=== PATIENT | male | born 1950 | race Hispanic/Latino ===

== ENCOUNTER 2018-01-07 12:40 | Emergency (ER) | payer OTHER ==
--- OUTSIDE RECORDS SUMMARY | 2018-01-07 12:41 | XMS REPORT ---
:1950 [facility] Address [facility] [address] Ale[address]andro [address] [place] [id number] Care Team Providers Name Role Phone Unavailable Unavailable Unavailable Problems This patient has no known problems. Allergies, Adverse Reactions, Alerts This patient has no known allergies or adverse reactions. Medications This patient has no known medications.
--- NOTE | 2018-01-07 16:02 | ER ---
Nurse's Notes [facility] Name: Adelaida Ramirez Age: 67 yrs Sex: Male : 1950 Arrival Date: 01/07/2018 Time: 12:41 Bed 28 Private MD: Diagnosis: Zoster [herpes zoster] Presentation: 01/07 12:57 Presenting complaint: Patient states: Rash to buttocks for 4 days. Believed to be aj poison chang. Transition of care: patient was not received from another setting of care. Onset of symptoms was January 03, 2018. Risk Assessment: Do you want to hurt yourself or someone else? Patient reports no desire to harm self or others. Initial Sepsis Screen: Does the patient meet any 2 criteria? No. Patient's initial sepsis screen is negative. Does the patient have a suspected source of infection? No. Patient's initial sepsis screen is negative. Care prior to arrival: None. 12:57 Method Of Arrival: Ambulatory 12:57 Acuity: PATRICK 4 aj Triage Assessment: 13:01 General: Appears in no apparent distress. comfortable, Behavior is calm, cooperative, aj appropriate for age. Pain: Denies pain. Neuro: Level of Consciousness is awake, alert, obeys commands, Oriented to person, place, time, situation, Appropriate for age. Respiratory: Airway is patent Respiratory effort is even, unlabored, Respiratory pattern is regular, symmetrical. Derm: Reports itching, to buttocks. Historical: - Allergies: 13:01 No Known Allergies; aj - Home Meds: 13:01 amantadine HCl 100 mg Oral tab 1 tab 2 times per day [Active]; Butalbital Compound aj 50-325-40 mg Oral tab 1 tab every 4 hours [Active]; apixaban oral 2.5mg oral 2 times per day [Active]; atorvastatin 10 mg oral tab 1 tab once daily [Active]; donepezil 10 mg oral tab [Active]; escitalopram oxalate 10 mg oral tab [Active]; fenofibrate 150 mg oral cap 1 cap once daily [Active]; levetiracetam 500 mg oral tab 1 tab 2 times per day [Active]; lisinopril 10 mg Oral tab 1 tab once daily [Active]; melatonin 3 mg Oral tab [Active]; metformin 500 mg Oral tab 1 tab 2 times per day [Active]; mirtazapine 30 mg Oral tab 1 tab once daily [Active]; pantoprazole 40 mg oral TbEC 1 tab once daily [Active]; tamsulosin 0.4 mg oral cp24 1 cap once daily [Active]; - PMHx: 13:01 Diabetes - NIDDM; Hypertension; CVA; aj - PSHx: 13:01 None; aj - Immunization history:: Adult Immunizations up to date. - Social history:: Smoking status: Patient/guardian denies using tobacco. - Ebola Screening: : Patient negative for fever greater than or equal to 101.5 degrees Fahrenheit, and additional compatible Ebola Virus Disease symptoms Patient denies exposure to infectious person Patient denies travel to an Ebola-affected area in the 21 days before illness onset No symptoms or risks identified at this time. Screenin:43 Abuse screen: Denies threats or abuse. Denies injuries from another. Nutritional mg2 screening: No deficits noted. Tuberculosis screening: No symptoms or risk factors identified. Fall Risk None identified. Assessment: 15:43 General: Appears in no apparent distress. comfortable, Behavior is calm, cooperative. mg2 Pain: Complains of pain in left buttock and left thigh Pain does not radiate. Pain currently is 4 out of 10 on a pain scale. Quality of pain is described as aching, Pain began gradually, 2-3 days ago. Is intermittent. Neuro: Level of Consciousness is awake, alert, obeys commands, Oriented to person, place, time, situation. Cardiovascular: Capillary refill < 3 seconds Patient's skin is warm and dry. Respiratory: Airway is patent Respiratory effort is even, unlabored, Respiratory pattern is regular, symmetrical. GI: No signs and/or symptoms were reported involving the gastrointestinal system. : No signs and/or symptoms were reported regarding the genitourinary system. EENT: No signs and/or symptoms were reported regarding the EENT system. Derm: Skin is intact, Skin is pink, warm \T\ dry. normal, Rash noted that is red, raised, urticaria. Musculoskeletal: No signs and/or symptoms reported regarding the musculoskeletal system. 16:17 Reassessment: Patient appears in no apparent distress at this time. Patient and/or mg2 family updated on plan of care and expected duration. Pain level reassessed. Patient is alert, oriented x 3, equal unlabored respirations, skin warm/dry/pink. Vital Signs: 13:01 BP 140 / 66; Pulse 84; Resp 17; Temp 98.6; Pulse Ox 97% on R/A; Weight 81.65 kg; Height aj 5 ft. 8 in. (172.72 cm); 16:17 BP 118 / 63; Pulse 85; Resp 18; Pulse Ox 100% on R/A; Pain 4/10; mg2 13:01 Body Mass Index 27.37 (81.65 kg, 172.72 cm) ED Course: 12:41 Patient arrived in ED. rg4 12:57 Triage completed. aj 13:01 Arm band placed on right wrist. Patient placed in waiting room, Patient notified of wait time. 14:51 Eze Menjivar PA is PHCP. pedro 14:51 Jaziel Wharton MD is Attending Physician. [facility] 15:39 Joe Rudolph, RN is Primary Nurse. mg2 15:43 No provider procedures requiring assistance completed. mg2 15:45 Patient has correct armband on for positive identification. Bed in low position. Call mg2 light in reach. Pulse ox on. NIBP on. 16:18 Patient did not have IV access during this emergency room visit. mg2 Administered Medications: No medications were administered Outcome: 16:01 Discharge ordered by . [facility] 16:18 Discharged to home ambulatory. mg2 16:18 Condition: stable 16:18 Discharge instructions given to patient, Instructed on discharge instructions, follow up and referral plans. Demonstrated understanding of instructions, follow-up care, medications, Prescriptions given X 1. 16:19 Patient left the ED. mg2 Signatures: Roro Miguel, RN RN Eze Brito PA PA jmm Garcia, Rubi 4 Joe Rudolph, RN RN mg2
--- NOTE | 2018-01-07 16:02 | EDPHYS ---
Physician Documentation [facility] Name: Adelaida Ramirez Age: 67 yrs Sex: Male : 1950 Arrival Date: 01/07/2018 Time: 12:41 Bed 28 Private MD: ED Physician Jaziel Wharton HPI: 01/07 15:56 This 67 yrs old Male presents to ER via Ambulatory with complaints of POISON jmm LIT. 15:56 The patient's rash thought to be caused by an unknown cause. The rash is located on the jmm right leg. Onset: The symptoms/episode began/occurred gradually, 3 day(s) ago. Associated signs and symptoms: Pertinent positives: itching, Pain. This is a 67 year old male with history of DM that presents to the ED with 3 days of rash to the left buttock and lower leg. Patient states that 8 days prior he was mowing his lawn and believes he may have poison lit. Patient states the rash is painful and itches. Denies fever. . Historical: - Allergies: 13: No Known Allergies; aj - Home Meds: 13:01 amantadine HCl 100 mg Oral tab 1 tab 2 times per day [Active]; Butalbital Compound aj 50-325-40 mg Oral tab 1 tab every 4 hours [Active]; apixaban oral 2.5mg oral 2 times per day [Active]; atorvastatin 10 mg oral tab 1 tab once daily [Active]; donepezil 10 mg oral tab [Active]; escitalopram oxalate 10 mg oral tab [Active]; fenofibrate 150 mg oral cap 1 cap once daily [Active]; levetiracetam 500 mg oral tab 1 tab 2 times per day [Active]; lisinopril 10 mg Oral tab 1 tab once daily [Active]; melatonin 3 mg Oral tab [Active]; metformin 500 mg Oral tab 1 tab 2 times per day [Active]; mirtazapine 30 mg Oral tab 1 tab once daily [Active]; pantoprazole 40 mg oral TbEC 1 tab once daily [Active]; tamsulosin 0.4 mg oral cp24 1 cap once daily [Active]; - PMHx: 13:01 Diabetes - NIDDM; Hypertension; CVA; aj - PSHx: 13:01 None; aj - Immunization history:: Adult Immunizations up to date. - Social history:: Smoking status: Patient/guardian denies using tobacco. - Ebola Screening: : Patient negative for fever greater than or equal to 101.5 degrees Fahrenheit, and additional compatible Ebola Virus Disease symptoms Patient denies exposure to infectious person Patient denies travel to an Ebola-affected area in the 21 days before illness onset No symptoms or risks identified at this time. ROS: 15:56 Constitutional: Negative for fever, chills, and weight loss, Cardiovascular: Negative [facility] for chest pain, palpitations, and edema, Respiratory: Negative for shortness of breath, cough, wheezing, and pleuritic chest pain, Abdomen/GI: Negative for abdominal pain, nausea, vomiting, diarrhea, and constipation. 15:56 Skin: Positive for rash. 15:56 All other systems are negative. Exam: 15:56 Head/Face: atraumatic. Chest/axilla: Normal chest wall appearance and motion. [facility] Cardiovascular: Regular rate and rhythm. No edema appreciated Respiratory: Normal respirations, no respiratory distress appreciated Abdomen/GI: Non distended, soft 15:56 Constitutional: The patient appears in no acute distress, alert, awake. 15:56 Skin: vesicular lesions noted to the left leg down to the mid thigh. no surrounding erythema or induration appreciated. 15:56 Neuro: Orientation: is normal, Mentation: is normal, Memory: is normal. 15:56 Psych: Behavior/mood is pleasant, cooperative. Vital Signs: 13:01 BP 140 / 66; Pulse 84; Resp 17; Temp 98.6; Pulse Ox 97% on R/A; Weight 81.65 kg; Height aj 5 ft. 8 in. (172.72 cm); 16:17 BP 118 / 63; Pulse 85; Resp 18; Pulse Ox 100% on R/A; Pain 4/10; mg2 13:01 Body Mass Index 27.37 (81.65 kg, 172.72 cm) aj MDM: 15:56 Patient medically screened. [facility] 16:00 Data reviewed: vital signs, nurses notes. Counseling: I had a detailed discussion with aishwarya the patient and/or guardian regarding: the historical points, exam findings, and any diagnostic results supporting the discharge/admit diagnosis, the need for outpatient follow up, to return to the emergency department if symptoms worsen or persist or if there are any questions or concerns that arise at home. ED course: Symptoms are unilateral, rash appears most consistent with herpes zoster. Patient will be prescribed antivirals and is advised to follow up with PCP in 1 to 2 days for reevaluation. . Administered Medications: No medications were administered Disposition: 01/07/18 16:01 Discharged to Home. Impression: Zoster [herpes zoster]. - Condition is Stable. - Discharge Instructions: Shingles. - Prescriptions for Valtrex 1 g Oral Tablet - take 1 tablet by ORAL route every 8 hours for 7 days; 21 tablet. - Medication Reconciliation Form, Thank You Letter, Antibiotic Education, Prescription Opioid Use form. - Follow up: Private Physician; When: 2 - 3 days; Reason: Recheck today's complaints, Continuance of care, Re-evaluation by your physician. - Notes: Please return to the ED if you develop increased swelling, pain, fever, or any other concerning symptoms. Addendum: 01/09/2018 07:49 Co-signature as Attending Physician, Jaziel Wharton MD I agree with the assessment and w a plan of care. Signatures: Roro Miguel, RN RN Eze Brito PA PA jmm Appiah, William, MD MD wa Gardose, Michele, RN RN mg2 Corrections: (The following items were deleted from the chart) 01/07 16:18 16:01 01/07/2018 16:01 Discharged to Home. Impression: Zoster [herpes zoster]. mg2 Condition is Stable. Forms are Medication Reconciliation Form, Thank You Letter, Antibiotic Education, Prescription Opioid Use. Follow up: Private Physician; When: 2 - 3 days; Reason: Recheck today's complaints, Continuance of care, Re-evaluation by your physician. aishwarya
[2018-01-07 16:23] VITALS: TEMP 98.6
[2018-01-07 16:25] VITALS: BP 118/63; O2SAT 100
== END 2018-01-07 16:18 | disposition home or self-care (01) ==
LOC: ER 12:40
DX: B02.9 Zoster without complications (principal); E11.9 Type 2 diabetes mellitus without complications; I10 Essential (primary) hypertension
CPT/HCPCS: 99283

== ENCOUNTER 2021-06-13 19:02 | Inpatient (IN) | payer OTHER ==
--- OUTSIDE RECORDS SUMMARY | 2021-06-13 19:06 | XMS REPORT | Continuity of Care Document ---
:1950 Author Organization [facility] t Address [address] [place] [address] Care Team Providers Name Role Phone Gregory Stokes Primary Care Physician CHELO KATZ Attending Clinician Unavailable Nicolette Davis Attending Clinician Unavailable CASEY CHAPPELL Attending Clinician Unavailable Chantale HOLT Attending Clinician Unavailable Thierry YIN Attending Clinician Unavailable Only, Db Test Attending Clinician Unavailable Edgardo TAN Attending Clinician EDGARDO Attending Clinician Unavailable Doctor Unassigned, Name Attending Clinician Unavailable Casey Chappell MD Attending Clinician KERLINE KATZ Attending Clinician Unavailable Minda Boogie MD Attending Clinician Unavailable DELL Attending Clinician Unavailable ISAIAS Attending Clinician Unavailable ROSE Attending Clinician Unavailable Peterson Attending Clinician Unavailable MANFRED Attending Clinician Unavailable MART Attending Clinician Unavailable RADIOLOGY Attending Clinician Unavailable Payers Payer Name Policy Type Policy Number Effective Date Expiration Date S satnam [employer] Ind[employer]ity [id number] 2017 COMP 00:00:00 GENERIC INTERFACED [id number] 2017 2024 [facility] PLAN 00:00:00 00:00:00 Problems Condition Condition Condition Status Onset Resolution Last Treating Co mments Source Name Details Category Date Date Treatment Clinician Date No known No known Disease Unive rs active active ity of problems problems [facility] History of History of Problem Resolve Univers diabetes diabetes d ity of mellitus mellitus [place] Physici ans DVT (deep DVT (deep Problem Active Uni vers venous venous [place] Physici ans BPPV BPPV Problem Active Univers (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 ysici vertigo), vertigo), ans 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, loss, Physici bilateral bilateral ans Subdural Subdural Problem Active Unive rs hemorrhage hemorrhage it y of [place] Physici ans Dysfunctio Dysfunctio Problem Active U nivers n of left n of left ity of eustachian eustachian [place] tube tube Physici ans Allergies, Adverse Reactions, Alerts Allergy Allergy Status Severity Reaction(s) Onset Inactive Treating Comm ents Source Name Type Date Date Clinician NO KNOWN Drug Active Univers ALLERGIE Class ity of S [facility] Social History Social Habit Start Date Stop Date Quantity Comments Source Exposure to Yes [facility] SARS-CoV-2 (event) Medica l [place] Sex Assigned At [birth year] [facility] 00:00:00 00:00:00 [facility] Smoking Status Start Date Stop Date Source Unknown if ever smoked [facility] Never smoker [facility] Physicians Medications Ordered Filled Start Stop Current Ordering Indication Dosage Frequency Signature Comments Components Source Medication Medication Date Date Medication? Clinician (SIG) Name Name Elikatiis 2.5 Eliquis 2.5 2018- Yes H Peterson 1 QD TAKE ONE Univers MG Oral MG Oral 2-10 M.D. TABLET BY ity of Tablet Tablet 08:19: MOUTH [place] 32 DAILY Physici ans atorvastati 2016-04 Yes 10mg Take 10 mg Univers n 10 mg 0-07 by mouth ity of tablet 11:35: at [place] 46 bedtime. Medical Branch atorvasta 2016-04 Yes 10mg Take 10 mg Univers n 10 mg 0-07 by mouth ity of tablet 11:35: at [place] 46 bedtime. Medical Branch atorvastacarolyn 2016-04 Yes 10mg Take 10 mg Univers n 10 mg 0-07 by mouth ity of tablet 11:35: at [place] 46 bedtime. Medical Branch atorvastati 2016-04 Yes 10mg Take 10 mg Univers n 10 mg 0-07 by mouth ity of tablet 11:35: at [place] 46 bedtime. Medical Branch meclizine 2016-04 Yes 32mg Take 1 Univer s 25 mg 0-07 tablet by ity of tablet 00:00: mouth 3 [place] 00 (three) Medical times Branch daily as needed for Dizziness. ondansetron 2016-04 Yes 4mg Take 1 Univ ers 4 mg 0-07 tablet by ity of disintegrat 00:00: mouth [place] ing tablet 00 every 8 Medica l (eight) Branch hours as needed for Nausea and Vomiting (N/V). meclizine 2016-04 Yes 32mg Take 1 Univer s 25 mg 0-07 tablet by ity of tablet 00:00: mouth 3 [place] 00 (three) Medical times Branch daily as needed for Dizziness. ondansetron 2016-04 Yes 4mg Take 1 Univ ers 4 mg 0-07 tablet by ity of disintegrat 00:00: mouth [place] ing tablet 00 every 8 Medica l (eight) Branch hours as needed for Nausea and Vomiting (N/V). meclizine 2016-04 Yes 32mg Take 1 Univer s 25 mg 0-07 tablet by ity of tablet 00:00: mouth 3 [place] 00 (three) Medical times Branch daily as needed for Dizziness. ondansetron 2016-04 Yes 4mg Take 1 Univ ers 4 mg 0-07 tablet by ity of disintegrat 00:00: mouth [place] ing tablet 00 every 8 Medica l (eight) Branch hours as needed for Nausea and Vomiting (N/V). meclizine 2016-04 Yes 32mg Take 1 Univer s 25 mg 0-07 tablet by ity of tablet 00:00: mouth 3 [place] 00 (three) Medical times Branch daily as needed for Dizziness. ondansetron 2016-04 Yes 4mg Take 1 Univ ers 4 mg 0-07 tablet by ity of disintegrat 00:00: mouth [place] ing tablet 00 every 8 Medica l (eight) Branch hours as needed for Nausea and Vomiting (N/V). metFORMIN 2014-04 Yes 1000mg Take 1,000 Univers (GLUCOPHAGE 2-04 mg by ity of ) 1,000 mg 22:48: mouth 2 [place] tablet 37 (two) Medical times Branch daily with meals. escitalopra 2014-04 Yes 10mg Take 10 mg Univers m oxalate 2-04 by mouth ity of (LEXAPRO) 22:48: daily. [place] 10 mg 37 Medical tablet Branch metFORMIN 2014-04 Yes 1000mg Take 1,000 Univers (GLUCOPHAGE 2-04 mg by ity of ) 1,000 mg 22:48: mouth 2 [place] tablet 37 (two) Medical times Branch daily with meals. escitalopra 2014-04 Yes 10mg Take 10 mg Univers m oxalate 2-04 by mouth ity of (LEXAPRO) 22:48: daily. [place] 10 mg 37 Medical tablet Branch metFORMIN 2014-04 Yes 1000mg Take 1,000 Univers (GLUCOPHAGE 2-04 mg by ity of ) 1,000 mg 22:48: mouth 2 [place] tablet 37 (two) Medical times Branch daily with meals. escitalopra 2014-04 Yes 10mg Take 10 mg Univers m oxalate 2-04 by mouth ity of (LEXAPRO) 22:48: daily. [place] 10 mg 37 Medical tablet Branch metFORMIN 2014-04 Yes 1000mg Take 1,000 Univers (GLUCOPHAGE 2-04 mg by ity of ) 1,000 mg 22:48: mouth 2 [place] tablet 37 (two) Medical times Branch daily with meals. escitalopra 2014-04 Yes 10mg Take 10 mg Univers m oxalate 2-04 by mouth ity of (LEXAPRO) 22:48: daily. [place] 10 mg 37 Medical tablet Branch baclofen 2014-04 Yes 20mg Take 1 Tab Uni vers (LIORESAL) 2-04 by mouth 3 ity of 20 mg 00:00: (three) [place] tablet 00 times Medical daily. Branch traMADOL 2014-04 Yes 50mg Take 1 Tab Uni vers (ULTRAM) 50 2-04 by mouth ity of mg tablet 00:00: every 6 [place] 00 (six) Medical hours as Branch needed for Pain (scale 4-6). Roc Hatfield PA-C / Don Blunt MD SEAN# [id number] DPS# [id number] x Lic.# [id number] NPI# [id number] baclofen 2014-04 Yes 20mg Take 1 Tab Uni vers (LIORESAL) 2-04 by mouth 3 ity of 20 mg 00:00: (three) [place] tablet 00 times Medical daily. Branch traMADOL 2014-04 Yes 50mg Take 1 Tab Uni vers (ULTRAM) 50 2-04 by mouth ity of mg tablet 00:00: every 6 [place] 00 (six) Medical hours as Branch needed for Pain (scale 4-6). Roc Hatfield PA-C / Don Blunt MD SEAN# [id number] DPS# [id number] x Lic.# [id number] NPI# [id number] baclofen 2014-04 Yes 20mg Take 1 Tab Uni vers (LIORESAL) 2-04 by mouth 3 ity of 20 mg 00:00: (three) [place] tablet 00 times Medical daily. Branch traMADOL 2014-04 Yes 50mg Take 1 Tab Uni vers (ULTRAM) 50 2-04 by mouth ity of mg tablet 00:00: every 6 [place] 00 (six) Medical hours as Branch needed for Pain (scale 4-6). Roc Hatfield PA-C / Don Blunt MD SEAN# [id number] DPS# [id number] x Lic.# [id number] NPI# [id number] baclofen 2014-04 Yes 20mg Take 1 Tab Uni vers (LIORESAL) 2-04 by mouth 3 ity of 20 mg 00:00: (three) [place] tablet 00 times Medical daily. Branch traMADOL 2014-04 Yes 50mg Take 1 Tab Uni vers (ULTRAM) 50 2-04 by mouth ity of mg tablet 00:00: every 6 [place] 00 (six) Medical hours as Branch needed for Pain (scale 4-6). Roc Hatfield PA-C / Don Blunt MD SEAN# [id number] DPS# [id number] x Lic.# [id number] NPI# [id number] Pantoprazol Pantoprazol Yes R.N. U nivers e Sodium 40 e Sodium 40 i ty of MG Oral MG Oral [place] Tablet Tablet Physici Delayed Delayed ans Release Release metFORMIN metFORMIN Yes R.N. Unive rs HCl - 500 HCl - 500 ity o f MG Oral MG Oral [place] Tablet Tablet Physici ans Tamsulosin Tamsulosin Yes R.N. Uni vers HCl - 0.4 HCl - 0.4 ity o f MG Oral MG Oral [place] Capsule Capsule Physici ans Fenofibrate Fenofibrate Yes R.N. U nivers 145 MG Oral 145 MG Oral i ty of Tablet Tablet [place] Physici ans Remeron 15 Remeron 15 Yes R.N. Uni vers MG Oral MG Oral ity of Tablet Tablet [facility] ans Amantadine Amantadine Yes R.N. Uni vers HCl - 100 HCl - 100 ity o f MG Oral MG Oral [place] Capsule Capsule Physici ans Melatonin 3 Melatonin 3 Yes R.N. U nivers MG Oral MG Oral ity of Tablet Tablet [place] Physici ans Atorvastati Atorvastati Yes R.N. U nivers n Calcium n Calcium ity o f 10 MG Oral 10 MG Oral [place] as Tablet Tablet Physici ans Fioricet Fioricet Yes R.N. Univers TABS TABS ity of [facility] ans Escitalopra Escitalopra Yes R.N. U nivers m Oxalate m Oxalate ity o f 10 MG Oral 10 MG Oral [place] [facility] Table[facility] Aricept 5 Aricept 5 Yes R.N. Unive rs MG Oral MG Oral ity of Tablet Tablet [facility] Fenofibrate Fenofibrate Yes Na Davis [address] [facility] Fioricet Fioricet Yes Na Davis [address] [facility] [facility] as needed [facility] Amantadine Amantadine Yes Na Davis [address] [facility] [address] HCl HCl [facility] Tamsulosin Tamsulosin Yes Na Davis [address] [facility] HCl HCl [facility] Keppra Keppra Yes Na Davis [address] [facility] Fluvastatin Fluvastatin Yes Na Davis [address] Sodium Sodium [facility] Lisinopril Lisinopril Yes Na Davis [address] [facility] Prozac Prozac Yes Na Davis [address] [facility] Aricept Aricept Yes Na Davis [address] [facility] bedtime [facility] Lexapro Lexapro Yes Na Davis [address] [facility] Yes Na Davis [address] [facility] Protonix Protonix Yes Na Davis [address] [facility] Pravastatin Pravastatin Yes Na Davis TAKE ONE [facility] Sodium Sodium TABLET BY [facility] - MOUTH ONCE [facility] DAILY [facility] Eliquis 2.5 Eliquis 2.5 Yes Na Davis one [facility] mg mg [facility] Aspirin Aspirin Yes Na Davis [address] [facility] Metformin Metformin Yes Na Davis [address] HCl HCl with meals [facility] Mirtazapine Mirtazapine Yes Na Davis [address] [facility] Melatonin Melatonin Yes Na Davis [address] [facility] [facility] at bedtime [facility] - as needed [facility]oria with food [facility] Donepezil Donepezil Yes Na Davis [address] HCl HCl at bedtime [facility] Immunizations Ordered Filled Immunization Date Status Comments [facility] Immunization Name Name SARS-COV-2 COVID-19 2020-07-12 Completed Unive rsity of PFIZER VACCINE 00:00:00 [place] [facility] SARS-COV-2 COVID-19 2020-07-12 Completed Unive rsity of PFIZER VACCINE 00:00:00 [facility] SARS-COV-2 COVID-19 2020-07-12 Completed Unive rsity of PFIZER VACCINE 00:00:00 [facility] SARS-COV-2 COVID-19 2020-07-12 Completed Unive rsity of PFIZER VACCINE 00:00:00 [facility] SARS-COV-2 COVID-19 2020-06-21 Completed Unive rsity of PFIZER VACCINE 00:00:00 [facility] SARS-COV-2 COVID-19 2020-06-21 Completed Unive rsity of PFIZER VACCINE 00:00:00 [facility] SARS-COV-2 COVID-19 2020-06-21 Completed Unive rsity of PFIZER VACCINE 00:00:00 [facility] SARS-COV-2 COVID-19 2020-06-21 Completed Unive rsity of PFIZER VACCINE 00:00:00 [facility] Vital Signs Vital Name Observation Time Observation Value Comments Source Body height 2020-10-29 175.3 cm [facility] 12:58:40 Body weight 2020-10-29 85.909 kg [facility] 12:58:40 BMI 2020-10-29 27.97 kg/m2 [facility] 12:58:40 BP Systolic 2018-05-12 153 mm[Hg] Location: DAY[place]; [facility] 13:35:00 Position: [place] Physician s Sitting BP Diastolic 2018-05-12 85 mm[Hg] Location: [place]; [facility] 13:35:00 Position: [place] Physician s Sitting Height 2018-05-12 69 [in_us] [facility] 13:35:00 [place] Physician s Temperature 2018-05-12 98.3 [degF] Method: Oral [facility] 13:35:00 [place] Physician s Heart Rate 2018-05-12 71 /min [facility] 13:35:00 [place] Physician s BP Systolic 2018-05-01 119 mm[Hg] Location: [place]; [facility] 16:48:00 Position: [place] Physician s Sitting BP Diastolic 2018-05-01 66 mm[Hg] Location: [place]; [facility] 16:48:00 Position: [place] Physician s Sitting Height 2018-05-01 69 [in_us] [facility] 16:48:00 [place] Physician s Weight 2018-05-01 205.25 [lb_av] University 16:48:00 [place] Physician s Body Mass Index 2018-05-01 30.31 kg/m2 University o f Calculated 16:48:00 [place] Physician s Heart Rate 2018-05-01 78 /min Location: [facility] 16:48:00 Radial; [place] Physician s BP Systolic 2018-01-09 121 mm[Hg] Location: [place]; [facility] 16:11:00 Position: [place] Physician s Sitting BP Diastolic 2018-01-09 75 mm[Hg] Location: [place]; [facility] 16:11:00 Position: [place] Physician s Sitting Height 2018-01-09 69 [in_us] [facility] 16:11:00 [place] Physician s Body Mass Index 2018-01-09 28.35 kg/m2 University o f Calculated 16:11:00 [place] Physician s Weight 2018-01-09 192 [lb_av] [facility] 16:11:00 [place] Physician s Heart Rate 2018-01-09 79 /min Location: L [facility] 16:11:00 Radial; [place] Physician s Quality: Normal Respiration Rate 2018-01-09 16 /min Quality: Normal Universi [facility] 16:11:00 [place] Physician s Height 2018-01-09 69 [in_us] [facility] 15:46:00 [place] Physician s Body Mass Index 2018-01-09 28.35 kg/m2 University o Calculated 15:46:00 [place] Physician s Weight 2018-01-09 192 [lb_av] [facility] 15:46:00 [place] Physician s Procedures Procedure Date / Time Performed Performing Clinician Sourc e [place] DI[facility]NOSTIC LUMBAR 2020-10-29 15:17:00 Chelo Katz [facility] SPINAL PUNCTURE W/FLUOR OR CT [N] Venous Duplex 2018-01-09 00:00:00 [facility] Lower Bilateral Physicians VR 2017-11-15 00:00:00 [facility] Vascular/Interventiona Physician s l Radiology Consult History of Ankle [facility] Surgery Physicians Plan of Care Planned Activity Planned Date Details Comments Source Diagnostic Test 2018-04-06 [N] Venous Duplex [facility] Pending 00:00:00 Lower Bilateral Physicians [code = [N] Venous Duplex Lower Bilateral] Encounters Start End Encounter Admission Attending Care Care Encounter Source Date/Time Date/Time Type Type Clinicians Facility Department ID 2021-06-09 Outpatient [facility] [id number] [place] 01:04:34 [facility] 2021-05-20 Outpatient Davis, Na STLMLC STLMLC [id number] [facility] 12:31:17 [id number] [facility] 2021-05-20 Outpatient Davis, Na STLMLC STLMLC [id number] [facility] [address] 12:24:36 [id number] [facility] 2021-05-20 Outpatient Davis, Na STLMLC STLMLC [id number] [facility] [address] 12:22:46 [id number] [facility] 2021-05-20 Outpatient Davis, Na STLMLC STLMLC [id number] [facility] [address] 12:22:08 [id number] [facility] 2021-05-20 Outpatient Davis, Na STLMLC STLMLC [id number] [facility] 12:20:37 [id number] [facility] 2021-05-20 Outpatient Davis, Na STLMLC STLMLC [id number] [facility] [address] 12:20:01 [id number] [facility] 2021-05-20 Outpatient Davis, Na STLMLC STLMLC [id number] [facility] 12:12:09 [id number] [facility] 2021-05-20 Outpatient Davis, Na STLMLC STLMLC [id number] [facility] 11:44:44 [id number] [facility] 2021-05-20 Outpatient Davis, Na STLMLC STLMLC [id number] [facility] 11:21:02 [id number] [facility] 2021-05-20 Outpatient Davis, Na STLMLC STLMLC [id number] [facility] [address] 11:20:21 [id number] [facility] 2021-05-20 Outpatient Davis, Na STLMLC STLMLC [id number] [facility] [address] 11:16:41 [id number] [facility] 2021-05-20 Outpatient Advis, Na STLMLC STLMLC [id number] [facility] 11:16:28 [id number] [facility] 2021-03-17 Inpatient [facility]I [facility] [id number] [facility] 13:22:18 JOSE ANTONIO CHAPPELL 2020-12-21 Outpatient [facility] [id number] [place] 01:06:57 [facility] 2020-10-11 Outpatient [facility] [id number] [place] 01:06:38 [facility] 2021-04-25 2021-04-25 Telephone GODFREY [place] [id number] Univers 00:00:00 00:00:00 Michelle ALAN [id number] [facility] [id number] Gideon as [id number] [place] [id number] Branch 2021-04-23 2021-04-23 Laboratory Only, Ang Db Test [facility] 1.2.8 [id number] [id number] Univers 12:45:00 13:00:00 Only Yelitza Reynoso [facility] [id number] ity of [place] [id number] Gideon as ELO?BLEA [id number] Wy goldymarisol SOLITAR[facility] Branch MEDICAL OFFICE BUILDING 2021-04-23 2021-04-23 Outpatient Becka REYNOSO [facility] [id number] [facility] 12:45:00 12:45:00 YELITZA ity of [facility] 2021-04-23 2021-04-23 Letter Doctor GODFREY [id number] Univers 00:00:00 00:00:00 (Out) Unassigned, DAYANNA [id number] ity of [place] [facility] [id number] Gideon as [id number] [address] 2021-04-23 2021-04-23 Letter Doctor GODFREY [id number] Univers 00:00:00 00:00:00 (Out) Unassigned, DAYANNA [id number] ity of [place] [facility] [id number] Gideon as [phone] [address] 2020-12-01 2020-12-01 EXT [facility] OP Esquenazi EXT MSRDP [id number] [place] 00:00:00 00:00:00 Chappell, [id number] [facility] [id number] 2020-10-29 2020-10-29 Outpatient [facility] [id number] [facility] 07:49:00 11:10:00 CHELO 2020-10-21 2020-10-21 EXT [facility] OP Minda EXT MSRDP [id number] [place] 00:00:00 00:00:00 Keagan, LOCATION [id number] [facility] [id number] 2020-10-16 2020-10-16 EXT [facility] OP Sterling, EXT MSRDP [id number] [place] 00:00:00 00:00:00 Chelo LOCATION [id number] H ealth [id number] 2020-10-08 2020-10-08 Outpatient [facility] [id number] [facility] 2020-10-06 2020-10-06 EXT [facility] OP [place], EXT MSRDP [id number] [place] 00:00:00 00:00:00 Chelo LOCATION [id number] H ealth [id number] 2020-10-02 2020-10-02 EXT [facility] OP [place], EXT MSRDP [id number] [place] 00:00:00 00:00:00 Chelo LOCATION [id number] H ealth [id number] 2020-09-09 2020-09-09 EXT [facility] OP Minda EXT MSRDP [id number] [place] 00:00:00 00:00:00 Boogie, LOCATION [id number] Health Magy [id number] 2020-07-25 2020-07-25 Outpatient [facility] [id number] [facility] 00:[facility]00 [facility] 2020-06-13 2020-06-13 Outpatient [facility] [id number] [facility] 00:[facility]00 [facility] 2020-05-23 2020-05-23 Outpatient [facility] [id number] [facility]00 [facility] 2020-05-21 2020-05-21 Outpatient [facility] [id number] [facility] 00[facility]00 [facility] 2020-05-09 2020-05-09 Outpatient [facility] [id number] [facility] 00:[facility]00 [facility] 2020-05-08 2020-05-08 Outpatient [facility] [id number] [facility] 00:[facility]00 [facility] 2020-04-21 2020-04-21 Outpatient [facility] [id number] [facility] 00:[facility]00 [facility] 2020-04-07 2020-04-07 Outpatient [facility] [id number] [facility] 00[facility]00 [facility] 2020-04-03 2020-04-03 Outpatient [facility] [id number] [facility] 00:[facility]00 [facility] 2020-03-27 2020-03-27 Outpatient [facility] [id number] [facility] 00:[facility] 00[facility]00 [facility] 2020-01-07 2020-01-07 [facility] [id number] 11:40:00 11:40:00 t [facility] Outpati ent Clinics 2019-10-04 2019-10-04 [facility] [id number] 09:21:00 09:21:00 t [facility] Outpati ent Clinics 2019-10-01 2019-10-01 [facility] [id number] 15:00:00 15:00:00 t Specialty/U Charley kes - Specialty rology Memori a /Urology Clinic l Clinic Outpati ent Clinics 2019-08-30 2019-08-30 [facility] [id number] 14:45:00 14:45:00 t Specialty/U Charley kes - Specialty rology Memori a /Urology Clinic l Clinic Outpati ent Clinics 2019-08-27 2019-08-27 [facility] [id number] 08:55:00 08:55:00 t Specialty/U Charley kes - Specialty rology [facility] a /Urology Clinic l Clinic Outpati ent Clinics 2019-07-30 2019-07-30 [facility] [id number] 15:40:00 15:40:00 [place] [facility] [employer] Luke s - Drive [facility] Medicine Outpati ent Clinics 2019-07-27 2019-07-27 [facility] [id number] 15:19:00 15:19:00 t [place] [employer] s - Drive [facility] Medicine Outpati ent Clinics 2019-05-24 2019-05-24 [facility] [id number] 10:22:00 10:22:00 t [place] [employer] s - Drive [facility] Medicine Outpati ent Clinics 2019-03-26 2019-03-26 [facility] [id number] 15:40:00 15:40:00 t [place] [employer] s - Drive [facility] Medicine Outpati ent Clinics 2018-11-02 2018-11-02 [facility] [id number] 15:40:00 15:40:00 t [facility] [place] s - Drive [facility] Medicine Outpati ent Clinics 2018-10-24 2018-10-24 [facility] [id number] 13:54:00 13:54:00 t [place] [employer] s - Drive [facility] Medicine Outpati ent Clinics 2018-10-20 2018-10-20 [facility] [id number] 13:32:00 13:32:00 t [place] [employer] s - Drive [facility] Medicine Outpati ent Clinics 2018-10-11 2018-10-11 [facility] [id number] 15:03:00 15:03:00 t [place] [facility] [employer] s - Drive [facility] 2018-07-21 2018-07-21 [facility] [id number] [address] 14:10:00 14:10:00 [facility] [place] [facility] [facility] [place] s - Drive [facility] Out[facility] Clin[facility] 2018-07-21 2018-07-21 [facility] [id number] 13:51:00 13:51:00 t [facility] Outpati ent [facility] 2018-06-29 2018-06-29 VIELKA Bright [id number] Univers 14:30:00 14:30:00 t; MILAGRO SHARPE ittarun of [facility] ans 2018-06-06 2018-06-06 [facility] [id number] 15:15:00 15:15:00 t [facility] Outpati ent [facility] 2018-05-12 2018-05-12 VIELKA Bright [facility] [id number] Univers 15:30:00 15:30:00 t; MILAGRO SHARPE yngology - i ty [facility] ans 2018-05-12 2018-05-12 VIELKA Fisher [facility] [id number] Univers 13:30:00 13:30:00 t; Serene DONAHUE yngology - ittarun [facility] Se[facility] DONAHUE [facility] ans 2018-05-11 2018-05-11 VIELKA May Otorhinolar [id number] Univers 15:00:00 15:00:00 t; CALIN yngology - ity [facility] ans 2018-05-09 2018-05-09 [facility] [id number] 14:48:00 14:48:00 t [facility] Outpati ent Clinics 2018-05-01 2018-05-01 VIELKA Mcconnell Cardiology [id number] Univers 16:45:00 16:45:00 t; Serene Mccanny of Jennifer Winkler M.D. Physici ans 2018-04-10 2018-04-10 VIELKA Mcconnell General [id number] Univers 16:00:00 16:00:00 t; Serene Mccann Medicine Jennifer Lambert M.D. Physici ans 2018-04-06 2018-04-06 VIELKA Triplett [id number] Univers 14:00:00 14:00:00 t; HODA SHEARER ity [facility] Physici ans 2018-03-31 2018-03-31 Appointkorin ESPARZA, [facility] [id number] Univers 14:30:00 14:30:00 t; Serene DONAHUE of [place], [place] Serene DONAHUE Physi ci ans 2018-03-29 2018-03-29 Appointkorin MART, [facility] [id number] Univers 15:00:00 15:00:00 t; MARIELENA ity [facility] Physici ans 2018-03-20 2018-03-20 [facility] [id number] 14:15:00 14:15:00 t [facility] 2018-01-09 2018-01-09 Appointkorin Winkler [facility] Cardiology [id number] Univers 16:00:00 16:00:00 t; Serene Mccann of [facility] Jennifer Mccann M.D. Physici ans 2018-01-09 2018-01-09 [facility] [id number] 09:15:00 09:15:00 t [facility] 2017-10-24 2017-10-24 AppointVIELKA Mc [facility] [id number] Univers 09:30:00 09:30:00 t; MLIAGRO SHARPE [facility] Physici ans 2017-10-24 2017-10-24 Appointkorin ESPARZA, [facility] [id number] Univers 09:15:00 09:15:00 t; Serene DONAHUE of [place], [place] Serene DONAHUE Physi ci ans 2017-10-18 2017-10-18 [facility] JOSEFINA, [facility] [id number] Univers 10:00:00 10:00:00 t; PROVIDER it y of RADIOLOGY, [place] Physici PROVIDER ans Results This patient has no known results.
[2021-06-13 20:03] LABS: Urine Blood Negative (Negative); Urine Glucose Negative (Negative); Urine Protein 1+ (Negative); Urine Specific Gravity >=1.030 (1.005-1.030)
[2021-06-13 20:15] LABS: Protime INR 1.21
[2021-06-13 20:17] LABS: Absolute Lymphocytes (CBC) 2.1 K/uL (0.7-4.9); Hematocrit 40.4 % (39.6-49.0); Lymphocytes % 22.2 % (15.3-44.8); MPV 8.2 fL (7.6-11.3); RBC Red Blood Cell Count 4.93 M/uL (4.33-5.43)
--- NOTE | 2021-06-13 20:30 | RAD REPORT ---
EXAM DESCRIPTION: CT - Head Brain Wo Cont - 06/13/2021 8:11 pm CLINICAL HISTORY: Fever;Dizziness COMPARISON: No comparisonsHead C Spine Mpr Wo Con dated 07/13/2017 TECHNIQUE: Axial 5 mm thick images of the head were obtained without IV contrast. All CT scans are performed using dose optimization technique as appropriate and may include automated exposure control or mA/KV adjustment according to patient size. FINDINGS: No acute intracranial hemorrhage is present. No mass effect, edema or shift of midline str uctures. Asymmetry is created by head tilt. Right temporal region encephalomalacia is present. There are postsurgical changes to the cranial vault in this region. Right frontal parietal craniotomy defec ts present. There is craniectomy defect in the lateral right temporal bone. No acute cortical based i nfarction. No cortical edema or sulcal effacement. Atrophy changes are present and have progressed si nce 2018. Ventricles are in proportion to the amount of volume loss. Right lateral ventricle is asymm etrically enlarged due to the right-sided encephalomalacia. There is chronic ischemic change in the c erebral white matter also progressive from 2018. No residual or recurrent right-sided subdural hemato ma. No abnormal extra-axial fluid collections. Mastoid air cells and visualized portions of the paranasal sinuses are clear. No globe or orbital con tent abnormality seen. No acute bony findings. IMPRESSION: No hemorrhage, mass or acute intracranial finding identifiable. Atrophy and chronic ischemic changes have progressed since 2018 comparison and there is right tempora l encephalomalacia or resected brain parenchyma now present. Right temporal craniectomy and right frontal parietal craniotomy surgical changes are noted related t o treatment of the subdural hematoma seen in 2018.
--- NOTE | 2021-06-13 20:46 | RAD REPORT ---
EXAM DESCRIPTION: RAD - Chest Single View - 06/13/2021 8:29 pm CLINICAL HISTORY: COUGH COMPARISON: Portable 07/13/2017, portable 06/20/2014 TECHNIQUE: AP portable chest image was obtained 06/13/2021 8:29 pm . FINDINGS: Lungs are clear. Interstitial pattern is not significantly different from comparison. Righ t hemidiaphragm elevation was seen previously. Heart and vasculature are normal. No measurable pleura l effusion and no pneumothorax. No acute bony abnormality seen. No acute aortic findings suspected. IMPRESSION: No acute cardiopulmonary process.
[2021-06-13] MEDS ORDERED: D5 0.45 NS 0 ML IV ONE (21:08)
[2021-06-13] MEDS ORDERED: CEFTRIAXONE 1000 MG/VIAL ONE (21:08)
[2021-06-13] MEDS ORDERED: NA CHLORIDE 0.9% 500 ML ONE (21:08)
[2021-06-13] MEDS ORDERED: NACHLORIDE 0.45% 1,000 ML IV ONE (21:13)
[2021-06-13 21:21] LABS: ALT/SGPT 23 U/L (12-78); Albumin 3.5 g/dL (3.4-5.0); Alkaline Phosphatase 45 U/L (45-117); BUN Blood Urea Nitrogen 15 mg/dL (7-18); Bicarbonate 27 mmol/L (21-32); Bilirubin Direct < 0.1 mg/dL (0-0.2); Bilirubin Total 0.2 mg/dL (0.2-1.0); Glucose Level 86 mg/dL (74-106); NT PRO-BNP 60 pg/mL (<125); Sodium Level 142 mmol/L (136-145)
[2021-06-13 21:22] LABS: AST/SGOT 24 U/L (15-37); Potassium 3.9 mmol/L (3.5-5.1)
[2021-06-13 22:03] LABS: SARS-COV-2 RT PCR NEGATIVE (NEGATIVE)
[2021-06-13] MEDS ORDERED: NA CHLORIDE 0.9% 1,000 ML ONE (22:42)
--- NOTE | 2021-06-13 22:59 | EDPHYS ---
Physician Documentation [facility] Name: Adelaida Ramirez Age: 71 yrs Sex: Male : 1950 Arrival Date: 06/13/2021 Time: 19:14 Bed 14 Private MD: ED Physician Donnell Winkler HPI: 06/13 22:48 This 71 yrs old Male presents to ER via EMS with complaints of Altered Mental alicja Status. 22:48 The patient presents with agitation, confusion, trouble concentrating. Onset: The alicja symptoms/episode began/occurred 3 day(s) ago. Possible causes: CVA or TIA, head injury, sepsis. Associated signs and symptoms: Pertinent positives: ataxia, combativeness, confusion, gait abnormality. Current symptoms: In the emergency department the patient's symptoms have improved, moderately, is more alert. Patient's baseline: Neuro: alert and fully oriented. The patient has experienced similar episodes in the past, a few times. Historical: - Allergies: 19:23 NKDA; sv1 - Immunization history:: Adult Immunizations up to date, Client reports receiving the 2nd dose of the Covid vaccine, Last tetanus immunization: up to date < 5 years ago. - Social history:: Smoking status: Patient denies any tobacco usage or history of. - Family history:: not pertinent. ROS: 22:51 Constitutional: Negative for fever, chills, and weight loss, Eyes: Negative for injury, alicja pain, redness, and discharge, ENT: Negative for injury, pain, and discharge, Neck: Negative for injury, pain, and swelling, Cardiovascular: Negative for chest pain, palpitations, and edema, Respiratory: Negative for shortness of breath, cough, wheezing, and pleuritic chest pain, Abdomen/GI: Negative for abdominal pain, nausea, vomiting, diarrhea, and constipation, Back: Negative for injury and pain, : Negative for injury, bleeding, discharge, and swelling, MS/Extremity: Negative for injury and deformity, Skin: Negative for injury, rash, and discoloration, Psych: Negative for depression, anxiety, suicide ideation, homicidal ideation, and hallucinations, Allergy/Immunology: Negative for hives, rash, and allergies, Endocrine: Negative for neck swelling, polydipsia, polyuria, polyphagia, and marked weight changes, Hematologic/Lymphatic: Negative for swollen nodes, abnormal bleeding, and unusual bruising. 22:51 Neuro: Positive for altered mental status, weakness. Exam: 22:51 Constitutional: This is a well developed, well nourished patient who is awake, alert, alicja and in no acute distress. Head/Face: Normocephalic, atraumatic. Eyes: Pupils equal round and reactive to light, extra-ocular motions intact. Lids and lashes normal. Conjunctiva and sclera are non-icteric and not injected. Cornea within normal limits. Periorbital areas with no swelling, redness, or edema. ENT: Nares patent. No nasal discharge, no septal abnormalities noted. Tympanic membranes are normal and external auditory canals are clear. Oropharynx with no redness, swelling, or masses, exudates, or evidence of obstruction, uvula midline. Mucous membranes moist. Neck: Trachea midline, no thyromegaly or masses palpated, and no cervical lymphadenopathy. Supple, full range of motion without nuchal rigidity, or vertebral point tenderness. No Meningismus. Chest/axilla: Normal chest wall appearance and motion. Nontender with no deformity. No lesions are appreciated. Cardiovascular: Regular rate and rhythm with a normal S1 and S2. No gallops, murmurs, or rubs. Normal PMI, no JVD. No pulse deficits. Respiratory: Lungs have equal breath sounds bilaterally, clear to auscultation and percussion. No rales, rhonchi or wheezes noted. No increased work of breathing, no retractions or nasal flaring. Abdomen/GI: Soft, non-tender, with normal bowel sounds. No distension or tympany. No guarding or rebound. No evidence of tenderness throughout. Back: No spinal tenderness. No costovertebral tenderness. Full range of motion. Male : Normal genitalia with no discharge or lesions. Skin: Warm, dry with normal turgor. Normal color with no rashes, no lesions, and no evidence of cellulitis. MS/ Extremity: Pulses equal, no cyanosis. Neurovascular intact. Full, normal range of motion. Psych: Awake, alert, with orientation to person, place and time. Behavior, mood, and affect are within normal limits. 22:51 ECG was reviewed by the Attending Physician. 22:51 Neuro: Orientation: to person, Not oriented to place, time, situation, Mentation: Cranial nerves: grossly normal, is grossly normal based on the patient's age, no acute changes, Cerebellar function: is grossly normal, Motor: moves all fours, Sensation: unable to test, Gait: not tested. seizure activity, is not displayed by the patient. Vital Signs: 19:15 BP 134 / 70 LA Supine (auto/reg); Pulse 79 MON; Resp 18 S; Temp 99.4; Pulse Ox 95% on sv1 R/A; Weight 69.4 kg; Height 5 ft. 6 in. (167.64 cm); Pain 0/10; 19:45 BP 117 / 66 LA Supine (auto/reg); Pulse 86 MON; Resp 20 S; Pulse Ox 97% on R/A; Pain sv1 0/10; 21:00 BP 120 / 70 LA Supine (auto/reg); Pulse 74 MON; Resp 20 S; Pulse Ox 94% on R/A; Pain sv1 0/10; 22:28 BP 130 / 71 LA Supine (auto/reg); Pulse 71; Resp 24 S; Pulse Ox 96% on R/A; Pain 0/10; sv1 19:15 Body Mass Index 24.69 (69.40 kg, 167.64 cm) sv1 MDM: 19:28 Patient medically screened. alicja 23:13 Differential Diagnosis altered mental status, sepsis. Differential Diagnosis: CVA, alicja electrolyte abnormality, intracranial bleed, pneumonia, seizure, sepsis, TIA, UTI, volume depletion. Data reviewed: vital signs, nurses notes, lab test result(s), EKG, radiologic studies, CT scan, plain films. Data interpreted: resident services coordinator: rate is 71 beats/min, rhythm is regular, Pulse oximetry: on room air is 96 %. Test interpretation: by ED physician or midlevel provider: ECG, plain radiologic studies. Counseling: I had a detailed discussion with the patient and/or guardian regarding: the historical points, exam findings, and any diagnostic results supporting the discharge/admit diagnosis, lab results, radiology results, the need for further work-up and treatment in the hospital. 06/13 19:40 Order name: Glucose, Ancillary Testing; Complete Time: 20:34 EDMS 06/13 19:42 Order name: Basic Metabolic Panel [facility] 06/13 19:42 Order name: CBC with Diff [facility] 06/13 19:42 Order name: LFT's [facility] 06/13 19:42 Order name: Magnesium [facility] 06/13 19:42 Order name: NT PRO-BNP; Complete Time: 21:34 [facility] 06/13 19:42 Order name: PT-INR; Complete Time: 20:34 [facility] 06/13 19:42 Order name: Troponin HS; Complete Time: 21:34 [facility] 06/13 19:42 Order name: Urine Culture [facility] 06/13 19:42 Order name: Procalcitonin; Complete Time: 21:55 [facility] 06/13 19:42 Order name: Lactate; Complete Time: 20:34 [facility] 06/13 19:43 Order name: Basic Metabolic Panel; Complete Time: 21:34 [facility] 06/13 19:43 Order name: CBC with Automated Diff; Complete Time: 20:34 [facility] 06/13 19:43 Order name: Liver (Hepatic) Function; Complete Time: 21:34 [facility] 06/13 19:42 Order name: XRAY Chest (1 view); Complete Time: 21:13 [facility] 06/13 19:42 Order name: CT Head Brain wo Cont; Complete Time: 20:34 [facility] 06/13 19:43 Order name: Magnesium; Complete Time: 21:34 [facility] 06/13 20:03 Order name: Urine Dipstick-Ancillary; Complete Time: 20:34 [facility] 06/13 20:33 Order name: COVID-19/FLU A+B (Document "Date of Onset" if Symptomatic); Complete Time: [facility] 22:06/13 22:36 Order name: AMMONIA; Complete Time: 00:33 [facility] 06/13 22:36 Order name: UDS [facility] 06/13 22:36 Order name: ETOH Level; Complete Time: 00:33 [facility] 06/13 22:40 Order name: Urine Microscopic Only; Complete Time: 00:33 [facility] 06/14 00:12 Order name: Lactate Sepsis 2 HR Follow-up; Complete Time: 00:33 [facility] 06/13 19:42 Order name: EKG; Complete Time: 19:44 [facility] 06/13 19:42 Order name: Cardiac monitoring; Complete Time: 20:06 [facility] 06/13 19:42 Order name: EKG - Nurse/Tech; Complete Time: 20:06 [facility] 06/13 19:42 Order name: IV Saline Lock; Complete Time: 20:06 [facility] 06/13 19:42 Order name: Labs collected and sent; Complete Time: 20:07 [facility] 06/13 19:42 Order name: O2 Per Protocol; Complete Time: 20: [facility] 06/13 19:42 Order name: O2 Sat Monitoring; Complete Time: 20: [facility] 06/13 19:42 Order name: Urine Dipstick-Ancillary (obtain specimen); Complete Time: 20:06 [facility] 06/13 23:31 Order name: CONS Physician Consult EDMS EC:51 Rate is 72 beats/min. Rhythm is regular. QRS [place] is Normal. [place] interval is normal. QRS alicja interval is normal. QT interval is normal. No Q waves. T waves are Normal. No ST changes noted. Clinical impression: Normal ECG and No evidence of ischemia. Interpreted by me. Reviewed by me. Administered Medications: 22:18 Discontinued: NS 0.45 % 1000 ml IV at 125 ml/hr continuous alicja 21:21 Drug: NS 0.45 % 1000 ml Route: IV; Rate: 125 ml/hr; Site: right antecubital; sv1 22:41 Follow up: IV Status: Completed infusion; Order to discontinue infusion sv1 21:22 Drug: NS 0.9% 500 ml Route: IV; Rate: bolus; Site: right antecubital; sv1 22:36 Follow up: IV Status: Completed infusion; IV Intake: 500ml sv1 22:42 Follow up: Response: No adverse reaction sv1 22:06 Drug: Rocephin (cefTRIAXone) 1 grams Route: IV; Rate: per protocol; Site: right sv1 antecubital; 22:40 Follow up: Response: No adverse reaction sv1 22:40 Drug: NS 0.9% 1000 ml Route: IV; Rate: 125 ml/hr; Site: right antecubital; sv1 06/14 00:07 Not Given (different dose): Geodon 10 mg PO once; give with food (meal/snack) sv1 Point of Care Testing: Blood Glucose: 06/13 19:29 Blood Glucose: 135 mg/dL; Test Strip: Lot #: [id number]; Expiration: 12/23/2022; sv1 Ranges: Critical Glucose Levels:Adult <50 mg/dl or >400 mg/dl <40 mg/dl or >180 mg/dl Disposition Summary: 06/13/21 22:58 Hospitalization Ordered Hospitalization Status: Observation [facility] Provider: Julien Munson cha Location: Telemetry/MedSurg (observation) alicja Condition: Stable alicja Problem: new alicja Symptoms: have improved alicja Bed/Room Type: Standard alicja Room Assignment: (06/13/21 23:45) cg Diagnosis - Altered mental status, unspecified alicja - Dementia in other diseases classified elsewhere without behavioral disturbance alicja - Insomnia alicja - Delirium due to known physiological condition alicja Forms: - Medication Reconciliation Form alicja - SBAR form alicja Signatures: Dispatcher [employer] EDDonnell Sparks MD MD cha Attema, Lee, DRAFTER GEOLOGICAL-C DRAFTER GEOLOGICAL-Cla1 Chelo Nguyen, RN RN Dakotah Harrison RN RN sv1 Corrections: (The following items were deleted from the chart) 19:24 19:23 PMHx: Diabetes - NIDDM; sv1 sv1 19:24 19:23 PMHx: Hypertension; sv1 sv1 19:24 19:23 PMHx: CVA; sv1 sv1 23:45 22:58 alicja cg
--- NOTE | 2021-06-13 22:59 | ER ---
Nurse's Notes [facility] Name: Adelaida Ramirez Age: 71 yrs Sex: Male : 1950 Arrival Date: 06/13/2021 Time: 19:14 Bed 14 Private MD: Diagnosis: Altered mental status, unspecified;Dementia in other diseases classified elsewhere without behavioral disturbance;Insomnia;Delirium due to known physiological condition Presentation: 06/13 19:15 Chief complaint: EMS states: Patient has had AMS x 1 day. He has become aggressive, sv1 obsessive compulsive behavior. He is a diabetic and suffers from depression . In 2018 he fell and suffered a closed head injury. He has hydrocephalus because of the injury. Coronavirus screen: Client denies travel out of the [place] in the last 14 days. At this time, the client does not indicate any symptoms associated with coronavirus-19. At this time, unable to obtain information related to previous covid testing. Ebola Screen: No symptoms or risks identified at this time. Initial Sepsis Screen: Does the patient meet any 2 criteria? Altered Mental Status. No. Patient's initial sepsis screen is negative. Risk Assessment: Do you want to hurt yourself or someone else? Patient reports desire/thoughts of hurting themselves or someone else. Provider notified. Onset of symptoms was June 12, 2021. 19:15 Method Of Arrival: EMS: [facility] sv1 19:15 Acuity: PATRICK 2 sv1 19:31 Initial Sepsis Screen: Does the patient have a suspected source of infection? No. sv1 Patient's initial sepsis screen is negative. Triage Assessment: 19:23 General: Appears in no apparent distress. comfortable, well groomed, well developed, sv1 well nourished, Behavior is calm, cooperative, appropriate for age. Pain: Denies pain. Neuro: Level of Consciousness is awake, alert, obeys commands, confused. Historical: - Allergies: 19:23 NKDA; sv1 - Immunization history:: Adult Immunizations up to date, Client reports receiving the 2nd dose of the Covid vaccine, Last tetanus immunization: up to date < 5 years ago. - Social history:: Smoking status: Patient denies any tobacco usage or history of. - Family history:: not pertinent. Screenin:30 Abuse screen: Denies threats or abuse. Nutritional screening: No deficits noted. sv1 Tuberculosis screening: No symptoms or risk factors identified. Fall Risk No fall in past 12 months (0 pts). No secondary diagnosis (0 pts). No IV (0 pts). Ambulatory Aid- None/Bed Rest/Nurse Assist (0 pts). Gait- Weak (10 pts.). Mental Status- Oriented to own ability (0 pts). Total Bailey Fall Scale indicates No Risk (0-24 pts). Assessment: 22:42 Reassessment: The patient is to be admitted for observation. The patient's is at sv1 the bedside speaking to the provider.. 06/14 00:30 Reassessment: The patient is to bed admitted to room 202. Report was called to Viridiana carpenter rn. . Vital Signs: 06/13 19:15 BP 134 / 70 LA Supine (auto/reg); Pulse 79 MON; Resp 18 S; Temp 99.4; Pulse Ox 95% on sv1 R/A; Weight 69.4 kg; Height 5 ft. 6 in. (167.64 cm); Pain 0/10; 19:45 BP 117 / 66 LA Supine (auto/reg); Pulse 86 MON; Resp 20 S; Pulse Ox 97% on R/A; Pain sv1 0/10; 21:00 BP 120 / 70 LA Supine (auto/reg); Pulse 74 MON; Resp 20 S; Pulse Ox 94% on R/A; Pain sv1 0/10; 22:28 BP 130 / 71 LA Supine (auto/reg); Pulse 71; Resp 24 S; Pulse Ox 96% on R/A; Pain 0/10; sv1 19:15 Body Mass Index 24.69 (69.40 kg, 167.64 cm) sv1 ED Course: 19:14 Patient arrived in ED. sv1 19:15 Dakotah Harrison, RN is Primary Nurse. sv1 19:23 Triage completed. sv1 19:23 Arm band placed on left wrist. sv1 19:28 Donnell Winkler MD is Attending Physician. [facility] 19:30 Patient has correct armband on for positive identification. Bed in low position. Call sv1 light in reach. Side rails up X2. Adult w/ patient. 20:05 Magnesium Sent. sv1 20:05 CBC with Automated Diff Sent. sv1 20:05 Liver (Hepatic) Function Sent. sv1 20:05 Basic Metabolic Panel Sent. sv1 20:05 Lactate Sent. sv1 20:05 Urine Culture Sent. sv1 20:06 Procalcitonin Sent. sv1 20:06 Basic Metabolic Panel Sent. sv1 20:06 CBC with Diff Sent. sv1 20:06 LFT's Sent. sv1 20:06 Magnesium Sent. sv1 20:07 NT PRO-BNP Sent. sv1 20:07 PT-INR Sent. sv1 20:07 Troponin HS Sent. sv1 20:11 CT Head Brain wo Cont In Process Unspecified. EDMS 20:28 XRAY Chest (1 view) In Process Unspecified. EDMS 22:57 Julien Munson MD is Hospitalizing Provider. alicja Administered Medications: 22:18 Discontinued: NS 0.45 % 1000 ml IV at 125 ml/hr continuous alicja 21:21 Drug: NS 0.45 % 1000 ml Route: IV; Rate: 125 ml/hr; Site: right antecubital; sv1 22:41 Follow up: IV Status: Completed infusion; Order to discontinue infusion sv1 21:22 Drug: NS 0.9% 500 ml Route: IV; Rate: bolus; Site: right antecubital; sv1 22:36 Follow up: IV Status: Completed infusion; IV Intake: 500ml sv1 22:42 Follow up: Response: No adverse reaction sv1 22:06 Drug: Rocephin (cefTRIAXone) 1 grams Route: IV; Rate: per protocol; Site: right sv1 antecubital; 22:40 Follow up: Response: No adverse reaction sv1 22:40 Drug: NS 0.9% 1000 ml Route: IV; Rate: 125 ml/hr; Site: right antecubital; sv1 06/14 00:07 Not Given (different dose): Geodon 10 mg PO once; give with food (meal/snack) sv1 Point of Care Testing: Blood Glucose: 06/13 19:29 Blood Glucose: 135 mg/dL; Test Strip: Lot #: [id number]; Expiration: 12/23/2022; sv1 Ranges: Intake: 22:36 IV: 500ml; Total: 500ml. sv1 Outcome: 22:58 Decision to Hospitalize by Provider. alicja 06/14 01:19 Patient left the ED. sv1 Signatures: Dispatcher [employer] Donnell Wiley MD MD cha Villicano, Steven, RN RN sv1 Corrections: (The following items were deleted from the chart) 06/13 19:23 PMHx: Diabetes - NIDDM; 19:23 PMHx: Hypertension; sv1 1 19: PMHx: CVA; sv1 sv1
[2021-06-13 23:26] LABS: Urine Bacteria >50 /HPF (NONE SEEN); Urine Mucus 2+ /HPF (NONE SEEN)
[2021-06-13] MEDS ORDERED: ZIPRASIDONE MESYLA 20 MG/VIAL IM ONE (23:36)
[2021-06-14] MEDS ORDERED: GLUCAGON 1 MG/VIAL IM PRN (01:35)
[2021-06-14] MEDS ORDERED: D50W 25 GM/50 ML SYRINGE IV PRN (01:35)
[2021-06-14] MEDS ORDERED: ONDANSETRON 4 MG/2 ML VIAL IV PRN (01:35)
[2021-06-14] MEDS ORDERED: ACETAMINOPHEN 325 MG TABLET PO PRN (01:35)
[2021-06-14] MEDS ORDERED: SODIUM CHLORIDE 0.9% 10ML INJ IV PRN (01:35)
[2021-06-14] MEDS: NA CHLORIDE 0.9% 1,000 ML IV SCH ×2 (01:50→09:21)
[2021-06-14 01:57] VITALS: BMI 24.7
[2021-06-14 06:33] LABS: Absolute Lymphocytes (CBC) 2.6 K/uL (0.7-4.9); Hematocrit 40.1 % (39.6-49.0); Lymphocytes % 33.8 % (15.3-44.8); MPV 7.9 fL (7.6-11.3); RBC Red Blood Cell Count 4.87 M/uL (4.33-5.43)
[2021-06-14 06:46] LABS: BUN Blood Urea Nitrogen 10 mg/dL (7-18); Bicarbonate 25 mmol/L (21-32); Glucose Level 108 mg/dL (74-106); Potassium 3.4 mmol/L (3.5-5.1); Sodium Level 142 mmol/L (136-145)
[2021-06-14] MEDS: INSULIN -REGULAR HUMAN 50 UNIT/0.5 ML ML SQ SCH ×4 (07:30→20:08)
[2021-06-14] MEDS ORDERED: AMLODIPINE 5 MG TAB PO SCH (09:00)
[2021-06-14] MEDS ORDERED: PANTOPRAZOLE 40 MG INJ IVP SCH (09:00)
[2021-06-14] MEDS: FLUOXETINE 20 MG CAP PO SCH (09:22)
[2021-06-14] MEDS: BENAZEPRIL 20 MG TAB PO SCH (09:25)
--- NOTE | 2021-06-14 11:49 | P.HP ---
Certification for Inpatient Patient admitted to: Observation With expected LOS: <2 Midnights Patient will require the following post-hospital care: None Practitioner: I am a practitioner with admitting privileges, knowledge of patient current condition, hospital course, and medical plan of care. Services: Services provided to patient in accordance with Admission requirements found in Title 42 Section 412.3 of the Code of Federal Regulations Patient History Date of Service: 06/14/21 Primary Care Provider: Jose Reason for admission: Delirum History of Present Illness: Patient is a pleasant gentleman, seen in the office by Mrs Garcia. He has a histroy of dementia, htn and dm2. He was at a birthday constitution party and became rohini tated. The patient wanted to go home and was difficult to control. Was brought to the the office. The patient was found to have a mild uti. Otherwise a normal work up. He is well this morning. Answers questions appropriate. Think he is in [place]. States his family is from [facility]. Has no fevers,cough, chest pain or headaches. Allergies No Known Drug Allergies Allergy (Verified 08/22/14 11:14) Unknown No Known Allergies Allergy (Uncoded 07/13/17 17:53) Unknown Home Medications: Metformin HCl [Metformin ER Osmotic] 1,000 mg PO DAILY 06/20/14 Pantoprazole [Protonix Tab*] 40 mg PO DAILY 06/20/14 Amlodipine Besylate/Benazepril [Lotrel 5-20 mg Capsule] 1 cap PO DAILY 06/14/21 Donepezil [Aricept] 5 mg PO BEDTIME 06/14/21 Fish Oil/Dha/Epa [Fish Oil 1,200 mg Fish Oil] 1 cap PO BID 06/14/21 Fluoxetine HCl 30 mg PO DAILY 06/14/21 Fluvastatin Sodium [Lescol] 40 mg PO BID 06/14/21 - Past Medical/Surgical History Diabetic: Yes -: bladder surgery -: depression -: NIDDM - Family History Mother -: Diabetes Father -: Lung disease - Social History Smoking Status: Unknown if ever smoked Alcohol use: No CD- Drugs: No Caffeine use: No Review of Systems 10-point ROS is otherwise unremarkable Physical Examination - Vital Signs Temperature: 97.1 F Blood Pressure: 145/70 Pulse: 74 Respirations: 18 Pulse Ox (%): 99 - Physical Exam General: Alert, In no apparent distress HEENT: Atraumatic, PERRLA, Mucous membr. moist/pink, EOMI, Sclerae nonicteric Neck: Supple, 2+ carotid pulse no bruit, No LAD, Without JVD or thyroid abnormality Respiratory: Clear to auscultation bilaterally, Normal air movement Cardiovascular: Regular rate/rhythm, Normal S1 S2 Gastrointestinal: Normal bowel sounds, No tenderness Musculoskeletal: No tenderness Integumentary: No rashes Neurological: Normal gait, Normal speech, Normal strength at 5/5 x4 extr, Normal tone, Normal affect Lymphatics: No axilla or inguinal lymphadenopathy - Studies Laboratory Data (last 24 hrs) 06/13/21 19:42: WBC 9.60, Hgb 13.3 L, Hct 40.4, Plt Count 205 06/13/21 16:00: PT 14.0 H, INR 1.21 06/13/21 16:00: Sodium 142, Potassium 3.9, BUN 15, Creatinine 1.14, Glucose 86, Magnesium 2.0, Total Bilirubin 0.2, AST 24, ALT 23, Alkaline Phosphatase 45 Assessment and Plan - Problems (Diagnosis) (1) Delirium Current Visit: Yes Status: Resolved Plan: Patient may have been agitated from the excitement or the mild UTI. Will start him on macrobid. (2) Dementia Current Visit: Yes Status: Acute Plan: restart aricept Qualifiers: Dementia type: Alzheimer's (3) HTN (hypertension) Current Visit: Yes Status: Acute Plan: restart benzapril Qualifiers: Hypertension type: primary hypertension Qualified Code(s): I10 - Essential (primary) hypertension (4) DM2 (diabetes mellitus, type 2) Current Visit: Yes Status: Acute Plan: restart metformin Qualifiers: Diabetes mellitus exterminator insulin use: without [facility] use Discharge Plan: Home Plan to discharge in: 24 Hours - Advance Directives Does patient have a Living Will: No Does patient have a Durable POA for Healthcare: No - Code Status/Comfort Care Code Status Assessed: No Physician Review: Patient Assessed, Agree with Above Assessment and Plan Critical Care: No Time Spent Managing Pts Care (In Minutes): 45
[2021-06-14] MEDS: NITROFURAN MACRO 50 MG CAP PO SCH (20:05)
[2021-06-14] MEDS: DONEPEZIL HCL 5 MG TAB PO SCH (20:06)
[2021-06-14] MEDS: ATORVASTATIN 10 MG TAB PO SCH (20:06)
[2021-06-15] MEDS: INSULIN -REGULAR HUMAN 50 UNIT/0.5 ML ML SQ SCH ×4 (07:30→21:00)
[2021-06-15] MEDS ORDERED: clonazePAM 0.5 MG TAB PO PRN (08:12)
--- NOTE | 2021-06-15 08:16 | P.PN ---
Subjective Date of Service: 06/15/21 Primary Care Provider: Jose Chief Complaint: Delirum Subjective: No new changes (agitated throughout the night. His states this is a regular occurance.) Review of Systems 10-point ROS is otherwise unremarkable Physical Examination - Vital Signs Temperature: 97.8 F Blood Pressure: 138/74 Pulse: 96 Respirations: 18 Pulse Ox (%): 96 - Physical Exam General: Alert, In no apparent distress HEENT: Atraumatic, PERRLA, EOMI Neck: Supple, JVD not distended Respiratory: Clear to auscultation bilaterally, Normal air movement Cardiovascular: Regular rate/rhythm, Normal S1 S2 Gastrointestinal: Normal bowel sounds, No tenderness Musculoskeletal: No tenderness Integumentary: No rashes Neurological: Normal speech, Normal tone, Normal affect Lymphatics: No axilla or inguinal lymphadenopathy Assessment And Plan - Current Problems (Diagnosis) (1) Delirium Current Visit: Yes Status: Resolved Plan: Patient may have been agitated from the excitement or the mild UTI. Will start him on macrobid. (2) Dementia Current Visit: Yes Status: Acute Plan: restart aricept Qualifiers: Dementia type: Alzheimer's (3) HTN (hypertension) Current Visit: Yes Status: Acute Plan: restart benzapril Qualifiers: Hypertension type: primary hypertension Qualified Code(s): I10 - Essential (primary) hypertension (4) DM2 (diabetes mellitus, type 2) Current Visit: Yes Status: Acute Plan: restart metformin Qualifiers: Diabetes mellitus assisted insulin use: without assisted use (5) Discharge planning issues Current Visit: Yes Status: Acute Plan: is exhausted she has been taking care of him for 4 years. Since his head injury. As he does not sleep at night, she does not sleep. May need respite for the family with a short stay in a longterm. May be a permanent need. Discharge Plan: Correction Plan to discharge in: 48 Hours - Code Status/Comfort Care Code Status Assessed: No Physician Review: Patient Assessed, Agree with Above Assessment and Plan Critical Care: No Time Spent Managing PTS Care (In Minutes): 25
[2021-06-15] MEDS ORDERED: METFORMIN HCL 1000 MG PO SCH (09:00)
[2021-06-15] MEDS: NITROFURAN MACRO 50 MG CAP PO SCH ×2 (09:00→20:59)
[2021-06-15] MEDS ORDERED: HOME MED 1 EA UNK (Fluoxetine Hcl [Fluoxetine Hcl] 20 MG Tablet) PO SCH (09:00)
[2021-06-15] MEDS: BENAZEPRIL 20 MG TAB PO SCH (09:57)
[2021-06-15] MEDS: FLUOXETINE 20 MG CAP PO SCH (09:57)
[2021-06-15] MEDS: PANTOPRAZOLE 40MG TABLET PO SCH (09:58)
[2021-06-15] MEDS: METFORMIN ER 500 MG TAB PO SCH (10:00)
[2021-06-15] MEDS ORDERED: D10W 125 ML IV PRN (15:05)
[2021-06-15] MEDS ORDERED: LORazepam 2 MG/ML VIAL IV ONE (19:52)
[2021-06-15] MEDS ORDERED: WATER FOR INJ,STERILE 10 ML IM PRN (20:29)
[2021-06-15] MEDS ORDERED: ZIPRASIDONE MESYLA 20 MG/VIAL IM PRN (20:29)
[2021-06-15] MEDS: DONEPEZIL HCL 5 MG TAB PO SCH (20:59)
[2021-06-15] MEDS: ATORVASTATIN 10 MG TAB PO SCH (20:59)
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
[2021-06-16] MEDS: INSULIN -REGULAR HUMAN 50 UNIT/0.5 ML ML SQ SCH ×4 (07:30→19:40)
[2021-06-16] MEDS ORDERED: POTASSIUM 25 MEQ EFFERV TAB PO ONE (07:46)
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
[2021-06-16] MEDS: BENAZEPRIL 20 MG TAB PO SCH (10:00)
[2021-06-16] MEDS: METFORMIN ER 500 MG TAB PO SCH (10:00)
[2021-06-16] MEDS: NITROFURAN MACRO 50 MG CAP PO SCH ×2 (10:00→19:40)
[2021-06-16] MEDS: PANTOPRAZOLE 40MG TABLET PO SCH (10:00)
[2021-06-16] MEDS: FLUOXETINE 20 MG CAP PO SCH (10:00)
[2021-06-16] MEDS: DONEPEZIL HCL 5 MG TAB PO SCH (19:40)
[2021-06-16] MEDS: ZIPRASIDONE 20 MG CAP PO SCH (19:40)
[2021-06-16] MEDS: ATORVASTATIN 10 MG TAB PO SCH (19:40)
[2021-06-16] MEDS ORDERED: LORAZEPAM 0.5 MG TABLET PO ONE (21:57)
[2021-06-17] MEDS: INSULIN -REGULAR HUMAN 50 UNIT/0.5 ML ML SQ SCH ×4 (07:30→20:16)
[2021-06-17] MEDS: PANTOPRAZOLE 40MG TABLET PO SCH (07:59)
[2021-06-17] MEDS: BENAZEPRIL 20 MG TAB PO SCH (07:59)
[2021-06-17] MEDS: NITROFURAN MACRO 50 MG CAP PO SCH ×2 (08:00→20:05)
[2021-06-17] MEDS: FLUOXETINE 20 MG CAP PO SCH (08:00)
[2021-06-17] MEDS: METFORMIN ER 500 MG TAB PO SCH (08:00)
--- NOTE | 2021-06-17 09:57 | P.PN ---
Subjective Date of Service: 06/17/21 Primary Care Provider: Jose Chief Complaint: Delirum Subjective: No new changes Review of Systems 10-point ROS is otherwise unremarkable Physical Examination - Vital Signs Temperature: 97.9 F Blood Pressure: 146/70 Pulse: 73 Respirations: 17 Pulse Ox (%): 98 - Physical Exam General: Alert, In no apparent distress HEENT: Atraumatic, PERRLA, EOMI Neck: Supple, JVD not distended Respiratory: Clear to auscultation bilaterally, Normal air movement Cardiovascular: Regular rate/rhythm, Normal S1 S2 Gastrointestinal: Normal bowel sounds, No tenderness Musculoskeletal: No tenderness Integumentary: No rashes Neurological: Normal speech, Normal tone, Normal affect Lymphatics: No axilla or inguinal lymphadenopathy - Studies Microbiology Data (last 24 hrs): 06/13/21 19:55 Clean Catch Urine [place] Count - Final No growth. 06/13/21 19:55 Clean Catch Urine - Final No growth. Assessment And Plan - Current Problems (Diagnosis) (1) Delirium Current Visit: Yes Status: Acute Plan: Patient may have been agitated from the excitement or the mild UTI. Will start him on macrobid. 06/17 Patient is stable in the morning. However has sundowning. Being evaluated for [facility] (2) Dementia Current Visit: Yes Status: Chronic Plan: restart aricept Qualifiers: Dementia type: unspecified type Dementia behavioral disturbance: with behavioral disturbance Qualified Code(s): F03.91 - Unspecified dementia with behavioral disturbance (3) HTN (hypertension) Current Visit: Yes Status: Acute Plan: restart benzapril Qualifiers: Hypertension type: primary hypertension Qualified Code(s): I10 - Essential (primary) hypertension (4) DM2 (diabetes mellitus, type 2) Current Visit: Yes Status: Acute Plan: restart metformin Qualifiers: Diabetes mellitus group home insulin use: without group home use (5) Discharge planning issues Current Visit: Yes Status: Acute Plan: is exhausted she has been taking care of him for 4 years. Since his head injury. As he does not sleep at night, she does not sleep. May need respite for the family with a short stay in a detention. May be a permanent need. Discharge Plan: Other Plan to discharge in: 24 Hours - Code Status/Comfort Care Code Status Assessed: No Physician Review: Patient Assessed, Agree with Above Assessment and Plan Critical Care: No Time Spent Managing PTS Care (In Minutes): 25
[2021-06-17] MEDS: ATORVASTATIN 10 MG TAB PO SCH (20:05)
[2021-06-17] MEDS: DONEPEZIL HCL 5 MG TAB PO SCH (20:07)
[2021-06-17] MEDS: ZIPRASIDONE 20 MG CAP PO SCH ×2 (20:09→20:13)
[2021-06-18] MEDS: INSULIN -REGULAR HUMAN 50 UNIT/0.5 ML ML SQ SCH ×3 (07:30→15:47)
[2021-06-18 08:38] VITALS: O2SAT 97
[2021-06-18] MEDS: METFORMIN ER 500 MG TAB PO SCH (09:09)
[2021-06-18] MEDS: NITROFURAN MACRO 50 MG CAP PO SCH (09:09)
[2021-06-18] MEDS: PANTOPRAZOLE 40MG TABLET PO SCH (09:09)
[2021-06-18] MEDS: FLUOXETINE 20 MG CAP PO SCH (09:09)
[2021-06-18] MEDS: BENAZEPRIL 20 MG TAB PO SCH (09:10)
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
[2021-06-18 16:19] VITALS: BP 130/93; TEMP 97.8
== END 2021-06-18 19:20 | DRG 690 ==
LOC: ER 19:02 → INTOOBSV 23:32 → OBSVTOIN 23:32 → ERHOLD 23:32 → 2ND 06-14 00:37 → OBSVTOIN 06-15 18:43
PROVIDERS: ADMIT Internal Medicine; ATTEND Internal Medicine
DX: N39.0 Urinary tract infection, site not specified (principal); F05 Delirium due to known physiological condition; F02.81 Dementia in other diseases classified elsewhere, unspecified severity, with behavioral disturbance; G30.9 Alzheimer's disease, unspecified; I10 Essential (primary) hypertension; E11.9 Type 2 diabetes mellitus without complications; G47.00 Insomnia, unspecified; Z79.84 Long term (current) use of oral hypoglycemic drugs; Z79.899 Other long term (current) drug therapy; Z20.822 Contact with and (suspected) exposure to COVID-19
CPT/HCPCS: 0240U; 36415; 70450; 71045; 80048; 80076; 80320; 81003; 81015; 82140; 82947; 83605; 83735; 83880; 84145; 84484; 85025; 85610; 87086; 87088; 93005; 96361; 96374; 97116; 97162; 99284; C9113; G0378; J3486; J7030; J7040; J7799

== ENCOUNTER 2021-08-06 19:25 | Emergency (ER) | payer OTHER ==
--- OUTSIDE RECORDS SUMMARY | 2021-08-06 19:28 | XMS REPORT | Continuity of Care Document ---
:1950 Author Organization [facility] t Address [address] [place] [address] Care Team Providers Name Role Phone RANJITH VELÁZQUEZ Primary Care Physician Unavailable CHELO KATZ Attending Clinician Unavailable Kelsie Davis L Attending Clinician Unavailable CASEY CHAPPELL Attending Clinician Unavailable Chantale HOLT Attending Clinician Unavailable Macey OWEN Attending Clinician Unavailable Thierry YIN Attending Clinician Unavailable EDGARDO Attending Clinician Unavailable Only, Db Test Attending Clinician Unavailable Edgardo HAND BINDER CUTTER Attending Clinician Doctor Unassigned, Name Attending Clinician Unavailable Casey Chappell MD Attending Clinician KERLINE KATZ Attending Clinician Unavailable Minda Boogie MD Attending Clinician Unavailable Giovani DÍAZ Attending Clinician Unavailable DELL Attending Clinician Unavailable ISAIAS Attending Clinician Unavailable ROSE Attending Clinician Unavailable Peterson Attending Clinician Unavailable MANFRED Attending Clinician Unavailable MART Attending Clinician Unavailable RADIOLOGY Attending Clinician Unavailable Macey OWEN Admitting Clinician Unavailable Payers Payer Name Policy Type Policy Number Effective Date Expiration Date Mi hay [employer]StickerKELSIE [place] [employer] [id number] 2020 2020 MEDICARE 00:00:00 00:00:00 GENERIC WORKERS' Indemnity [id number] 2017 COMP 00:00:00 GENERIC INTERFACED [id number] 2017 2024 [facility] PLAN 00:00:00 00:00:00 DANNY/FRANCES [id number] 2021 MEDICARE ADVANTAGE 00:00:00 Problems Condition Condition Condition Status Onset Resolution Last Treating Co mments Source Name Details Category Date Date Treatment Clinician Date No known No known Disease Unive rs active active ity of problems problems [facility] History of History of Problem Resolve Univers diabetes diabetes d ity of mellitus mellitus [place] [facility] DVT (deep DVT (deep Problem [...] Unive rs hemorrhage hemorrhage it y of [place] [facility] Dysfunctio Dysfunctio Problem Active U nivers n of left n of left ity of [place] tube tube Physici ans Allergies, Adverse Reactions, Alerts Allergy Allergy Status Severity Reaction(s) Onset Inactive Treating Comm ents Source Name Type Date Date Clinician NO KNOWN Drug Active Univers ALLERGIE Class ity of S [facility] Social History Social Habit Start Date Stop Date Quantity Comments Source Exposure to Unable to assess Univers ity of SARS-CoV-2 [place] [facility] (event) Williams Sex Assigned At [birth year] Universit y of 00:00:00 00:00:00 [facility] Smoking Status Start Date Stop Date Source Never smoker [facility] xa Physicians Unknown if ever smoked [facility] Medications Ordered Filled Start Stop Current Ordering Indication Dosage Frequency Signature Comments Components Source Medication Medication Date Date Medication? Clinician (SIG) Name Name lidocaine 2021- No 10mL 10 mL, Unive rs 1% 3-15 -15 Infiltrati ity of (XYLOCAINE) 03:45: 02:51 on, ONCE, [place] 10 mg/mL (1 00 :00 1 dose, On Me dical %) [facility] Branch injection 07/06/21 at 10 mL 2245, Routine Eliquis 2.5 Eliquis 2.5 2017- Yes Siobhan Winkler 1 QD TAKE ONE Univers MG Oral MG Oral 2-10 M.D. TABLET BY ity of Tablet Tablet 08:19: MOUTH [place] 32 DAILY Physici ans atorvastati 2016-04 Yes 10mg Take 10 mg Univers n 10 mg 0-07 by mouth ity of tablet 11:35: at [place] [address] bedtime. Medical Branch atorvastati 2016-04 Yes 10mg Take 10 mg Univers n 10 mg 0-07 by mouth ity of tablet 11:35: at [place] [address] bedtime. Medical Branch atorvastati 2016-04 Yes 10mg Take 10 mg Univers n 10 mg 0-07 by mouth ity of tablet 11:35: at [place] [address] bedtime. Medical Branch atorvastati 2016-04 Yes 10mg Take 10 mg Univers n 10 mg 0-07 by mouth ity of tablet 11:35: at [place] [address] bedtime. Medical Branch atorvastati 2016-04 Yes 10mg Take 10 mg Univers n 10 mg 0-07 by mouth ity of tablet 11:35: at [place] [address] bedtime. Medical Branch meclizine 2016-04 Yes 32mg [...] [place] 10 mg 37 Medical tablet Branch traMADOL 2014-04 Yes 50mg Take 1 Tab Uni vers (ULTRAM) 50 2-04 by mouth ity of mg tablet 00:00: every 6 [place] 00 (six) Medical hours as Branch needed for Pain (scale 4-6). Roc Hatfield PA-C / Don Blunt MD SEAN# [id number] DPS# [id number] x Lic.# [id number] NPI# [id number] baclofen 2014-04 Yes 20mg Take 1 Tab [...] Hatfield PA-C / Don Blunt MD SEAN# [id number] DPS# [id number] x Lic.# [id number] NPI# [id number] baclofen 2014-04 Yes 20mg Take 1 Tab [...] Hatfield PA-C / Don Blunt MD SEAN# [id number] DPS# [id number] x Lic.# [id number] NPI# [id number] baclofen 2014-04 Yes 20mg Take 1 Tab Uni vers (LIORESAL) 2-04 by mouth 3 ity of 20 mg 00:00: (three) [place] tablet 00 times Medical daily. Branch traMADOL 2014-04 Yes 50mg Take 1 Tab Uni vers (ULTRAM) 50 2-04 by mouth ity of mg tablet 00:00: every 6 [place] 00 (six) Medical hours as Branch needed for Pain (scale 4-6). Roc Htafield PA-C / Don Blunt MD SEAN# [id number] DPS# [id number] x Lic.# [id number] NPI# [id number] baclofen 2014-04 Yes 20mg Take 1 Tab [...] Hatfield PA-C / Don Blunt MD SEAN# [id number] DPS# [id number] x Lic.# [id number] NPI# [id number] baclofen 2014-04 Yes 20mg Take 1 Tab Uni vers (LIORESAL) 2-04 by mouth 3 ity of 20 mg 00:00: (three) [place] tablet 00 times Medical daily. Branch Pantoprazol Pantoprazol Yes R.N. U nivers e [...] MG Oral i ty of Tablet Tablet [place] [facility] Remeron 15 Remeron 15 Yes R.N. Uni vers MG Oral MG Oral ity of Tablet Tablet [facility] Amantadine Amantadine Yes R.N. Uni vers HCl - 100 HCl - 100 ity o f MG Oral MG Oral [place] [facility] Melatonin 3 Melatonin 3 Yes R.N. U nivers MG Oral MG Oral ity of Tablet Tablet [place] [facility] Atorvastati Atorvastati Yes R.N. U nivers n Calcium n Calcium ity o f 10 MG Oral 10 MG Oral Gideon as Tablet Tablet Physici ans Fioricet Fioricet Yes R.N. Univers TABS TABS ity of [place] Phys[facility] ans Escitalopra Escitalopra Yes R.N. U nivers m Oxalate m Oxalate ity o f 10 MG Oral 10 MG Oral [place] as Tablet Tablet Physici ans Aricept 5 Aricept 5 Yes R.N. Unive rs MG Oral MG Oral ity of Tablet Tablet [facility] Fenofibrate Fenofibrate Yes Na Davis 1 tablet [...] [facility] ZyrTEC ZyrTEC Yes Na Davis [address] [facility] Protonix Protonix Yes Na Davis [address] [facility] Pravastatin Pravastatin Yes Na Davis TAKE ONE [facility] Sodium Sodium TABLET BY [facility] - MOUTH ONCE Memoria DAILY l Outpati ent Clinics Eliquis 2.5 Eliquis 2.5 Yes Na Davis one [facility] mg mg [facility] Aspirin Aspirin Yes Na Davis [address] [facility] Metformin Metformin Yes Na Davis [address] HCl HCl with meals [facility] Mirtazapine Mirtazapine Yes Na Davis [address] [facility] at bedtime [facility] Melatonin Melatonin Yes Na Davis [address] [facility] [facility] at bedtime [facility] - as needed [facility]oria with food l [facility] Donepezil Donepezil Yes Na Davis [address] [facility] HCl HCl at bedtime [facility] Immunizations Ordered Filled Immunization Date Status Comments [facility] e Immunization Name Name SARS-COV-2 COVID-19 2020-07-12 Completed Unive rsity of PFIZER VACCINE 00:00:00 [facility] SARS-COV-2 COVID-19 2020-07-12 Completed Unive rsity of PFIZER VACCINE 00:00:00 [facility] SARS-COV-2 COVID-19 2020-07-12 Completed Unive rsity of PFIZER VACCINE 00:00:00 [facility] SARS-COV-2 COVID-19 2020-07-12 Completed Unive rsity of PFIZER VACCINE 00:00:00 [facility] SARS-COV-2 COVID-19 2020-07-12 Completed Unive rsity of PFIZER VACCINE 00:00:00 [facility] SARS-COV-2 COVID-19 2020-06-21 Completed Unive rsity of PFIZER VACCINE 00:00:00 [facility] SARS-COV-2 COVID-19 2020-06-21 Completed Unive rsity of PFIZER VACCINE 00:00:00 [facility] SARS-COV-2 COVID-19 2020-06-21 Completed Unive rsity of PFIZER VACCINE 00:00:00 [facility] SARS-COV-2 COVID-19 2020-06-21 Completed Unive rsity of PFIZER VACCINE 00:00:00 [facility] SARS-COV-2 COVID-19 2020-06-21 Completed Unive rsity of PFIZER VACCINE 00:00:00 [facility] Vital Signs Vital Name Observation Time Observation Value Comments Source Systolic blood 2021-07-07 126 mm[Hg] University of pressure 04:30:00 [facility] Diastolic blood 2021-07-07 58 mm[Hg] [place] o f pressure 04:30:00 [facility] Heart rate 2021-07-07 88 /min [facility] 04:30:00 [facility] Body temperature 2021-07-07 36.67 Kaia [facility] 04:30:00 [facility] Respiratory rate 2021-07-07 18 /min [facility] 04:30:00 [facility] Oxygen saturation 2021-07-07 98 /min [facility] Arterial blood 04:30:00 [facility] by Pulse oximetry [place] Body weight 2021-07-07 82.736 kg [facility] 00:57:00 [facility] BMI 2021-07-07 28.57 kg/m2 [facility] 00:57:00 [facility] Body height 2020-10-29 175.3 cm [facility] 12:58:40 Body weight 2020-10-29 85.909 kg [facility] 12:58:40 BMI 2020-10-29 27.97 kg/m2 [facility] 12:58:40 BP Systolic 2018-05-12 153 mm[Hg] Location: [facility] 13:35:00 Position: [place] [facility] Sitting BP Diastolic 2018-05-12 85 mm[Hg] Location: [facility] 13:35:00 Position: [place] [facility] Sitting Height 2018-05-12 69 [in_us] [facility] 13:35:00 [place] [facility] Temperature 2018-05-12 98.3 [degF] Method: Oral University 13:35:00 [place] [facility] Heart Rate 2018-05-12 71 /min [facility] 13:35:00 [place] [facility] BP Systolic 2018-05-01 119 mm[Hg] [facility]: [facility] 16:48:00 Position: [place] Physician s Sitting BP Diastolic 2018-05-01 66 mm[Hg] Location: [facility] 16:48:00 Position: [place] Physician s Sitting Height 2018-05-01 69 [in_us] [facility] 16:48:00 [place] [facility] Weight 2018-05-01 205.25 [lb_av] [facility] 16:48:00 [place] [facility] Body Mass Index 2018-05-01 30.31 kg/m2 University o f Calculated 16:48:00 [place] [facility] Heart Rate 2018-05-01 78 /min Location: R [facility] 16:48:00 Radial; [place] [facility]ician s BP Systolic 2018-01-09 121 mm[Hg] Location: [facility] 16:11:00 Position: [place] Physician s Sitting BP Diastolic 2018-01-09 75 mm[Hg] Location: [facility] 16:11:00 Position: [place] Physician s Sitting Height 2018-01-09 69 [in_us] [facility] 16:11:00 [place] [facility] Body Mass Index 2018-01-09 28.35 kg/m2 University o f Calculated 16:11:00 [place] [facility] Weight 2018-01-09 192 [lb_av] University of 16:11:00 [place] [facility] Heart Rate 2018-01-09 79 /min Location: L [facility] 16:11:00 Radial; [place] Physician s Quality: Normal Respiration Rate 2018-01-09 16 /min Quality: Normal Universi ty of 16:11:00 [place] Phys[facility] s Height 2018-01-09 69 [in_us] [facility] 15:46:00 [place] [facility] s Body Mass Index 2018-01-09 28.35 kg/m2 University o f Calculated 15:46:00 [place] [facility] s Weight 2018-01-09 192 [lb_av] University of 15:46:00 [place] [facility] Procedures Procedure Date / Time Performed Performing Clinician [facility] e ED LACERATION REPAIR 2021-07-07 03:09:57 [facility]quie [facility] 2021-07-07 01:15:00 Sage Owen [facility] ity [facility] CT TRAUMA CERVICAL 2021-07-07 01:15:00 [facility] SPINE WO [facility] [place] DIAGNOSTIC LUMBAR 2020-10-29 15:17:00 [facility] SPINAL PUNCTURE W/FLUOR OR CT [N] Venous Duplex 2018-01-09 00:00:00 [facility] Lower Bilateral Physicians VR 2017-11-15 00:00:00 [facility] Vascular/Interventiona Physician s kain Radiology Consult History of Ankle University [facility] exas Surgery Physicians Plan of Care Planned Activity Planned Date Details Comments Source Diagnostic Test 2018-04-06 [N] Venous Duplex Univers [facility] Pending 00:00:00 Lower Bilateral Physicians [code = [N] Venous Duplex Lower Bilateral] Encounters Start End Encounter Admission Attending Care Care Encounter Source Date/Time Date/Time Type Type Clinicians Facility Department ID 2021-07-31 Outpatient [facility] [id number] [place] 12:12:[id number] [place] [address] 2021-06-09 Outpatient YESSICA [facility] [id number] [place] 01:04:34 [facility] 2021-05-20 Outpatient Davis, Na STLMLC STLMLC [id number] [facility] [address] 12:31:17 [id number] [facility] 2021-05-20 Outpatient Davis, Na STLMLC STLMLC [id number] 12:24:36 [id number] [facility] 2021-05-20 Outpatient Davis, Na STLMLC STLMLC [id number] 12:22:46 [id number] [facility] 2021-05-20 Outpatient Davis, Na STLMLC STLMLC [id number] 12:22:08 [id number] [facility] 2021-05-20 Outpatient Davis, Na STLMLC STLMLC [id number] 12:20:37 [id number] [facility] 2021-05-20 Outpatient Davis, Na STLMLC STLMLC [id number] 12:20:01 [id number] [facility] 2021-05-20 Outpatient Davis, Na STLMLC STLMLC [id number] 12:12:09 [id number] [facility] 2021-05-20 Outpatient Davis, Na STLMLC STLMLC [id number] 11:44:44 [id number] [facility] 2021-05-20 Out[facility] Davis[facility] [id number] 11:21:02 [id number] [facility] 2021-05-20 Outpatient Davis, [facility] [id number] 11:20:21 [id number] [facility] 2021-05-20 Outpatient Davis, [facility] [id number] 11:16:41 [id number] [facility] 2021-05-20 [facility] [id number] 11:16:28 [id number] [facility] 2021-03-17 Inpatient [facility] [id number] [facility] 13:22:18 JOSE ANTONIO CHAPPELL 2020-12-21 Outpatient ADHIA, [facility] [id number] [place] 01:06:57 [facility] 2020-10-11 Outpatient ADHIA, [facility] [id number] [place] 01:06:38 [facility] 2021-07-06 2021-07-06 Emergency X BRAYDEN [facility] ERT [id number] Univers 19:48:00 23:30:00 SAGE mcdonald o f [facility] 2021-07-06 2021-07-06 [facility] [id number] Univers 19:48:00 23:30:00 [facility] [id number] ity of [place] [id number] [place] [id number] [facility] 014 Branch (CLC) 2021-04-25 2021-04-25 Telephone GODFREY Guadarrama [id number] Univers 00:00:00 00:00:00 Michelle DAYANNA [id number] it y of HOSPITAL [id number] Gideon as [phone] [facility] 019 Branch 2021-04-23 2021-04-23 Outpatient Becka REYNOSO [facility] [id number] Univers 12:45:00 13:03:26 YELITZA ity of [facility] 2021-04-23 2021-04-23 Laboratory Only, Ang Db Test [facility] 1.2.8 40.114 [id number] Univers 12:45:00 13:00:00 Only Green, Yelitza HEALTH [id number] ity of [place] [id number] Gideon as ELO?BLEA [id number] Al dical [address] MEDICAL OFFICE BUILDING 2021-04-23 2021-04-23 Letter Doctor GODFREY [id number] Univers 00:00:00 00:00:00 (Out) Unassigned, DAYANNA [id number] ity of [place] [facility] [id number] Gideon as [id number] [address] 2021-04-23 2021-04-23 Letter Doctor GODFREY [id number] Univers 00:00:00 00:00:00 (Out) Unassigned, DAYANNA [id number] ity of [place] [facility] 4.2.7.2.686 Gideon as [id number] [address] 2020-12-01 2020-12-01 EXT H OP Esquenazi EXT MSRDP [id number] [place] 00:00:00 00:00:00 Chappell, LOCATION [id number] H ealth Jose Antonio 9.2.7.2.686 [id number] 2020-10-29 2020-10-29 Outpatient [facility]ICA [facility] [id number] [facility] 07:49:00 11:10:00 CHELO 2020-10-21 2020-10-21 EXT MHH OP Minda EXT MSRDP [id number] [place] 00:00:00 00:00:00 Keagan, LOCATION [id number] Health Magy 9.2.7.2.686 [id number] 2020-10-16 2020-10-16 EXT H OP [place], EXT MSRDP [id number] [place] 00:00:00 00:00:00 Chelo LOCATION [id number] H ealth 9.2.7.2.686 [id number] 2020-10-08 2020-10-08 [facility] [id number] 2020-10-06 2020-10-06 EXT [facility] OP [place], EXT MSRDP [id number] [place] 00:00:00 00:00:00 Chelo LOCATION [id number] H ealth [id number] [id number] 2020-10-02 2020-10-02 EXT [facility] OP [place], EXT MSRDP [id number] [place] 00:00:00 00:00:00 Chelo LOCATION [id number] H ealth [id number] [id number] 2020-09-09 2020-09-09 EXT [facility] OP Minda EXT MSRDP [id number] [place] 00:00:00 00:00:00 Boogie, LOCATION [id number] Health Magy [id number] [id number] 2020-07-25 2020-07-25 [facility] [id number] [facility] 00:00[facility] 00[facility]00[facility]00 [facility] 2020-07-12 2020-07-12 Outpatient Becka DÍAZ, [facility] [id number] [facility] 11:35:00 11:35:00 JACQUELINE mcdonald of [facility] 2020-06-13 2020-06-13 [facility] [id number] [facility] 00:00[facility]00 00[facility]00[facility]00 [facility] 2020-05-23 2020-05-23 [facility] [id number] [facility] 00:[facility]00[facility]00 [facility] 2020-05-21 2020-05-21 Outpatient STLMLC [facility]LML[facility] [id number] [facility] 2020-05-09 2020-05-09 Outpatient STLMLC [facility]LMLC [id number] [facility] 2020-05-08 2020-05-08 Outpatient STLMLC STLMLC [id number] [facility] 2020-04-21 2020-04-21 Outpatient STLMLC STLMLC [id number] [facility] 2020-04-07 2020-04-07 Outpatient STLMLC STLMLC [id number] [facility] 2020-04-03 2020-04-03 Outpatient STLMLC STLMLC [id number] [facility] 2020-03-27 2020-03-27 Outpatient STLMLC STLMLC [id number] [facility]00 [facility] 2020-01-07 2020-01-07 [facility] [id number] [address] 11:40:00 11:40:00 t [employer] s - Drive [facility] l Medicine Outpati ent Clinics 2019-10-04 2019-10-04 [facility] [id number] 09:21:00 09:21:00 t [employer] s - Drive [facility] l Medicine Outpati ent Clinics 2019-10-01 2019-10-01 [facility] [id number] 15:00:00 15:00:00 t Specialty/U Charley kes - Specialty rology Memori a /Urology Clinic l Clinic Outpati ent Clinics 2019-08-30 2019-08-30 [facility] [id number] 14:45:00 14:45:00 t Specialty/U Charley kes - Specialty rology Memori a /Urology Clinic l Clinic Outpati ent Clinics 2019-08-27 2019-08-27 [facility] [id number] 08:55:00 08:55:00 t Specialty/U Charley kes - Specialty rology Memori a /Urology Clinic l Clinic Outpati ent Clinics 2019-07-30 2019-07-30 [facility] [id number] 15:40:00 15:40:00 t Ardmore Ardmore [employer] Luke s - Drive [facility] l Medicine Outpati ent Clinics 2019-07-27 2019-07-27 [facility] [id number] 15:19:00 15:19:00 t [place] [email or web address] s - Drive [facility] Medicine l Medicine Outpati ent Clinics 2019-05-24 2019-05-24 [facility] [id number] 10:22:00 10:22:00 t [place] [email or web address] s - Drive [facility] Medicine l Medicine Outpati ent Clinics 2019-03-26 2019-03-26 [facility] [id number] 15:40:00 15:40:00 t [place] [employer] s - Drive [facility] Medicine l Medicine Outpati ent Clinics 2018-11-02 2018-11-02 [facility] [id number] 15:40:00 15:40:00 t [place] [employer] s - Drive [facility] Medicine l Medicine Outpati ent Clinics 2018-10-24 2018-10-24 [facility] [id number] 13:54:00 13:54:00 t [email or web address] s - Drive [facility] Medicine l Medicine Outpati ent Clinics 2018-10-20 2018-10-20 [facility] [id number] 13:32:00 13:32:00 t [place] [email or web address] s - Drive [facility] l Medicine Outpati ent Clinics 2018-10-11 2018-10-11 [facility] [id number] 15:03:00 15:03:00 t [place] [email or web address] s - Drive [facility] l Medicine Outpati ent Clinics 2018-07-21 2018-07-21 [facility] [id number] 14:10:00 14:10:[address] Luke s - Drive [facility] Outpati ent Clinics 2018-07-21 2018-07-21 [facility] [id number] 13:51:00 13:51:00 t Ardmore Ardmore [employer] s - Drive [facility] Outpati ent [facility] 2018-06-29 2018-06-29 AppointVIELKA Mc [id number] Univers 14:30:00 14:30:00 t; MILAGRO SHARPE of [facility] ans 2018-06-06 2018-06-06 [facility] [id number] 15:15:00 15:15:00 t Ardmore [employer] s - Drive [facility] Outpati ent [facility] 2018-05-12 2018-05-12 AppointVIELKA Mc Otorhinolar [id number] Univers 15:30:00 15:30:00 t; MILAGRO SHARPE yngology - i ty of [facility] ans 2018-05-12 2018-05-12 AppointVIELKA Bernstein Otorhinolar [id number] Univers 13:30:00 13:30:00 t; Serene DONAHUE yngology - ity of [facility] Serene DONAHUE Medical Physi ci Center ans 2018-05-11 2018-05-11 VIELKA May Otorhinolar [id number] Univers 15:00:00 15:00:00 t; CALIN yngology - ity of [facility] ans 2018-05-09 2018-05-09 [facility] [id number] 14:48:00 14:48:00 t Ar[employer]more [email or web address] s - [facility] Outpati ent Clinics 2018-05-01 2018-05-01 AppointVIELKA Banks Cardiology [id number] Univers 16:45:00 16:45:00 t; Serene Mccann ity of Jennifer Winkler M.D. Physici ans 2018-04-10 2018-04-10 AppointVIELKA Banks General [id number] Univers 16:00:00 16:00:00 t; Serene Mccann Medicine harry Winkler [place] Serene Mccann Physici ans 2018-04-06 2018-04-06 Appointmen [facility] [id number] Univers 14:00:00 14:00:00 t; HODA SHEARER ittarun [facility] Physici ans 2018-03-31 2018-03-31 Appointmen ISAIAS, [facility] [id number] Univers 14:30:00 14:30:00 t; Serene DONAHUE of [place], [place] Serene DONAHUE Physi ci ans 2018-03-29 2018-03-29 Appointmen [facility] [id number] Univers 15:00:00 15:00:00 t; MARIELENA ittarun [facility] Physici ans 2018-03-20 2018-03-20 [facility] [id number] [facility] 14:15:00 14:15:00 t [place] [facility] ent [facility] 2018-01-09 2018-01-09 Appointkorin [facility] Cardiology [id number] Univers 16:00:00 16:00:00 t; Serene Mccann ity [place], [place] Serene Mccann Physici ans 2018-01-09 2018-01-09 [facility] [id number] [facility] 09:15:00 09:15:00 t [facility] Clin[facility] 2017-10-24 2017-10-24 Appointkorin [facility] [id number] Univers 09:30:00 09:30:00 t; MILAGRO SHARPE [facility] Physici ans 2017-10-24 2017-10-24 Appointkorin [facility] [id number] Univers 09:15:00 09:15:00 t; Serene DONAHUE of [place], [place] Serene DONAHUE Physi ci ans 2017-10-18 2017-10-18 Appointkorin [facility], [facility] [id number] Univers 10:00:00 10:00:00 t; MD PROVIDER it y of RADIOLOGY, [place] Physici PROVIDER ans Results This patient has no known results.
--- NOTE | 2021-08-06 20:20 | RAD REPORT ---
EXAM DESCRIPTION: CT - Head C Spine Mpr Wo Con - 08/06/2021 8:05 pm CLINICAL HISTORY: Head and neck injury status post fall. Head and neck pain COMPARISON: 2018 TECHNIQUE: Computed axial tomography of the head and cervical spine was obtained. Sagittal and coronal reconstruction was performed. All CT scans are performed using dose optimization technique as appropriate and may include automated exposure control or mA/KV adjustment according to patient size. FINDINGS: Right craniotomy secondary to evacuation of a subdural hematoma. 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 No acute intracranial bleed. No hydrocephalus. An extra-axial fluid collection is not noted.Fluid within the visualized sinuses an d mastoids is not seen A cervical fracture is not visualized. No dislocation is noted. IMPRESSION: No acute intracranial abnormality is seen. A cervical fracture is not visualized. If the patient continues to have symptoms to suggest intracra nial /spinal cord pathology then MRI would be recommended
--- NOTE | 2021-08-06 20:46 | ER ---
Nurse's Notes [facility] Name: Adelaida Ramirez Age: 71 yrs Sex: Male : 1950 Arrival Date: 08/06/2021 Time: 19:25 Bed 8 Private MD: Diagnosis: Unspecified injury of head, initial encounter;Unspecified dementia with behavioral disturbance-Chronic Presentation: 08/06 19:25 Chief complaint: EMS states: EMS toned out for an unwitnessed fall, no LOC, lump noted ll3 on left side of forehead, pt states pain is 3/10. Coronavirus screen: At this time, the client does not indicate any symptoms associated with coronavirus-19. Ebola Screen: No symptoms or risks identified at this time. Initial Sepsis Screen: Does the patient meet any 2 criteria? No. Patient's initial sepsis screen is negative. Does the patient have a suspected source of infection? No. Patient's initial sepsis screen is negative. Risk Assessment: Do you want to hurt yourself or someone else? Patient reports no desire to harm self or others. Onset of symptoms was August 06, 2021. Mechanism of Injury: Fall from standing position. Transition of care: patient was received from another setting of care (long-term care facility), [facility]. 19:25 Method Of Arrival: EMS: [facility] 3 19:25 Acuity: PATRICK 3 ll3 Triage Assessment: 19:30 General: Appears uncomfortable, Behavior is calm, cooperative. Pain: Complains of pain ll3 in forehead Pain currently is 3 out of 10 on a pain scale. Pain began 1 hour ago. Neuro:. Respiratory: Respiratory effort is even, unlabored, Respiratory pattern is regular, symmetrical. Derm: Bruising that is on forehead Left forehead swelling and stitches to left eyebrow noted. Historical: - Allergies: 19:30 NKDA; ll3 - PMHx: 19:30 Dementia; Hypertensive disorder; Diabetes mellitus; Hypercholesterolemia; Depressive ll3 disorder; - Immunization history:: Client reports receiving the 2nd dose of the Covid vaccine. - Social history:: Smoking status: unknown. Screenin:39 Abuse screen: Denies threats or abuse. Nutritional screening: No deficits noted. ll3 Tuberculosis screening: No symptoms or risk factors identified. Fall Risk Fall in past 12 months (25 points). Secondary diagnosis (15 points) dementia, No IV (0 pts). Ambulatory Aid- None/Bed Rest/Nurse Assist (0 pts). Gait- Normal/Bed Rest/Wheelchair (0 pts) Mental Status- Overestimates/Forgets Limitations (15 pts.). Total Bailey Fall Scale indicates High Risk Score (45 or more points). Fall prevention measures have been instituted. Side Rails Up X 2 Frequent Obs/Assessments Occuring. Assessment: 19:25 General: See triage assessment. ll3 20:30 Reassessment: No changes from previously documented assessment. Patient and/or family ll3 updated on plan of care and expected duration. Pain level reassessed. Patient is alert, oriented x 3, equal unlabored respirations, skin warm/dry/pink. Pt is asleep in bed with eyes closed resting, RR are even and unlabored, chest rising and falling. 21:00 Reassessment: Called report to [facility], spoke to HUMPHREY Galvan. ll3 Vital Signs: 19:25 BP 115 / 65; Pulse 70; Resp 17; Temp 98.6(O); Pulse Ox 97% on R/A; Weight 85.28 kg (R); ll3 20:30 BP 117 / 61; Pulse 69; Resp 16; Pulse Ox 98% ; ll3 21:15 BP 116 / 62; Pulse 72; Resp 17; Pulse Ox 97% on R/A; ll3 Tana Coma Score: 20:45 Eye Response: spontaneous(4). Verbal Response: confused(4). Motor Response: localizes kdr pain(5). Total: 13. ED Course: 19:25 Patient arrived in ED. ll3 19:27 Jose Wallace MD is Attending Physician. kdr 19:30 Triage completed. ll3 19:30 Arm band placed on Patient placed in an exam room, on a stretcher, on pulse oximetry. ll3 20:07 CT Head C Spine In Process Unspecified. EDMS 21:39 Patient has correct armband on for positive identification. Bed in low position. Call ll3 light in reach. Side rails up X2. 21:39 No provider procedures requiring assistance completed. Patient did not have IV access ll3 during this emergency room visit. Administered Medications: No medications were administered Outcome: 20:44 Discharge ordered by . kdr 21:39 Discharged to fdc. Report called to HUMPHREY Galvan ll3 21:39 Condition: stable 21:39 Discharge instructions given to fdc, Instructed on discharge instructions, Demonstrated understanding of instructions. 21:41 Patient left the ED. ll3 Signatures: Dispatcher [employer] Jose Patel MD MD kdr Loubet, Lynsea, RN RN ll3
--- NOTE | 2021-08-06 20:46 | EDPHYS ---
Physician Documentation [facility] Name: Adelaida Ramirez Age: 71 yrs Sex: Male : 1950 Arrival Date: 08/06/2021 Time: 19:25 Bed 8 Private MD: ED Physician Jose Wallace HPI: 08/06 20:45 This 71 yrs old Male presents to ER via EMS with complaints of Head injury. kdr 20:45 The patient or guardian reports. Context of injury: The problem was sustained at home, kdr resulted from a direct blow, a fall. Onset: The symptoms/episode began/occurred suddenly, just prior to arrival. Associated signs and symptoms: The patient has no apparent associated signs or symptoms. Associated signs and symptoms: Pertinent positives: Is reported as unwitnessed however they also report no loss of consciousness. It is unclear exactly how this would occur. It is reported that the patient fell with one of the intermediate staff in the room but she did not actually see him fall. Given her proximity to the event, she reported that though she did not witness the fall she is able to attest that there was no loss of consciousness, Pertinent negatives:. Severity of symptoms: At their worst the symptoms were very mild, in the emergency department the symptoms are unchanged. It is unknown whether or not the patient has had similar symptoms in the past. It is unknown whether or not the patient has recently seen a physician. Historical: - Allergies: 19:30 NKDA; ll3 - PMHx: 19:30 Dementia; Hypertensive disorder; Diabetes mellitus; Hypercholesterolemia; Depressive ll3 disorder; - Immunization history:: Client reports receiving the 2nd dose of the Covid vaccine. - Social history:: Smoking status: unknown. ROS: 20:45 Constitutional: Patient is the patient has significant dementia and is not able to give kdr a history or converse in any meaningful way 20:45 Unable to obtain ROS due to altered mental status, baseline dementia. Exam: 20:45 Constitutional: This is a well developed, well nourished patient who is awake, alert, kdr and in no acute distress. Head/Face: Normocephalic, atraumatic. Eyes: Pupils equal round and reactive to light, extra-ocular motions intact. Lids and lashes normal. Conjunctiva and sclera are non-icteric and not injected. Cornea within normal limits. Periorbital areas with no swelling, redness, or edema. Neck: Trachea midline, no thyromegaly or masses palpated, and no cervical lymphadenopathy. Supple, full range of motion without nuchal rigidity, or vertebral point tenderness. No Meningismus. Chest/axilla: Normal chest wall appearance and motion. Nontender with no deformity. No lesions are appreciated. Cardiovascular: Regular rate and rhythm with a normal S1 and S2. No gallops, murmurs, or rubs. Normal PMI, no JVD. No pulse deficits. Respiratory: Lungs have equal breath sounds bilaterally, clear to auscultation and percussion. No rales, rhonchi or wheezes noted. No increased work of breathing, no retractions or nasal flaring. Abdomen/GI: Soft, non-tender, with normal bowel sounds. No distension or tympany. No guarding or rebound. No evidence of tenderness throughout. Back: No spinal tenderness. No costovertebral tenderness. Full range of motion. Skin: Warm, dry with normal turgor. Normal color with no rashes, no lesions, and no evidence of cellulitis. MS/ Extremity: Pulses equal, no cyanosis. Neurovascular intact. Full, normal range of motion. 20:45 Neuro: Orientation: unable to test, Mentation: slow to respond, confused, Motor: moves all fours. Vital Signs: 19:25 BP 115 / 65; Pulse 70; Resp 17; Temp 98.6(O); Pulse Ox 97% on R/A; Weight 85.28 kg (R); ll3 20:30 BP 117 / 61; Pulse 69; Resp 16; Pulse Ox 98% ; ll3 21:15 BP 116 / 62; Pulse 72; Resp 17; Pulse Ox 97% on R/A; ll3 [facility] Coma Score: 20:45 Eye Response: spontaneous(4). Verbal Response: confused(4). Motor Response: localizes kdr pain(5). Total: 13. MDM: 20:44 Patient medically screened. kdr 20:45 Data reviewed: vital signs, nurses notes, lab test result(s), radiologic studies. kdr Counseling: I had a detailed discussion with the patient and/or guardian regarding: the historical points, exam findings, and any diagnostic results supporting the discharge/admit diagnosis, lab results, radiology results, the need for outpatient follow up. 08/06 19:36 Order name: CT Head C Spine; Complete Time: 20:43 kdr Administered Medications: No medications were administered Disposition Summary: 08/06/21 20:44 Discharge Ordered Location: Home kdr Problem: new kdr Symptoms: are resolved kdr Condition: Stable kdr Diagnosis - Unspecified injury of head, initial encounter kdr - Unspecified dementia with behavioral disturbance - Chronic kdr Followup: kdr - With: Private Physician - When: 2 - 3 days - Reason: If symptoms return, Further diagnostic work-up, Recheck today's complaints, Continuance of care, Re-evaluation by your physician Discharge Instructions: - Discharge Summary Sheet cs9 Forms: - Medication Reconciliation Form kdr - Thank You Letter kdr - Antibiotic Education kdr - Prescription Opioid Use kdr - SBAR form cs9 Signatures: Dispatcher [employer] Jose Patel MD MD kdr Robson Barney RN RN ll3
[2021-08-07 03:59] VITALS: TEMP 98.6
[2021-08-07 04:02] VITALS: BP 116/62; O2SAT 97
== END 2021-08-06 21:41 | disposition home or self-care (01) ==
LOC: ER 19:25
DX: S09.90XA Unspecified injury of head, initial encounter (principal); F03.90 Unspecified dementia, unspecified severity, without behavioral disturbance, psychotic disturbance, mood disturbance, and anxiety; W18.30XA Fall on same level, unspecified, initial encounter; Y92.129 Unspecified place in nursing home as the place of occurrence of the external cause; E11.9 Type 2 diabetes mellitus without complications; I10 Essential (primary) hypertension
CPT/HCPCS: 70450; 72125

== ENCOUNTER 2021-09-02 13:55 | Emergency (ER) | payer OTHER ==
--- OUTSIDE RECORDS SUMMARY | 2021-09-02 13:59 | XMS REPORT | Continuity of Care Document ---
:1950 Author Organization [facility] t Address [address] [place] [address] Care Team Providers Name Role Phone RANJITH VELÁZQUEZ Primary Care Physician Unavailable AURELIO HOLT Attending Clinician Unavailable STERLING Attending Clinician Unavailable Alesia Davis Attending Clinician Unavailable CASEY CHAPPELL Attending Clinician Unavailable Macey OWEN Attending Clinician Unavailable Thierry YIN Attending Clinician Unavailable EDGARDO Attending Clinician Unavailable Only, Db Test Attending Clinician Unavailable Edgardo ENVIRONMENTAL SCIENTIST Attending Clinician Doctor Unassigned, Name Attending Clinician [...] Expiration Date S satnam [employer]ity [id number] 2017 COMP 00:00:00 [employer] [id number] 2020 2020 MEDICARE 00:00:00 00:00:00 GENERIC INTERFACED [id number] 2017 2024 [facility] PLAN 00:00:00 00:00:00 WELL[employer]/AARP [id number] 2021 MEDICARE ADVANTAGE 00:00:00 Problems Condition Condition Condition Status Onset Resolution Last Treating Co mments Source Name Details Category Date Date Treatment Clinician Date No known No known Disease NPI:1 83 active active 3525041 problems problems History of History of Problem Resolve NPI:152 diabetes diabetes d 924491 5 mellitus mellitus DVT (deep DVT (deep Problem Active NPI :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 thrombosis ) ) BPPV BPPV Problem Active NPI:152 (benign (benign 2922117 paroxysmal paroxysmal positional positional vertigo), vertigo), right right Sensorineu Sensorineu Problem Active N PI:152 ral ral 7899850 hearing hearing loss, loss, 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 hemorrhage 85 02626 Dysfunctio Dysfunctio Problem Active N PI:152 n of left n of left 8509 205 eustachian eustachian tube tube Allergies, Adverse Reactions, Alerts Allergy Allergy Status Severity Reaction(s) Onset Inactive Treating Comm ents Source Name Type Date Date Clinician NO KNOWN Drug Active NPI:183 ALLERGIE Class 3785578 S Social History Social Habit Start Date Stop Date Quantity Comments Source Exposure to Unable to assess NPI:159 [id number] SARS-CoV-2 (event) Sex Ass[birth year] At [birth year] NPI:00779 20936 00:00:00 00:00:00 Smoking Status Start Date Stop Date Source Unknown if ever smoked NPI:55802 66739 Never smoker Medications Ordered Filled Start Stop Current Ordering Indication Dosage Frequency Signature Comments Components Source Medication Medication Date Date Medication? Clinician (SIG) Name Name lidocaine 2021- No 10mL 10 mL, NPI:1 83 1% 15 15 Infiltrati 0059041 (XYLOCAINE) 03:45: 02:51 on, ONCE, 10 mg/mL (1 00 :00 1 dose, On %) Mon injection 07/06/21 at 10 mL 2245, Routine Eliquis 2.5 Eliquis 2.5 2017-04 Yes H Peterson 1 QD TAKE ONE NPI:152 MG Oral MG Oral 2-10 M.D. TABLET BY 8509 205 Tablet Tablet 08:19: MOUTH 32 DAILY atorvastati 2016-04 Yes 10mg Take 10 mg NPI:183 n 10 mg 0-07 by mouth [id number] tablet 11:35: at 46 bedtime. atorvastati 2016-04 Yes 10mg Take 10 mg NPI:183 n 10 mg 0-07 by mouth [id number] tablet 11:35: at 46 bedtime. atorvastati 2016-04 Yes 10mg Take 10 mg NPI:183 n 10 mg 0-07 by mouth [id number] tablet 11:35: at 46 bedtime. atorvastati 2016-04 Yes 10mg Take 10 mg NPI:183 n 10 mg 0-07 by mouth [id number] tablet 11:35: at 46 bedtime. atorvastati 2016-04 Yes 10mg Take 10 mg NPI:183 n 10 mg 0-07 by mouth [id number] tablet 11:35: at 46 bedtime. ondansetron 2016-04 Yes 4mg Take 1 NPI: 183 4 mg 0-07 tablet by [id number] disintegrat 00:00: mouth ing tablet 00 every 8 (eight) hours as needed for Nausea and Vomiting (N/V). meclizine 2016-04 Yes 32mg Take 1 NPI:18 3 25 mg 0-07 tablet by [id number] tablet 00:00: mouth 3 00 (three) times daily as needed for Dizziness. ondansetron 2016-04 Yes 4mg Take 1 NPI: 183 4 mg 0-07 tablet by [id number] disintegrat 00:00: mouth ing tablet 00 every 8 (eight) hours as needed for Nausea and Vomiting (N/V). meclizine 2016-04 Yes 32mg Take 1 NPI:18 3 25 mg 0-07 tablet by [id number] tablet 00:00: mouth 3 00 (three) times daily as needed for Dizziness. ondansetron 2016-04 Yes 4mg Take 1 NPI: 183 4 mg 0-07 tablet by [id number] disintegrat 00:00: mouth ing tablet 00 every 8 (eight) hours as needed for Nausea and Vomiting (N/V). meclizine 2016-04 Yes 32mg Take 1 NPI:18 3 25 mg 0-07 tablet by [id number] tablet 00:00: mouth 3 00 (three) times daily as needed for Dizziness. ondansetron 2016-04 Yes 4mg Take 1 NPI: 183 4 mg 0-07 tablet by [id number] disintegrat 00:00: mouth ing tablet 00 every 8 (eight) hours as needed for Nausea and Vomiting (N/V). meclizine 2016-04 Yes 32mg Take 1 NPI:18 3 25 mg 0-07 tablet by [id number] tablet 00:00: mouth 3 00 (three) times daily as needed for Dizziness. ondansetron 2016-04 Yes 4mg Take 1 NPI: 183 4 mg 0-07 tablet by [id number] disintegrat 00:00: mouth ing tablet 00 every 8 (eight) hours as needed for Nausea and Vomiting (N/V). meclizine 2016-04 Yes 32mg Take 1 NPI:18 3 25 mg 0-07 tablet by [id number] tablet 00:00: mouth 3 00 (three) times daily as needed for Dizziness. metFORMIN 2014-04 Yes 1000mg Take 1,000 NPI:183 (GLUCOPHAGE 2-04 mg by [id number] ) 1,000 mg 22:48: mouth 2 tablet 37 (two) times daily with meals. escitalopra 2014-04 Yes 10mg Take 10 mg NPI:183 m oxalate 2-04 by mouth [id number] 1 (LEXAPRO) 22:48: daily. 10 mg 37 tablet metFORMIN 2014-04 Yes 1000mg Take 1,000 NPI:183 (GLUCOPHAGE 2-04 mg by [id number] ) 1,000 mg 22:48: mouth 2 tablet 37 (two) times daily with meals. escitalopra 2014-04 Yes 10mg Take 10 mg NPI:183 m oxalate 2-04 by mouth [id number] 1 (LEXAPRO) 22:48: daily. 10 mg 37 tablet metFORMIN 2014-04 Yes 1000mg Take 1,000 NPI:183 (GLUCOPHAGE 2-04 mg by [id number] ) 1,000 mg 22:48: mouth 2 tablet 37 (two) times daily with meals. escitalopra 2014-04 Yes 10mg Take 10 mg NPI:183 m oxalate 2-04 by mouth [id number] 1 (LEXAPRO) 22:48: daily. 10 mg 37 tablet metFORMIN 2014-04 Yes 1000mg Take 1,000 NPI:183 (GLUCOPHAGE 2-04 mg by [id number] ) 1,000 mg 22:48: mouth 2 tablet 37 (two) times daily with meals. escitalopra 2014-04 Yes 10mg Take 10 mg NPI:183 m oxalate 2-04 by mouth [id number] 1 (LEXAPRO) 22:48: daily. 10 mg 37 tablet metFORMIN 2014-04 Yes 1000mg Take 1,000 NPI:183 (GLUCOPHAGE 2-04 mg by [id number] ) 1,000 mg 22:48: mouth 2 tablet 37 (two) times daily with meals. escitalopra 2014-04 Yes 10mg Take 10 mg NPI:183 m oxalate 2-04 by mouth [id number] 1 (LEXAPRO) 22:48: daily. 10 mg 37 tablet traMADOL 2014-04 Yes 50mg Take 1 Tab NPI :183 (ULTRAM) 50 2-04 by mouth 1318 781 mg tablet 00:00: every 6 00 (six) hours as needed for Pain (scale 4-6). Roc Hatfield PA-C / Don Blunt MD SEAN# [id number] DPS# [id number] x Lic.# [id number] NPI# [id number] baclofen 2014-04 Yes 20mg Take 1 Tab NPI :183 (LIORESAL) 2-04 by mouth 3 131 8781 20 mg 00:00: (three) tablet 00 times daily. traMADOL 2014-04 Yes 50mg Take 1 Tab NPI :183 (ULTRAM) 50 2-04 by mouth 1318 781 mg tablet 00:00: every 6 00 (six) hours as needed for Pain (scale 4-6). Roc Hatfield PA-C / Don Blunt MD SEAN# [id number] DPS# [id number] x Lic.# [id number] NPI# [id number] baclofen 2014-04 Yes 20mg Take 1 Tab NPI :183 (LIORESAL) 2-04 by mouth 3 131 8781 20 mg 00:00: (three) tablet 00 times daily. traMADOL 2014-04 Yes 50mg Take 1 Tab NPI :183 (ULTRAM) 50 2-04 by mouth 1318 781 mg tablet 00:00: every 6 00 (six) hours as needed for Pain (scale 4-6). Roc Hatfield PA-C / Don Blunt MD SEAN# [id number] DPS# [id number] x Lic.# [id number] NPI# [id number] baclofen 2014-04 Yes 20mg Take 1 Tab NPI :183 (LIORESAL) 2-04 by mouth 3 131 8781 20 mg 00:00: (three) tablet 00 times daily. traMADOL 2014-04 Yes 50mg Take 1 Tab NPI :183 (ULTRAM) 50 2-04 by mouth 1318 781 mg tablet 00:00: every 6 00 (six) hours as needed for Pain (scale 4-6). Roc Hatfield PA-C / Don Blunt MD SEAN# [id number] DPS# [id number] x Lic.# [id number] NPI# [id number] baclofen 2014-04 Yes 20mg Take 1 Tab NPI :183 (LIORESAL) 2-04 by mouth 3 131 8781 20 mg 00:00: (three) tablet 00 times daily. traMADOL 2014-04 Yes 50mg Take 1 Tab NPI :183 (ULTRAM) 50 2-04 by mouth 1318 781 mg tablet 00:00: every 6 00 (six) hours as needed for Pain (scale 4-6). Roc Hatfield PA-C / Don Blunt MD SEAN# [id number] DPS# [id number] x Lic.# [id number] NPI# [id number] baclofen 2014-04 Yes 20mg Take 1 Tab NPI :183 (LIORESAL) 2-04 by mouth 3 131 8781 20 mg 00:00: (three) tablet 00 times daily. Pantoprazol Pantoprazol Yes R.N. N PI:152 e Sodium 40 e Sodium 40 8 065536 MG Oral MG Oral Tablet Tablet Delayed Delayed Release Release metFORMIN metFORMIN Yes R.N. NPI:1 52 HCl - 500 HCl - 500 43961 05 MG Oral MG Oral Tablet Tablet Tamsulosin Tamsulosin Yes R.N. NPI :152 HCl - 0.4 HCl - 0.4 37787 05 MG Oral MG Oral Capsule Capsule Fenofibrate Fenofibrate Yes R.N. N PI:152 145 MG Oral 145 MG Oral 8 809380 Tablet Tablet Remeron 15 Remeron 15 Yes R.N. NPI :152 MG Oral MG Oral 7533739 Tablet Tablet Amantadine Amantadine Yes R.N. NPI :152 HCl - 100 HCl - 100 56038 05 MG Oral MG Oral Capsule Capsule Melatonin 3 Melatonin 3 Yes R.N. N PI:152 MG Oral MG Oral 7863739 Tablet Tablet Atorvastati Atorvastati Yes R.N. N PI:152 n Calcium n Calcium 35803 05 10 MG Oral 10 MG Oral Tablet Tablet Fioricet Fioricet Yes R.N. NPI:152 TABS TABS 0310073 Escitalopra Escitalopra Yes R.N. N PI:152 m Oxalate m Oxalate 66959 05 10 MG Oral 10 MG Oral Tablet Tablet Aricept 5 Aricept 5 Yes R.N. NPI:1 52 MG Oral MG Oral 3774820 Tablet Tablet Fenofibrate Fenofibrate Yes Na Davis 1 tablet NPI:174 with food 3177840 Fioricet Fioricet Yes Na Davis 1 capsule NPI:174 as needed 1144247 Amantadine Amantadine Yes Na Davis 1 tablet NPI:174 HCl HCl 3762778 Tamsulosin Tamsulosin Yes Na Davis 1 capsule NPI:174 HCl HCl 1481594 Keppra Keppra Yes Na Davis 1 tablet NPI: 213 [id number] Fluvastatin Fluvastatin Yes Na Davis 1 capsule NPI:174 Sodium Sodium 9848306 Lisinopril Lisinopril Yes Na Davis 1 tablet NPI:746 [id number] Prozac Prozac Yes Na Davis 1 capsule NPI :468 [id number] Aricept Aricept Yes Na Davis 1 tablet 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: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 6296326 Lexapro Lexapro Yes Na Davis 1 tablet 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:916 7994329 ZyrTEC ZyrTEC Yes Na Davis 1 tablet NPI: 926 [id number] Protonix Protonix Yes Na Davis 1 tablet NPI:679 [id number] Pravastatin Pravastatin Yes Na Davis TAKE ONE NPI:174 Sodium Sodium TABLET BY 004975 9 MOUTH ONCE DAILY Eliquis 2.5 Eliquis 2.5 Yes Na Davis one NPI:174 mg mg 4784447 Aspirin Aspirin Yes Na Davis 1 tablet 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:392 4008840 Metformin Metformin Yes Na Davis 1 tablet NPI:174 HCl HCl with meals 4553518 Mirtazapine Mirtazapine Yes Na Davis 1 tablet NPI: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 7720711 Melatonin Melatonin Yes Na Davis 1 tablet NPI: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 2734015 as needed with food Donepezil Donepezil Yes Na Davis 1 tablet NPI:174 HCl HCl at bedtime 1420277 Immunizations Ordered Immunization Filled Immunization Date Status Commen ts Source Name Name SARS-COV-2 COVID-19 2020-07-12 Completed NPI:1 [id number] PFIZER VACCINE 00:00:00 SARS-COV-2 COVID-19 2020-07-12 Completed NPI:1 [id number] PFIZER VACCINE 00:00:00 SARS-COV-2 COVID-19 2020-07-12 Completed NPI:1 [id number] PFIZER VACCINE 00:00:00 SARS-COV-2 COVID-19 2020-07-12 Completed NPI:1 [id number] PFIZER VACCINE 00:00:00 SARS-COV-2 COVID-19 2020-07-12 Completed NPI:1 [id number] PFIZER VACCINE 00:00:00 SARS-COV-2 COVID-19 2020-06-21 Completed NPI:1 [id number] PFIZER VACCINE 00:00:00 SARS-COV-2 COVID-19 2020-06-21 Completed NPI:1 [id number] PFIZER VACCINE 00:00:00 SARS-COV-2 COVID-19 2020-06-21 Completed NPI:1 [id number] PFIZER VACCINE 00:00:00 SARS-COV-2 COVID-19 2020-06-21 Completed NPI:1 [id number] PFIZER VACCINE 00:00:00 SARS-COV-2 COVID-19 2020-06-21 Completed NPI:1 [id number] PFIZER VACCINE 00:00:00 Vital Signs Vital Name Observation Time Observation Value Comments Source Systolic blood 2021-07-07 04:30:00 126 mm[Hg] NPI:18 [id number] pressure 1 Diastolic blood 2021-07-07 04:30:00 58 mm[Hg] NPI:1 [id number] pressure 1 Heart rate 2021-07-07 04:30:00 88 /min NPI:1831 96419 1 Body temperature 2021-07-07 04:30:00 36.67 Kaia NPI: [id number] 1 Respiratory rate 2021-07-07 04:30:00 18 /min NPI: [id number] 1 Oxygen saturation 2021-07-07 04:30:00 98 /min NPI :[id number] in Arterial blood 1 by Pulse oximetry Body weight 2021-07-07 00:57:00 82.736 kg NPI:1831 64358 1 BMI 2021-07-07 00:57:00 28.57 kg/m2 NPI:1831 89222 1 Body height 2020-10-29 12:58:40 175.3 cm NPI:1528 81257 5 Body weight 2020-10-29 12:58:40 85.909 kg NPI:1528 70071 5 BMI 2020-10-29 12:58:40 27.97 kg/m2 NPI:1528 47329 5 BP Systolic 2018-05-12 13:35:00 153 mm[Hg] Location: LUE; NPI:15 [id number] Position: 5 Sitting BP Diastolic 2018-05-12 13:35:00 85 mm[Hg] Location: LUE; NPI:15 [id number] Position: 5 Sitting Height 2018-05-12 13:35:00 69 [in_us] NPI:1528 45000 5 Temperature 2018-05-12 13:35:00 98.3 [degF] Method: Oral NPI:1528 54198 5 Heart Rate 2018-05-12 13:35:00 71 /min NPI:1528 09576 5 BP Systolic 2018-05-01 16:48:00 119 mm[Hg] Location: RUE; NPI:15 [id number] Position: 5 Sitting BP Diastolic 2018-05-01 16:48:00 66 mm[Hg] Location: RUE; NPI:15 [id number] Position: 5 Sitting Height 2018-05-01 16:48:00 69 [in_us] NPI:1528 43667 5 Weight 2018-05-01 16:48:00 205.25 [lb_av] NPI:15 [id number] 5 Body Mass Index 2018-05-01 16:48:00 30.31 kg/m2 NPI:1 [id number] Calculated 5 Heart Rate 2018-05-01 16:48:00 78 /min Location: R NPI:1528 79194 Radial; 5 BP Systolic 2018-01-09 16:11:00 121 mm[Hg] Location: RHETTE; NPI:15 [id number] Position: 5 Sitting BP Diastolic 2018-01-09 16:11:00 75 mm[Hg] Location: DAYANA; NPI:15 [id number] Position: 5 Sitting Height 2018-01-09 16:11:00 69 [in_us] NPI:1528 46679 5 Body Mass Index 2018-01-09 16:11:00 28.35 kg/m2 NPI:1 [id number] Calculated 5 Weight 2018-01-09 16:11:00 192 [lb_av] NPI:1528 82548 5 Heart Rate 2018-01-09 16:11:00 79 /min Location: L NPI:1528 50104 Radial; Quality: 5 Normal Respiration Rate 2018-01-09 16:11:00 16 /min Quality: Normal N PI:[id number] 5 Height 2018-01-09 15:46:00 69 [in_us] NPI:1528 68944 5 Body Mass Index 2018-01-09 15:46:00 28.35 kg/m2 NPI:1 [id number] Calculated 5 Weight 2018-01-09 15:46:00 192 [lb_av] NPI:1528 98613 5 Procedures Procedure Date / Time Performed Performing Clinician [facility] e ED LACERATION REPAIR 2021-07-07 03:09:57 Jacquie Montilla NPI:[id number] TRAUMA HEAD WO CONTRAST 2021-07-07 01:15:[address] TRAUMA CERVICAL SPINE WO 2021-07-07 01:15:00 Sage Owen CONTRAST OH DIAGNOSTIC LUMBAR SPINAL 2020-10-29 15:17:00 Chelo Katz PUNCTURE W/FLUOR OR CT [N] Venous Duplex Lower 2018-01-09 00:00:00 Bilateral VR Vascular/Interventional 2017-11-15 00:00:00 N PI:[id number] Radiology Consult History of Ankle Surgery NPI:994 [id number] Plan of Care Planned Activity Planned Date Details Comments Source Diagnostic Test 2018-04-06 00:00:00 [N] Venous Duplex Pending Lower Bilateral [code = [N] Venous Duplex Lower Bilateral] Encounters Start End Encounter Admission Attending Care Care Encounter Source Date/Time Date/Time Type Type Clinicians Facility Department ID 2021-08-12 Outpatient JONATHON [facility] [id number] NPI:152 01:05:02 AURELIO [id number] 2021-07-31 Outpatient [facility] [id number] NPI:152 12:12:42 [id number] 2021-06-09 Outpatient STERLING [facility] [id number] NPI:152 01:04:34 CHELO [id number] 2021-05-20 Outpatient Davis, Na STLMLC STLMLC [id number] NPI:174 12:31:17 [id number] 2021-05-20 Outpatient Davis, Na STLMLC STLMLC [id number] NPI:174 12:24:36 [id number] 2021-05-20 Outpatient Davis, Na STLMLC STLMLC [id number] NPI:174 12:22:46 [id number] 2021-05-20 Outpatient Davis, Na STLMLC STLMLC [id number] NPI:174 12:22:08 [id number] 2021-05-20 Outpatient Davis, Na STLMLC STLMLC [id number] NPI:174 12:20:37 [id number] 2021-05-20 Outpatient Davis, Na STLMLC STLMLC [id number] NPI:174 12:20:01 [id number] 2021-05-20 Outpatient Davis, Na STLMLC STLMLC [id number] NPI:174 12:12:09 [id number] 2021-05-20 Outpatient Davis, Na STLMLC STLMLC [id number] NPI:174 11:44:44 [id number] 2021-05-20 Outpatient Davis, Na STLMLC STLMLC [id number] NPI:174 11:21:02 [id number] 2021-05-20 Outpatient Davis, Na STLMLC STLMLC [id number] NPI:174 11:20:21 [id number] 2021-05-20 Outpatient Nicolette Davis [facility] [id number] NPI:174 11:16:41 [id number] 2021-05-20 Outpatient Nicolette Davis [facility] [id number] NPI:174 11:16:28 [id number] 2021-03-17 Inpatient CASEY [facility] [address] [facility] 13:22:18 JOSE ANTONIO CHAPPELL 2020-12-21 Outpatient ADHIA, [facility] [id number] NPI:152 01:06:57 AURELIO [id number] 2020-10-11 Outpatient ADHIA, [facility] [id number] NPI:152 01:06:38 AURELIO [id number] 2021-07-06 2021-07-06 Emergency X BRAYDEN [facility] ERT [id number] NPI:183 19:48:00 23:30:00 SAGE [id number] 2021-07-06 2021-07-06 Emergency Brayden [facility] [id number] [id number] NPI:183 19:48:00 23:30:00 Sage [facility] 350.1.13.10 [id number] AD[place] 4.2.7.2.686 [place] [id number] [place] [id number] ([facility]) 2021-04-25 2021-04-25 Telephone GODFREY Guadarrama 1.2.451.724 [id number] NPI:183 00:00:00 00:00:00 Michelle ALAN 350.1.13.10 [id number] [facility] 4.2.7.2.686 [id number] 2021-04-23 2021-04-23 Outpatient R EDGARDO [facility] [id number] NPI:183 12:45:00 13:03:26 YELITZA [id number] 2021-04-23 2021-04-23 Laboratory Only, Ang Db Test [facility] 1.2.8 40.114 [id number] NPI:183 12:45:00 13:00:00 Only Yelitza Fuentes [facility] 350.1.13.10 [id number] [place] 4.2.7.2.686 ELO?BLEA [id number] [facility] [address] [facility] 2021-04-23 2021-04-23 Letter Doctor GODFREY 1.2.840.114 [id number] NPI:183 00:00:00 00:00:00 (Out) Unassigned, DAYANNA 350.1.13.10 [id number] [place] [facility] 4.2.7.2.686 [id number] 2021-04-23 2021-04-23 Letter Doctor GODFREY 1.2.840.114 [id number] NPI:183 00:00:00 00:00:00 (Out) Unassigned, DAYANNA 350.1.13.10 [id number] [place] [facility] 4.2.7.2.686 [id number] 2020-12-01 2020-12-01 EXT [facility] OP Esquenazi EXT [facility] 1.2.840.114 [id number] NPI:152 00:00:00 00:00:00 Chappell, LOCATION 350.1.13.58 8 [id number] [facility] 9.2.7.2.686 [id number] 2020-10-29 2020-10-29 Outpatient STERLING [facility] [id number] [facility] 07:49:00 11:10:00 CHELO 2020-10-21 2020-10-21 EXT [facility] OP Minda EXT [facility] 1.2.840.114 [id number] NPI:152 00:00:00 00:00:00 Keagan, LOCATION 350.1.13.58 [id number] Mag[place] 9.2.7.2.686 [id number] 2020-10-16 2020-10-16 EXT [facility] OP [place], EXT M[facility]DP 1.2.840.114 [id number] NPI:152 00:00:00 00:00:00 Chelo LOCATION 350.1.13.58 [id number] 9.2.7.2.686 [id number] 2020-10-08 2020-10-08 Outpatient STLMLC STLMLC [id number] NPI:174 00:00:00 00:00:00 [id number] 2020-10-06 2020-10-06 EXT [facility] OP [place], EXT MSRDP 1.2.840.114 [id number] NPI:152 00:00:00 00:00:00 Chelo LOCATION 350.1.13.58 [id number] 9.2.7.2.686 [id number] 2020-10-02 2020-10-02 EXT [facility] OP [place], EXT M[facility]DP 1.2.840.114 [id number] NPI:152 00:00:00 00:00:00 Chelo LOCATION 350.1.13.58 8 [id number] 9.2.7.2.686 [id number] 2020-09-09 2020-09-09 EXT [facility] OP Minda EXT MSRDP 1.2.840.114 [id number] NPI:152 00:00:00 00:00:00 Keagan, LOCATION 350.1.13.58 [id number] [place] 9.2.7.2.686 [id number] 2020-07-25 2020-07-25 Outpatient STLMLC STLMLC [id number] NPI:174 00:00:00 00:00:00 [id number] 2020-07-12 2020-07-12 Outpatient Becka DÍAZ, [facility] [id number] NPI:183 11:35:00 11:35:00 JACQUELINE [id number] 2020-06-13 2020-06-13 Outpatient STLMLC STLMLC [id number] NPI:174 00:00:00 00:00:00 [id number] 2020-05-23 2020-05-23 Outpatient STLMLC STLMLC [id number] NPI:174 00:00:00 00:00:00 [id number] 2020-05-21 2020-05-21 Outpatient STLMLC STLMLC [id number] NPI:174 00:00:00 00:00:00 [id number] 2020-05-09 2020-05-09 Outpatient STLMLC STLMLC [id number] NPI:174 00:00:00 00:00:00 [id number] 2020-05-08 2020-05-08 Outpatient STLMLC STLMLC [id number] NPI:174 00:00:00 00:00:00 [id number] 2020-04-21 2020-04-21 Outpatient STLMLC STLMLC [id number] NPI:174 00:00:00 00:00:00 [id number] 2020-04-07 2020-04-07 Outpatient STLMLC STLMLC [id number] NPI:174 00:00:00 00:00:00 [id number] 2020-04-03 2020-04-03 Outpatient STLMLC STL[facility]C [id number] NPI:174 00:00:00 00:00:00 [id number] 2020-03-27 2020-03-27 Outpatient STLMLC STLMLC [id number] NPI:174 00:00:00 00:00:00 [id number] 2020-01-07 2020-01-07 Outpatient [facility] [id number] NPI:174 11:40:00 11:40:00 t [employer] [id number] 879 [employer] [facility] 2019-10-04 2019-10-04 Outpatient [facility] [id number] NPI:174 09:21:00 09:21:00 [employer] 0485 879 [employer] [facility] 2019-10-01 2019-10-01 Outpatient [facility] [id number] NPI:174 15:00:00 15:00:00 t Specialty/U 04 [id number] Specialty rology /[facility] 2019-08-30 2019-08-30 Out[facility] [id number] NPI:174 14:45:00 14:45:00 t Specialty/U 04 [id number] Specialty rology /Urology Clinic Clinic 2019-08-27 2019-08-27 Outpatient [facility] [id number] NPI:174 08:55:00 08:55:00 t Specialty/U 04 [id number] Specialty rology /Urology Clinic Clinic 2019-07-30 2019-07-30 Outpatient [facility] [id number] NPI:174 15:40:00 15:40:00 [employer] 0485 [address] [employer] [facility] 2019-07-27 2019-07-27 Outpatient [facility] [id number] NPI:174 15:19:00 15:19:[address] [facility] 2019-05-24 2019-05-24 Outpatient [facility] [id number] NPI:174 10:22:00 10:22:[address] [facility] 2019-03-26 2019-03-26 Outpatient [facility] [id number] NPI:174 15:40:00 15:40:[address] [facility] 2018-11-02 2018-11-02 Outpatient [facility] [id number] NPI:174 15:40:00 15:40:[address] [facility] 2018-10-24 2018-10-24 [facility] 26 [id number] NPI:174 13:54:00 13:54:[address] [facility] 2018-10-20 2018-10-20 [facility] [id number] NPI:174 13:32:00 13:32:[address] [facility] 2018-10-11 2018-10-11 [facility] [id number] NPI:174 15:03:00 15:03:[address] [facility] 2018-07-21 2018-07-21 [facility] [id number] NPI:174 14:10:00 14:10:[address] [facility] 2018-07-21 2018-07-21 [facility] [id number] NPI:174 13:51:00 13:51:[address] [facility] 2018-06-29 2018-06-29 Liset SHARPE [facility] UTP [id number] NPI:152 14:30:00 14:30:00 [place] Singer [id number] [place] 2018-06-06 2018-06-06 [facility] [id number] NPI:174 15:15:00 15:15:[address] [facility] 2018-05-12 2018-05-12 Liset SHARPE, [facility] [id number] NPI:152 15:30:00 15:30:00 t; [place] SHARPE yology - [id number] [facility] 2018-05-12 2018-05-12 Liset ESPARZA [facility] 48 [id number] NPI:152 13:30:00 13:30:00 t; [facility] [id number] Jennifer [facility] 2018-05-11 2018-05-11 Liset ROSE [facility] 48 [id number] NPI:152 15:00:00 15:00:00 t; [facility] 850 [address] [facility] 2018-05-09 2018-05-09 [facility] [id number] NPI:174 14:48:00 14:48:00 t [facility] [address] [place] [address] Medicine 2018-05-01 2018-05-01 Liset Winkler [facility] Cardiology 48 [id number] NPI:152 16:45:00 16:45:00 t; Serene Mccann [id number] Siobhan Winkler M.D. 2018-04-10 2018-04-10 Liset Winkler [facility] [id number] NPI:152 16:00:00 16:00:00 t; Serene Mccann [id number] Siobhan Winkler M.D. 2018-04-06 2018-04-06 Liset [facility] [id number] 1 NPI:152 14:00:00 14:00:00 t; HODA SHEARER [id number] ECHORADHA 2018-03-31 2018-03-31 Liset EPSARZA [facility] [id number] NPI:152 14:30:00 14:30:00 t; Serene DONAHUE 850 [id number] GODFREY ESPARZA M.D. 2018-03-29 2018-03-29 Liset CEVALLOS [facility] [id number] NPI:152 15:00:00 15:00:00 t; MARIELENA [id number] MARIELENA CEVALLOS 2018-03-20 2018-03-20 [facility] [id number] NPI:174 14:15:00 14:15:00 t [facility] [address] [place] [address] 2018-01-09 2018-01-09 VIELKA Mccon[facility] 45 [id number] NPI:152 16:00:00 16:00:00 t; Serene Mccann [id number] Siobhan Winkler M.D. 2018-01-09 2018-01-09 [facility] [id number] NPI:174 09:15:00 09:15:00 t [facility] [address] [place] [address] 2017-10-24 2017-10-24 Liset SHARPE [facility] [id number] NPI:152 09:30:00 09:30:00 t; MILAGRO SHARPE [id number] MILAGRO 2017-10-24 2017-10-24 VIELKA Fisher UTP [id number] NPI:152 09:15:00 09:15:00 t; Serene DONAHUE 850 [id number] GODFREY ESPARZA M.D. 2017-10-18 2017-10-18 [facility] [id number] NPI:152 10:00:00 10:00:00 t; PROVIDER [id number] RADIOLOGY, MD PROVIDER Results This patient has no known results.
--- NOTE | 2021-09-02 14:39 | RAD REPORT ---
EXAM DESCRIPTION: CT - Head C Spine Mpr Wo Con - 09/02/2021 2:24 pm CLINICAL HISTORY: Head and neck injury status post fall. Head and neck pain COMPARISON: July 2021 TECHNIQUE: Computed axial tomography of the head and cervical spine was obtained. Sagittal and coronal reconstruction was performed. All CT scans are performed using dose optimization technique as appropriate and may include automated exposure control or mA/KV adjustment according to patient size. FINDINGS: Gliosis right cerebrum. Right craniotomy. An acute intracranial bleed is not seen. The ventricles are normal in caliber. An extra-axial fluid c ollection is not noted.Fluid within the visualized sinuses and mastoids is not seen A cervical fracture is not visualized. No dislocation is noted. IMPRESSION: No acute intracranial abnormality is seen. A cervical fracture is not visualized. If the patient continues to have symptoms to suggest intracra nial /spinal cord pathology then MRI would be recommended
--- NOTE | 2021-09-02 15:45 | EDPHYS ---
Physician Documentation [facility] Name: Adelaida Ramirez Age: 71 yrs Sex: Male : 1950 Arrival Date: 09/02/2021 Time: 13:59 Bed 17 Private MD: ED Physician Shawn Webster HPI: 09/02 14:03 This 71 yrs old Male presents to ER via EMS with complaints of Fall. ms3 14:03 Details of fall: The patient fell and struck Hard floor. Onset: The symptoms/episode ms3 began/occurred acutely, 40 minute(s) ago. Associated injuries: The patient sustained injury to the head, contusion. Severity of symptoms: At their worst the symptoms were. 71 yo male with pmh of Dementia, HLD, DM, Depression presents via [facility] s/p fall from wheelchair 40 min [employer]. Patient with history of Dementia limiting HPI.. Historical: - Allergies: 14:03 NKDA; jh6 - PMHx: 14:03 Dementia; depressive disorder; diabetes mellitus; Hypercholesterolemia; Hypertensive jh6 disorder; - Immunization history:: Adult Immunizations up to date. - Social history:: Smoking status: unknown. ROS: 14:03 Unable to obtain ROS due to baseline dementia. ms3 Exam: 14:03 Constitutional: This is a well developed, well nourished patient who is awake, alert, ms3 and in no acute distress. Eyes: Pupils equal round and reactive to light, extra-ocular motions intact. Lids and lashes normal. Conjunctiva and sclera are non-icteric and not injected. Periorbital areas with no swelling, redness, or edema. Neck: Trachea midline, no cervical lymphadenopathy. Supple, full range of motion without nuchal rigidity, or vertebral point tenderness. No Meningismus. Chest/axilla: Normal chest wall appearance and motion. Nontender with no deformity. Cardiovascular: Regular rate and rhythm with a normal S1 and S2. No gallops, murmurs, or rubs. Normal PMI, no JVD. No pulse deficits. Respiratory: Lungs have equal breath sounds bilaterally, clear to auscultation and percussion. No rales, rhonchi or wheezes noted. No increased work of breathing, no retractions or nasal flaring. Abdomen/GI: Soft, non-tender, with normal bowel sounds. No distension or tympany. No guarding or rebound. No evidence of tenderness throughout. Skin: Warm, dry with normal turgor. Normal color with no rashes, no lesions, and no evidence of cellulitis. MS/ Extremity: Pulses equal, no cyanosis. Neurovascular intact. Full, normal range of motion. Psych: Awake, alert, with orientation to person, place and time. Behavior, mood, and affect are within normal limits. 14:03 Head/face: Noted is erythema, that is mild, of the right orthodoxy. 14:03 Neuro: Orientation: Baseline per EMS. Vital Signs: 14:00 BP 126 / 68; Pulse 68; Resp 17; Temp 98.7(O); Pulse Ox 99% ; Weight 97.98 kg; Height 5 jh6 ft. 7 in. (170.18 cm); Pain 0/10; 14:00 Body Mass Index 33.83 (97.98 kg, 170.18 cm) jh6 MDM: 14:00 Patient medically screened. ms3 14:03 Differential diagnosis: closed head injury, contusion, fracture. ms3 16:20 Data reviewed: vital signs, nurses notes, radiologic studies, CT scan. Counseling: I ms3 had a detailed discussion with the patient and/or guardian regarding:. ED course: CT head/ C spine negative. Patient medically stable for transfer back to nursing facility.. 05 14:03 Order name: CT Head C Spine ms3 09/02 14:07 Order name: Head C Spine Mpr Wo Con; Complete Time: 15:44 EDMS Administered Medications: No medications were administered Disposition Summary: 09/02/21 15:45 Discharge Ordered Location: Home ms3 Condition: Stable ms3 Diagnosis - Fall from non-moving wheelchair ms3 - Contusion of unspecified part of head, initial encounter ms3 Followup: ms3 - With: Private Physician - When: 2 - 3 days - Reason: Recheck today's complaints Discharge Instructions: - Discharge Summary Sheet ms3 - Facial or Scalp Contusion ms3 Forms: - Medication Reconciliation Form ms3 - Thank You Letter ms3 - Antibiotic Education ms3 - Prescription Opioid Use ms3 Signatures: Dispatcher [employer] EDMS Shawn Webster DO DO ms3 Narda Cancino RN RN jh6
--- NOTE | 2021-09-02 15:45 | ER ---
Nurse's Notes [facility] Name: Adelaida Ramirez Age: 71 yrs Sex: Male : 1950 Arrival Date: 09/02/2021 Time: 13:59 Bed 17 Private MD: Diagnosis: Fall from non-moving wheelchair;Contusion of unspecified part of head, initial encounter Presentation: 09/02 14:00 Chief complaint: EMS states: PT FELL FROM WHEELCHAIR AND STRUCK HEAD ON TILE. - LOC jh6 WITH MINIMAL SWELLING TO RT TEMPORAL AREA. Coronavirus screen: Vaccine status: Patient reports receiving the 2nd dose of the covid vaccine. Ebola Screen: Patient negative for fever greater than or equal to 101.5 degrees Fahrenheit, and additional compatible Ebola Virus Disease symptoms Patient denies exposure to infectious person. Patient denies travel to an Ebola-affected area in the 21 days before illness onset. Initial Sepsis Screen: Does the patient meet any 2 criteria? RR > 20 per min. Does the patient have a suspected source of infection? No. Patient's initial sepsis screen is negative. Risk Assessment: Do you want to hurt yourself or someone else? Patient reports no desire to harm self or others. Onset of symptoms was September 02, 2021. 14:00 Method Of Arrival: EMS: [place] [facility] 14:00 Acuity: PATRICK 3 jh6 Triage Assessment: 14:03 General: Appears in no apparent distress. Behavior is calm, cooperative. Pain: Denies jh6 pain. Historical: - Allergies: 14:03 NKDA; jh6 - PMHx: 14:03 Dementia; depressive disorder; diabetes mellitus; Hypercholesterolemia; Hypertensive jh6 disorder; - Immunization history:: Adult Immunizations up to date. - Social history:: Smoking status: unknown. Screenin:04 Abuse screen: Denies threats or abuse. Nutritional screening: No deficits noted. jh6 Tuberculosis screening: No symptoms or risk factors identified. Fall Risk Gait- Weak (10 pts.). Assessment: 14:04 General: Appears in no apparent distress. General: Behavior is calm, cooperative. Pain: jh6 Denies pain. Neuro: Oriented to person, Territory Manager are equal bilaterally Moves all extremities. Pupils are PERRLA, Pupil Size: 3MM BILAT. Vital Signs: 14:00 BP 126 / 68; Pulse 68; Resp 17; Temp 98.7(O); Pulse Ox 99% ; Weight 97.98 kg; Height 5 jh6 ft. 7 in. (170.18 cm); Pain 0/10; 14:00 Body Mass Index 33.83 (97.98 kg, 170.18 cm) [facility] ED Course: 13:59 Patient arrived in ED. 6 13:59 Narda Cancino, RN is Primary Nurse. 6 14:00 Shawn Webster DO is Attending Physician. ms3 14:03 Triage completed. jh6 14:04 Arm band placed on right wrist. jh6 14:05 No provider procedures requiring assistance completed. jh6 14:[address] jh6 14:26 Head C Spine Mpr Wo Con In Process Unspecified. EDMS Administered Medications: No medications were administered Outcome: 15:45 Discharge ordered by . ms3 17:32 Patient left the ED. 6 Signatures: Dispatcher [employer] EDMS Shawn Webster DO DO ms3 Narda Cancino, RN RN [facility]
[2021-09-02 18:32] VITALS: BP 126/68; TEMP 98.7; O2SAT 99
== END 2021-09-02 17:32 | disposition home or self-care (01) ==
LOC: ER 13:55
DX: S00.83XA Contusion of other part of head, initial encounter (principal); W05.0XXA Fall from non-moving wheelchair, initial encounter; F03.90 Unspecified dementia, unspecified severity, without behavioral disturbance, psychotic disturbance, mood disturbance, and anxiety; E11.9 Type 2 diabetes mellitus without complications; I10 Essential (primary) hypertension
CPT/HCPCS: 70450; 72125; 99284

== ENCOUNTER 2021-10-02 08:36 | Emergency (ER) | payer OTHER ==
--- OUTSIDE RECORDS SUMMARY | 2021-10-02 08:39 | XMS REPORT | Continuity of Care Document ---
:1950 Author Organization [facility] t Address [address] [place] [address] Care Team Providers Name Role Phone RANJITH VELÁZQUEZ Primary Care Physician Unavailable AURELIO HOLT Attending Clinician Unavailable STERLING Attending Clinician Unavailable Alesia Davis Attending Clinician Unavailable CASEY CHAPPELL Attending Clinician Unavailable KIMBERLY_Richmond Attending Clinician Unavailable Julius Epstein Attending Clinician [phone] Fernandez Attending Clinician [phone] Macey OWEN Attending Clinician Unavailable Thierry YIN Attending Clinician Unavailable EDGARDO Attending Clinician Unavailable Only, Db Test Attending Clinician Unavailable Edgardo TAN Attending Clinician Doctor Unassigned, Name Attending Clinician Unavailable Casey Chappell MD Attending Clinician KERLINE KATZ Attending Clinician Unavailable Minda Boogie MD Attending Clinician Unavailable Giovani DÍAZ Attending Clinician Unavailable DELL Attending Clinician Unavailable ISAIAS Attending Clinician Unavailable ROSE Attending Clinician Unavailable Peterson Attending Clinician Unavailable MANFRED Attending Clinician Unavailable MART Attending Clinician Unavailable RADIOLOGY Attending Clinician Unavailable JUN_[email or web address] Admitting Clinician Unavailable Macey OWEN Admitting Clinician Unavailable Payers Payer Name Policy Type Policy Number Effective Date Expiration Date Demetra hya [employer] Indemnity [id number] 2017 COMP 00:00:00 [place]AN [employer] [id number] 2020 2020 MEDICARE 00:00:00 00:00:00 GENERIC INTERFACED [id number] 2017 2024 [facility] 00:00:00 00:00:00 [employer] - [id number] PHYSICIAN HEALTH CHOICE (MEDICARE REPLACEMENT HMO) [employer] [id number] 2021 MEDICARE ADVANTAGE 00:00:00 Problems Condition Condition Condition Status Onset Resolution Last Treating Co mments Source Name Details Category Date Date Treatment Clinician Date No known No known Disease Unive rs active active ity of problems problems [facility] History of History of Problem Resolve UT diabetes diabetes d Physic i mellitus mellitus ans DVT (deep DVT (deep Problem Active UT venous venous Physici thrombosis thrombosis an s ) ) BPPV BPPV Problem Active UT (benign (benign Physici paroxysmal paroxysmal an s positional positional vertigo), vertigo), right right 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, loss, 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 Ph ysici ans Dysfunctio Dysfunctio Problem Active U T n of left n of left Phys ici eustachian eustachian an s tube tube Allergies, Adverse Reactions, Alerts Allergy Allergy Status Severity Reaction(s) Onset Inactive Treating Comm ents Source Name Type Date Date Clinician NO KNOWN Drug Active Univers ALLERGIE Class ity of S [facility] Social History Social Habit Start Date Stop Date Quantity Comments Source Exposure to Unable to assess Univers ity of SARS-CoV-2 [facility] (event) [place] Sex Assigned At [birth year] Universit y of 00:00:00 00:00:00 [facility] Smoking Status Start Date Stop Date Source Unknown if ever smoked [facility] Never smoker [facility] Medications Ordered Filled Start Stop Current Ordering Indication Dosage Frequency Signature Comments Components Source Medication Medication Date Date Medication? Clinician (SIG) Name Name lidocaine 2021- No 10mL 10 mL, Unive rs 1% 3-15 -15 Infiltrati ity of (XYLOCAINE) 03:45: 02:51 on, ONCE, [place] 10 mg/mL (1 00 :00 1 dose, On Me dical %) Mon Branch injection 07/06/21 at 10 mL 2245, Routine Eliquis 2.5 Eliquis 2.5 2017-04 Yes H Peterson 1 QD TAKE ONE UT MG Oral MG Oral 2-10 M.D. TABLET BY Phys ici Tablet Tablet 08:19: MOUTH ans 32 DAILY atorvastati 2016-04 Yes 10mg Take 10 mg Univers n 10 mg 0-07 by mouth ity of tablet 11:35: at [place] [address] bedtime. [facility] Branch atorvastati 2016-04 Yes 10mg Take 10 mg Univers n 10 mg 0-07 by mouth ity of tablet 11:35: at [place] [address] bedtime. [facility] Branch atorvastati 2016-04 Yes 10mg Take 10 mg Univers n 10 mg 0-07 by mouth ity of tablet 11:35: at [place] [address] bedtime. [facility] Branch atorvastati 2016-04 Yes 10mg Take 10 mg Univers n 10 mg 0-07 by mouth ity of tablet 11:35: at [place] [address] bedtime. [facility] Branch atorvastati 2016-04 Yes 10mg Take 10 mg Univers n 10 mg 0-07 by mouth ity of tablet 11:35: at [place] [address] bedtime. [facility] Branch meclizine 2016-04 Yes 32mg Take 1 [...] by mouth ity of (LEXAPRO) 22:48: daily. [place] 10 mg 37 Medical tablet Branch metFORMIN 2014-04 Yes 1000mg Take 1,000 Univers (GLUCOPHAGE 2-04 mg by ity of ) 1,000 mg 22:48: mouth 2 [place] tablet 37 (two) Medical times Branch daily with meals. escitalopra 2014-04 Yes 10mg Take 10 mg Univers m oxalate 2-04 by mouth ity of (LEXAPRO) 22:48: daily. [place] 10 mg 37 Medical tablet Branch metFORMIN 2014-04 Yes 1000mg Take 1,000 Univers (GLUCOPHAGE 2-04 mg by ity of ) 1,000 mg 22:48: mouth 2 [place] tablet 37 (two) Medical times Branch daily with meals. escitalopra 2014-04 Yes 10mg Take 10 mg Univers m oxalate 2-04 by mouth ity of (LEXAPRO) 22:48: daily. [place] 10 mg 37 Medical tablet Branch traMADOL 2014-04 Yes 50mg Take 1 Tab Uni vers (ULTRAM) 50 2-04 by mouth ity of mg tablet 00:00: every 6 [place] 00 (six) Medical hours as Branch needed for Pain (scale 4-6). Roc Hatfield PA-C / Don Blunt MD SEAN# [id number] DPS# [id number] x Lic.# [id number] NPI# [id number] baclofen 2014-04 Yes 20mg Take 1 Tab [...] Hatfield PA-C / Don Blunt MD SEAN# [id number] DPS# [id number] x Lic.# [id number] NPI# [id number] baclofen 2014-04 Yes 20mg Take 1 Tab [...] Hatfield PA-C / Don Blunt MD SEAN# [id number] DPS# [id number] x Lic.# [id number] NPI# [id number] baclofen 2014-04 Yes 20mg Take 1 Tab [...] Hatfield PA-C / Don Blunt MD SEAN# [id number] DPS# [id number] x Lic.# [id number] NPI# [id number] baclofen 2014-04 Yes 20mg Take 1 Tab [...] Hatfield PA-C / Don Blunt MD SEAN# [id number] DPS# [id number] x Lic.# [id number] NPI# [id number] baclofen 2014-04 Yes 20mg Take 1 Tab Uni vers (LIORESAL) 2-04 by mouth 3 ity of 20 mg 00:00: (three) [place] tablet 00 times Medical daily. Branch Pantoprazol Pantoprazol Yes R.N. U T e Sodium 40 e Sodium 40 P hysici MG Oral MG Oral ans Tablet Tablet Delayed Delayed Release Release metFORMIN metFORMIN Yes R.N. UT HCl - 500 HCl - 500 Physi ci MG Oral MG Oral ans Tablet Tablet Tamsulosin Tamsulosin Yes R.N. UT HCl - 0.4 HCl - 0.4 Physi ci MG Oral MG Oral ans Capsule Capsule Fenofibrate Fenofibrate Yes R.N. U T 145 MG Oral 145 MG Oral P hysici Tablet Tablet ans Remeron 15 Remeron 15 Yes R.N. UT MG Oral MG Oral Physici Tablet Tablet ans Amantadine Amantadine Yes R.N. UT HCl - 100 HCl - 100 Physi ci MG Oral MG Oral ans Capsule Capsule Melatonin 3 Melatonin 3 Yes R.N. U T MG Oral MG Oral Physici Tablet Tablet ans Atorvastati Atorvastati Yes R.N. U T n Calcium n Calcium Physi ci 10 MG Oral 10 MG Oral ans Tablet Tablet Fioricet Fioricet Yes R.N. UT TABS TABS Physici ans Escitalopra Escitalopra Yes R.N. U T m Oxalate m Oxalate Physi ci 10 MG Oral 10 MG Oral ans Tablet Tablet Aricept 5 Aricept 5 Yes R.N. UT MG Oral MG Oral Physici Tablet Tablet ans Fenofibrate Fenofibrate Yes Na Davis 1 tablet Common with food [facility] Fioricet Fioricet Yes Na Davis 1 capsule Common as needed [facility] Amantadine Amantadine Yes Na Davis 1 tablet Common HCl HCl [facility] Tamsulosin Tamsulosin Yes Na Davis 1 capsule Common HCl HCl [facility] Keppra Keppra Yes Na Davis 1 tablet Comm on [facility] Fluvastatin Fluvastatin Yes Na Davis 1 capsule Common Sodium Sodium [facility] Lisinopril Lisinopril Yes Na Davis 1 tablet Common [facility] Prozac Prozac Yes Na Davis 1 capsule Com mon [facility] Aricept Aricept Yes Na Davis 1 tablet Co mmon at bedtime [facility] Lexapro Lexapro Yes Na Davis 1 tablet Co mmon [facility] ZyrTEC ZyrTEC Yes Na Davis 1 tablet Comm on [facility] Protonix Protonix Yes Na Davis 1 tablet Common [facility] Pravastatin Pravastatin Yes Na Davis TAKE ONE Common Sodium Sodium TABLET BY Spirit MOUTH ONCE - CHI DAILY [facility] Eliquis 2.5 Eliquis 2.5 Yes Na Davis one Common mg mg [facility] Aspirin Aspirin Yes Na Davis 1 tablet Co mmon [facility] Metformin Metformin Yes Na Davis 1 tablet Common HCl HCl with meals [facility] Mirtazapine Mirtazapine Yes Na Davis 1 tablet Common at bedtime [facility] Melatonin Melatonin Yes Na Davis 1 tablet Common at bedtime [facility] as needed - [facility] with food [facility] Donepezil Donepezil Yes Na Davis 1 tablet Common HCl HCl at bedtime [facility] Immunizations Ordered Filled Immunization Date Status Comments [facility] e Immunization Name Name SARS-COV-2 COVID-19 2020-07-12 Completed Unive rsity of PFIZER VACCINE 00:00:00 [facility] SARS-COV-2 COVID-19 2020-07-12 Completed Unive rsity of PFIZER VACCINE 00:00:00 [facility] SARS-COV-2 COVID-19 2020-07-12 Completed Unive rsity of PFIZER VACCINE 00:00:00 [facility] SARS-COV-2 COVID-19 2020-07-12 Completed Unive rsity of PFIZER VACCINE 00:00:00 [facility] SARS-COV-2 COVID-19 2020-07-12 Completed Unive rsity of PFIZER VACCINE 00:00:00 [facility] SARS-COV-2 COVID-19 2020-06-21 Completed Unive rsity of PFIZER VACCINE 00:00:00 [facility] SARS-COV-2 COVID-19 2020-06-21 Completed Unive rsity of PFIZER VACCINE 00:00:00 [facility] SARS-COV-2 COVID-19 2020-06-21 Completed Unive rsity of PFIZER VACCINE 00:00:00 [facility] SARS-COV-2 COVID-19 2020-06-21 Completed Unive rsity of PFIZER VACCINE 00:00:00 [facility] SARS-COV-2 COVID-19 2020-06-21 Completed Unive rsity of PFIZER VACCINE 00:00:00 [facility] Vital Signs Vital Name Observation Time Observation Value Comments Source Systolic blood 2021-07-07 126 mm[Hg] University of pressure 04:30:00 [facility] Diastolic blood 2021-07-07 58 mm[Hg] [place] o f pressure 04:30:00 [facility] Heart rate 2021-07-07 88 /min [facility] 04:30:00 [facility] Body temperature 2021-07-07 36.67 Kaia [facility] 04:30:00 [facility] Respiratory rate 2021-07-07 18 /min [facility] 04:30:00 [facility] Oxygen saturation 2021-07-07 98 /min [facility] Arterial blood 04:30:00 [facility] by Pulse oximetry [place] Body weight 2021-07-07 82.736 kg [facility] 00:57:00 [facility] BMI 2021-07-07 28.57 kg/m2 [facility] 00:57:00 [facility] Body height 2020-10-29 175.3 cm [facility] 12:58:40 Body weight 2020-10-29 85.909 kg [facility] [place] [facility] 12:58:40 BMI 2020-10-29 27.97 kg/m2 [facility] [place] [facility] 12:58:40 BP Systolic 2018-05-12 153 mm[Hg] Location: LUE; [facility] 13:35:00 Position: Sitting BP Diastolic 2018-05-12 85 mm[Hg] Location: DAYANA; [facility] 13:35:00 Position: Sitting Height 2018-05-12 69 [in_us] [facility] 13:35:00 Temperature 2018-05-12 98.3 [degF] Method: Oral [facility] 13:35:00 Heart Rate 2018-05-12 71 /min [facility] 13:35:00 BP Systolic 2018-05-01 119 mm[Hg] Location: RUE; [facility] 16:48:00 Position: Sitting BP Diastolic 2018-05-01 66 mm[Hg] Location: RUE; [facility] 16:48:00 Position: Sitting Height 2018-05-01 69 [in_us] [facility] 16:48:00 Weight 2018-05-01 205.25 [lb_av] [facility] 16:48:00 Body Mass Index 2018-05-01 30.31 kg/m2 [facility] Calculated 16:48:00 Heart Rate 2018-05-01 78 /min Location: R [facility] 16:48:00 Radial; BP Systolic 2018-01-09 121 mm[Hg] Location: LUE; [facility] 16:11:00 Position: Sitting BP Diastolic 2018-01-09 75 mm[Hg] Location: LUE; [facility] 16:11:00 Position: Sitting Height 2018-01-09 69 [in_us] [facility] 16:11:00 Body Mass Index 2018-01-09 28.35 kg/m2 [facility] Calculated 16:11:00 Weight 2018-01-09 192 [lb_av] [facility] 16:11:00 Heart Rate 2018-01-09 79 /min Location: L [facility] 16:11:00 Radial; Quality: Normal Respiration Rate 2018-01-09 16 /min Quality: Normal [facility] 16:11:00 Height 2018-01-09 69 [in_us] [facility] 15:46:00 Body Mass Index 2018-01-09 28.35 kg/m2 [facility] Calculated 15:46:00 Weight 2018-01-09 192 [lb_av] [facility] 15:46:00 Procedures Procedure Date / Time Performed Performing Clinician [facility] e ED LACERATION REPAIR 2021-07-07 03:09:57 Jacquie Montilla [facility] CT TRAUMA HEAD WO 2021-07-07 01:15:00 Sage Owen [facility] CT TRAUMA CERVICAL 2021-07-07 01:15:[address] [facility] SPINE WO [facility] [place] DIAGNOSTIC LUMBAR 2020-10-29 15:17:00 Chelo Katz [facility] SPINAL PUNCTURE W/FLUOR OR CT [N] Venous Duplex 2018-01-09 00:00:00 [facility] Lower Bilateral VR 2017-11-15 00:00:00 [facility] Vascular/Interventiona l Radiology Consult History of Ankle [facility] Surgery Plan of Care Planned Activity Planned Date Details Comments Source Diagnostic Test 2018-04-06 00:00:00 [N] Venous Duplex [facility] Pending Lower Bilateral [code = [N] Venous Duplex Lower Bilateral] Encounters Start End Encounter Admission Attending Care Care Encounter Source Date/Time Date/Time Type Type Clinicians Facility Department ID 2021-09-30 Outpatient [facility] [id number] [place] 11:01:24 [id number] [facility] 2021-09-24 Outpatient [facility] [id number] [place] 10:33:49 [id number] [facility] 2021-09-23 Outpatient [facility] [id number] [place] 14:43:58 [id number] [facility] 2021-08-12 Outpatient ADHIA, [facility] [id number] [place] 01:05:02 AURELIO [id number] [facility] 2021-07-31 Outpatient [facility] [id number] [place] 12:12:42 [id number] [facility] 2021-06-09 Outpatient IVANHOE, [facility] [id number] [place] 01:04:34 [facility] 2021-05-20 Outpatient Davis, Na STLMLC STLMLC [id number] 2 Common 12:31:17 [id number] [facility] 2021-05-20 Outpatient Davis, Na STLMLC STLMLC [id number] 2 Common 12:24:36 [id number] [facility] 2021-05-20 Outpatient Davis, Na STLMLC STLMLC [id number] 2 Common 12:22:46 [id number] [facility] 2021-05-20 Outpatient Davis, Na STLMLC STLMLC [id number] 2 Common 12:22:08 [id number] [facility] 2021-05-20 Outpatient Davis, Na STLMLC STLMLC [id number] 2 Common 12:20:37 [id number] [facility] 2021-05-20 Outpatient Davis, Na STLMLC STLMLC [id number] 2 Common 12:20:01 [id number] [facility] 2021-05-20 Outpatient Davis, Na STLMLC STLMLC [id number] 2 Common 12:12:09 [id number] [facility] 2021-05-20 Outpatient Davis, Na STLMLC STLMLC [id number] 2 Common 11:44:44 [id number] [facility] 2021-05-20 Outpatient Davis, Na STLMLC STLMLC [id number] 2 Common 11:21:02 [id number] [facility] 2021-05-20 Outpatient Davis, Na STLML[facility] [id number] 2 Common 11:20:21 [id number] [facility] 2021-05-20 Outpatient Davis, Na STLMLC [facility] [id number] 2 Common 11:16:41 [id number] [facility] 2021-05-20 Outpatient Davis, Na STLMLC [facility] [id number] 2 Common 11:16:28 [id number] [facility] 2021-03-17 Inpatient ESQUENAZI [facility] [id number] [facility] 13:22:18 JOSE ANTONIO CHAPPELL 2020-12-21 Outpatient ADHIA, [facility] [id number] [place] 01:06:57 [facility] 2020-10-11 Outpatient ADHIA, [facility] [id number] [place] 01:06:38 [facility] 2021-09-26 2021-09-26 Outpatient GC_BAHC_Tod PRIV PRIV [id number] [facility] 10:41:00 10:41:00 d_J [id number] Medica l 2021-09-24 2021-09-24 Outpatient GC_BAHC_Tod PRIV PRIV [id number] [facility] 04:27:00 04:27:00 d_J [id number] Medica l 2021-09-24 2021-09-24 Outpatient Tete, PRIV PRIV [id number] 00:00:00 00:00:00 Luciano Julius [id number] 2021-09-17 Outpatient GC_BAHC_Tod PRIV PRIV [id number] [facility] 11:29:00 11:29:00 d_J [id number] Medica l 2021-09-13 2021-09-13 Outpatient GC_BAHC_Tod PRIV PRIV [id number] [facility] 10:46:00 10:46:00 d_J [id number] Medica l 2021-09-08 2021-09-08 Outpatient GC_BAHC_Tod PRIV PRIV [id number] [facility] 08:11:00 08:11:00 d_J [id number] Medica l 2021-09-08 2021-09-08 Outpatient Fernandez, PRIV PRIV [id number] 00:00:00 00:00:00 Narda [id number] 2021-09-06 2021-09-06 Outpatient GC_BAHC_Tod PRIV PRIV [id number] [facility] 10:44:00 10:44:00 d_J [id number] Medica l 2021-09-04 2021-09-04 Outpatient GC_BAHC_Tod PRIV PRIV [id number] [facility] 12:50:00 12:50:00 d_J [id number] Medica l 2021-09-04 2021-09-04 Outpatient Fernandez, PRIV PRIV [id number] 00:00:00 00:00:00 Narda [id number] 2021-09-03 2021-09-03 Outpatient GC_BAHC_Tod PRIV PRIV [id number] [facility] 10:43:00 10:43:00 d_J [id number] Medica l 2021-08-31 2021-08-31 Outpatient GC_BAHC_Tod PRIV PRIV [id number] [facility] 10:59:00 10:59:00 d_J [id number] Medica l 2021-08-30 2021-08-30 Outpatient GC_BAHC_Tod PRIV PRIV [id number] [facility] 10:46:00 10:46:00 d_J [id number] Medica l 2021-08-28 2021-08-28 Outpatient GC_BAHC_Tod PRIV PRIV [id number] [facility] 03:13:00 03:13:00 d_J [id number] Medica l 2021-08-28 2021-08-28 Outpatient Fernandez, PRIV PRIV [id number] 00:00:00 00:00:00 Narda [id number] 2021-08-27 2021-08-27 Outpatient GC_BAHC_Tod PRIV PRIV [id number] [facility] 10:54:00 10:54:00 d_J [id number] Medica l 2021-08-262021-08-26 Outpatient GC_BAHC_Tod PRIV PRIV [id number] [facility] 05:55:00 05:55:00 d_J [id number] Medica l 2021-08-26 2021-08-26 Outpatient Tete, PRIV PRIV [id number] 00:00:00 00:00:00 Luciano Madrid [id number] 2021-08-25 2021-08-25 Outpatient GC_BAHC_Tod PRIV PRIV [id number] [facility] 01:41:00 01:41:00 d_J [id number] Medica l 2021-08-21 2021-08-21 Outpatient GC_BAHC_Tod PRIV PRIV [id number] [facility] 08:38:00 08:38:00 d_J [id number] Medica l 2021-08-21 2021-08-21 Outpatient Fernandez, PRIV PRIV [id number] [id number] 00:00:00 00:00:00 Narda [id number] 2021-08-20 Outpatient GC_BAHC_Tod PRIV PRIV [id number] [facility] 05:49:00 05:49:00 d_J [id number] Medica l 2021-08-20 2021-08-20 Outpatient Tete, PRIV PRIV [id number] 00:00:00 00:00:00 Luciano Madrid [id number] 2021-08-19 2021-08-19 Outpatient GC_BAHC_Tod PRIV PRIV [id number] [facility] 11:39:00 11:39:00 d_J [id number] Medica l 2021-08-13 2021-08-13 Outpatient GC_BAHC_Tod PRIV PRIV [id number] [facility] 01:01:00 01:01:00 d_J [id number] Medica l 2021-08-12 2021-08-12 Outpatient GC_BAHC_Tod PRIV PRIV [id number] [facility] 12:54:00 12:54:00 d_J [id number] Medica l 2021-08-11 2021-08-11 Outpatient GC_BAHC_Tod PRIV PRIV [id number] [facility] 01:10:00 01:10:00 d_J [id number] Medica l 2021-08-11 2021-08-11 Outpatient Fernandez, PRIV PRIV [id number] 00:00:00 00:00:00 Narda [id number] 2021-08-07 2021-08-07 Outpatient GC_BAHC_Tod PRIV PRIV [id number] [facility] 01:13:00 01:13:00 d_J [id number] Medica l 2021-08-06 2021-08-06 Outpatient GC_BAHC_Tod PRIV PRIV [id number] [facility] 11:34:00 11:34:00 d_J [id number] Medica l 2021-08-06 2021-08-06 Outpatient Tete, PRIV PRIV [id number] 00:00:00 00:00:00 Luciano Madrid [id number] 2021-08-04 2021-08-04 Outpatient GC_BAHC_Tod PRIV PRIV [id number] [facility] 02:21:00 02:21:00 d_J [id number] Medica l 2021-08-04 2021-08-04 Outpatient Fernandez, PRIV PRIV [id number] c-[id number] 00:00:00 00:00:00 Narda [id number] 2021-08-03 2021-08-03 Outpatient GC_BAHC_Tod PRIV PRIV [id number] [facility] 03:09:00 03:09:00 d_J [id number] Medica l 2021-07-06 2021-07-06 Emergency X BRAYDEN MEJEROD ERT [id number] Univers 19:48:00 23:30:00 SAGE [facility] 2021-07-06 2021-07-06 Emergency Brayden [facility] [id number] Univers 19:48:00 23:30:00 Sage DELACRUZ [id number] ity of [place] 4[place]2.7.2.[place] demetra WIGGINS [id number] [facility] 014 Branch (CLC) 2021-04-25 2021-04-25 Telephone GODFREY Gu[place]ama [id number] Univers 00:00:00 00:00:00 Michelle ALAN [id number] it y of HOSPITAL 4.2.7.2.686 Gideon as [id number] [facility] 019 Branch 2021-04-23 2021-04-23 Outpatient R EDGARDO [facility] [id number] Univers 12:45:00 13:03:26 ANURADHA ity of [facility] 2021-04-23 2021-04-23 Laboratory Only, Ang Db Test [facility] 1.2.8 [id number] [id number] Univers 12:45:00 13:00:00 Only Edgardo [facility] 350.1.13.10 ity of [place] 4.2.7.2.686 Gideon as ELO?BLEA [id number] [facility] 370 Branch MEDICAL OFFICE BUILDING 2021-04-23 2021-04-23 Letter Doctor GODFREY [id number] [id number] Univers 00:00:00 00:00:00 (Out) Unassigned, DAYANNA [id number] ity of [facility] 4.2.7.2.686 Gideon as [id number] [facility] 044 [place] 2021-04-23 2021-04-23 Letter Doctor GODFREY [id number] [id number] Univers 00:00:00 00:00:00 (Out) Unassigned, DAYANNA [id number] ity of [facility] 4.2.7.2.686 Gideon as [id number] [facility] 044 Branch 2020-12-01 2020-12-01 EXT [facility] OP Casey EXT MSRDP [id number] [place] 00:00:00 00:00:00 Tyler, ELLY 350.1.13.58 H ea Jose Antonio 9.2.7.2.686 [id number] 2020-10-29 2020-10-29 Outpatient STERLING [facility] [id number] [facility] 07:49:00 11:10:00 CHELO 2020-10-21 2020-10-21 EXT [facility] OP Minda EXT MSRDP [id number] [place] 00:00:00 00:00:00 Boogie, LOCATION 350.1.13.58 Health Magy 9.2.7.2.686 [id number] 2020-10-16 2020-10-16 EXT [facility] OP Sterling, EXT MSRDP [id number] [id number] [place] 00:00:00 00:00:00 Chelo LOCATION [id number] H ealth 9.2.7.2.686 [id number] 2020-10-08 2020-10-08 [facility] [id number] Common 00:00:00 00:00:00 [facility] 2020-10-06 2020-10-06 EXT [facility] OP [place], EXT MSRDP [id number] [place] 00:00:00 00:00:00 Chelo LOCATION [id number] H ealth 9.2.7.2.686 [id number] 2020-10-02 2020-10-02 EXT [facility] OP [place], EXT MSRDP [id number] [place] 00:00:00 00:00:00 Chelo LOCATION 350.1.13.58 H ealth 9.2.7.2.686 [id number] 2020-09-09 2020-09-09 EXT [facility] OP Minda EXT MSRDP [id number] [place] 00:00:00 00:00:00 Boogie, LOCATION 350.1.13.58 Health Magy 9.2.7.2.686 [id number] 2020-07-25 2020-07-25 [facility] [id number] Common 00:00:00 00:00:00 [facility] 2020-07-12 2020-07-12 Outpatient Becka DÍAZ [facility] [id number] Univers 11:35:00 11:35:00 JACQUELINE mcdonald [facility] 2020-06-13 2020-06-13 Outpatient STLMLC STLMLC [id number] Common 00:00:00 00:00:00 [facility] 2020-05-23 2020-05-23 Outpatient STLMLC STLMLC [id number] Common 00:00:00 00:00:00 [facility] 2020-05-21 2020-05-21 Outpatient STLMLC STLMLC [id number] Common 00:00:00 00:00:00 [facility] 2020-05-09 2020-05-09 Outpatient STLMLC STL[facility]C [id number] Common 00:00:00 00:00:00 [facility] 2020-05-08 2020-05-08 Outpatient [facility] STL[facility]C [id number] Common 00:00:00 00:00:00 [facility] 2020-04-21 2020-04-21 Outpatient [facility] STL[facility]C [id number] Common 00:00:00 00:00:00 [facility] 2020-04-07 2020-04-07 Outpatient [facility] STLMLC [id number] Common 00:00:00 00:00:00 [facility] 2020-04-03 2020-04-03 Outpatient STLMLC STLMLC [id number] Common 00:00:00 00:00:00 [facility] 2020-03-27 2020-03-27 Outpatient STLMLC STLMLC [id number] Common 00:00:00 00:00:00 [facility] 2020-01-07 2020-01-07 [facility] [id number] Common 11:40:00 11:40:00 t [employer] [address] [facility] 2019-10-04 2019-10-04 [facility] [id number] Common 09:21:00 09:21:00 t [employer] [place] [address] [facility] 2019-10-01 2019-10-01 [facility] [id number] Common 15:00:00 15:00:00 t Specialty/U Sp saulo Specialty rology - [facility] /Urology Clinic [facility] 2019-08-30 2019-08-30 [facility] [id number] Common 14:45:00 14:45:00 t Specialty/U Sp saulo Specialty rology - [facility] /Urology Clinic [facility] 2019-08-27 2019-08-27 [facility] [id number] Common 08:55:00 08:55:00 t Specialty/U Sp saulo Specialty rology - [facility] /Urology Clinic [facility] 2019-07-30 2019-07-30 [facility] [id number] Common 15:40:00 15:40:[address] [facility] 2019-07-27 2019-07-27 [facility] [id number] Common 15:19:00 15:19:[address] [facility] 2019-05-24 2019-05-24 [facility] [id number] Common 10:22:00 10:22:[address] [facility] 2019-03-26 2019-03-26 [facility] [id number] Common 15:40:00 15:40:[address] [facility] 2018-11-02 2018-11-02 [facility] [id number] Common 15:40:00 15:40:[address] [facility] 2018-10-24 2018-10-24 [facility] [id number] Common 13:54:00 13:54:[address] [facility] 2018-10-20 2018-10-20 [facility] [id number] Common 13:32:00 13:32:[address] [facility] 2018-10-11 2018-10-11 [facility] [id number] Common 15:03:00 15:03:[address] [facility] 2018-07-21 2018-07-21 [facility] [id number] Common 14:10:00 14:10:[address] [facility] 2018-07-21 2018-07-21 [facility] [id number] Common 13:51:00 13:51:[address] [facility] 2018-06-29 2018-06-29 Liset SHARPE [facility] [id number] [place] 14:30:00 14:30:00 t; MILAGRO SHARPE ici [facility] 2018-06-06 2018-06-06 [facility] [id number] Common 15:15:00 15:15:[address] [facility] 2018-05-12 2018-05-12 Liset SHARPE [facility] [id number] [place] 15:30:00 15:30:00 t; MILAGRO SHARPEology - P hysici [facility] 2018-05-12 2018-05-12 Liset ESPARZA [facility] Otorhin[facility] [id number] [place] 13:30:00 13:30:00 t; Serene DONAHUE [facility] Serene DONAHUE [facility] 2018-05-11 2018-05-11 iLset ROSE [facility] Otor[place] 48 [id number] [place] 15:00:00 15:00:00 t; CALIN olmosology - Phy nicolás ROSE [facility] 2018-05-09 2018-05-09 [facility] [id number] Common 14:48:00 14:48:[address] [facility] 2018-05-01 2018-05-01 VIELKA Mcconnell Cardiology [id number] [place] 16:45:00 16:45:00 t; H, Mmattie Powers i, M.D. 2018-04-10 2018-04-10 Liset Winkler [facility] General [id number] [place] 16:00:00 16:00:00 t; Serene Mccann Medicine mattie Glaser M.D. 2018-04-06 2018-04-06 Liset SHEARER, [facility] [id number] [place] 14:00:00 14:00:00 t; HODA SHEARER 2018-03-31 2018-03-31 Liset ESPARZA, [facility] [id number] [place] 14:30:00 14:30:00 t; Serene DONAHUE ans JOHN, M.D. 2018-03-29 2018-03-29 Liset CEVALLOS, [facility] [id number] [place] 15:00:00 15:00:00 t; mattie Boss i 2018-03-20 2018-03-20 [facility] [id number] Common 14:15:00 14:15:00 t [employer] [address] [facility] 2018-01-09 2018-01-09 Liset Winkler [facility] Cardiology 45 [id number] [place] 16:00:00 16:00:00 t; Serene Mccann i, ans H, M.D. 2018-01-09 2018-01-09 [facility] [id number] Common 09:15:00 09:15:00 t [employer] [address] [facility] 2017-10-24 2017-10-24 Liset SHARPE [facility] [id number] [place] 09:30:00 09:30:00 t; MILAGRO SHARPE ans 2017-10-24 2017-10-24 Liset ESPARZA, [facility] [id number] [place] 09:15:00 09:15:00 t; Serene DONAHUE ans JOHN, M.D. 2017-10-18 2017-10-18 Liset ROCHA [facility] [id number] [place] 10:00:00 10:00:00 t; PROVIDER Ph ysici RADIOLOGY, ans MD PROVIDER Results This patient has no known results.
[2021-10-02 09:07] LABS: Absolute Lymphocytes (CBC) 2.4 K/uL (0.7-4.9); Hematocrit 43.2 % (39.6-49.0); Lymphocytes % 35.3 % (15.3-44.8); MPV 7.7 fL (7.6-11.3); RBC Red Blood Cell Count 5.23 M/uL (4.33-5.43)
[2021-10-02] MEDS ORDERED: TETANUS & DIPHTHERIA TOX,ADULT 0.5 ML VIAL ONE (09:08)
[2021-10-02] MEDS ORDERED: LIDOCAINE 1% MPF 5 ML VIAL ONE (09:08)
[2021-10-02 09:13] LABS: Protime INR 1.24
[2021-10-02 09:28] LABS: Albumin 3.5 g/dL (3.4-5.0); Bilirubin Direct 0.1 mg/dL (0-0.2); Bilirubin Total 0.5 mg/dL (0.2-1.0); Potassium 3.8 mmol/L (3.5-5.1); Protein, Total 7.3 g/dL (6.4-8.2); Troponin High Sensitivity 45.3 pg/mL (<58.9)
--- NOTE | 2021-10-02 09:29 | RAD REPORT ---
EXAM DESCRIPTION: CT - Head C Spine Cap Wo Con - 10/02/2021 9:11 am CLINICAL HISTORY: Head and neck injury with chest and abdominal pain status post fall TECHNIQUE: Computed axial tomography of head, neck, chest, abdomen and pelvis obtained. IV and oral contrast not requested. Coronal and sagittal reconstruction performed. All CT scans are performed using dose optimization technique as appropriate and may include automated exposure control or mA/KV adjustment according to patient size. COMPARISON: August 2020 CT head and FINDINGS: An intracranial bleed is not seen. Right craniotomy. Right cerebral gliosis. The ventricles are normal in caliber. An extra-axial fluid collection is not noted. . Fluid within the sinuses/mastoids is not seen. A cervical fracture is not seen. No dislocation is noted. The evaluation of mediastinum, edmundo, vessels, solid organs and bowel are limited secondary to the lac k of contrast administration. A mediastinal hematoma is not noted. A pleural effusion is not seen. A lung contusion is not present. The liver,spleen, pancreas, adrenals,kidneys and bladder do not demonstrate a traumatic injury Prostate gland is mildly to moderately enlarged. Small inguinal hernias contain fat IMPRESSION: No acute intracranial abnormality is seen. A cervical fracture is not visualized. If the patient continues have symptoms to suggest intracrania l/spinal cord pathology MRI be recommended No traumatic abnormality involving the chest/abdomen/pelvis.
--- NOTE | 2021-10-02 09:57 | ER ---
Nurse's Notes [facility] Name: Adelaida Ramirez Age: 71 yrs Sex: Male : 1950 Arrival Date: 10/02/2021 Time: 08:38 Bed 3 Private MD: Diagnosis: Fall on same level, unspecified;Dementia in other diseases classified elsewhere without behavioral disturbance;Unspecified injury of head, initial encounter;Laceration without foreign body of other part of head-forehead Presentation: 10/02 08:38 Chief complaint: Patient states: pt presented to ED from [facility] reporting omrillo unwitnessed fall, pt has dementia and unable to respond if he had LOC or if he is on blood thinners. pt not reporting and pain. pt has notable laceration to forehead. Coronavirus screen: Vaccine status: Patient reports receiving the 2nd dose of the covid vaccine. Ebola Screen: Patient denies travel to an Ebola-affected area in the 21 days before illness onset. Initial Sepsis Screen: Does the patient meet any 2 criteria? No. Patient's initial sepsis screen is negative. Does the patient have a suspected source of infection? No. Patient's initial sepsis screen is negative. Risk Assessment: Do you want to hurt yourself or someone else? Patient reports no desire to harm self or others. Onset of symptoms was October 02, 2021. 08:38 Method Of Arrival: EMS: [facility] morillo 08:38 Acuity: PATRICK 3 morillo 08:44 Care prior to arrival: bandage to forehead. Mechanism of Injury: Fall. Trauma event morillo details: Injury occurred: October 03, 2021. Triage Assessment: 08:41 General: Appears in no apparent distress. Behavior is calm, cooperative. Pain: Denies morillo pain. Trauma Activation: Alert Physician: ED Physician; Name: ; Notified At: ; Arrived At: Physician: General Surgeon; Name: ; Notified At: ; Arrived At: Physician: Radiology; Name: ; Notified At: ; Arrived At: Physician: Respiratory; Name: ; Notified At: ; Arrived At: Physician: Lab; Name: ; Notified At: ; Arrived At: Historical: - Allergies: 08:41 NKDA; morillo - PMHx: 08:41 Dementia; depressive disorder; diabetes mellitus; Hypercholesterolemia; Hypertensive morillo disorder; - Immunization history:: Adult Immunizations up to date. - Social history:: Smoking status: Patient denies any tobacco usage or history of. - Immunization history: Last tetanus immunization: unknown. - Family history:: not pertinent. Screenin:42 Abuse screen: Denies threats or abuse. Denies injuries from another. Nutritional morillo screening: No deficits noted. Tuberculosis screening: No symptoms or risk factors identified. Fall Risk Mental Status- Overestimates/Forgets Limitations (15 pts.). Primary Survey: 08:43 NO uncontrolled hemorrhage observed. A: The client is awake and alert. The airway is morillo patent. The client is alert. Airway: patent. Breathing/Chest: Spontaneous respiratory effort, equal unlabored respirations, breath sounds clear bilaterally, regular pattern, symmetrical chest rise and fall. Respiratory effort: spontaneous, unlabored, Breath sounds: clear, bilaterally. Respiratory pattern: regular, Chest inspection: symmetrical rise and fall of the chest. Circulation: No external hemorrhage present. Regular and strong central pulse, skin warm/dry/normal color. Disability Client is alert. Exposure/Environment: A warming method has been applied: A warm blanket has been provided to the patient. 08:44 Reassessment Alertness and Airway: Awake and alert. The airway is patent. Airway Patent morillo Breathing: Circulation: No external hemorrhage noted. Regular and strong central pulse, skin warm/dry/normal color. Disability: Alert. Assessment: 08:42 General: Appears in no apparent distress. Behavior is calm, cooperative. Pain: Denies morillo pain. Neuro: Level of Consciousness is awake, obeys commands, Oriented to situation. Derm: Wound noted forehead. 09:37 Reassessment: Patient and/or family updated on plan of care and expected duration. Pain ap3 level reassessed. Patient is alert, oriented x 3, equal unlabored respirations, skin warm/dry/pink. Vital Signs: 08:38 BP 147 / 74; Pulse 57; Resp 17; Temp 98.5(O); Pulse Ox 95% on R/A; Weight 65.77 kg; morillo Height 5 ft. 8 in. (172.72 cm); 09:44 BP 132 / 74; Pulse 54; Pulse Ox 98% on R/A; ap3 08:38 Body Mass Index 22.05 (65.77 kg, 172.72 cm) morillo Kewadin Coma Score: 08:43 Eye Response: spontaneous(4). Verbal Response: confused(4). Motor Response: obeys morillo commands(6). Total: 14. 08:50 Eye Response: spontaneous(4). Verbal Response: confused(4). Motor Response: obeys alicja commands(6). Total: 14. 08:54 Eye Response: spontaneous(4). Verbal Response: confused(4). Motor Response: obeys alicja commands(6). Total: 14. Trauma Score (Adult): 08:43 Eye Response: spontaneous(1); Verbal Response: confused(1); Motor Response: obeys morillo commands(2); Systolic BP: > 89 mm Hg(4); Respiratory Rate: 10 to 29 per min(4); Tana Score: 14; Trauma Score: 12 ED Course: 08:38 Patient arrived in ED. eb 08:38 Randi Rosas, RN is Primary Nurse. morillo 08:38 Donnell Winkler MD is Attending Physician. alicja 08:41 Triage completed. morillo 08:41 Arm band placed on. morillo 08:42 Patient has correct armband on for positive identification. Bed in low position. morillo 08:42 No provider procedures requiring assistance completed. Inserted saline lock: 20 gauge morillo in right antecubital area, using aseptic technique. 08:43 Patient maintains SpO2 saturation greater than 95% on room air. morillo 08:45 Thermoregulation: warm blanket given to patient. morillo 09:13 CT Traumagram (Head C Spine CAP wo con) In Process Unspecified. EDMS 09:22 Pt visited by . ap3 09:41 XRAY Chest (1 view) In Process Unspecified. EDMS 10:49 IV discontinued, intact, Pressure dressing applied. morillo Administered Medications: 09:07 Drug: Tetanus Toxoid,Adsorbed 0.5 ml {Assistant Principal: [employer]. Exp: 07/04/2023. Lot ap3 #: [id number]. } Route: IM; Site: right deltoid; 09:33 Follow up: Response: No adverse reaction morillo 10:00 Follow up: Response: No adverse reaction ap3 09:43 Not Given (provider didnt usee): Lidocaine-Epinephrine -1%: (1:100,000) 5 ml 20 ml ap3 Infiltration once; to bedside Medication: 08:45 VIS not applicable for this client. morillo Intake: 08:43 PO: 0ml; Total: 0ml. morillo Outcome: 09:56 Discharge ordered by MD. helm 10:49 Discharged to home morillo 10:49 Condition: good 10:49 Discharge instructions given to EMS. 10:49 Patient left the ED. morillo Signatures: Dispatcher [employer] EDDonnell Sparks MD MD cha Prokisch, Amanda, RN RN ap3 Eli Loja Heather, RN RN ha
--- NOTE | 2021-10-02 09:58 | EDPHYS ---
Physician Documentation [facility] Name: Adelaida Ramirez Age: 71 yrs Sex: Male : 1950 Arrival Date: 10/02/2021 Time: 08:38 Bed 3 Private MD: ED Physician Donnell Winkler HPI: 10/02 08:50 This 71 yrs old Male presents to ER via EMS with complaints of fall, head alicja laceration, dementia. 08:50 The patient or guardian reports a laceration, pain, swelling, tenderness. The alicja complaints affect the top of head and forehead. Context of injury: The problem was sustained at a care home or assisted living facility. Onset: The symptoms/episode began/occurred just prior to arrival. Associated signs and symptoms: The patient has no apparent associated signs or symptoms, Loss of consciousness: This patient did not experience any loss of consciousness. Details of fall: The patient fell from an upright position. Associated injuries: The patient sustained injury to the head. Historical: - Allergies: 08:41 NKDA; morillo - PMHx: 08:41 Dementia; depressive disorder; diabetes mellitus; Hypercholesterolemia; Hypertensive morillo disorder; - Immunization history:: Adult Immunizations up to date. - Social history:: Smoking status: Patient denies any tobacco usage or history of. - Immunization history: Last tetanus immunization: unknown. - Family history:: not pertinent. ROS: 08:50 Constitutional: Negative for fever, chills, and weight loss, Eyes: Negative for injury, alicja pain, redness, and discharge, ENT: Negative for injury, pain, and discharge, Neck: Negative for injury, pain, and swelling, Cardiovascular: Negative for chest pain, palpitations, and edema, Respiratory: Negative for shortness of breath, cough, wheezing, and pleuritic chest pain, Abdomen/GI: Negative for abdominal pain, nausea, vomiting, diarrhea, and constipation, Back: Negative for injury and pain, : Negative for injury, bleeding, discharge, and swelling, MS/Extremity: Negative for injury and deformity, Skin: Negative for injury, rash, and discoloration, Psych: Negative for depression, anxiety, suicide ideation, homicidal ideation, and hallucinations, Allergy/Immunology: Negative for hives, rash, and allergies, Endocrine: Negative for neck swelling, polydipsia, polyuria, polyphagia, and marked weight changes. 08:50 Neuro: Positive for weakness, dementia. Exam: 08:50 Constitutional: This is a well developed, well nourished patient who is awake, alert, alicja and in no acute distress. Eyes: Pupils equal round and reactive to light, extra-ocular motions intact. Lids and lashes normal. Conjunctiva and sclera are non-icteric and not injected. Cornea within normal limits. Periorbital areas with no swelling, redness, or edema. ENT: Nares patent. No nasal discharge, no septal abnormalities noted. Tympanic membranes are normal and external auditory canals are clear. Oropharynx with no redness, swelling, or masses, exudates, or evidence of obstruction, uvula midline. Mucous membranes moist. Neck: Trachea midline, no thyromegaly or masses palpated, and no cervical lymphadenopathy. Supple, full range of motion without nuchal rigidity, or vertebral point tenderness. No Meningismus. Chest/axilla: Normal chest wall appearance and motion. Nontender with no deformity. No lesions are appreciated. Cardiovascular: Regular rate and rhythm with a normal S1 and S2. No gallops, murmurs, or rubs. Normal PMI, no JVD. No pulse deficits. Respiratory: Lungs have equal breath sounds bilaterally, clear to auscultation and percussion. No rales, rhonchi or wheezes noted. No increased work of breathing, no retractions or nasal flaring. Abdomen/GI: Soft, non-tender, with normal bowel sounds. No distension or tympany. No guarding or rebound. No evidence of tenderness throughout. Back: No spinal tenderness. No costovertebral tenderness. Full range of motion. Male : Normal genitalia with no discharge or lesions. MS/ Extremity: Pulses equal, no cyanosis. Neurovascular intact. Full, normal range of motion. Psych: Awake, alert, with orientation to person, place and time. Behavior, mood, and affect are within normal limits. 08:50 Head/face: Noted is contusion, a laceration(s), that is linear, 2.5 cm(s). 08:50 Neuro: Orientation: appropriate for stated age, Mentation: is normal, appropriate for stated age, able to follow commands, Memory: unable to test, Cranial nerves: is grossly normal based on the patient's age, no acute changes, Cerebellar function: unable to test, Motor: moves all fours, strength is 5/5 in all extremities, Sensation: no obvious gross deficits, Gait: not tested. seizure activity, is not displayed by the patient. Vital Signs: 08:38 BP 147 / 74; Pulse 57; Resp 17; Temp 98.5(O); Pulse Ox 95% on R/A; Weight 65.77 kg; morillo Height 5 ft. 8 in. (172.72 cm); 09:44 BP 132 / 74; Pulse 54; Pulse Ox 98% on R/A; ap3 08:38 Body Mass Index 22.05 (65.77 kg, 172.72 cm) morillo Meridian Coma Score: 08:43 Eye Response: spontaneous(4). Verbal Response: confused(4). Motor Response: obeys morillo commands(6). Total: 14. 08:50 Eye Response: spontaneous(4). Verbal Response: confused(4). Motor Response: obeys alicja commands(6). Total: 14. 08:54 Eye Response: spontaneous(4). Verbal Response: confused(4). Motor Response: obeys alicja commands(6). Total: 14. Trauma Score (Adult): 08:43 Eye Response: spontaneous(1); Verbal Response: confused(1); Motor Response: obeys morillo commands(2); Systolic BP: > 89 mm Hg(4); Respiratory Rate: 10 to 29 per min(4); Tana Score: 14; Trauma Score: 12 MDM: 08:38 Patient medically screened. alicja 08:54 Differential diagnosis: Contusion of Hematoma on Laceration of face. Differential alicja diagnosis: contusion, laceration. Data reviewed: vital signs, nurses notes, lab test result(s), EKG, radiologic studies. Data interpreted: campus monitor: rate is 57 beats/min, rhythm is regular, Pulse oximetry: on room air is 95 %. Test interpretation: by ED physician or midlevel provider: ECG, plain radiologic studies. Counseling: I had a detailed discussion with the patient and/or guardian regarding: the historical points, exam findings, and any diagnostic results supporting the discharge/admit diagnosis, lab results, radiology results, the need for outpatient follow up, for definitive care, an auto parker. 10/02 08:50 Order name: Basic Metabolic Panel; Complete Time: 09:56 alicja 10/02 08:50 Order name: CBC with Diff; Complete Time: 09:25 [facility] 10/02 08:50 Order name: LFT's; Complete Time: 09:56 [facility] 10/02 08:50 Order name: Magnesium; Complete Time: 09:56 [facility] 10/02 08:50 Order name: NT PRO-BNP; Complete Time: 09:56 [facility] 10/02 08:50 Order name: PT-INR; Complete Time: 09:25 [facility] 10/02 08:50 Order name: Troponin HS; Complete Time: 09:56 [facility] 10/02 08:50 Order name: XRAY Chest (1 view) 10/02 08:50 Order name: EKG; Complete Time: 08:50 [facility] 10/02 09:06 Order name: CT Traumagram (Head C Spine CAP wo con); Complete Time: 09:56 10/02 08:50 Order name: Cardiac monitoring; Complete Time: 08:55 [facility] 10/02 08:50 Order name: EKG - Nurse/Tech; Complete Time: 10:00 [facility] 10/02 08:50 Order name: IV Saline Lock; Complete Time: 08:55 [facility] 10/02 08:50 Order name: Labs collected and sent; Complete Time: 09:07 [facility] 10/02 08:50 Order name: O2 Per Protocol; Complete Time: 08:55 [facility] 10/02 08:50 Order name: O2 Sat Monitoring; Complete Time: 08:55 [facility] 10/02 08:50 Order name: Dressing - Wound; Complete Time: 09:33 [facility] 10/02 08:50 Order name: Gloves, Sterile; Complete Time: 09:07 [facility] 10/02 08:50 Order name: Setup Suture Tray; Complete Time: 08:55 [facility] 10/02 08:50 Order name: Wound Care; Complete Time: 09:33 [facility] Administered Medications: 09:07 Drug: Tetanus Toxoid,Adsorbed 0.5 ml {Supervisor Customer Complaint Service: [employer]. Exp: 07/04/2023. Lot ap3 #: [id number]. } Route: IM; Site: right deltoid; 09:33 Follow up: Response: No adverse reaction morillo 10:00 Follow up: Response: No adverse reaction ap3 09:43 Not Given (provider didnt usee): Lidocaine-Epinephrine -1%: (1:100,000) 5 ml 20 ml ap3 Infiltration once; to bedside Disposition Summary: 10/02/21 09:56 Discharge Ordered Location: Home alicja Problem: new alicja Symptoms: have improved alicja Condition: Stable alicja Diagnosis - Fall on same level, unspecified alicja - Dementia in other diseases classified elsewhere without behavioral disturbance alicja - Unspecified injury of head, initial encounter alicja - Laceration without foreign body of other part of head - forehead alicja Followup: alicja - With: Private Physician - When: 2 - 3 days - Reason: Recheck today's complaints, Continuance of care, Re-evaluation by your physician Discharge Instructions: - Discharge Summary Sheet alicja - Dementia alicja - Head Injury, Adult alicja - Fall Prevention in the Home, Adult alicja - Fall Prevention in the Home, Adult, [id number] alicja - Wound Care, Adult alicja - Dementia, [id number] alicja Forms: - Medication Reconciliation Form alicja - Thank You Letter alicja - Antibiotic Education alicja - Prescription Opioid Use alicja Prescriptions: - Tylenol 325 mg Oral Tablet - take 2 tablets by ORAL route every 6 hours as needed; 1 bottle; Refills: 0, alicja Product Selection Permitted Signatures: Dispatcher [employer] Donnell Wiley MD MD cha Prokisch, Amanda RN RN ap3 Au-StagerRandi RN RN morillo
--- NOTE | 2021-10-02 10:00 | RAD REPORT ---
EXAM DESCRIPTION: Daron Single View10/02/2021 9:39 am CLINICAL HISTORY: Cough COMPARISON: May 2021 FINDINGS: The lungs appear clear of acute infiltrate. The heart is normal size IMPRESSION: No acute abnormalities displayed
[2021-10-02 10:54] VITALS: TEMP 98.5
[2021-10-02 10:56] VITALS: BP 132/74; O2SAT 98
== END 2021-10-02 10:49 | disposition home or self-care (01) ==
LOC: ER 08:36
DX: S01.81XA Laceration without foreign body of other part of head, initial encounter (principal); W18.30XA Fall on same level, unspecified, initial encounter; F03.90 Unspecified dementia, unspecified severity, without behavioral disturbance, psychotic disturbance, mood disturbance, and anxiety; Z23 Encounter for immunization; I10 Essential (primary) hypertension; E11.9 Type 2 diabetes mellitus without complications
CPT/HCPCS: 36415; 70450; 71045; 71250; 72125; 80048; 80076; 83735; 83880; 84484; 85025; 85610; 90471; 90714; 99284

== ENCOUNTER 2022-03-06 10:03 | Inpatient (IN) | payer OTHER ==
--- OUTSIDE RECORDS SUMMARY | 2022-03-06 10:18 | XMS REPORT | Continuity of Care Document ---
:1950 Author Organization [facility] t Address [address] [place] [address] Care Team Providers Name Role Phone RANJITH VELÁZQUEZ Primary Care Physician Unavailable CHELO KATZ Attending Clinician Unavailable Nicolette Davis Attending Clinician Unavailable JOSE ANTONIO TRUONG Attending Clinician Unavailable AURELIO HOLT Attending Clinician Unavailable [email or web address]_Silvio Attending Clinician Unavailable Narda Presley Attending Clinician [phone] Luciano Epstein Attending Clinician [phone] SAGE HALE Attending Clinician Unavailable Aurelio Holt Attending Clinician Michelle Guadarrama RN Attending Clinician Unavailable ANURADHA REYNOSO Attending Clinician Unavailable Only, Ang Db Test Attending Clinician Unavailable Anuradha Abraham Attending Clinician Doctor Unassigned, Spring Attending Clinician Unavailable Jose Antonio Truong Attending Clinician Chelo Katz Attending Clinician Jose Antonio Truong MD Attending Clinician [phone] Magy Granados Attending Clinician CHELO KATZ Attending Clinician Unavailable Magy Lakhani MD Attending Clinician UnavailJACQUELINE Michelle Attending Clinician Unavailable Janell Andrew Attending Clinician [phone] MILAGRO SHARPE Attending Clinician Unavailable GODFREY ESPARZA M.D. Attending Clinician Unavailable CALIN ROSE Attending Clinician Unavailable Siobhan Winkler M.D. Attending Clinician Unavailable HODA SHEARER Attending Clinician Unavailable MARIELENA CEVALLOS Attending Clinician Unavailable Maia Kohli Attending Clinician Arpita Mustafa Attending Clinician Kavon Elaine Attending Clinician Lalitha Varela Attending Clinician Antonette Curtis Attending Clinician Michael Mullins Attending Clinician RADIOLOGY, MD PROVIDER Attending Clinician Unavailable Timbo Hernandez Attending Clinician Gibson Roman Attending Clinician GC_BAHC_Fernandez_J Admitting Clinician Unavailable SAGE HALE Admitting Clinician Unavailable Kavon Elaine Admitting Clinician Gibson Roman Admitting Clinician Lalitha Varela Admitting Clinician Jose Antonio Truong Admitting Clinician Payers Payer Name Policy Type Policy Number Effective Date Expiration Date S satnam [employer] Indemnity [id number] 2017 COMP 00:00:00 GENERIC [id number] 2017 2024 INTERFACED 00:00:00 00:00:00 [facility] - [id number] 2021 PHYSICIAN HEALTH 00:00:00 CHOICE (MEDICARE REPLACEMENT HMO) WELLMED/AAR [id number] 2021 MEDICARE 00:00:00 ADVANTAGE [employer] C1 [id number] 2017 Common g Medicare 00:00:00 [facility] [place] [employer] C1 [id number] 2017 Common g Medicare 00:00:00 [facility] [employer] C1 [id number] 2017 Common g Medicare 00:00:00 [facility] [employer] C1 [id number] 2017 Common g Medicare 00:00:00 [facility] [place] [employer] C1 [id number] 2017 Common g Medicare 00:00:00 [facility] [employer] C1 [id number] 2017 Common g Medicare 00:00:00 [facility] [place] [employer] C1 [id number] 2017 Common g Medicare 00:00:00 [facility] [place] [employer] C1 [id number] 2017 Common g Medicare 00:00:00 [facility] [place] [employer] C1 [id number] 2017 Common g Medicare 00:00:00 [facility] [place] [employer] C1 [id number] 2017 Common g Medicare 00:00:00 [facility] [place] [employer] C1 [id number] 2017 Common g Medicare 00:00:00 [facility] Problems Condition Condition Condition Status Onset Resolution Last Treating Co mments Source Name Details Category Date Date Treatment Clinician Date Laceration Laceration Problem Active P [facility]ia of head of Head 6-19 Medical 00:00: 00 Peripheral Peripheral Problem Active [facility] angiopathy Angiopathy 6-04 Me dical due to Due to 00:00: diabetes Diabetes 00 mellitus Mellitus Late Late Problem Active [facility] effect of Effect of 5-26 Medi julianne traumatic Traumatic 00:00: injury to Injury to 00 brain Brain Hypercoagu Hypercoagu Problem Active P [facility] lability lability 09-13 Medica l state State 00:00: 00 Encephalom Encephalom Problem Active P [facility] alacia alacia 09-13 Medical 00:00: 00 Intracrani Intracrani Problem Active P [facility] al al 09-13 Medical hemorrhage Hemorrhage 00:00: following Following 00 injury Injury with loss with Loss of of consciousn Consciousn ess ess Traumatic Traumatic Problem Active Nancy via brain Brain 09-13 Medical injury Injury 00:00: with loss with Loss 00 of of consciousn Consciousn ess ess F/U F/U Diagnosis Active 2022-02-03 Mem oria Active 09-11 08:36:00 l 09/11/2021 00:00: Venkat person [facility] 00 Hyperammon Hyperammon Problem Active P rivia emia emia 08-30 Medical 00:00: 00 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 08-30 Medica l 00:00: 00 Double Double Problem Active [facility] incontinen Incontinen 5-08 Me dical ce ce 00:00: 00 Senile Senile Problem Active [facility] purpura Purpura -20 Medical 00:00: 00 Benzodiaze Benzodiaze Problem Active P [facility]ia pine pine -20 Medical dependence Dependence 00:00: 00 Alzheimer' Alzheimer' Problem Active [facility] s disease s Disease 20 Medi julianne 00:00: 00 Hypertensi Hypertensi Problem Active [facility] ve heart ve Heart -20 Medica l disease Disease 00:00: 00 Multiple Multiple Problem Active [facility] a complicati Complicati -20 Me dical ons due to ons Due to 00:00: type 2 Type 2 00 diabetes Diabetes mellitus Mellitus Gastroesop Gastroesop Problem Active P [facility] hageal hageal 4- Medical reflux Reflux 00:00: disease Disease 00 Type 2 Type 2 Problem Active [facility] diabetes Diabetes 4-11 Medica l mellitus Mellitus 00:00: 00 Hyperlipid Hyperlipid Problem Active P [facility] emia emia 4-11 Medical 00:00: 00 ACCIDENT ACCIDENT Diagnosis Active 2020-042021-03-24 Memoria Active 05-12 12:47:00 l 03/12/2021 00:00: Venkat ESCOBAR [address] SOCI F/U SOCI F/U Diagnosis Active 2020-042021-07-03 Memoria Active 05-02 14:34:00 l 03/02/2021 00:00: Venkat person [facility] 00 VIDEO F/U VIDEO F/U Diagnosis Active 2020-12-17 Memoria Active 11-19 10:45:00 l 11/19/2020 00:00: Venkat person [facility] 00 FOLLOW UP FOLLOW UP Diagnosis Active 2020-10-21 Memoria Active 08-27 11:36:00 l 08/27/2020 00:00: Venkat person [facility] 00 FOLLOW FOLLOW Diagnosis Active 2020-09-11 Me moria UP-PER UP-PER 08-14 09:07:00 l DOC DOC 00:00: Venkat OLIVIER 00 , 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 3 MO 3 MO Diagnosis Active 2020-04-01 Mem oria FOLLOW UP FOLLOW UP 12-31 09:44:00 l Active 00:00: Karl 01/01/2020 00 [facility] PHONE: PHONE: Diagnosis Active 2019-12-18 Me moria FOLLOW UP FOLLOW UP 12-10 10:04:00 l NEEDS NEEDS 00:00: Karl STATELESS STATELESS 00 INTERPRET INTERPRET Active 12/11/2019 [facility] EVAL EVAL Diagnosis Active 2019-12-06 Mem oria Active 11-04 08:05:00 l 11/05/2019 00:00: Venkat person [facility] 00 RE-EVAL RE-EVAL Diagnosis Active 2019-10-[address] VG 13 12:21:00 l PATIENT PATIENT 00:00: Conrad Active 00 09/05/2019 [facility] EVAL EVAL Diagnosis Active 2018-042019-05-17 Mem oria REY'S PT REY'S PT 06-03 08:40:00 l Active 00:00: Karl 04/02/[address] [facility] [address] CT BRAIN Diagnosis Active 2018-042019-03-16 Memoria Active 05-07 10:50:00 l 03/07/2019 00:00: Venkat person [facility] 00 FALL, TBI FALL, TBI Diagnosis Active 2018-042019-06-14 Memoria Active 0 11:20:00 l 02/21/2019 00:00: Venkat person [facility] 00 EVAL FOR EVAL FOR Diagnosis Active 2019-06-14 Memoria OUTBURST OUTBURST 10-11 11:20:00 l Active 00:00: Karl 10/11/2018 00 [facility] OUTBURST OUTBURST Diagnosis Active 2018-11-10 Memoria Active 6 14:22:00 l 10/11/2018 00:00: Venkat person [facility] 00 MIKE MIKE Diagnosis Active 2018-07-18 Mem oria Active 06-29 08:24:00 l 06/29/2018 00:00: Venkat person [facility] 00 H81.11 H81.11 Diagnosis Active 2018-07-05 Me moria Active 06-20 17:26:00 l 06/20/2018 00:00: Venkat person [facility] 00 FALL FALL Diagnosis Active 2017-042018-04-05 Mem oria Active 05-09 14:09:00 l 03/09/2018 00:00: Venkat ESCOBAR [address] ESTABLISH ESTABLISH Diagnosis Active 2019-01-23 Memoria A PCP AND A PCP AND 12-06 09:28:00 l DISCUSS DISCUSS 00:00: Karl TREATMENT TREATMENT 00 FO FO Active 12/06/2017 [facility] FOLLOW UP FOLLOW UP Diagnosis Active 2018-01-[address] SUDHIR HUANG 11-25 13:24:00 l ITALIA ITALIA 00:00: Conrad Active 00 11/25/2017 [facility] OUTPATIENT OUTPATIEN Diagnosis Active 2017-12-31 Memoria /IVC T/IVC 11-22 15:18:00 l FILTER FILTER 00:00: Karl REMOVAL REMOVAL 00 Active 11/22/2017 [facility] Z95.828 - Z95.828 - Diagnosis Active 2017-10-18 Memoria PRESENCE PRESENCE 10-11 08:27:00 l OF OTHER OF OTHER 00:01: Venkat person VASCULAR VASCULAR 00 IMP IMP Active 10/11/2017 OP[facility] Karl Z00.0 - Z00.0 - Diagnosis Active 2017-10-11 Memoria ENCOUNTER ENCOUNTER 10-11 12:57:00 l FOR FOR 00:01: Karl GENERAL GENERAL 00 ADULT ME ADULT ME Active 10/11/2017 OP[facility] Karl I87.313 - I87.313 - Diagnosis Active 2017-11-08 Memoria CHRONIC CHRONIC 09-26 11:38:00 l VENOUS VENOUS 00:01: Karl HYPERTENSI HYPERTENSI 00 ON W ON W Active 09/26/2017 [facility] Karl S06.5X9A - S06.5X9A Diagnosis Active 2017-11-08 Memoria TRAUM - TRAUM 09-09 15:54:00 l SUBDR HEM SUBDR HEM 00:01: Herm colette W LOC OF W LOC OF 00 UNSP UNSP Active 09/09/2017 OPID Karl SAH SAH Diagnosis Active 2017-12-12 Mem oria Active 09-04 15:35:00 l 09/04/2017 00:00: Venkat person [address] Diagnosis Active 2017-11-25 Memoria D/C FU REQ D/C FU REQ 08-18 13:10:00 l BYREVELYN BYREVELYN 00:00: Saskia colette 3 MONTHS 3 MONTHS 00 Active 08/18/2017 [facility] NEUROPSYCH NEUROPSYC Diagnosis Active 2019-03-27 Memoria OLOGY HOLOGY -21 09:11:00 l Active 08:00: Karl 07/13/2017 00 [facility] INTRACRANI INTRACRAN Diagnosis Active 2017-08-03 Carol AL BLEED IAL BLEED 07-13 14:50:00 l Active 00:00: Karl 07/13/[address] [facility] FARZANEH FARZANEH Diagnosis Active 2017-07-25 Memangie BILLING BILLING 07-13 14:36:00 l Active 00:00: Karl 07/13/[address] [facility] ICH ICH Diagnosis Active 2017-08-30 Mem oria Active 07-13 09:53:00 l 07/13/2017 00:00: Venkat n [facility] 00 NUEROPSYCH NUEROPSYC Diagnosis Active 2020-09-05 Carol OLOGY HOLOGY 04-25 15:46:00 l Active 23:59: Karl 04/25/2000 00 [facility] [id number] Blister of Problem Active Co mmon skin [facility] Seasonal Allergic Problem Active Commo n allergic rhinitis, Sp[facility] t rhinitis seasonal [facility] Mixed Depression Problem Active Commo n anxiety with [facility] and anxiety - [facility] depressive [facility] Mixed Hyperlipid Problem Active Commo n hyperlipid emia, Spirit emia mixed [facility] [id number] Controlled Problem Active Co mmon type 2 [facility] diabetes [facility] mellitus [facility] complic[facility], Center without long-term current use of insulin [id number] Vascular Problem Active Com mon [id number] [facility] without - [facility] behavioral [facility] [id number] Screening Problem Active Com mon for [facility] prostate - [facility] cancer [facility] [id number] Herpes Problem Active Common zoster [facility] without - [facility] complicati [facility] Elevated Elevated Problem Active Commo n blood blood [facility] pressure pressure - [facility] reading reading in [facility] diagnosis without Medica l of diagnosis Center hypertensi of on hypertensi on Hyperglyce Uncontroll Problem Active C ommon hugo due to ed [facility] type 2 diabetes - [facility] diabetes mellitus St mellitus with [facility] hyperglyce Medica l hugo, Center without long-term current use of insulin [id number] Gastroesop Problem Active Co mmon hageal [facility] reflux - [facility] disease [facility] esophagiti Medica l s Center Essential Essential Problem Active Com mon hypertensi hypertensi Sp saulo on on - [facility] [id number] Benign Problem Active Common prostatic [facility] hyperplasi - [facility] a with [facility] urinary Medical tract Center symptoms [id number] History of Problem Active Co mmon traumatic [facility] head - [facility] injury [facility] Peripheral Peripheral Problem Active P rivia vascular Vascular Medica l disease Disease Walking Walking Problem Active [facility] disability Disability Me dical Recurrent Recurrent Problem Active Nancy via [place] [facility] Recurrent Recurrent Problem Active Nancy via major Major Medical depressive Depressive episodes, Episodes, moderate Moderate Pseudobulb Pseudobulb Problem Active P rivia ar affect ar Affect Medi julianne Benign Benign Problem Active [facility] paroxysmal Paroxysmal Me dical positional Positional vertigo Vertigo Sensorineu Sensorineu Problem Active P rivia ral ral Medical hearing Hearing loss, Loss, bilateral Bilateral Secondary Secondary Problem Active Nancy via immune Immune Medical deficiency Deficiency disorder Disorder Dementia Dementia Problem Active [facility] a of the of the Medical Alzheimer 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 Traumatic Traumatic Problem 2017-10-28 Memoria subarachno subarachno 12:12:01 l id id Karl hemorrhage hemorrhage with loss with loss of of consciousn consciousn ess of 1 ess of 1 hour to 5 hour to 5 hours 59 hours 59 minutes, minutes, initial initial encounter encounter 10/28/2017 [facility] Coma Coma Problem 2017-10-28 Memor ia scale, scale, 12:12:01 l best motor best motor He rmann response, response, none, at none, at arrival to arrival to emergency emergency department department 8 [facility] Coma Coma Problem 2017-10-28 Memor ia scale, scale, 12:12:01 l eyes open, eyes open, He rmann never, at never, at arrival to arrival to emergency emergency department department 8 [facility] Coma Coma Problem 2017-10-28 Memor ia scale, scale, 12:12:01 l best best Karl verbal verbal response, response, none, at none, at arrival to arrival to emergency emergency department department 8 [facility] Coma Coma Problem 2017-10-28 Memor ia scale, scale, 12:12:01 l best motor best motor He rmann response, response, obeys obeys commands, commands, 24 hours 24 hours or more or more after after hospital hospital admission admission 10/28/2017 [facility] Coma Coma Problem 2017-10-28 Memor ia scale, scale, 12:12:01 l eyes open, eyes open, He rmann spontaneou spontaneou s, 24 s, 24 hours or hours or more after more after hospital hospital admission admission 10/28/2017 [facility] Coma Coma Problem 2017-10-28 Memor ia scale, scale, 12:12:01 l best best Conrad verbal verbal response, response, confused confused conversati conversati on, 24 on, 24 hours or hours or more after more after hospital hospital admission admission 10/28/2017 [facility] Labyrinthi Labyrinth Problem 2018-08-14 Memoria ne ine 11:19:16 l dysfunctio dysfunctio He charanjit n, n, unspecifie unspecifie d ear d ear 08/14/2018 [facility] Acute Acute Problem 2018-05-29 Sixto celine embolism embolism 13:07:50 l and and Karl thrombosis thrombosis of other of other specified specified veins veins 05/29/2018 ALANA Barajas Embolism Embolism Problem 2018-05-29 Memoria and and 13:07:50 l thrombosis thrombosis He charanjit of of superficia superficia l veins of l veins of unspecifie unspecifie d lower d lower extremitie extremitie s s 05/29/2018 ALANA Barajas Cognitive Cognitive Problem Active 2021-05-16 Memoria deficit in deficit in 01:05:49 l communicat communicat He charanjit ion skills ion skills Active Problem 05/16/2021 [facility], [facility], ALANA Barajas, ALANA Montiel Traumatic Traumatic Problem Active 2021-05-16 Memoria subdural subdural 01:05:49 l hemorrhage hemorrhage He charanjit (disorder) (disorder) Active Problem 05/16/2021 Medical Group,[facility], [facility], OPID Karl, OPID Garrison G91.9 - G91.9 - Diagnosis Active 2021-04-30 Memoria HYDROCEPHA HYDROCEPHA 13:17:00 l FREDO, FREDO, Conrad UNSPECIFIE UNSPECIFIE D D Active OPID Conrad NONTRAUMAT Diagnosis Active 2017-08-30 Memoria IC NONTRAUMAT 09:53:00 l INTRACEREB IC Venkat n RAL INTRACEREB HEMORRHAGE RAL , U HEMORRHAGE , U Active [facility], [facility] TRAUM TRAUM Diagnosis Active 2017-12-12 Mem oria SUBRAC HEM SUBRAC HEM 15:35:00 l W LOC OF W LOC OF Venkat n UNSP UNSP DURATION, DURATION, Active [facility] Pain in Pain in Problem 2018-06-14 Me moria left left 12:07:24 l shoulder shoulder Venkat n 06/14/2018 [facility] Major Major Problem 2018-08-14 Memor ia depressive depressive 11:19:16 l disorder, disorder, Herm colette recurrent, recurrent, mild mild 08/14/2018 [facility] Type 2 Type 2 Problem 2018-09-26 Sixto celine diabetes diabetes 15:30:35 l mellitus mellitus Venkat n without without complicati complicati ons ons 09/26/2018 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 Personal Personal Problem 2018-09-26 Memoria history of history of 15:30:35 l other other Karl venous venous thrombosis thrombosis and and embolism embolism 09/26/2018 [facility], OPIEnrique Barajas Fall on Fall on Problem 2018-09-26 M emoria same level same level 15:30:35 l from from Karl slipping, slipping, tripping tripping and and stumbling stumbling with with subsequent subsequent striking striking against against other other object, object, initial initial encounter encounter 09/26/2018 [facility] Personal Personal Problem 2018-06-24 Memoria history of history of 13:41:33 l nicotine nicotine Venkat n dependence dependence 06/24/2018 [facility] Hyperlipid Hyperlipi Problem 2018-06-24 Memoria annmarie patterson, 13:41:33 l unspecifie unspecifie He rmann d d 06/24/2018 [facility] Essential Essential Problem 2018-06-24 Memoria (primary) (primary) 13:41:33 l hypertensi hypertensi He rmann on on 06/24/2018 [facility] Nontraumat Nontrauma Problem 2017-08-15 Memoria ic tic 00:51:16 l intracereb intracereb He rmann ral ral hemorrhage hemorrhage , , unspecifie unspecifie d d 08/15/2017 [facility] Acute Acute Problem 2017-10-28 Memor ia respirator respirator 12:12:01 l y failure, y failure, He rmann unspecifie unspecifie d whether d whether with with hypoxia or hypoxia or hypercapni hypercapni a a 10/28/2017 [facility] Acute Acute Problem 2017-10-28 Memor ia embolism embolism 12:12:01 l and and Karl thrombosis thrombosis of left of left femoral femoral vein vein 10/28/2017 [facility] Acute Acute Problem 2017-10-28 Memor ia posthemorr posthemorr 12:12:01 l arabella Barajas anemia anemia 10/28/2017 [facility] Dysphagia, Dysphagia Problem 2017-10-28 Memoria oropharyng , 12:12:01 l eal phase oropharyng Her [place] eal phase 10/28/2017 [facility] Hypocalcem Hypocalce Problem 2017-10-28 Memoria ia hugo 12:12:01 l 10/28/[address] [facility] Unspecifie Unspecifi Problem 2017-10-28 Memoria d injury ed injury 12:12:01 l of right of right Venkat person middle and middle and inner ear, inner ear, initial initial encounter encounter 10/28/2017 [facility] Traumatic Traumatic Problem 2017-10-28 Memoria cerebral cerebral 12:12:01 l edema with edema with He rmann loss of loss of consciousn consciousn ess of 1 ess of 1 hour to 5 hour to 5 hours 59 hours 59 minutes, minutes, initial initial encounter encounter 10/28/2017 [facility] Other Other Problem 2017-10-28 Memor ia fracture fracture 12:12:01 l of base of of base of He rmann skull, skull, initial initial encounter encounter for closed for closed fracture fracture 10/28/2017 [facility] History of History of Problem Resolve [facility] diabetes diabetes d Physic i mellitus mellitus ans DVT (deep DVT (deep Problem Active [facility] venous venous Physici thrombosis thrombosis an s ) ) Subdural Subdural Problem Active [facility] hemorrhage hemorrhage Ph ysici ans Dysfunctio Dysfunctio Problem Active U T n of left n of left Phys ici eustachian eustachian an s tube tube Diabetes Diabetes Problem Resolve 2008-2021-05-16 2021-05-16 Memoria mellitus mellitus d 04-25 01:05:49 01:05:49 l (disorder) (disorder) 00:00: He rmann Resolved 00 04/25/2008 Problem 05/16/2021 Medical Group,[facility], T[facility]a, ALANA Barajas, ALANA Montiel History of Past Illness Condition Condition Condition Status Onset Resolution Last Treating Co mments Source Name Details Category Date Date Treatment Clinician Date Traumatic Traumatic Problem 2020-042021-03-13 2021-03-13 Memoria subdural subdural 05-10 01:36:51 01:36:51 l hemorrhage hemorrhage 17:54: He rmann with loss with loss 00 of of consciousn consciousn ess ess greater greater than 24 than 24 hours with hours with return to return to pre-existi pre-existi ng ng conscious conscious level, level, subsequent subsequent encounter encounter 03/10/2021 03/13/2021 [facility] Pseudobulb Pseudobul Problem 2020-042021-03-13 2021-03-13 Memoria ar affect bar affect 05-10 01:36:51 01:36:51 l 03/10/2021 17:54: Venkat n 03/13/2021 00 [facility] Major Major Problem 2020-042021-03-13 2021-03-13 M emoria depressive depressive 05-10 01:36:51 01:36:51 l disorder, disorder, 17:54: Herm colette recurrent, recurrent, 00 moderate moderate 03/10/2021 03/13/2021 [facility] Cognitive Problem 2020-042021-03-13 2021-03-13 Memoria communicat Cognitive 05-10 01:36:51 01:36:51 l ion communicat 17:53: Venkat n deficit ion 00 deficit 03/10/2021 03/13/2021 [facility] Obstructiv Problem 2019-042020-03-08 2020-03-08 Memoria e sleep Obstructiv 05-05 00:18:55 00:18:55 l apnea e sleep 22:14: Karl (adult) apnea 00 (pediatric (adult) ) (pediatric ) 03/05/2020 03/08/2020 [facility] Circadian Circadian Problem 2018-11-21 2018-11-21 Memoria rhythm rhythm 05-06 11:32:06 11:32:06 l sleep sleep 05:51: Karl disorder, disorder, 18 unspecifie unspecifie d type d type 05/06/2018 9 [facility] Unspecifie Unspecifi Problem 2017-042018-09-26 2018-09-26 Memoria d fall, ed fall, 05-09 15:30:35 15:30:35 l initial initial 06:00: Karl encounter encounter 00 03/09/[address] [facility] Laceration Laceratio Problem 2017-042018-09-26 2018-09-26 Memoria without n without 05-09 15:30:35 15:30:35 l foreign foreign 06:00: Karl body of body of 00 scalp, scalp, initial initial encounter encounter 03/09/2018 09/26/2018 [facility] Encounter Problem 2017-2018-06-24 2018-06-24 Memoria for Encounter 12-11 13:41:33 13:41:33 l adjustment for 02:46: Venkat person and adjustment 25 management and of other management implanted of other devices implanted devices 12/11/2017 06/24/2018 [facility] Traumatic Traumatic Problem 2017-2017-10-28 2017-10-28 Memoria subdural subdural 4-07 12:12:01 12:12:01 l hemorrhage hemorrhage 03:22: He rmann with loss with loss 59 of of consciousn consciousn ess of 1 ess of 1 hour to 5 hour to 5 hours 59 hours 59 minutes, minutes, initial initial encounter encounter 07/30/2017 10/28/2017 [facility] Allergies, Adverse Reactions, Alerts Allergy Allergy Status Severity Reaction(s) Onset Inactive Treating Comm ents Source Name Type Date Date Clinician NO KNOWN Drug Active Univers ALLERGIE Class ity of [facility] Social History Social Habit Start Date Stop Date Quantity Comments Source History of Common Spirit - Tobacco Use [facility] Sex Assigned At Common Sp saulo - [facility] Exposure to Unable to assess Univers ity of SARS-CoV-2 [facility] (event) [place] Social History 2017-07-23 2017-07-23 [facility] Siobhan contreras 03:15:13 03:15:13 Smoking Status Start Date Stop Date Source Tobacco smoking [facility] consumption unknown [facility] smoker [facility] Former Smoker 2020-09-29 00:00:00 2020-09-29 Common Spiri t - [facility] 00:00:00 [facility] Ce nter Medications Ordered Filled Start Stop Current Ordering Indication Dosage Frequency Signature Comments Components Source Medication Medication Date Date Medication? Clinician (SIG) Name Name lidocaine 10mL 10 mL, Unive rs 1% 07-07-15 Infiltrati ity of (XYLOCAINE) 03:45: 02:51 on, ONCE, [place] 10 mg/mL (1 00 :00 1 dose, On Me dical %) [facility] injection 07/06/21 at 10 mL 2245, Routine FLUoxetine Yes 30 mg = Sixto celine 20 mg oral 1-19 1.5 tab, l tablet 17:34: PO, Daily, Bridget nn 00 # 135 tab, 1 Refill(s), Pharmacy: [facility], workmans comp, 175.26, cm, 03/10/21 10:39:00 BOOT TRIMMER, Height, 83.182, kg, 03/10/21 10:39:00 BOOT TRIMMER, Weight FLUoxetine 2020-04 Yes 30 mg = Sixto celine 20 mg oral 1-16 1.5 tab, l tablet 17:49: PO, Daily, Bridget nn [address] Katz, # 45 tab, 5 Refill(s), Pharmacy: [facility], workers compensati on., 175.26, cm, 03/10/21 10:39:00 BOOT TRIMMER, Height, 83.182, kg, 03/10/21 10:39:00 BOOT TRIMMER, Weight Dextrometho 2020-04 Yes 1.5 cap, Me moria rphan 1-16 PO, Daily, l Hydrobromid 17:47: workers [place] e 20 MG / 00 comp Quinidine Attending: Sulfate 10 DrRadha MG Oral [place], # Capsule 135 cap, 3 [Nuedexta] Refill(s), Pharmacy: [facility], 175.26, cm, 03/10/21 10:39:00 BOOT TRIMMER, Height, 83.182, kg, 03/10/21 10:39:00 BOOT TRIMMER, Weight Metformin 2020-04 Yes 1,000 mg = Me moria hydrochlori 1-16 1 tab, PO, l de 1000 MG 16:47: Daily, 0 Her [place] Oral Tablet 00 Refill(s) FLUoxetine Yes 30 mg = Sixto celine 20 mg oral 8-25 1.5 tab, l tablet 14:54: PO, Daily, Bridget nn 00 workmans comp, # 45 tab, 5 Refill(s), Pharmacy: [facility] [id number], workers compensati on., 175.26, cm, 10/29/20 7:58:00 CDT, Height, 85.909, kg, 10/29/20 7:58:00 CDT, Weight normal No 1,000 mL, Memori a saline 0.9% 10-29 1,000 l (Bolus) IV 18:39: ml/hr, Bridget nn 00 Infuse Over: 1 hr, Route: IV, 1,000, Drug form: INJ, ONCE, Priority: STAT, Dosing Weight 85.909 kg, Start date: 10/29/20 13:39:00 CDT, Stop date: 10/29/20 13:39:00 CDT, 0 [place] Yes 1,000, PO, Me moria 30 7-06 BID and l 15:40: Bedtime, 0 Karl 00 Refill(s) Amlodipine 0 Yes 10 mg, PO, M emoria 7-06 Daily, 0 l 15:39: Refill(s) Karl 00 Donepezil Yes 20 mg = 2 Mem oria hydrochlori 7-06 tab, PO, l de 10 MG 15:35: Daily, # Bridget nn Oral Tablet 00 30 tab, 0 [Aricept] Refill(s) FLUoxetine 2021-0 Yes 30 mg = Sixto celine 20 mg oral 6-15 1.5 tab, l tablet 19:22: PO, Daily, Bridget nn 00 workmans comp, # 45 tab, 5 Refill(s), Pharmacy: [facility] 149, 172.72, cm, 04/01/20 9:48:00 BOOT TRIMMER, Height, 87.273, kg, 04/01/20 9:48:00 BOOT TRIMMER, Weight FLUoxetine 0 Yes 30 mg = Sixto celine 20 mg oral 4-06 1.5 tab, l tablet 14:32: PO, Daily, Bridget nn 00 workmans comp, # 45 tab, 5 Refill(s), Pharmacy: [facility] 149, 172.72, cm, 04/01/20 9:48:00 BOOT TRIMMER, Height, 87.273, kg, 04/01/20 9:48:00 BOOT TRIMMER, Weight Amlodipine Amlodipine 0 No 1{table Amlodipine Besylate 5 Besylate 5 1-27 t} Besylate 5 MG MG 00:00: MG 00 Amlodipine Amlodipine 0 No 1{table Amlodipine Besylate 5 Besylate 5 1-27 t} Besylate 5 MG MG 00:00: MG 00 [facility] Ascensia 2020-0 2- No [facility] Contour Contour 1-15 01-10 Contour Test Strips Test Strips 00:00: 00:00 Test Test strips Test strips 00 :00 Strips Test strips [facility] Ascensia 2020-0 2022- No [facility] Contour Contour 1-15 01-10 Contour Test Strips Test Strips 00:00: 00:00 Test Test strips Test strips 00 :00 Strips Test strips [facility] Ascensia 2020-0 2022- No [facility] Contour Contour 1-15 01-10 Contour Test Strips Test Strips 00:00: 00:00 Test Test strips Test strips 00 :00 Strips Test strips [facility] Ascensia 2020-0 2022- No [facility] Contour Contour 1-15 01-10 Contour Test Strips Test Strips 00:00: 00:00 Test Test strips Test strips 00 :00 Strips Test strips [facility] Ascensia 2020-0 2022- No [facility] Contour Contour 1-15 01-10 Contour Test Strips Test Strips 00:00: 00:00 Test Test strips Test strips 00 :00 Strips Test strips Asc[facility] Ascensia 2021- No [facility] Contour Contour 1-15 01-10 Contour Test Strips Test Strips 00:00: 00:00 Test Test strips Test strips 00 :00 Strips Test strips Ascens[facility] Ascensia 2021- No [facility] Contour Contour 1-15 01-10 Contour Test Strips Test Strips 00:00: 00:00 Test Test strips Test strips 00 :00 Strips Test strips dexmethylph 2019-04 Yes 15 mg = 1 M emoria enidate 15 2-08 cap, PO, l mg oral 19:10: QAM, sahra Venkat n capsule, 00 cada extended manana do release not crush or chew, # 90 cap, 0 Refill(s), Pharmacy: [facility] 149, 172.72, cm, 04/01/20 9:48:00 BOOT TRIMMER, Height, 87.273, kg, 04/01/20 9:48:00 BOOT TRIMMER, Weight Metformin 2019-04 Yes 500 mg = 1 Me moria hydrochlori 2-08 tab, PO, l de 500 MG 17:23: Daily, # Herm colette Oral Tablet 00 30 tab, 1 Refill(s), Pharmacy: [facility] 149, 172.72, cm, 04/01/20 9:48:00 BOOT TRIMMER, Height, 87.273, kg, 04/01/20 9:48:00 BOOT TRIMMER, Weight [place]-3 2019-04 Yes 1,000 mg = Sixto celine 1000 mg 2-08 1 cap, PO, l oral 17:23: BID, Karl capsule 00 workers comp, # 180 cap, 0 Refill(s), Pharmacy: [facility] 149, 172.72, cm, 04/01/20 9:48:00 BOOT TRIMMER, Height, 87.273, kg, 04/01/20 9:48:00 BOOT TRIMMER, Weight Vitamin D3 2019-04 Yes 1,000 Memori a 1000 intl 2-08 IntlUnit = l units oral 17:22: 1 tab, PO, H ermann tablet 00 Daily, workers comp, # 90 tab, 1 Refill(s), Pharmacy: [facility] 149, 172.72, cm, 04/01/20 9:48:00 BOOT TRIMMER, Height, 87.273, kg, 04/01/20 9:48:00 BOOT TRIMMER, Weight dexmethylph 2019-04 Yes 10 mg = 1 M emoria enidate 10 2-08 tab, PO, l mg oral 17:22: Daily, # Venkat n tablet 00 90 tab, 0 Refill(s), Weight Dextrometho 2019-04 Yes 1 cap, PO, Memoria rphan 2-08 BID, l Hydrobromid 17:22: workers [place] e 20 MG / 00 comp, # Quinidine 180 cap, 3 Sulfate 10 Refill(s), MG Oral Pharmacy: [facility] [Nued[facility]] [facility] 149, 172.72, cm, 04/01/20 9:48:00 BOOT TRIMMER, Height, 87.273, kg, 04/01/20 9:48:00 BOOT TRIMMER, Weight Donepezil 2019-04 Yes 10 mg = 1 Mem oria hydrochlori 2-08 tab, PO, l de 10 MG 17:22: Daily, Karl Oral Tablet 00 workers [Aricept] comp, # 90 tab, 3 Refill(s), Pharmacy: [facility] 149, 172.72, cm, 04/01/20 9:48:00 BOOT TRIMMER, Height, 87.273, kg, 04/01/20 9:48:00 BOOT TRIMMER, Weight doxepin 10 2019-04 Yes 0.5, PO, Mem oria mg/mL oral 2-08 Bedtime, # l concentrate 17:22: 10 mL, 0 He rmann 00 Refill(s), Pharmacy: [facility] 149, 172.72, cm, 04/01/20 9:48:00 BOOT TRIMMER, Height, 87.273, kg, 04/01/20 9:48:00 BOOT TRIMMER, Weight Fenofibrate 2019-04 Yes 145 mg = 1 Memoria 145 MG Oral 2-08 tab, PO, l Tablet 17:22: Dinner, # Venkat n 00 30 tab, 1 Refill(s), Pharmacy: [facility] 149, 172.72, cm, 04/01/20 9:48:00 BOOT TRIMMER, Height, 87.273, kg, 04/01/20 9:48:00 BOOT TRIMMER, Weight pantoprazol 2019-04 Yes 40 mg = 1 M emoria e 40 mg 2-08 tab, PO, l oral 17:22: Daily, # Conrad enteric 00 30 tab, 3 coated Refill(s), tablet Pharmacy: [facility] 149, 172.72, cm, 04/01/20 9:48:00 BOOT TRIMMER, Height, 87.273, kg, 04/01/20 9:48:00 BOOT TRIMMER, Weight fluvastatin 2020-1 Yes 40 mg = 1 M emoria 40 mg oral 2-08 cap, PO, l capsule 17:22: Bedtime, # Herm colette 00 30 cap, 0 Refill(s), Pharmacy: [facility] 149, 172.72, cm, 04/01/20 9:48:00 BOOT TRIMMER, Height, 87.273, kg, 04/01/20 9:48:00 BOOT TRIMMER, Weight lisinopril 2019-1 Yes 10 mg = 1 Me moria 10 mg oral 2-08 tab, PO, l tablet 17:22: Daily, # Karl 00 30 tab, 3 Refill(s), Pharmacy: [place] [address], 172.72, cm, 04/01/20 9:48:00 BOOT TRIMMER, Height, 87.273, kg, 04/01/20 9:48:00 BOOT TRIMMER, Weight dexmethylph 2020-0 Yes 10 mg = 1 M emoria enidate 10 9-08 tab, PO, l mg oral 18:20: Daily, # Venkat n tablet 00 90 tab, 0 Refill(s), Pharmacy: [place] [address], 175.26, cm, 01/01/20 11:40:00 CDT, Height, 89.091, kg, 01/01/20 11:40:00 CDT, Weight fluvastatin 2020-0 Yes 40 mg = 1 M emoria 40 mg oral 8-13 cap, PO, l capsule 13:54: Bedtime, 0 Herm colette 00 Refill(s) Fluoxetine 2020-0 Yes 20 mg = 1 Me moria 20 MG Oral 5-20 cap, PO, l Capsule 22:19: Daily, # Venkat n [Prozac] 00 90 cap, 1 Refill(s), Pharmacy: [place] [address] Fluoxetine 2020-0 Yes 20 mg = 1 Me moria 20 MG Oral 3-03 cap, PO, l Capsule 22:43: Daily, # Venkat n [Prozac] 00 30 cap, 2 Refill(s), Pharmacy: [place] [address], Fluoxetine Yes 10 mg = 1 Me moria 10 MG Oral 1-29 cap, PO, l Capsule 23:22: Daily, # Venkat n [Prozac] 00 30 cap, 2 Refill(s), Pharmacy: [place] [address] Donepezil Yes 10 mg = 1 Mem oria hydrochlori 1-15 tab, PO, l de 10 MG 22:51: Daily, Karl Oral Tablet 00 workers [Aricept] comp, # 90 tab, 3 Refill(s), Pharmacy: [place] [address] Dextrometho Yes 1 cap, PO, Memoria rphan 1-15 BID, l Hydrobromid 22:51: workers [place] e 20 MG / 00 comp, # Quinidine 180 cap, 3 Sulfate 10 Refill(s), MG Oral Pharmacy: [facility] [[facility]] [place] [address] Fluoxetine 2018-04 Yes 10 mg = 1 Me moria 10 MG Oral 2-31 cap, PO, l Capsule 20:50: Daily, # Venkat n [Prozac] 00 30 cap, 1 Refill(s), Pharmacy: [place] [address], ? Escitalopra 2018-04 Yes 10 mg = 1 M emoria m 10 MG 2-31 tab, PO, l Oral Tablet 20:49: Daily, Herm colette [Lexapro] 00 take for 1 week and stop., # 7 tab, 0 Refill(s), Pharmacy: [place] [address], cross tapering to prozac. ? Vitamin D3 2018-04 Yes 1,000 Memori a 1000 intl 0-10 IntlUnit = l units oral 21:43: 1 tab, PO, H ermann tablet 00 Daily, workers comp, # 90 tab, 1 Refill(s), Pharmacy: [place] [address] [place]-3 2018-04 Yes 1,000 mg = Sixto celine 1000 mg 0-09 1 cap, PO, l oral 21:55: BID, Conrad capsule 00 workers comp, # 180 cap, 0 Refill(s), Pharmacy: [place] [address] Dextrometho 2018-04 Yes 1 cap, PO, Memoria rphan 0-09 BID, l Hydrobromid 21:51: workers [place] e 20 MG / 18 comp, # Quinidine 180 cap, 1 Sulfate 10 Refill(s), MG Oral Pharmacy: [facility] [[facility] [place] [address] escitalopra 2018-04 Yes 20 mg = 1 M emoria m 20 mg 0-09 tab, PO, l oral tablet 21:51: Daily, * Dario rmann 14 workers comp, # 90 tab, 1 Refill(s), Pharmacy: [place] [address] Divalproex 2018-04 Yes 125 mg = 1 M emoria Sodium 125 0-09 tab, PO, l MG Enteric 21:45: BID, Karl Coated 00 workers Tablet comp, # 60 [Depakote] tab, 1 Refill(s), Pharmacy: [place] [address] escitalopra Yes 20 mg = 1 M emoria m 20 mg 7-05 tab, PO, l oral tablet 21:13: Daily, * Dario rmcolette 16 workers comp, # 90 tab, 1 Refill(s), Pharmacy: [place] [address] escitalopra No 20 mg = 1 M emoria m 20 mg 7-05 tab, PO, l oral tablet 20:35: Daily, # He rmann 00 90 tab, 1 Refill(s), Pharmacy: [facility] Dextrometho Yes 1 cap, PO, Memoria rphan 7-05 BID, l Hydrobromid 20:31: workers [place] e 20 MG / 26 comp, # Quinidine 180 cap, 1 Sulfate 10 Refill(s), MG Oral Pharmacy: [facility] pravastatin Yes 40 mg = 1 M emoria 40 mg oral 7-05 tab, PO, l tablet 19:42: Bedtime, # Bridget nn 00 30 tab, 0 Refill(s) Dextrometho Yes 1 cap, PO, Memoria rphan 3-27 Daily, l Hydrobromid 22:00: workers [place] e 20 MG / 00 comp, # 90 Quinidine cap, 0 Sulfate 10 Refill(s), MG Oral Pharmacy: [facility] pantoprazol Yes 40 mg = 1 M emoria e 40 mg 3-27 tab, PO, l oral 21:14: Daily Conrad enteric 00 coated tablet Donepezil Yes 10 mg = 1 Mem oria hydrochlori 1-26 tab, PO, l de 10 MG 17:28: Daily, Karl Oral Tablet 52 workers [Aricept] comp, # 90 tab, 1 Refill(s), [facility] escitalopra No 10 mg = 1 M emoria m 10 mg 1-10 tab, PO, l oral tablet 00:44: Daily, Herm colette 39 workers comp, X 30 day, # 30 tab, 2 Refill(s), Pharmacy: [place] [address] Donepezil No 10 mg = 1 Mem oria hydrochlori 1-10 tab, PO, l de 10 MG 00:44: Daily, Karl Oral Tablet 36 workers [Aricept] comp, # 90 tab, 1 Refill(s), Pharmacy: [place] [address] Eliquis 2.5 Eliquis 2.5 2017-04 Yes H Peterson 1 QD TAKE ONE UT MG Oral MG Oral 2-10 M.D. TABLET BY Phys ici Tablet Tablet 08:19: MOUTH ans 32 DAILY Lidocaine 2017-04 No Notes: Memori a 1-15 (Same as: l 22:48: Xylocaine) Conrad 00 escitalopra 2017-04 No 10 mg = 1 M emoria m 10 mg 0-03 tab, PO, l oral tablet 20:11: Daily, # He rmann 04 30 tab, 1 Refill(s), Pharmacy: [place] [address] Donepezil 2017-04 No 10 mg = 1 Mem oria hydrochlori 0-03 tab, PO, l de 10 MG 20:11: Daily, Karl Oral Tablet 00 workers [Aricept] comp, # 90 tab, 1 Refill(s), Pharmacy: [place] [address] Mirtazapine 2017-04 No 15 mg = 1 M emoria 15 MG Oral 0-03 tab, PO, l Tablet 19:57: Bedtime, Karl 31 workers comp, # 90 tab, 0 Refill(s), Pharmacy: [place] [address] Mirtazapine No 30 mg = 2 M emoria 15 MG Oral 8-31 tab, PO, l Tablet 21:39: Bedtime, # Bridget nn 32 180 tab, 0 Refill(s), Pharmacy: [place] [address] Donepezil No 10 mg = 2 Mem oria hydrochlori 8-31 tab, PO, l de 5 MG 21:38: Bedtime, # Herm colette Oral Tablet 00 180 tab, 0 [Aricept] Refill(s), Pharmacy: [place] [address] Fentanyl No 25 Memoria 8-13 microgram, l 18:50: Route: IV, Conrad 00 ONCE, Dosing Weight 86.818, kg, Start date: 12/05/17 13:50:00 CDT, Stop date: 12/05/17 13:50:00 CDT Fentanyl No 50 Memoria 8-13 microgram, l 18:19: Route: IV, Conrad 00 ONCE, Dosing Weight 86.818, kg, Start date: 12/05/17 13:19:00 CDT, Stop date: 12/05/17 13:19:00 CDT lisinopril Yes 10 mg = 1 Me moria 10 mg oral 8-03 tab, PO, l tablet 18:35: Daily, 0 Conrad 00 Refill(s) Melatonin 3 No 3 mg = 1 Me moria MG Extended 8-03 tab, PO, l Release 18:35: Bedtime, Venkat n Tablet 00 PRN for insomnia, # 14 tab, 0 Refill(s) Donepezil No 5 mg = 1 Sixto celine hydrochlori 8-03 tab, PO, l de 5 MG 18:35: Bedtime, 0 Herm colette Oral Tablet 00 Refill(s) [Aricept] Acetaminoph No 1 cap, PO, Memoria en 300 MG / 8-03 Q4H, 0 l butalbital 18:35: Refill(s) He rmann 50 MG / 00 Caffeine 40 MG Oral Capsule [Fioricet] amantadine No 100 mg = 1 M emoria 100 mg oral 8-03 tab, PO, l tablet 18:35: BID, 0 Karl 00 Refill(s) apixaban No 2.5 mg, Memori a 2.5 MG Oral 8-03 PO, Q12H, l Tablet 18:35: 0 Karl [Eliquis] 00 Refill(s) Mirtazapine No Notes: Sixto celine 5-15 (Same l 02:00: as:Remeron ) atorvastati No Notes: Sixto celine n 5-15 (Same As: l 02:00: Lipitor) tamsulosin No Notes: Memor ia 5-14 (Same As: l 22:00: Flomax) "Do Not Crush" Fenofibrate No Notes: Sixto celine 145 MG Oral 5-14 (Same as: l Tablet 22:00: Tricor) Levetiracet Yes 500 mg = 1 Memoria am 500 MG 5-14 tab, PO, l Oral Tablet 21:39: BID, # 12 H ermann [Keppra] 00 tab, 0 Refill(s) pantoprazol No Notes: Sixto celine e 5-14 Tablet l 14:00: should not be chewed or crushed. (Same as: Protonix) Escitalopra No Notes: Sixto celine m 5-14 (Same as: l 14:00: Lexapro) Amantadine No Notes: Memor ia 5-14 (Same as: l 14:00: Symmetrel) Melatonin No Notes: Memori a 5-14 (Same as: l 06:50: Melatonin) Saline No Notes: Memoria Flush 0.9% 5-14 Same as: l 02:00: BD Posiflush Sterile Docusate No Notes: Memoria 5-14 (Same as: l 02:00: Colace) (Do Not Crush) sennosides, No Notes: Sixto celine DETENTION 5-14 (Same as: l 02:00: Senokot) Levetiracet No Notes: Sixto celine am 5-14 (Same l 02:00: as:Keppra) Lidocaine No Notes: Memori a 5-14 (Same as: l 00:52: Xylocaine) Regular No 60 units) Sixto celine Insulin, 5-14 WASTE: F/P l Human 100 00:30: - Black; E He rmann UNT/ML 00 - Injectable Municipal Solution Trash Bin Stable for 28 days at room temperatur e Expires in days from ____Date Dextrose No 6.25 gm, Memor ia 50% Syringe 5-14 12.5 mL, l 00:30: Route: Conrad IVP, Drug Form: INJ, Dosing Weight 85.909, kg, PRN, PRN Abnormal Lab Result, Start date: 09/04/17 19:30:00 CDT, Duration: 30 day, Stop date: 10/04/17 19:29:00 CDT Saline No Notes: Memoria Flush 0.9% 5-14 Same as: l 00:30: BD Posiflush Sterile Labetalol No 10 mg, 2 Sixto celine 5-14 mL, Route: l 00:30: IVP, Drug form: INJ, Q15Min, Dosing Weight 85.909, kg, PRN Hypertensi on, Start date: 09/04/17 19:30:00 CDT, Duration: 3 doses or times, Stop date: 10/05/17 0:00:00 CDT Benadryl No Notes: Memoria 5-14 (Same as: l 00:30: Benadryl) Conrad Melatonin 3 No Notes: Sixto celine MG Extended 5-14 (Same as: l Release 00:30: Melatonin) Herm colette Tablet phenol No Notes: Memoria 5-14 Chlorasept l 00:30: ic [place] Karl (Same as: Chlorasept ic, Sore Throat [place]) WASTE: F/P - Black; E - Municipal Trash Bin Ondansetron No Notes: Sixto celine 5-14 (Same as: l 00:30: Zofran) MEDICATION WASTE Product Size: 4 mg Product Wasted: ___ mg Bisacodyl No Notes: Memori a 5-14 (Same As: l 00:30: Dulcolax, Conrad Bisco-Lax) Acetaminoph No Notes: Do M emoria en 5-14 not exceed l 00:30: 4 gm/day. Karl 00 (Same as: Tylenol) Sodium No 1,000 mL, Memori a Chloride 5-14 Rate: 50 l 0.9% IV 00:30: ml/hr, Conrad 1,000 mL 00 Infuse over: 20 hr, Route: IV, Dosing Weight 85.909 kg, Total Volume: 1,000, Start date: 09/04/17 19:30:00 CDT, Duration: 30 day, Stop date: 10/04/17 19:29:00 CDT, 2.06, m2 Morphine No Notes: Memoria 5-14 (Same l 00:30: as:MORPhin Conrad 00 e Sulfate) Acetaminoph No Notes: Do M emoria en 325 MG / 5-14 not exceed l Hydrocodone 00:30: 4gm/day of Karl Bitartrate 00 acetaminop 10 MG Oral hen. (Same Tablet as: [place] 325/10) Acetaminoph No Notes: Sixto celine en 325 MG / 5-14 (Same as: l Hydrocodone 00:30: [place] Bridget nn Bitartrate 00 325/5) Do 5 MG Oral not exceed Tablet 4gm/day of acetaminop hen. Levetiracet No 2 tab, Sixto celine am 500 MG - Route: PO, l Oral Tablet 23:40: ONCE, Bridget nn [Keppra] 00 Dosing Weight 85.909, kg, Start date: 09/04/17 18:40:00 CDT, Stop date: 09/04/17 18:40:00 CDT Keppra No Notes: Memoria 5-13 Same as l 22:55: Keppra Mix Conrad 00 with 100 mL NS, LR or D5W MEDICATION WASTE Product Size: 500 mg Product Wasted: ___ mg Vitamin K 1 No Notes: Sixto celine 5-13 (Same as: l 22:45: Aqua-Mephy Karl 00 ton, Vitamin K) MEDICATION WASTE Product Size: 10 mg Product Wasted: ___ mg Factor No Notes: Memoria 2-7-9-10 5-13 Same as: l Prothrombin 22:45: Kcentra Her hatfield Complex 00 WASTE: F/P Concentrate - Red; E 2,104 unit -Red + empty Maximum container 1 dose = ea 5000 units; Round down dose to the nearest vial size Hematology clinical pharmacist consult required Sodium No 250 mL, Memoria Chloride 5-13 Rate: To l 0.9% 22:31: prime line Conrad (titrate) 00 and flush 250 mL remaining blood products., Dosing Weight 85.909, kg, Route: IV, Total Volume: 250, Start Date: 09/04/17 17:31:00 CDT, Duration: 30 day, Stop date: 10/04/17 17:30:00 CDT, Replace Every: 24 hr mirtazapine Yes 15 mg = 1 M emoria 15 mg oral 4-19 tab, PO, l tablet 21:43: Bedtime, # Bridget nn 00 30 tab, 1 Refill(s) Acetaminoph Yes 100.4 F, M emoria en 325 MG 4-19 X 10 day, l Oral Tablet 21:43: # 24 tab, H ermann 00 1 Refill(s) Acetaminoph Yes 1 tab, PO, Memoria en 300 MG / 4-19 TID, PRN l butalbital 21:43: Headache Her hatfield 50 MG / 00 1-5, X 14 Caffeine 40 day, # 20 MG Oral tab, 1 Capsule Refill(s) [Fioricet] pantoprazol Yes 40 mg = 1 M emoria e 40 mg 4-19 tab, PO, l oral 21:43: Daily, # Karl enteric 00 30 tab, 1 coated Refill(s) tablet Metformin Yes 500 mg = 1 Me moria hydrochlori 4-19 tab, PO, l de 500 MG 21:43: Daily, # Herm colette Oral Tablet 00 30 tab, 1 Refill(s) melatonin 3 Yes 9 mg, PO, M emoria mg oral 4-19 Bedtime, X l tablet 21:43: 30 day, # Venkat n 00 90 tab, 0 Refill(s) warfarin 3 Yes 6 mg = 2 Mem oria mg oral 4-19 tab, PO, l tablet 21:43: Q5PM, # 60 Bridget nn 00 tab, 1 Refill(s) tamsulosin Yes 0.4 mg = 1 M emoria 0.4 mg oral 4-19 cap, PO, l capsule 21:43: After Conrad 00 Dinner, # 30 cap, 1 Refill(s) Fenofibrate Yes 145 mg = 1 Memoria 145 MG Oral 4-19 tab, PO, l Tablet 21:43: Dinner, # Venkat n 00 30 tab, 1 Refill(s) escitalopra Yes 10 mg = 1 M emoria m 10 mg 4-19 tab, PO, l oral tablet 21:43: Daily, # He rmann 00 30 tab, 1 Refill(s) amantadine Yes 100 mg = 1 M emoria 100 mg oral 4-19 cap, PO, l capsule 21:43: Daily, X Venkat n 00 30 day, # 30 cap, 1 Refill(s) atorvastati Yes 10 mg = 1 M emoria n 10 mg 4-19 tab, PO, l oral tablet 21:43: Bedtime, # Karl 00 30 tab, 1 Refill(s) Acetaminoph No Notes: Sixto celine en 300 MG / -19 (acetamino l butalbital 13:51: phen-butal H ermann 50 MG / 00 bital-caff Caffeine 40 eine MG Oral 325-50-40m Capsule g) Do not [Fioricet] exceed 4 gm/day of acetaminop hen. (Same as: Esgic, Fioricet) Amantadine No Notes: Memor ia - (Same as: l 11:30: Symmetrel) Coumadin No Notes: Carol 4-18 Nurse to l 22:00: ensure documentat ion of patient education per anticoagul ation policy. Avoid large intake of vitamin-K containing foods diet. (Same As: Coumadin) WASTE: F/P - P Waste Black; E - P Waste Black Coumadin No Notes: Carol 4-17 Nurse to l 22:00: ensure documentat ion of patient education per anticoagul ation policy. Avoid large intake of vitamin-K containing foods diet. (Same As: Coumadin) WASTE: F/P - P Waste Black; E - P Waste Black Coumadin No Notes: Memoria 4-13 Nurse to l 22:00: ensure Conrad documentat ion of patient education per anticoagul ation policy. Avoid large intake of vitamin-K containing foods diet. (Same As: Coumadin) WASTE: F/P - P Waste Black; E - P Waste Black Flomax No Notes: Memoria 4-12 (Same As: l 22:00: Flomax) "Do Not Crush" Amantadine No Notes: Memor ia 08-03 (Same as: l 11:30: Symmetrel) Fenofibrate No Notes: Sixto celine 130 MG Oral 08-01 (Same as: l Capsule 22:00: Tricor) Metformin No Notes: Memori a hydrochlori 07-28 (Same as: l de 500 MG 13:30: Glucophage He rmann Oral Tablet ) Take with meal normal No 1,000 mL, Memori a saline 0.9% 07-27 Rate: 100 l IV 1,000 mL 19:30: ml/hr, Herm colette 00 Infuse over: 10 hr, Route: IV, Dosing Weight 82.386 kg, Total Volume: 1,000 Liter, Start date: 07/27/17 14:30:00 CDT, Duration: 1 day, Stop date: 07/28/17 14:29:00 CDT, 2.02, m2 Acetaminoph No Notes: Sixto celine en 300 MG / 07-27 (acetamino l butalbital 02:00: phen-butal H ermann 50 MG / 00 bital-caff Caffeine 40 eine MG Oral 325-50-40m Capsule g) Do not [Fioricet] exceed 4 gm/day of acetaminop hen. (Same as: Esgic, Fioricet) Dextrose 5% No 1,000 mL, M emoria with 0.9% 07-26 Rate: 100 l NaCl IV 18:51: ml/hr, Conrad 1,000 mL 00 Infuse over: 10 hr, Route: IV, Dosing Weight 82.386 kg, Total Volume: 1,000, Start date: 07/26/17 13:51:00 CDT, Duration: 1 day, Stop date: 07/27/17 13:50:00 CDT, 2.02, m2 Zoloft No 50 mg, Memoria 07-26 Route: PO, l 13:30: Drug form: Conrad 00 TAB, Daily, Dosing Weight 82.386, kg, Start date: 07/26/17 8:30:00 CDT, Duration: 30 day, Stop date: 08/24/17 8:30:00 CDT Remeron No Notes: Memoria 07-26 (Same l 02:00: as:Remeron Karl 00 ) Humalog No Notes: Memoria - (Same as: l 22:47: Humalog ) Karl 00 Roll in palms of hands gently; Do not shake `vigorousl y. "Single Patient Use Only " WASTE: F/P - Black; E - Municipal Trash Bin Stable for 28 days at room temperatur e. Expires in days from ____Date Dextrose 5% No 1,000 mL, M emoria with 0.9% 07-25 Rate: 100 l NaCl IV 22:46: ml/hr, Conrad 1,000 mL 00 Infuse over: 10 hr, Route: IV, Dosing Weight 82.386 kg, Total Volume: 1,000, Start date: 07/25/17 17:46:00 CDT, Duration: 1 doses or times, Stop date: 07/26/17 3:45:00 CDT, 2.02, m2 Humalog No Notes: Memoria 4- (Same as: l 22:46: Humalog ) Karl 00 Roll in palms of hands gently; Do not shake `vigorousl y. "Single Patient Use Only " WASTE: F/P - Black; E - Municipal Trash Bin Stable for 28 days at room temperatur e. Expires in days from ____Date Humalog No Notes: Memoria 4- (Same as: l 22:45: Humalog ) Karl 00 Roll in palms of hands gently; Do not shake `vigorousl y. "Single Patient Use Only " WASTE: F/P - Black; E - Municipal Trash Bin Stable for 28 days at room temperatur e. Expires in days from ____Date Humalog No Notes: Memoria 07-25 (Same as: l 22:43: Humalog ) Conrad 00 Roll in palms of hands gently; Do not shake `vigorousl y. "Single Patient Use Only " WASTE: F/P - Black; E - Municipal Trash Bin Stable for 28 days at room temperatur e. Expires in days from ____Date Humalog No Notes: Memoria 07-25 (Same as: l 22:42: Humalog ) Conrad 00 Roll in palms of hands gently; Do not shake `vigorousl y. "Single Patient Use Only " WASTE: F/P - Black; E - Municipal Trash Bin Stable for 28 days at room temperatur e. Expires in days from ____Date Beneprotein No Notes: Sixto celine 7 gm pkt 07-25 (Same as: l 21:00: Beneprotei Karl 00 n) Lovenox No Notes: Memoria 07-24 (Same as: l 21:00: Lovenox) Conrad 00 Dextrose 5% No 1,000 mL, M emoria with 0.45% - Rate: 75 l NaCl IV 22:26: ml/hr, Conrad 1,000 mL 00 Infuse over: 13.3 hr, Route: IV, Dosing Weight 82.386 kg, Total Volume: 1,000, Start date: 07/23/17 17:26:00 CDT, Duration: 2 doses or times, Stop date: 07/24/17 20:01:00 CDT, 2.02, m2 Uro-Jet 2% No Notes: Memor ia topical gel 3-31 (Same as: l with 18:15: Xylocaine Conrad applicator 00 JeMerissa adler) Protonix No Notes: Memoria 3-31 Tablet l 13:30: should not Conrad 00 be chewed or crushed. (Same as: Protonix) Lipitor No Notes: Memoria 3-31 (Same As: l 13:30: Lipitor) Karl 00 Lexapro No Notes: Memoria 3-31 (Same as: l 13:30: Lexapro) Conrad 00 Aricept No Notes: Memoria 3-31 (Same as: l 13:30: Aricept) Karl Metformin No Notes: Memori a hydrochlori 3-31 (Same as: l de 500 MG 13:00: Glucophage He rmann Oral Tablet ) Take with meal Dextrose 5% No 1,000 mL, M emoria with 0.9% 07-23 Rate: 125 l NaCl IV 06:12: ml/hr, Conrad 1,000 mL 00 Infuse over: 8 hr, Route: IV, Dosing Weight 82.386 kg, Total Volume: 1,000, Start date: 07/23/17 1:12:00 CDT, Duration: 2 day, Stop date: 07/25/17 1:11:00 CDT, 2.02, m2 heparin No Notes: Memoria sodium, 3-31 porcine l porcine 05:00: heparin Karl 2500 UNT/ML 00 Injectable Solution Seroquel No Notes: Memoria 3-31 (Same as: l 04:00: SEROquel) Conrad 00 Melatonin 3 No Notes: Sixto celine MG Extended - (Same as: l Release 04:00: Melatonin) Herm colette Tablet 00 NovoLOG No Notes: Memoria FlexPen 3-31 Non-Formul l 03:30: karon Drug Karl 00 (Same as: NovoLOG) WASTE: F/P - Black; E - Municipal Trash Bin NovoLOG No Notes: Memoria FlexPen 3-31 Non-Formul l 03:29: karon Drug Karl (Same as: NovoLOG) WASTE: F/P - Black; E - Municipal Trash Bin Insulin No 3 unit, Memoria regular 3-31 Route: l 03:10: SUB-Q, TID-Before Meals, Dosing Weight 82.386, kg, PRN Blood Glucose Results, Start date: 07/22/17 22:10:00 CDT, Duration: 30 day, Stop date: 08/21/17 22:09:00 CDT Glucagon No 1 mg, Memoria 3-31 Route: IM, l 03:10: Drug form: PDR/INJ, PRN, Dosing Weight 82.386, kg, PRN Blood Glucose Results, Start date: 07/22/17 22:10:00 CDT, Duration: 30 day, Stop date: 08/21/17 22:09:00 CDT Dextrose 2017- No 25 gm, 50 Sixto celine 50% Syringe 3-31 mL, Route: l 03:10: IVP, Drug Form: INJ, Dosing Weight 82.386, kg, PRN, PRN Blood Glucose Results, Start date: 07/22/17 22:10:00 CDT, Duration: 30 day, Stop date: 08/21/17 22:09:00 CDT Acetaminoph No Notes: Do M emoria en 3-31 not exceed l 03:08: 4 gm/day. (Same as: Tylenol) Midazolam No 40 kg Memori a 3-31 l 03:06: Karl 00 Levetiracet No Notes: Sixto celine am 3-31 Same as l 03:06: Keppra Mix with 100 mL NS, LR or D5W MEDICATION WASTE Product Size: 500 mg Product Wasted: __0_ mg Albuterol No Notes: Memori a 0.833 MG/ML 3-31 (Same as: l / 03:06: Duoneb) Ipratropium 00 [place] 0.167 MG/ML Inhalant Solution Simethicone No Notes: Sixto celine 3-31 (Same as: l 03:06: Mylicon) Saline No Notes: Memoria Flush 0.9% 3-31 (Same as: l 03:06: BD Posiflush) Milk of No Notes: Memoria Magnesia 3-31 (Same as: l 03:06: Milk of [place], MOM) Bisacodyl No Notes: Memori a 3-31 (Same As: l 03:06: Dulcolax, Bisco-Lax) pantoprazol No 40 mg = 1 M emoria e 40 mg 3-31 tab, PO, l oral 00:13: Daily, 0 Conrad enteric 00 Refill(s) coated tablet Metformin No 500 mg = 1 Me moria hydrochlori 3-31 tab, PO, l de 500 MG 00:13: BID-Meals, He rmann Oral Tablet 00 0 Refill(s) escitalopra No 10 mg = 1 M emoria m 10 mg 3-31 tab, PO, l oral tablet 00:13: Daily, 0 He rmann 00 Refill(s) donepezil 5 No 10 mg = 2 M emoria mg oral 3-31 tab, PO, l tablet 00:13: BID, 0 Karl 00 Refill(s) atorvastati No 10 mg = 1 M emoria n 10 mg 3-31 tab, PO, l oral tablet 00:13: Daily, 0 He rmann 00 Refill(s) Warfarin No Notes: Memoria 3-30 Nurse to l 22:00: ensure Karl 00 documentat ion of patient education per anticoagul ation policy. Avoid large intake of vitamin-K containing foods diet. WASTE: F/P - P Waste Black; E - P Waste Black (Same As: Coumadin) Protonix No Notes: Memoria 3-30 Tablet l 14:00: should not Karl 00 be chewed or crushed. (Same as: Protonix) Lipitor No Notes: Memoria 3-30 (Same As: l 14:00: Lipitor) Karl 00 Lexapro No Notes: Memoria 3-30 (Same as: l 14:00: Lexapro) Conrad 00 Aricept No Notes: Memoria 3-30 (Same as: l 14:00: Aricept) Conrad Warfarin No Notes: Memoria 3-29 Nurse to l 22:00: ensure Conrad 00 documentat ion of patient education per anticoagul ation policy. Avoid large intake of vitamin-K containing foods diet. WASTE: F/P - P Waste Black; E - P Waste Black (Same As: Coumadin) Milk of No Notes: Memoria Magnesia 07-21 (Same as: l 17:26: Milk of Conrad 00 Mariaelena, MOM) Donepezil No 10 mg = 1 Mem oria hydrochlori -29 tab, PO, l de 10 MG 14:09: BID, 0 Karl Oral Tablet 00 Refill(s) [Aricept] pantoprazol No 40 mg = 1 M emoria e 40 MG 3-29 tab, PO, l Enteric 14:09: Daily, 0 Venkat n Coated 00 Refill(s) Tablet [Protonix] atorvastati No 10 mg = 1 M emoria n 10 MG 3-29 tab, PO, l Oral Tablet 14:09: Daily, 0 He rmann [Lipitor] 00 Refill(s) Escitalopra No 10 mg = 1 M emoria m 10 MG -29 tab, PO, l Oral Tablet 14:09: Daily, 0 He rmann [Lexapro] 00 Refill(s) Metformin No Notes: Memori a hydrochlori 07-20 (Same as: l de 500 MG 22:00: Glucophage He rmann Oral Tablet 00 ) Take with meal insulin, No Notes: Memoria isophane 07-20 Roll in l 21:00: palms of Karl 00 hands gently; Do not shake vigorously . (Same as: Humulin N) Do not hold insulin without contacting prescriber WASTE: F/P - Black; E - Municipal Trash Bin Stable for 28 days at room temperatur e Expires in days from ____Date Insulin No 60 units) Sixto celine regular 07-19 WASTE: F/P l 02:15: - Black; E Karl 00 - Municipal Trash Bin Stable for 28 days at room temperatur e Expires in days from ____Date Dextrose No 25 gm, 50 Sixto celine 50% Syringe 3-27 mL, Route: l 02:15: IVP, Drug Form: INJ, Dosing Weight 90.5, kg, PRN, PRN Blood Glucose Results, Start date: 07/18/17 21:15:00 CDT, Duration: 30 day, Stop date: 08/17/17 21:14:00 CDT Glucagon 2017-0 No 1 mg, Memoria 07-19 Route: IM, l 02:15: Drug form: Conrad 00 PDR/INJ, PRN, Dosing Weight 90.5, kg, PRN Blood Glucose Results, Start date: 07/18/17 21:15:00 CDT, Duration: 30 day, Stop date: 08/17/17 21:14:00 CDT Regular 2017-0 No 60 units) Sixto celine Insulin, 07-18 WASTE: F/P l Human 100 23:38: - Black; E He rmann UNT/ML 00 - Injectable Municipal Solution Trash Bin Stable for 28 days at room temperatur e Expires in days from ____Date Dextrose 2017-0 No 25 gm, 50 Sixto celine 50% Syringe 3-26 mL, Route: l 23:38: IVP, Drug Form: INJ, Dosing Weight 90.5, kg, PRN, PRN Abnormal Lab Result, Start date: 07/18/17 18:38:00 CDT, Duration: 30 day, Stop date: 08/17/17 18:37:00 CDT Seroquel 2017-0 No 25 mg, Memoria 07-18 Route: PO, l 02:00: Drug form: Conrad 00 TAB, Bedtime, Dosing Weight 90.5, kg, Start date: 07/17/17 21:00:00 CDT, Duration: 30 day, Stop date: 08/15/17 21:00:00 CDT Metformin 2018-0 No 1,000 mg, Mem oria 3-25 PO, Daily, l 17:53: 0 Conrad 00 Refill(s) Donepezil 2017-0 No 10 mg = 1 Mem oria hydrochlori 3-25 tab, PO, l de 10 MG 17:53: Daily, # Bridget nn Oral Tablet 00 30 tab, 0 [Aricept] Refill(s) influenza No Notes: Memori a virus 3-24 (Same as: l vaccine, 14:00: Fluzone Venkat n inactivated 00 Quadrivale nt, Fluarix Quadrivale nt) For 3 years of age and older (0.5 mL IM) Shake well before use magnesium No Notes: Memori a citrate 3-24 (Same as: l 58.2 MG/ML 13:10: Citrate of H ermann Oral 00 Magnesia) Solution Concentrat ion: 1.745 gm / 30 mL Dexmedetomi No 400 Memori a dine 3-23 microgram, l 21:55: 4 mL, Karl 00 Rate: Titrate, Start Dose: 0.2 microgram/ kg/hr, Titration: 0.1 microgram/ kg/hr every 30 min, Goal(s): 0, Max Dose: 1.5 microgram/ kg/hr, Route: IV, Dosing Weight 90.5 kg, Total Volume: 100, Start date: 07/15/17 16:55:00 CDT, Durati... heparin No Notes: Memoria sodium, - porcine l porcine 13:00: heparin Conrad 2500 UNT/ML 00 Injectable Solution Streptococc No Notes: Sixto celine us - Shake well l pneumoniae 14:00: prior to [place] serotype 1 00 use (Same capsular as: antigen Prevnar diphtheria 13) [id number] protein conjugate vaccine / Streptococc us pneumoniae serotype 14 capsular antigen diphtheria [id number] protein conjugate vaccine / Streptococc us pneumoniae serotype 18C capsular antigen d Saline No Notes: Memoria Flush 0.9% 07-14 (Same as: l 14:00: BD Conrad Posiflush) Levetiracet No Notes: Sixto celine am -22 (Same l 14:00: as:Keppra) Conrad 00 Acetaminoph No Notes: Do M emoria en 07-14 not exceed l 13:40: 4 gm/day. Karl 00 (Same as: Tylenol) Hydralazine No Notes: Sixto celine -22 (Same as: l 13:35: Apresoline ) Push over 5 minutes ocular No Notes: Memoria lubricant -22 (Same as: l 11:00: Lacri-Lube Karl 00 , Duratears Naturale, Artificial Tears, and Tears Again ) chlorhexidi No Notes: Sixto celine ne - (Same As: l gluconate 09:00: Peridex) Herm colette 1.2 MG/ML 00 Mouthwash potassium No Notes: Memori a phosphate-s -22 (Same as: l odium 08:23: Phos-NaK) Karl phosphate 00 Each 1.5 250 mg-280 gm pkt has mg-160 mg 250mg oral powder phosphorou for s. Mix reconstitut w/2.5oz ion water and stir. potassium No Notes: Memori a phosphate - (Same as: l 08:23: K Phosphate. ) 1 mMol phoshate has 1.47 mEq potassium Infuse over 4 hours sodium No 45 mmol, Memoria phosphate -22 15 mL, l 08:23: Route: IVPB, PRN, Dosing Weight 95, kg, PRN Abnormal Lab Result, Start date: 07/14/17 3:23:00 CDT, Duration: 30 day, Stop date: 08/13/17 3:22:00 CDT, FOR ICU USE ONLY Magnesium No Notes: Memori a Sulfate 07-14 WASTE: F/P l 08:23: - Sink; E - Municipal Trash Bin Magnesium No Notes: Memori a Oxide - (Same as: l 08:23: Mag-Ox Karl 00 400) Magnesium oxide [id number] g elemental magnesium Dose=____m g magnesium oxide (___mg elemental magnesium) Potassium No Notes: Memori a Chloride -22 (Same as: l 08:23: Potassium Conrad 00 Chloride) Calcium No Notes: Memoria Carbonate -22 (Same As: l 500 MG 08:23: Tums) Karl Chewable 00 Calcium Tablet Carbonate 500 mg = 200 mg elemental calcium Dose = mg calcium carbonate ( mg elemental calcium) Calcium No Notes: Memoria Gluconate - WASTE: F/P l 08:23: - Sink; E Conrad 00 - Municipal Trash Bin chlorhexidi No Notes: Sixto celine ne -22 (Same As: l gluconate 08:22: Peridex) Herm colette 1.2 MG/ML Mouthwash Nicardipine No Notes: Sixto celine 3-22 Same as: l 05:05: Cardene Concentrat ion: (0.1 mg/ 1 ml) chlorhexidi No Notes: Sixto celine ne - (Same As: l gluconate 05:00: Peridex) Herm colette 1.2 MG/ML Mouthwash Regular No 60 units) Sixto celine Insulin, - WASTE: F/P l Human 100 03:42: - Black; E He rmann UNT/ML - Injectable Municipal Solution Trash Bin Stable for 28 days at room temperatur e Expires in days from ____Date Dextrose No 6.25 gm, Memor ia 50% Syringe -22 12.5 mL, l 03:42: Route: IVP, Drug Form: INJ, Dosing Weight 95, kg, PRN, PRN Abnormal Lab Result, Start date: 07/13/17 22:42:00 CDT, Duration: 30 day, Stop date: 08/12/17 22:41:00 CDT Saline No Notes: Memoria Flush 0.9% 3-22 (Same as: l 03:42: BD Posiflush) norepinephr No Route: IV, Memoria ine (ANES) 3-22 Drug form: l 03:39: INJ, ONCE, Stop date: 07/13/17 22:39:00 CDT calcium No Route: IV, Sixto celine chloride -22 Drug form: l (ANES) 03:34: INJ, ONCE, Bridget Stop date: 07/13/17 22:34:00 CDT phenylephri No Route: IV, Memoria ne (ANES) 3-22 Drug form: l 03:14: INJ, ONCE, Stop date: 07/13/17 22:14:00 CDT fentaNYL No Route: IV, Mem oria (ANES) - Drug form: l 02:59: INJ, ONCE, Conrad Stop date: 07/13/17 21:59:00 CDT rocuronium No Route: IV, M emoria (ANES) 3- Drug form: l 02:59: INJ, ONCE, Karl 00 Stop date: 07/13/17 21:59:00 CDT ceFAZolin No Route: IV, Me moria (ANES) 07-14 Drug form: l 02:39: INJ, ONCE, Conrad 00 Stop date: 07/13/17 21:39:00 CDT levETIRAcet No Route: IV, Memoria am (ANES) - Drug form: l 100 mg 02:16: INJ, Start Bridget date: 07/13/17 21:16:00 CDT, Stop date: 07/13/17 22:16:00 CDT Saline No Notes: Memoria Flush 0.9% 07-14 (Same as: l 02:00: BD Conrad Posiflush) Docusate No Notes: Memoria Sodium 100 07-14 (Same as: l MG Oral 02:00: Colace) Conrad Capsule 00 sennosides, No Notes: Sixto celine DETENTION 07-14 (Same as: l 02:00: Senokot) Karl Famotidine No Notes: Memor ia - (Same as: l 02:00: Pepcid) Karl 00 Can be dilute in 5-10cc NS IVP: Slow IV push over at least 2 minutes. propofol No Route: IV, Mem oria (ANES) 10 07-14 Drug form: l mg 02:00: INJ, Start Karl date: 07/13/17 21:00:00 CDT, Stop date: 07/13/17 22:00:00 CDT Lactated No Route: IV, Mem oria Ringers -22 Total l Injection 01:51: Volume: Bridget nn IV (ANES) 00 1,000, 1000 mL Start date: 07/13/17 20:51:00 CDT, Stop date: 07/13/17 21:51:00 CDT Insulin No 60 units) Sixto celine regular -22 WASTE: F/P l 01:47: - Black; E - Municipal Trash Bin Stable for 28 days at room temperatur e Expires in days from ____Date Saline No Notes: Memoria Flush 0.9% 07-14 (Same as: l 01:47: BD Posiflush) Ondansetron No Notes: Sixto celine 3-22 (Same as: l 01:47: Zofran) Karl 00 MEDICATION WASTE Product Size: 4 mg Product Wasted: ___ mg Labetalol No 10 mg, 2 Sixto celine 3-22 mL, Route: l 01:47: IVP, Drug form: INJ, Q15Min, Dosing Weight 95, kg, PRN Hypertensi on, Start date: 07/13/17 20:47:00 CDT, Duration: 3 doses or times, Stop date: Limited # of times Bisacodyl No Notes: Memori a 3-22 (Same As: l 01:47: Dulcolax, Bisco-Lax) Levetiracet No Notes: Sixto celine am -22 Same as l 01:47: Keppra Mix with 100 mL NS, LR or D5W MEDICATION WASTE Product Size: 500 mg Product Wasted: ___ mg Morphine No Notes: Memoria 3-22 (Same l 01:47: as:MORPhin e Sulfate) Sodium No 1,000 mL, Memori a Chloride 07-14 Rate: 75 l 0.9% IV 01:47: ml/hr, Conrad 1,000 mL 00 Infuse over: 13.3 hr, Route: IV, Dosing Weight 95 kg, Total Volume: 1,000, Start date: 07/13/17 20:47:00 CDT, Duration: 30 day, Stop date: 08/12/17 20:46:00 CDT, 2.16, m2 Keppra No Notes: Memoria 3-22 Same as l 01:09: Keppra Mix with 100 mL NS, LR or D5W MEDICATION WASTE Product Size: 500 mg Product Wasted: ___ mg iodixanol No 150 mL, Memor ia 07-13 Route: l 23:35: IVP, Drug Form: SOLN, Dosing Weight 95, kg, ONCALL, STAT, Start date: 07/13/17 18:35:00 CDT, Duration: 1 doses or times, Dose = 2.2ml/kg, Max dose = 150ml -- "To be infused by Radiology Staff ONLY" Fentanyl No 1,000 Memoria 07-13 microgram, l 23:18: 20 mL, Rate: Titrate, Start Dose: 50 microgram/ hr, Titration: 25 microgram/ hour every 15 minutes, Goal(s): RASS -1 to 0, Max Dose: 300 microgram/ hr, Route: IV, Dosing Weight 95 kg, Total Volume: 20, Start date: 07/13/17 18:18:00 CDT,... propofol 10 No Notes: If M emoria mg/mL 07-13 Diprivan - l (Titrate.) 23:18: change Bridget nn IV 1,000 mg 00 bottle & tubing every 12 hr Per state nursing law propofol can only be given by a nurse if patient is intubated or being intubated (unless the nurse is a PITCH FILLER). Same as: Diprivan Saline No Notes: Memoria Flush 0.9% 07-13 (Same as: l 23:09: BD Posiflush) atorvastati 2016-04 Yes 10mg Take 10 mg [facility] n 10 mg 0-07 by mouth ity of tablet 11:35: at [place] [address] bedtime. Medical Branch atorvastati 2016-04 Yes 10mg Take 10 mg [facility] n 10 mg 0-07 by mouth ity of tablet 11:35: at [place] 46 bedtime. Medical Branch atorvastati 2016-04 Yes 10mg Take 10 mg [facility] n 10 mg 0-07 by mouth ity of tablet 11:35: at [place] [address] bedtime. Medical Branch atorvastati 2016-04 Yes 10mg [...] by mouth ity of (LEXAPRO) 22:48: daily. [place] 10 mg 37 Medical tablet Branch metFORMIN 2014-04 Yes 1000mg Take 1,000 [facility] (GLUCOPHAGE 2-04 mg by ity of ) 1,000 mg 22:48: mouth 2 [place] tablet 37 (two) Medical times Branch daily with meals. escitalopra 2014-04 Yes 10mg Take 10 mg [facility] m oxalate 2-04 by mouth ity of (LEXAPRO) 22:48: daily. [place] 10 mg 37 Medical tablet Branch metFORMIN 2014-04 Yes 1000mg Take 1,000 [facility] (GLUCOPHAGE 2-04 mg by ity of ) 1,000 mg 22:48: mouth 2 [place] tablet 37 (two) Medical times Branch daily with meals. escitalopra 2014-04 Yes 10mg Take 10 mg [facility] m oxalate 2-04 by mouth ity of (LEXAPRO) 22:48: daily. [place] 10 mg 37 Medical tablet Branch metFORMIN 2014-04 Yes 1000mg Take 1,000 [facility] (GLUCOPHAGE 2-04 mg by ity of ) 1,000 mg 22:48: mouth 2 [place] tablet 37 (two) Medical times Branch daily with meals. escitalopra 2014-04 Yes 10mg Take 10 mg [facility] m oxalate 2-04 by mouth ity of (LEXAPRO) 22:48: daily. [place] 10 mg 37 Medical tablet Branch metFORMIN 2014-04 Yes 1000mg Take 1,000 [facility] (GLUCOPHAGE 2-04 mg by ity of ) 1,000 mg 22:48: mouth 2 [place] tablet 37 (two) Medical times Branch daily with meals. escitalopra 2014-04 Yes 10mg Take 10 mg [facility] m oxalate 2-04 by mouth ity of (LEXAPRO) 22:48: daily. [place] 10 mg 37 Medical tablet Branch traMADOL 2014-04 Yes 50mg Take 1 Tab Uni vers (ULTRAM) 50 2-04 by mouth ity of mg tablet 00:00: every 6 [place] 00 (six) Medical hours as Branch needed for Pain (scale 4-6). Roc Hatfield PA-C / Don Blunt MD SEAN# [id number] DPS# [id number] x Lic.# [id number] NPI# [id number] baclofen 2014-04 Yes 20mg Take 1 Tab [...] Hatfield PA-C / Don Blunt MD SEAN# [id number] DPS# [id number] x Lic.# [id number] NPI# [id number] baclofen 2014-04 Yes 20mg Take 1 Tab [...] Hatfield PA-C / Don Blunt MD SEAN# [id number] DPS# [id number] x Lic.# [id number] NPI# [id number] baclofen 2014-04 Yes 20mg Take 1 Tab [...] Hatfield PA-C / Don Blunt MD SEAN# [id number] DPS# [id number] x Lic.# [id number] NPI# [id number] baclofen 2014-04 Yes 20mg Take 1 Tab [...] Hatfield PA-C / Don Blunt MD SEAN# [id number] DPS# [id number] x Lic.# [id number] NPI# [id number] baclofen 2014-04 Yes 20mg Take 1 Tab Uni vers (LIORESAL) 2-04 by mouth 3 ity of 20 mg 00:00: (three) [place] tablet 00 times Medical daily. Branch haloperidol haloperidol No 1 Q8H haloperido [facility] 0.5 mg 0.5 mg l 0.5 mg Medical tablet Take tablet Take tablet 1 tablet 1 tablet Take 1 every 8 every 8 tablet hours by hours by every 8 oral route oral route hours by as needed. as needed. oral route as needed. lisinopril lisinopril No 1 Q1D lisinopril [facility] 20 mg 20 mg 20 mg Medical tablet Take tablet Take tablet 1 tablet 1 tablet Take 1 every day every day tablet by oral by oral every day route. route. by oral route. metformin metformin No 1 BID metformin [facility] 1,000 mg 1,000 mg 1,000 mg Med ical tablet Take tablet Take tablet 1 tablet 1 tablet Take 1 twice a day twice a day tablet by oral by oral twice a route. route. day by oral route. Norvasc 5 Norvasc 5 No 1 Q1D Norvasc 5 [facility] mg tablet mg tablet mg tablet Medical Take 1 Take 1 Take 1 tablet tablet tablet every day every day every day by oral by oral by oral route. route. route. om-3-dha-ep om-3-dha-ep No 1capsul BID om-3-dha-e [facility] a-fish a-fish e(s) pa-fish Medical oil-vit D3 oil-vit D3 oil-vit D3 300 300 300 mg-1,000 mg-1,000 mg-1,000 mg-1,000 mg-1,000 mg-1,000 unit unit unit capsule capsule capsule Take 1 Take 1 Take 1 capsule capsule capsule twice a day twice a day twice a by oral by oral day by route. route. oral route. pantoprazol pantoprazol No 1 Q1D pantoprazo [facility] e 40 mg e 40 mg le 40 mg Medic al tablet,quinten tablet,quinten tablet,del yed release yed release ayed Take 1 Take 1 release tablet tablet Take 1 every day every day tablet by oral by oral every day route. route. by oral route. Seroquel 25 Seroquel 25 No Seroquel [facility] mg tablet mg tablet 25 mg Medi julianne Take 25 mg Take 25 mg tablet in the am in the am Take 25 mg and 50 mg and 50 mg in the am QHS QHS and 50 mg QHS atorvastati atorvastati No 1 Q1D atorvastat [facility] n 10 mg n 10 mg in 10 mg Medic al tablet Take tablet Take tablet 1 tablet 1 tablet Take 1 every day every day tablet by oral by oral every day route at route at by oral bedtime. bedtime. route at bedtime. cyanocobala cyanocobala No 1capsul Q1D cyanocobal [facility] min min e(s) [facility] (vitamin (vitamin (vitamin B-12) 1,000 B-12) 1,000 B-12) mcg capsule mcg capsule 1,000 mcg Take 1 Take 1 capsule capsule capsule Take 1 every day every day capsule by oral by oral every day route. route. by oral route. Depakote Depakote No 2 BID Depakote Nancy via 125 mg 125 mg 125 mg Medical tablet,quinten tablet,quinten tablet,del yed release yed release ayed Take 2 Take 2 release tablets tablets Take 2 twice a day twice a day tablets by oral by oral twice a route. route. day by oral route. donepezil donepezil No 1 Q1D donepezil [facility] 10 mg 10 mg 10 mg Medical tablet Take tablet Take tablet 1 tablet 1 tablet Take 1 every day every day tablet by oral by oral every day route at route at by oral bedtime. bedtime. route at bedtime. fluoxetine fluoxetine No 3capsul Q1D fluoxetine [facility] 10 mg 10 mg e(s) 10 mg Medical capsule capsule capsule Take 3 Take 3 Take 3 capsules capsules capsules every day every day every day by oral by oral by oral route. route. route. haloperidol haloperidol No 1 Q8H haloperido [facility] 0.5 mg 0.5 mg l 0.5 mg Medical tablet Take tablet Take tablet 1 tablet 1 tablet Take 1 every 8 every 8 tablet hours by hours by every 8 oral route oral route hours by as needed. as needed. oral route as needed. lisinopril lisinopril No 1 Q1D lisinopril [facility] 20 mg 20 mg 20 mg Medical tablet Take tablet Take tablet 1 tablet 1 tablet Take 1 every day every day tablet by oral by oral every day route. route. by oral route. metformin metformin No 1 BID metformin [facility] 1,000 mg 1,000 mg 1,000 mg Med ical tablet Take tablet Take tablet 1 tablet 1 tablet Take 1 twice a day twice a day tablet by oral by oral twice a route. route. day by oral route. Norvasc 5 Norvasc 5 No 1 Q1D Norvasc 5 [facility] mg tablet mg tablet mg tablet Medical Take 1 Take 1 Take 1 tablet tablet tablet every day every day every day by oral by oral by oral route. route. route. om-3-dha-ep om-3-dha-ep No 1capsul BID om-3-dha-e [facility] a-fish a-fish e(s) pa-fish Medical oil-vit D3 oil-vit D3 oil-vit D3 300 300 300 mg-1,000 mg-1,000 mg-1,000 mg-1,000 mg-1,000 mg-1,000 unit unit unit capsule capsule capsule Take 1 Take 1 Take 1 capsule capsule capsule twice a day twice a day twice a by oral by oral day by route. route. oral route. pantoprazol pantoprazol No 1 Q1D pantoprazo [facility] e 40 mg e 40 mg le 40 mg Medic al tablet,quinten tablet,quinten tablet,del yed release yed release ayed Take 1 Take 1 release tablet tablet Take 1 every day every day tablet by oral by oral every day route. route. by oral route. Seroquel 25 Seroquel 25 No Seroquel [facility] mg tablet mg tablet 25 mg Medi julianne Take 25 mg Take 25 mg tablet in the am in the am Take 25 mg and 50 mg and 50 mg in the am QHS QHS and 50 mg QHS atorvastati atorvastati No 1 Q1D atorvastat [facility] n 10 mg n 10 mg in 10 mg Medic al tablet Take tablet Take tablet 1 tablet 1 tablet Take 1 every day every day tablet by oral by oral every day route at route at by oral bedtime. bedtime. route at bedtime. cyanocobala cyanocobala No 1capsul Q1D cyanocobal [facility] min min e(s) [facility] (vitamin (vitamin (vitamin B-12) 1,000 B-12) 1,000 B-12) mcg capsule mcg capsule 1,000 mcg Take 1 Take 1 capsule capsule capsule Take 1 every day every day capsule by oral by oral every day route. route. by oral route. Depakote Depakote No 2 BID Depakote [facility] via 125 mg 125 mg 125 mg Medical tablet,quinten tablet,quinten tablet,del yed release yed release ayed Take 2 Take 2 release tablets tablets Take 2 twice a day twice a day tablets by oral by oral twice a route. route. day by oral route. donepezil donepezil No 1 Q1D donepezil [facility] 10 mg 10 mg 10 mg [facility] tablet Take tablet Take tablet 1 tablet 1 tablet Take 1 every day every day tablet by oral by oral every day route at route at by oral bedtime. bedtime. route at bedtime. fluoxetine fluoxetine No 3capsul Q1D fluoxetine [facility] 10 mg 10 mg e(s) 10 mg Medical capsule capsule capsule Take 3 Take 3 Take 3 capsules capsules capsules every day every day every day by oral by oral by oral route. route. route. haloperidol haloperidol No 1 Q8H haloperido [facility] 0.5 mg 0.5 mg l 0.5 mg Medical tablet Take tablet Take tablet 1 tablet 1 tablet Take 1 every 8 every 8 tablet hours by hours by every 8 oral route oral route hours by as needed. as needed. oral route as needed. lisinopril lisinopril No 1 Q1D lisinopril [facility] 20 mg 20 mg 20 mg [facility] tablet Take tablet Take tablet 1 tablet 1 tablet Take 1 every day every day tablet by oral by oral every day route. route. by oral route. metformin metformin No 1 BID metformin [facility] 1,000 mg 1,000 mg 1,000 mg Med ical tablet Take tablet Take tablet 1 tablet 1 tablet Take 1 twice a day twice a day tablet by oral by oral twice a route. route. day by oral route. Norvasc 5 Norvasc 5 No 1 Q1D Norvasc 5 [facility] mg tablet mg tablet mg tablet Medical Take 1 Take 1 Take 1 tablet tablet tablet every day every day every day by oral by oral by oral route. route. route. om-3-dha-ep om-3-dha-ep No 1capsul BID om-3-dha-e [facility] a-fish a-fish e(s) pa-fish Medical oil-vit D3 oil-vit D3 oil-vit D3 300 300 300 mg-1,000 mg-1,000 mg-1,000 mg-1,000 mg-1,000 mg-1,000 unit unit unit capsule capsule capsule Take 1 Take 1 Take 1 capsule capsule capsule twice a day twice a day twice a by oral by oral day by route. route. oral route. pantoprazol pantoprazol No 1 Q1D pantoprazo [facility] e 40 mg e 40 mg le 40 mg Medic al tablet,quinten tablet,quinten tablet,del yed release yed release ayed Take 1 Take 1 release tablet tablet Take 1 every day every day tablet by oral by oral every day route. route. by oral route. Seroquel 25 Seroquel 25 No Seroquel [facility] mg tablet mg tablet 25 mg Medi julianne Take 25 mg Take 25 mg tablet in the am in the am Take 25 mg and 50 mg and 50 mg in the am QHS QHS and 50 mg QHS atorvastati atorvastati No 1 Q1D atorvastat [facility] n 10 mg n 10 mg in 10 mg Medic al tablet Take tablet Take tablet 1 tablet 1 tablet Take 1 every day every day tablet by oral by oral every day route at route at by oral bedtime. bedtime. route at bedtime. cyanocobala cyanocobala No 1capsul Q1D cyanocobal [facility] min min e(s) [facility] (vitamin (vitamin (vitamin B-12) 1,000 B-12) 1,000 B-12) mcg capsule mcg capsule 1,000 mcg Take 1 Take 1 capsule capsule capsule Take 1 every day every day capsule by oral by oral every day route. route. by oral route. Depakote Depakote No 2 BID Depakote [facility] via 125 mg 125 mg 125 mg Medical tablet,quinten tablet,quinten tablet,del yed release yed release ayed Take 2 Take 2 release tablets tablets Take 2 twice a day twice a day tablets by oral by oral twice a route. route. day by oral route. donepezil donepezil No 1 Q1D donepezil [facility] 10 mg 10 mg 10 mg Medical tablet Take tablet Take tablet 1 tablet 1 tablet Take 1 every day every day tablet by oral by oral every day route at route at by oral bedtime. bedtime. route at bedtime. fluoxetine fluoxetine No 3capsul Q1D fluoxetine [facility] 10 mg 10 mg e(s) 10 mg Medical capsule capsule capsule Take 3 Take 3 Take 3 capsules capsules capsules every day every day every day by oral by oral by oral route. route. route. haloperidol haloperidol No 1 Q8H haloperido [facility] 0.5 mg 0.5 mg l 0.5 mg Medical tablet Take tablet Take tablet 1 tablet 1 tablet Take 1 every 8 every 8 tablet hours by hours by every 8 oral route oral route hours by as needed. as needed. oral route as needed. lisinopril lisinopril No 1 Q1D lisinopril [facility] 20 mg 20 mg 20 mg Medical tablet Take tablet Take tablet 1 tablet 1 tablet Take 1 every day every day tablet by oral by oral every day route. route. by oral route. metformin metformin No 1 BID metformin [facility] 1,000 mg 1,000 mg 1,000 mg Med ical tablet Take tablet Take tablet 1 tablet 1 tablet Take 1 twice a day twice a day tablet by oral by oral twice a route. route. day by oral route. Norvasc 5 Norvasc 5 No 1 Q1D Norvasc 5 [facility] mg tablet mg tablet mg tablet Medical Take 1 Take 1 Take 1 tablet tablet tablet every day every day every day by oral by oral by oral route. route. route. om-3-dha-ep om-3-dha-ep No 1capsul BID om-3-dha-e [facility] a-fish a-fish e(s) pa-fish Medical oil-vit D3 oil-vit D3 oil-vit D3 300 300 300 mg-1,000 mg-1,000 mg-1,000 mg-1,000 mg-1,000 mg-1,000 unit unit unit capsule capsule capsule Take 1 Take 1 Take 1 capsule capsule capsule twice a day twice a day twice a by oral by oral day by route. route. oral route. pantoprazol pantoprazol No 1 Q1D pantoprazo [facility] e 40 mg e 40 mg le 40 mg Medic al tablet,quinten tablet,quinten tablet,del yed release yed release ayed Take 1 Take 1 release tablet tablet Take 1 every day every day tablet by oral by oral every day route. route. by oral route. Seroquel 25 Seroquel 25 No Seroquel [facility] mg tablet mg tablet 25 mg Medi julianne Take 25 mg Take 25 mg tablet in the am in the am Take 25 mg and 50 mg and 50 mg in the am QHS QHS and 50 mg QHS Pantoprazol Pantoprazol Yes [facility] [...] Na Davis 1 tablet Common with food [facility] [place] Fioricet Fioricet Yes Na Davis 1 capsule Common as needed [facility] Amantadine Amantadine Yes Na Davis 1 tablet Common HCl HCl [facility] Tamsulosin Tamsulosin Yes Na Davis 1 capsule Common HCl HCl [facility] Keppra Keppra Yes Na Davis 1 tablet Comm on [facility] Fluvastatin Fluvastatin Yes Na Daivs 1 capsule Common Sodium Sodium [facility] Lisinopril Lisinopril Yes Na Davis 1 tablet Common [facility] Prozac Prozac Yes Na Davis 1 capsule Com mon [facility] Aricept Aricept Yes Na Davis 1 tablet Co mmon at bedtime [facility] Lexapro Lexapro Yes Na Davis 1 tablet Co mmon [facility] ZyrTEC ZyrTEC Yes Na Davis 1 tablet Comm on [facility] Protonix Protonix Yes Na Davis 1 tablet Common [facility] Pravastatin Pravastatin Yes Na Davis TAKE ONE Common Sodium Sodium TABLET BY [facility] MOUTH ONCE - [facility] [place] Eliquis 2.5 Eliquis 2.5 Yes Na Davis one Common mg mg [facility] Aspirin Aspirin Yes Na Davis 1 tablet Co mmon [facility] Metformin Metformin Yes Na Davis 1 tablet Common HCl HCl with meals [facility] Mirtazapine Mirtazapine Yes Na Davis 1 tablet Common at bedtime [facility] Melatonin Melatonin Yes Na Davis 1 tablet Common at bedtime [facility] as needed - [facility] with food [facility] [place] Donepezil Donepezil Yes Na Davis 1 tablet Common HCl HCl at bedtime [facility] Mirtazapine Mirtazapine No 1{table QD Mirtazapin 30 MG 30 MG t_at_be e 30 MG dtime} Amantadine Amantadine No 1{table BID Amantadine HCl 100 MG HCl 100 MG t} HCl 100 MG Tamsulosin Tamsulosin No 1{capsu QD Tamsulosin HCl 0.4 MG HCl 0.4 MG le} HCl 0.4 MG Aspirin 81 Aspirin 81 No 1{table QD Aspirin 81 MG MG t} MG Melatonin 3 Melatonin 3 No 1{table QD Melatonin MG MG t_at_be 3 MG dtime_a s_neede d_with_ food} Prozac 20 Prozac 20 No 1{capsu QD Prozac 20 MG MG le} MG Fluvastatin Fluvastatin No 1{capsu BID Fluvastati Sodium 40 Sodium 40 le} n Sodium MG MG 40 MG Lisinopril Lisinopril No 1{table QD Lisinopril 10 MG 10 MG t} 10 MG Fenofibrate Fenofibrate No 1{table QD Fenofibrat 145 MG 145 MG t_with_ e 145 MG food} Donepezil Donepezil No 1{table QD Donepezil HCl 10 MG HCl 10 MG t_at_be HCl 10 MG dtime} Metformin Metformin No 1{table QD Metformin HCl 1000 MG HCl 1000 MG t_with_ HCl 1000 meals} MG Lexapro 20 Lexapro 20 No 1{table QD Lexapro 20 MG MG t} MG Fioricet Fioricet No 1{capsu 6xD Fioricet 50-300-40 50-300-40 le_as_n 50-300-40 MG MG eeded} MG Protonix 40 Protonix 40 No 1{table QD Protonix MG MG t} 40 MG Keppra 500 Keppra 500 No 1{table BID Keppra 500 MG MG t} MG Fluvastatin Fluvastatin No Fluvastati Sodium 40 Sodium 40 n Sodium MG MG 40 MG Aricept 10 Aricept 10 No 1{table QD Aricept 10 MG MG t_at_be MG dtime} Pravastatin Pravastatin No Pravastati Sodium 40 Sodium 40 n Sodium MG MG 40 MG ZyrTEC 10 ZyrTEC 10 No 1{table QD ZyrTEC 10 MG MG t} MG Eliquis 2.5 Eliquis 2.5 No Eliquis mg 2.5 mg mg 2.5 mg 2.5 mg 2.5 mg Mirtazapine Mirtazapine No 1{table QD Mirtazapin 30 MG 30 MG t_at_be e 30 MG dtime} Amantadine Amantadine No 1{table BID Amantadine HCl 100 MG HCl 100 MG t} HCl 100 MG Tamsulosin Tamsulosin No 1{capsu QD Tamsulosin HCl 0.4 MG HCl 0.4 MG le} HCl 0.4 MG Aspirin 81 Aspirin 81 No 1{table QD Aspirin 81 MG MG t} MG Melatonin 3 Melatonin 3 No 1{table QD Melatonin MG MG t_at_be 3 MG dtime_a s_neede d_with_ food} Prozac 20 Prozac 20 No 1{capsu QD Prozac 20 MG MG le} MG Fluvastatin Fluvastatin No 1{capsu BID Fluvastati Sodium 40 Sodium 40 le} n Sodium MG MG 40 MG Keppra 500 Keppra 500 No 1{table BID Keppra 500 MG MG t} MG Mirtazapine Mirtazapine No 1{table QD Mirtazapin 30 MG 30 MG t_at_be e 30 MG dtime} Prozac 20 Prozac 20 No 1{capsu QD Prozac 20 MG MG le} MG Fenofibrate Fenofibrate No 1{table QD Fenofibrat 145 MG 145 MG t_with_ e 145 MG food} Melatonin 3 Melatonin 3 No 1{table QD Melatonin MG MG t_at_be 3 MG dtime_a s_neede d_with_ food} Metformin Metformin No 1{table QD Metformin HCl 1000 MG HCl 1000 MG t_with_ HCl 1000 meals} MG Eliquis 2.5 Eliquis 2.5 No Eliquis mg 2.5 mg mg 2.5 mg 2.5 mg 2.5 mg Aspirin 81 Aspirin 81 No 1{table QD Aspirin 81 MG MG t} MG Donepezil Donepezil No 1{table QD Donepezil HCl 10 MG HCl 10 MG t_at_be HCl 10 MG dtime} Lisinopril Lisinopril No 1{table QD Lisinopril 20 MG 20 MG t} 20 MG Lexapro 20 Lexapro 20 No 1{table QD Lexapro 20 MG MG t} MG ZyrTEC 10 ZyrTEC 10 No 1{table QD ZyrTEC 10 MG MG t} MG Amantadine Amantadine No 1{table BID Amantadine HCl 100 MG HCl 100 MG t} HCl 100 MG Aricept 10 Aricept 10 No 1{table QD Aricept 10 MG MG t_at_be MG dtime} Fioricet Fioricet No 1{capsu 6xD Fioricet 50-300-40 50-300-40 le_as_n 50-300-40 MG MG eeded} MG Fluvastatin Fluvastatin No 1{capsu BID Fluvastati Sodium 40 Sodium 40 le} n Sodium MG MG 40 MG Fluvastatin Fluvastatin No Fluvastati Sodium 40 Sodium 40 n Sodium MG MG 40 MG Protonix 40 Protonix 40 No 1{table QD Protonix MG MG t} 40 MG Pravastatin Pravastatin No Pravastati Sodium 40 Sodium 40 n Sodium MG MG 40 MG Tamsulosin Tamsulosin No 1{capsu QD Tamsulosin HCl 0.4 MG HCl 0.4 MG le} HCl 0.4 MG Keppra 500 Keppra 500 No 1{table BID Keppra 500 MG MG t} MG Mirtazapine Mirtazapine No 1{table QD Mirtazapin 30 MG 30 MG t_at_be e 30 MG dtime} Prozac 20 Prozac 20 No 1{capsu QD Prozac 20 MG MG le} MG ZyrTEC 10 ZyrTEC 10 No 1{table QD ZyrTEC 10 MG MG t} MG Melatonin 3 Melatonin 3 No 1{table QD Melatonin MG MG t_at_be 3 MG dtime_a s_neede d_with_ food} Amantadine Amantadine No 1{table BID Amantadine HCl 100 MG HCl 100 MG t} HCl 100 MG Eliquis 2.5 Eliquis 2.5 No Eliquis mg 2.5 mg mg 2.5 mg 2.5 mg 2.5 mg Donepezil Donepezil No 1{table QD Donepezil HCl 10 MG HCl 10 MG t_at_be HCl 10 MG dtime} Metformin Metformin No 1{table QD Metformin HCl 1000 MG HCl 1000 MG t_with_ HCl 1000 meals} MG Aspirin 81 Aspirin 81 No 1{table QD Aspirin 81 MG MG t} MG Fluvastatin Fluvastatin No 1{capsu BID Fluvastati Sodium 40 Sodium 40 le} n Sodium MG MG 40 MG Lexapro 20 Lexapro 20 No 1{table QD Lexapro 20 MG MG t} MG Pravastatin Pravastatin No Pravastati Sodium 40 Sodium 40 n Sodium MG MG 40 MG Protonix 40 Protonix 40 No 1{table QD Protonix MG MG t} 40 MG Aricept 10 Aricept 10 No 1{table QD Aricept 10 MG MG t_at_be MG dtime} Fenofibrate Fenofibrate No 1{table QD Fenofibrat 145 MG 145 MG t_with_ e 145 MG food} Fluvastatin Fluvastatin No Fluvastati Sodium 40 Sodium 40 n Sodium MG MG 40 MG Lisinopril Lisinopril No 1{table QD Lisinopril 20 MG 20 MG t} 20 MG Fioricet Fioricet No 1{capsu 6xD Fioricet 50-300-40 50-300-40 le_as_n 50-300-40 MG MG eeded} MG Tamsulosin Tamsulosin No 1{capsu QD Tamsulosin HCl 0.4 MG HCl 0.4 MG le} HCl 0.4 MG Eliquis 2.5 Eliquis 2.5 No Eliquis mg 2.5 mg mg 2.5 mg 2.5 mg 2.5 mg Tamsulosin Tamsulosin No 1{capsu QD Tamsulosin HCl 0.4 MG HCl 0.4 MG le} HCl 0.4 MG Fioricet Fioricet No 1{capsu 6xD Fioricet 50-300-40 50-300-40 le_as_n 50-300-40 MG MG eeded} MG Lexapro 20 Lexapro 20 No 1{table QD Lexapro 20 MG MG t} MG Fenofibrate Fenofibrate No 1{table QD Fenofibrat 145 MG 145 MG t_with_ e 145 MG food} Mirtazapine Mirtazapine No 1{table QD Mirtazapin 30 MG 30 MG t_at_be e 30 MG dtime} atorvastati atorvastati No 1 Q1D atorvastat [facility] n 10 mg n 10 mg in 10 mg Medic al tablet Take tablet Take tablet 1 tablet 1 tablet Take 1 every day every day tablet by oral by oral every day route at route at by oral bedtime. bedtime. route at bedtime. Aricept 10 Aricept 10 No 1{table QD Aricept 10 MG MG t_at_be MG dtime} cyanocobala cyanocobala No 1capsul Q1D cyanocobal [facility] min min e(s) [facility] (vitamin (vitamin (vitamin B-12) 1,000 B-12) 1,000 B-12) mcg capsule mcg capsule 1,000 mcg Take 1 Take 1 capsule capsule capsule Take 1 every day every day capsule by oral by oral every day route. route. by oral route. Prozac 20 Prozac 20 No 1{capsu QD Prozac 20 MG MG le} MG Depakote Depakote No 1 Q1D Depakote Nancy via 250 mg 250 mg 250 mg Medical tablet,quinten tablet,quinten tablet,del yed release yed release ayed Take 1 Take 1 release tablet tablet Take 1 every day every day tablet by oral by oral every day route at route at by oral bedtime. bedtime. route at bedtime. Fluvastatin Fluvastatin No Fluvastati Sodium 40 Sodium 40 n Sodium MG MG 40 MG Pravastatin Pravastatin No Pravastati Sodium 40 Sodium 40 n Sodium MG MG 40 MG donepezil donepezil No 1 Q1D donepezil [facility] 10 mg 10 mg 10 mg Medical tablet Take tablet Take tablet 1 tablet 1 tablet Take 1 every day every day tablet by oral by oral every day route at route at by oral bedtime. bedtime. route at bedtime. Protonix 40 Protonix 40 No 1{table QD Protonix MG MG t} 40 MG fluoxetine fluoxetine No 1capsul Q1D fluoxetine [facility] 10 mg 10 mg e(s) 10 mg Medical capsule capsule capsule Take 1 Take 1 Take 1 capsule capsule capsule every day every day every day by oral by oral by oral route. route. route. Fluvastatin Fluvastatin No 1{capsu BID Fluvastati Sodium 40 Sodium 40 le} n Sodium MG MG 40 MG lisinopril lisinopril No 1 Q1D lisinopril [facility] 20 mg 20 mg 20 mg Medical tablet Take tablet Take tablet 1 tablet 1 tablet Take 1 every day every day tablet by oral by oral every day route. route. by oral route. ZyrTEC 10 ZyrTEC 10 No 1{table QD ZyrTEC 10 MG MG t} MG lorazepam lorazepam No 1 Q12H lorazepam [facility] 0.5 mg 0.5 mg 0.5 mg Medical tablet Take tablet Take tablet 1 tablet 1 tablet Take 1 every 12 every 12 tablet hours by hours by every 12 oral route oral route hours by as needed as needed oral route for 14 for 14 as needed days. days. for 14 days. metformin metformin No 1 BID metformin [facility] 1,000 mg 1,000 mg 1,000 mg Med ical tablet Take tablet Take tablet 1 tablet 1 tablet Take 1 twice a day twice a day tablet by oral by oral twice a route. route. day by oral route. Norvasc 5 Norvasc 5 No 1 Q1D Norvasc 5 [facility] mg tablet mg tablet mg tablet Medical Take 1 Take 1 Take 1 tablet tablet tablet every day every day every day by oral by oral by oral route. route. route. om-3-dha-ep om-3-dha-ep No 1capsul BID om-3-dha-e [facility] a-fish a-fish e(s) pa-fish Medical oil-vit D3 oil-vit D3 oil-vit D3 300 300 300 mg-1,000 mg-1,000 mg-1,000 mg-1,000 mg-1,000 mg-1,000 unit unit unit capsule capsule capsule Take 1 Take 1 Take 1 capsule capsule capsule twice a day twice a day twice a by oral by oral day by route. route. oral route. Amantadine Amantadine No 1{table BID Amantadine HCl 100 MG HCl 100 MG t} HCl 100 MG Lisinopril Lisinopril No 1{table QD Lisinopril 20 MG 20 MG t} 20 MG pantoprazol pantoprazol No 1 Q1D pantoprazo [facility] e 40 mg e 40 mg le 40 mg Medic al tablet,quinten tablet,quinten tablet,del yed release yed release ayed Take 1 Take 1 release tablet tablet Take 1 every day every day tablet by oral by oral every day route. route. by oral route. Donepezil Donepezil No 1{table QD Donepezil HCl 10 MG HCl 10 MG t_at_be HCl 10 MG dtime} Seroquel 25 Seroquel 25 No Seroquel [facility] mg tablet mg tablet 25 mg Medi julianne Take 25 mg Take 25 mg tablet in the in the Take 25 mg [id number] in the mg at mg at [id number] lunch50 mg lunch50 mg mg at QHS QHS lunch50 mg QHS Bactrim DS Bactrim DS No 1{table BID Bactrim DS 800-160 MG 800-160 MG t} 800-160 MG atorvastati atorvastati No 1 Q1D atorvastat [facility] n 10 mg n 10 mg in 10 mg Medic al tablet Take tablet Take tablet 1 tablet 1 tablet Take 1 every day every day tablet by oral by oral every day route at route at by oral bedtime. bedtime. route at bedtime. Keppra 500 Keppra 500 No 1{table BID Keppra 500 MG MG t} MG cyanocobala cyanocobala No 1capsul Q1D cyanocobal [facility] min min e(s) [facility] (vitamin (vitamin (vitamin B-12) 1,000 B-12) 1,000 B-12) mcg capsule mcg capsule 1,000 mcg Take 1 Take 1 capsule capsule capsule Take 1 every day every day capsule by oral by oral every day route. route. by oral route. Melatonin 3 Melatonin 3 No 1{table QD Melatonin MG MG t_at_be 3 MG dtime_a s_neede d_with_ food} Depakote Depakote No 1 Q1D Depakote [facility] via 250 mg 250 mg 250 mg Medical tablet,quinten tablet,quinten tablet,del yed release yed release ayed Take 1 Take 1 release tablet tablet Take 1 every day every day tablet by oral by oral every day route at route at by oral bedtime. bedtime. route at bedtime. Metformin Metformin No 1{table QD Metformin HCl 1000 MG HCl 1000 MG t_with_ HCl 1000 meals} MG Aspirin 81 Aspirin 81 No 1{table QD Aspirin 81 MG MG t} MG donepezil donepezil No 1 Q1D donepezil [facility] 10 mg 10 mg 10 mg Medical tablet Take tablet Take tablet 1 tablet 1 tablet Take 1 every day every day tablet by oral by oral every day route at route at by oral bedtime. bedtime. route at bedtime. Keflex 500 Keflex 500 No 1{capsu BID Keflex 500 MG MG le} MG fluoxetine fluoxetine No 1capsul Q1D fluoxetine [facility] 10 mg 10 mg e(s) 10 mg Medical capsule capsule capsule Take 1 Take 1 Take 1 capsule capsule capsule every day every day every day by oral by oral by oral route. route. route. Eliquis 2.5 Eliquis 2.5 No Eliquis mg 2.5 mg mg 2.5 mg 2.5 mg 2.5 mg lisinopril lisinopril No 1 Q1D lisinopril [facility] 20 mg 20 mg 20 mg Medical tablet Take tablet Take tablet 1 tablet 1 tablet Take 1 every day every day tablet by oral by oral every day route. route. by oral route. Tamsulosin Tamsulosin No 1{capsu QD Tamsulosin HCl 0.4 MG HCl 0.4 MG le} HCl 0.4 MG lorazepam lorazepam No 1 Q12H lorazepam [facility] 0.5 mg 0.5 mg 0.5 mg Medical tablet Take tablet Take tablet 1 tablet 1 tablet Take 1 every 12 every 12 tablet hours by hours by every 12 oral route oral route hours by as needed as needed oral route for 14 for 14 as needed days. days. for 14 days. Fioricet Fioricet No 1{capsu 6xD Fioricet 50-300-40 50-300-40 le_as_n 50-300-40 MG MG eeded} MG Lexapro 20 Lexapro 20 No 1{table QD Lexapro 20 MG MG t} MG metformin metformin No 1 BID metformin [facility] 1,000 mg 1,000 mg 1,000 mg Med ical tablet Take tablet Take tablet 1 tablet 1 tablet Take 1 twice a day twice a day tablet by oral by oral twice a route. route. day by oral route. Fenofibrate Fenofibrate No 1{table QD Fenofibrat 145 MG 145 MG t_with_ e 145 MG food} Norvasc 5 Norvasc 5 No 1 Q1D Norvasc 5 [facility] mg tablet mg tablet mg tablet Medical Take 1 Take 1 Take 1 tablet tablet tablet every day every day every day by oral by oral by oral route. route. route. Mirtazapine Mirtazapine No 1{table QD Mirtazapin 30 MG 30 MG t_at_be e 30 MG dtime} om-3-dha-ep om-3-dha-ep No 1capsul BID om-3-dha-e [facility] a-fish a-fish e(s) pa-fish Medical oil-vit D3 oil-vit D3 oil-vit D3 300 300 300 mg-1,000 mg-1,000 mg-1,000 mg-1,000 mg-1,000 mg-1,000 unit unit unit capsule capsule capsule Take 1 Take 1 Take 1 capsule capsule capsule twice a day twice a day twice a by oral by oral day by route. route. oral route. Aricept 10 Aricept 10 No 1{table QD Aricept 10 MG MG t_at_be MG dtime} pantoprazol pantoprazol No 1 Q1D pantoprazo [facility] e 40 mg e 40 mg le 40 mg Medic al tablet,quinten tablet,quinten tablet,del yed release yed release ayed Take 1 Take 1 release tablet tablet Take 1 every day every day tablet by oral by oral every day route. route. by oral route. Prozac 20 Prozac 20 No 1{capsu QD Prozac 20 MG MG le} MG Seroquel 25 Seroquel 25 No Seroquel [facility] mg tablet mg tablet 25 mg Medi julianne Take 25 mg Take 25 mg tablet in the in the Take 25 mg [id number] in the mg at mg at [id number] lunch50 mg lunch50 mg mg at QHS QHS lunch50 mg QHS Fluvastatin Fluvastatin No Fluvastati Sodium 40 Sodium 40 n Sodium MG MG 40 MG Pravastatin Pravastatin No Pravastati Sodium 40 Sodium 40 n Sodium MG MG 40 MG atorvastati atorvastati No 1 Q1D atorvastat [facility] n 10 mg n 10 mg in 10 mg Medic al tablet Take tablet Take tablet 1 tablet 1 tablet Take 1 every day every day tablet by oral by oral every day route at route at by oral bedtime. bedtime. route at bedtime. Protonix 40 Protonix 40 No 1{table QD Protonix MG MG t} 40 MG cyanocobala cyanocobala No 1capsul Q1D cyanocobal [facility] min min e(s) [facility] (vitamin (vitamin (vitamin B-12) 1,000 B-12) 1,000 B-12) mcg capsule mcg capsule 1,000 mcg Take 1 Take 1 capsule capsule capsule Take 1 every day every day capsule by oral by oral every day route. route. by oral route. Fluvastatin Fluvastatin No 1{capsu BID Fluvastati Sodium 40 Sodium 40 le} n Sodium MG MG 40 MG Depakote Depakote No 1 Q1D Depakote [facility] via 250 mg 250 mg 250 mg Medical tablet,quinten tablet,quinten tablet,del yed release yed release ayed Take 1 Take 1 release tablet tablet Take 1 every day every day tablet by oral by oral every day route at route at by oral bedtime. bedtime. route at bedtime. ZyrTEC 10 ZyrTEC 10 No 1{table QD ZyrTEC 10 MG MG t} MG donepezil donepezil No 1 Q1D donepezil [facility] 10 mg 10 mg 10 mg Medical tablet Take tablet Take tablet 1 tablet 1 tablet Take 1 every day every day tablet by oral by oral every day route at route at by oral bedtime. bedtime. route at bedtime. Amantadine Amantadine No 1{table BID Amantadine HCl 100 MG HCl 100 MG t} HCl 100 MG fluoxetine fluoxetine No 1capsul Q1D fluoxetine [facility] 10 mg 10 mg e(s) 10 mg Medical capsule capsule capsule Take 1 Take 1 Take 1 capsule capsule capsule every day every day every day by oral by oral by oral route. route. route. Lisinopril Lisinopril No 1{table QD Lisinopril 20 MG 20 MG t} 20 MG Donepezil Donepezil No 1{table QD Donepezil HCl 10 MG HCl 10 MG t_at_be HCl 10 MG dtime} lisinopril lisinopril No 1 Q1D lisinopril [facility] 20 mg 20 mg 20 mg Medical tablet Take tablet Take tablet 1 tablet 1 tablet Take 1 every day every day tablet by oral by oral every day route. route. by oral route. Bactrim DS Bactrim DS No 1{table BID Bactrim DS 800-160 MG 800-160 MG t} 800-160 MG lorazepam lorazepam No 1 Q12H lorazepam [facility] 0.5 mg 0.5 mg 0.5 mg Medical tablet Take tablet Take tablet 1 tablet 1 tablet Take 1 every 12 every 12 tablet hours by hours by every 12 oral route oral route hours by as needed as needed oral route for 14 for 14 as needed days. days. for 14 days. Keppra 500 Keppra 500 No 1{table BID Keppra 500 MG MG t} MG metformin metformin No 1 BID metformin [facility] 1,000 mg 1,000 mg 1,000 mg Med ical tablet Take tablet Take tablet 1 tablet 1 tablet Take 1 twice a day twice a day tablet by oral by oral twice a route. route. day by oral route. Melatonin 3 Melatonin 3 No 1{table QD Melatonin MG MG t_at_be 3 MG dtime_a s_neede d_with_ food} Norvasc 5 Norvasc 5 No 1 Q1D Norvasc 5 [facility] mg tablet mg tablet mg tablet Medical Take 1 Take 1 Take 1 tablet tablet tablet every day every day every day by oral by oral by oral route. route. route. Metformin Metformin No 1{table QD Metformin HCl 1000 MG HCl 1000 MG t_with_ HCl 1000 meals} MG Aspirin 81 Aspirin 81 No 1{table QD Aspirin 81 MG MG t} MG om-3-dha-ep om-3-dha-ep No 1capsul BID om-3-dha-e [facility] a-fish a-fish e(s) pa-fish Medical oil-vit D3 oil-vit D3 oil-vit D3 300 300 300 mg-1,000 mg-1,000 mg-1,000 mg-1,000 mg-1,000 mg-1,000 unit unit unit capsule capsule capsule Take 1 Take 1 Take 1 capsule capsule capsule twice a day twice a day twice a by oral by oral day by route. route. oral route. Keflex 500 Keflex 500 No 1{capsu BID Keflex 500 MG MG le} MG pantoprazol pantoprazol No 1 Q1D pantoprazo [facility] e 40 mg e 40 mg le 40 mg Medic al tablet,quinten tablet,quinten tablet,del yed release yed release ayed Take 1 Take 1 release tablet tablet Take 1 every day every day tablet by oral by oral every day route. route. by oral route. Fluvastatin Fluvastatin No 1{capsu BID Fluvastati Sodium 40 Sodium 40 le} n Sodium MG MG 40 MG Seroquel 25 Seroquel 25 No Seroquel [facility] mg tablet mg tablet 25 mg Medi julianne Take 25 mg Take 25 mg tablet in the in the Take 25 mg .5 [id number] in the mg at mg at [id number] lunch50 mg lunch50 mg mg at QHS QHS lunch50 mg QHS Bactrim DS Bactrim DS No 1{table BID Bactrim DS 800-160 MG 800-160 MG t} 800-160 MG atorvastati atorvastati No 1 Q1D atorvastat [facility] n 10 mg n 10 mg in 10 mg Medic al tablet Take tablet Take tablet 1 tablet 1 tablet Take 1 every day every day tablet by oral by oral every day route at route at by oral bedtime. bedtime. route at bedtime. Fioricet Fioricet No 1{capsu 6xD Fioricet 50-300-40 50-300-40 le_as_n 50-300-40 MG MG eeded} MG cyanocobala cyanocobala No 1capsul Q1D cyanocobal [facility] min min e(s) [facility] (vitamin (vitamin (vitamin B-12) 1,000 B-12) 1,000 B-12) mcg capsule mcg capsule 1,000 mcg Take 1 Take 1 capsule capsule capsule Take 1 every day every day capsule by oral by oral every day route. route. by oral route. Tamsulosin Tamsulosin No 1{capsu QD Tamsulosin HCl 0.4 MG HCl 0.4 MG le} HCl 0.4 MG Depakote Depakote No 1 Q1D Depakote [facility] via 250 mg 250 mg 250 mg Medical tablet,quinten tablet,quinten tablet,del yed release yed release ayed Take 1 Take 1 release tablet tablet Take 1 every day every day tablet by oral by oral every day route at route at by oral bedtime. bedtime. route at bedtime. Lexapro 20 Lexapro 20 No 1{table QD Lexapro 20 MG MG t} MG donepezil donepezil No 1 Q1D donepezil [facility] 10 mg 10 mg 10 mg [facility] tablet Take tablet Take tablet 1 tablet 1 tablet Take 1 every day every day tablet by oral by oral every day route at route at by oral bedtime. bedtime. route at bedtime. Keppra 500 Keppra 500 No 1{table BID Keppra 500 MG MG t} MG Prozac 20 Prozac 20 No 1{capsu QD Prozac 20 MG MG le} MG fluoxetine fluoxetine No 1capsul Q1D fluoxetine [facility] 10 mg 10 mg e(s) 10 mg Medical capsule capsule capsule Take 1 Take 1 Take 1 capsule capsule capsule every day every day every day by oral by oral by oral route. route. route. Aricept 10 Aricept 10 No 1{table QD Aricept 10 MG MG t_at_be MG dtime} lisinopril lisinopril No 1 Q1D lisinopril [facility] 20 mg 20 mg 20 mg [facility] tablet Take tablet Take tablet 1 tablet 1 tablet Take 1 every day every day tablet by oral by oral every day route. route. by oral route. Fluvastatin Fluvastatin No Fluvastati Sodium 40 Sodium 40 n Sodium MG MG 40 MG lorazepam lorazepam No 1 Q12H lorazepam [facility] 0.5 mg 0.5 mg 0.5 mg [facility] tablet Take tablet Take tablet 1 tablet 1 tablet Take 1 every 12 every 12 tablet hours by hours by every 12 oral route oral route hours by as needed as needed oral route for 14 for 14 as needed days. days. for 14 days. Aspirin 81 Aspirin 81 No 1{table QD Aspirin 81 MG MG t} MG Melatonin 3 Melatonin 3 No 1{table QD Melatonin MG MG t_at_be 3 MG dtime_a s_neede d_with_ food} metformin metformin No 1 BID metformin [facility] 1,000 mg 1,000 mg 1,000 mg Med ical tablet Take tablet Take tablet 1 tablet 1 tablet Take 1 twice a day twice a day tablet by oral by oral twice a route. route. day by oral route. Protonix 40 Protonix 40 No 1{table QD Protonix MG MG t} 40 MG Norvasc 5 Norvasc 5 No 1 Q1D Norvasc 5 [facility] mg tablet mg tablet mg tablet Medical Take 1 Take 1 Take 1 tablet tablet tablet every day every day every day by oral by oral by oral route. route. route. Lisinopril Lisinopril No 1{table QD Lisinopril 20 MG 20 MG t} 20 MG om-3-dha-ep om-3-dha-ep No 1capsul BID om-3-dha-e [facility] a-fish a-fish e(s) pa-fish Medical oil-vit D3 oil-vit D3 oil-vit D3 300 300 300 mg-1,000 mg-1,000 mg-1,000 mg-1,000 mg-1,000 mg-1,000 unit unit unit capsule capsule capsule Take 1 Take 1 Take 1 capsule capsule capsule twice a day twice a day twice a by oral by oral day by route. route. oral route. ZyrTEC 10 ZyrTEC 10 No 1{table QD ZyrTEC 10 MG MG t} MG pantoprazol pantoprazol No 1 Q1D pantoprazo [facility] e 40 mg e 40 mg le 40 mg Medic al tablet,quinten tablet,quinten tablet,del yed release yed release ayed Take 1 Take 1 release tablet tablet Take 1 every day every day tablet by oral by oral every day route. route. by oral route. Eliquis 2.5 Eliquis 2.5 No Eliquis mg 2.5 mg mg 2.5 mg 2.5 mg 2.5 mg Seroquel 25 Seroquel 25 No Seroquel [facility] mg tablet mg tablet 25 mg Medi julianne Take 25 mg Take 25 mg tablet in the in the Take 25 mg [id number] .5 in the mg at mg at [id number] lunch50 mg lunch50 mg mg at QHS QHS lunch50 mg QHS Mirtazapine Mirtazapine No 1{table QD Mirtazapin 30 MG 30 MG t_at_be e 30 MG dtime} atorvastati atorvastati No 1 Q1D atorvastat [facility] n 10 mg n 10 mg in 10 mg Medic al tablet Take tablet Take tablet 1 tablet 1 tablet Take 1 every day every day tablet by oral by oral every day route at route at by oral bedtime. bedtime. route at bedtime. Amantadine Amantadine No 1{table BID Amantadine HCl 100 MG HCl 100 MG t} HCl 100 MG Donepezil Donepezil No 1{table QD Donepezil HCl 10 MG HCl 10 MG t_at_be HCl 10 MG dtime} cyanocobala cyanocobala No 1capsul Q1D cyanocobal [facility] min min e(s) [facility] (vitamin (vitamin (vitamin B-12) 1,000 B-12) 1,000 B-12) mcg capsule mcg capsule 1,000 mcg Take 1 Take 1 capsule capsule capsule Take 1 every day every day capsule by oral by oral every day route. route. by oral route. Pravastatin Pravastatin No Pravastati Sodium 40 Sodium 40 n Sodium MG MG 40 MG Depakote Depakote No 1 Q1D Depakote [facility] via 250 mg 250 mg 250 mg Medical tablet,quinten tablet,quinten tablet,del yed release yed release ayed Take 1 Take 1 release tablet tablet Take 1 every day every day tablet by oral by oral every day route at route at by oral bedtime. bedtime. route at bedtime. Keflex 500 Keflex 500 No 1{capsu BID Keflex 500 MG MG le} MG donepezil donepezil No 1 Q1D donepezil [facility] 10 mg 10 mg 10 mg [facility] tablet Take tablet Take tablet 1 tablet 1 tablet Take 1 every day every day tablet by oral by oral every day route at route at by oral bedtime. bedtime. route at bedtime. Metformin Metformin No 1{table QD Metformin HCl 1000 MG HCl 1000 MG t_with_ HCl 1000 meals} MG fluoxetine fluoxetine No 1capsul Q1D fluoxetine [facility] 10 mg 10 mg e(s) 10 mg Medical capsule capsule capsule Take 1 Take 1 Take 1 capsule capsule capsule every day every day every day by oral by oral by oral route. route. route. Amlodipine Amlodipine No 1{table Amlodipine Besylate 10 Besylate 10 t} Besylate MG MG 10 MG lisinopril lisinopril No 1 Q1D lisinopril [facility] 20 mg 20 mg 20 mg [facility] tablet Take tablet Take tablet 1 tablet 1 tablet Take 1 every day every day tablet by oral by oral every day route. route. by oral route. Fenofibrate Fenofibrate No 1{table QD Fenofibrat 145 MG 145 MG t_with_ e 145 MG food} Keppra 500 Keppra 500 No 1{table BID Keppra 500 MG MG t} MG lorazepam lorazepam No 1 Q12H lorazepam [facility] 0.5 mg 0.5 mg 0.5 mg [facility] tablet Take tablet Take tablet 1 tablet 1 tablet Take 1 every 12 every 12 tablet hours by hours by every 12 oral route oral route hours by as needed as needed oral route for 14 for 14 as needed days. days. for 14 days. Amantadine Amantadine No 1{table BID Amantadine HCl 100 MG HCl 100 MG t} HCl 100 MG metformin metformin No 1 BID metformin [facility] 1,000 mg 1,000 mg 1,000 mg Med ical tablet Take tablet Take tablet 1 tablet 1 tablet Take 1 twice a day twice a day tablet by oral by oral twice a route. route. day by oral route. Aspirin 81 Aspirin 81 No 1{table QD Aspirin 81 MG MG t} MG Norvasc 5 Norvasc 5 No 1 Q1D Norvasc 5 [facility] mg tablet mg tablet mg tablet Medical Take 1 Take 1 Take 1 tablet tablet tablet every day every day every day by oral by oral by oral route. route. route. Keflex 500 Keflex 500 No 1{capsu BID Keflex 500 MG MG le} MG om-3-dha-ep om-3-dha-ep No 1capsul BID om-3-dha-e [facility] a-fish a-fish e(s) pa-fish Medical oil-vit D3 oil-vit D3 oil-vit D3 300 300 300 mg-1,000 mg-1,000 mg-1,000 mg-1,000 mg-1,000 mg-1,000 unit unit unit capsule capsule capsule Take 1 Take 1 Take 1 capsule capsule capsule twice a day twice a day twice a by oral by oral day by route. route. oral route. Pravastatin Pravastatin No Pravastati Sodium 40 Sodium 40 n Sodium MG MG 40 MG pantoprazol pantoprazol No 1 Q1D pantoprazo [facility] e 40 mg e 40 mg le 40 mg Medic al tablet,quinten tablet,quinten tablet,del yed release yed release ayed Take 1 Take 1 release tablet tablet Take 1 every day every day tablet by oral by oral every day route. route. by oral route. Bactrim DS Bactrim DS No 1{table BID Bactrim DS 800-160 MG 800-160 MG t} 800-160 MG Fluvastatin Fluvastatin No 1{capsu BID Fluvastati Sodium 40 Sodium 40 le} n Sodium MG MG 40 MG Seroquel 25 Seroquel 25 No Seroquel [facility] mg tablet mg tablet 25 mg Medi julianne Take 25 mg Take 25 mg tablet in the in the Take 25 mg [id number] [id number] in the mg at mg at [id number] lunch50 mg lunch50 mg mg at QHS QHS lunch50 mg QHS Aricept 10 Aricept 10 No 1{table QD Aricept 10 MG MG t_at_be MG dtime} atorvastati atorvastati No 1 Q1D atorvastat [facility] n 10 mg n 10 mg in 10 mg Medic al tablet Take tablet Take tablet 1 tablet 1 tablet Take 1 every day every day tablet by oral by oral every day route at route at by oral bedtime. bedtime. route at bedtime. Fenofibrate Fenofibrate No 1{table QD Fenofibrat 145 MG 145 MG t_with_ e 145 MG food} cyanocobala cyanocobala No 1capsul Q1D cyanocobal [facility] min min e(s) [facility] (vitamin (vitamin (vitamin B-12) 1,000 B-12) 1,000 B-12) mcg capsule mcg capsule 1,000 mcg Take 1 Take 1 capsule capsule capsule Take 1 every day every day capsule by oral by oral every day route. route. by oral route. Fioricet Fioricet No 1{capsu 6xD Fioricet 50-300-40 50-300-40 le_as_n 50-300-40 MG MG eeded} MG Depakote Depakote No 1 Q1D Depakote [facility] via 250 mg 250 mg 250 mg Medical tablet,quinten tablet,quinten tablet,del yed release yed release ayed Take 1 Take 1 release tablet tablet Take 1 every day every day tablet by oral by oral every day route at route at by oral bedtime. bedtime. route at bedtime. Eliquis 2.5 Eliquis 2.5 No Eliquis mg 2.5 mg mg 2.5 mg 2.5 mg 2.5 mg Protonix 40 Protonix 40 No 1{table QD Protonix MG MG t} 40 MG donepezil donepezil No 1 Q1D donepezil [facility] 10 mg 10 mg 10 mg Medical tablet Take tablet Take tablet 1 tablet 1 tablet Take 1 every day every day tablet by oral by oral every day route at route at by oral bedtime. bedtime. route at bedtime. Mirtazapine Mirtazapine No 1{table QD Mirtazapin 30 MG 30 MG t_at_be e 30 MG dtime} fluoxetine fluoxetine No 1capsul Q1D fluoxetine [facility] 10 mg 10 mg e(s) 10 mg Medical capsule capsule capsule Take 1 Take 1 Take 1 capsule capsule capsule every day every day every day by oral by oral by oral route. route. route. Lisinopril Lisinopril No 1{table QD Lisinopril 20 MG 20 MG t} 20 MG lisinopril lisinopril No 1 Q1D lisinopril [facility] 20 mg 20 mg 20 mg Medical tablet Take tablet Take tablet 1 tablet 1 tablet Take 1 every day every day tablet by oral by oral every day route. route. by oral route. Amlodipine Amlodipine No 1{table Amlodipine Besylate 10 Besylate 10 t} Besylate MG MG 10 MG lorazepam lorazepam No 1 Q12H lorazepam [facility] 0.5 mg 0.5 mg 0.5 mg [facility] tablet Take tablet Take tablet 1 tablet 1 tablet Take 1 every 12 every 12 tablet hours by hours by every 12 oral route oral route hours by as needed as needed oral route for 14 for 14 as needed days. days. for 14 days. Tamsulosin Tamsulosin No 1{capsu QD Tamsulosin HCl 0.4 MG HCl 0.4 MG le} HCl 0.4 MG metformin metformin No 1 BID metformin [facility] 1,000 mg 1,000 mg 1,000 mg Med ical tablet Take tablet Take tablet 1 tablet 1 tablet Take 1 twice a day twice a day tablet by oral by oral twice a route. route. day by oral route. ZyrTEC 10 ZyrTEC 10 No 1{table QD ZyrTEC 10 MG MG t} MG Donepezil Donepezil No 1{table QD Donepezil HCl 10 MG HCl 10 MG t_at_be HCl 10 MG dtime} Norvasc 5 Norvasc 5 No 1 Q1D Norvasc 5 [facility] mg tablet mg tablet mg tablet Medical Take 1 Take 1 Take 1 tablet tablet tablet every day every day every day by oral by oral by oral route. route. route. Metformin Metformin No 1{table QD Metformin HCl 1000 MG HCl 1000 MG t_with_ HCl 1000 meals} MG om-3-dha-ep om-3-dha-ep No 1capsul BID om-3-dha-e [facility] a-fish a-fish e(s) pa-fish Medical oil-vit D3 oil-vit D3 oil-vit D3 300 300 300 mg-1,000 mg-1,000 mg-1,000 mg-1,000 mg-1,000 mg-1,000 unit unit unit capsule capsule capsule Take 1 Take 1 Take 1 capsule capsule capsule twice a day twice a day twice a by oral by oral day by route. route. oral route. Melatonin 3 Melatonin 3 No 1{table QD Melatonin MG MG t_at_be 3 MG dtime_a s_neede d_with_ food} pantoprazol pantoprazol No 1 Q1D pantoprazo [facility] e 40 mg e 40 mg le 40 mg Medic al tablet,quinten tablet,quinten tablet,del yed release yed release ayed Take 1 Take 1 release tablet tablet Take 1 every day every day tablet by oral by oral every day route. route. by oral route. Lexapro 20 Lexapro 20 No 1{table QD Lexapro 20 MG MG t} MG Seroquel 25 Seroquel 25 No Seroquel [facility] mg tablet mg tablet 25 mg Medi julianne Take 25 mg Take 25 mg tablet in the in the Take 25 mg [id number] [id number] in the mg at mg at .5 lunch50 mg lunch50 mg mg at QHS QHS lunch50 mg QHS Prozac 20 Prozac 20 No 1{capsu QD Prozac 20 MG MG le} MG atorvastati atorvastati No 1 Q1D atorvastat [facility] n 10 mg n 10 mg in 10 mg Medic al tablet Take tablet Take tablet 1 tablet 1 tablet Take 1 every day every day tablet by oral by oral every day route at route at by oral bedtime. bedtime. route at bedtime. Fluvastatin Fluvastatin No Fluvastati Sodium 40 Sodium 40 n Sodium MG MG 40 MG Aspirin 81 Aspirin 81 No 1{table QD Aspirin 81 MG MG t} MG cyanocobala cyanocobala No 1capsul Q1D cyanocobal [facility] min min e(s) [facility] (vitamin (vitamin (vitamin B-12) 1,000 B-12) 1,000 B-12) mcg capsule mcg capsule 1,000 mcg Take 1 Take 1 capsule capsule capsule Take 1 every day every day capsule by oral by oral every day route. route. by oral route. Lexapro 20 Lexapro 20 No 1{table QD Lexapro 20 MG MG t} MG Depakote Depakote No 1 Q12H Depakote [facility] via 250 mg 250 mg 250 mg Medical tablet,quinten tablet,quinten tablet,del yed release yed release ayed Take 1 Take 1 release tablet tablet Take 1 every 12 every 12 tablet hours by hours by every 12 oral route. oral route. hours by oral route. metFORMIN metFORMIN No metFORMIN HCl 1000 MG HCl 1000 MG HCl 1000 MG donepezil donepezil No 1 Q1D donepezil [facility] 10 mg 10 mg 10 mg [facility] tablet Take tablet Take tablet 1 tablet 1 tablet Take 1 every day every day tablet by oral by oral every day route at route at by oral bedtime. bedtime. route at bedtime. Fioricet Fioricet No 1{capsu 6xD F[facility]et 50-300-40 50-300-40 le_as_n 50-300-40 MG MG eeded} MG fluoxetine fluoxetine No 3capsul Q1D fluoxetine [facility] 10 mg 10 mg e(s) 10 mg Medical capsule capsule capsule Take 3 Take 3 Take 3 capsules capsules capsules every day every day every day by oral by oral by oral route. route. route. PROzac 20 PROzac 20 No 1{capsu QD PROzac 20 MG MG le} MG lisinopril lisinopril No 1 Q1D lisinopril [facility] 20 mg 20 mg 20 mg [facility] tablet Take tablet Take tablet 1 tablet 1 tablet Take 1 every day every day tablet by oral by oral every day route. route. by oral route. Mirtazapine Mirtazapine No 1{table QD Mirtazapin 30 MG 30 MG t_at_be e 30 MG dtime} Amantadine Amantadine No 1{table BID Amantadine HCl 100 MG HCl 100 MG t} HCl 100 MG metformin metformin No 1 BID metformin [facility] 1,000 mg 1,000 mg 1,000 mg Med ical tablet Take tablet Take tablet 1 tablet 1 tablet Take 1 twice a day twice a day tablet by oral by oral twice a route. route. day by oral route. Bactrim DS Bactrim DS No 1{table BID Bactrim DS 800-160 MG 800-160 MG t} 800-160 MG Norvasc 5 Norvasc 5 No 1 Q1D Norvasc 5 [facility] mg tablet mg tablet mg tablet Medical Take 1 Take 1 Take 1 tablet tablet tablet every day every day every day by oral by oral by oral route. route. route. Lisinopril Lisinopril No 1{table QD Lisinopril 20 MG 20 MG t} 20 MG om-3-dha-ep om-3-dha-ep No 1capsul BID om-3-dha-e [facility] a-fish a-fish e(s) pa-fish Medical oil-vit D3 oil-vit D3 oil-vit D3 300 300 300 mg-1,000 mg-1,000 mg-1,000 mg-1,000 mg-1,000 mg-1,000 unit unit unit capsule capsule capsule Take 1 Take 1 Take 1 capsule capsule capsule twice a day twice a day twice a by oral by oral day by route. route. oral route. Fluvastatin Fluvastatin No 1{capsu BID Fluvastati Sodium 40 Sodium 40 le} n Sodium MG MG 40 MG pantoprazol pantoprazol No 1 Q1D pantoprazo [facility] e 40 mg e 40 mg le 40 mg Medic al tablet,quinten tablet,quinten tablet,del yed release yed release ayed Take 1 Take 1 release tablet tablet Take 1 every day every day tablet by oral by oral every day route. route. by oral route. Aricept 10 Aricept 10 No 1{table QD Aricept 10 MG MG t_at_be MG dtime} Seroquel 25 Seroquel 25 No Seroquel [facility] mg tablet mg tablet 25 mg Medi julianne Take 25 mg Take 25 mg tablet in the am in the am Take 25 mg and 50 mg and 50 mg in the am QHS QHS and 50 mg QHS Eliquis 2.5 Eliquis 2.5 No Eliquis mg 2.5 mg mg 2.5 mg 2.5 mg 2.5 mg atorvastati atorvastati No 1 Q1D atorvastat [facility] n 10 mg n 10 mg in 10 mg Medic al tablet Take tablet Take tablet 1 tablet 1 tablet Take 1 every day every day tablet by oral by oral every day route at route at by oral bedtime. bedtime. route at bedtime. Keppra 500 Keppra 500 No 1{table BID Keppra 500 MG MG t} MG Fenofibrate Fenofibrate No 1{table QD Fenofibrat 145 MG 145 MG t_with_ e 145 MG food} cyanocobala cyanocobala No 1capsul Q1D cyanocobal [facility] min min e(s) [facility] (vitamin (vitamin (vitamin B-12) 1,000 B-12) 1,000 B-12) mcg capsule mcg capsule 1,000 mcg Take 1 Take 1 capsule capsule capsule Take 1 every day every day capsule by oral by oral every day route. route. by oral route. Tamsulosin Tamsulosin No 1{capsu QD Tamsulosin HCl 0.4 MG HCl 0.4 MG le} HCl 0.4 MG Depakote Depakote No 1 Q12H Depakote [facility] via 250 mg 250 mg 250 mg Medical tablet,quinten tablet,quinten tablet,del yed release yed release ayed Take 1 Take 1 release tablet tablet Take 1 every 12 every 12 tablet hours by hours by every 12 oral route. oral route. hours by oral route. Melatonin 3 Melatonin 3 No 1{table QD Melatonin MG MG t_at_be 3 MG dtime_a s_neede d_with_ food} donepezil donepezil No 1 Q1D donepezil [facility] 10 mg 10 mg 10 mg Medical tablet Take tablet Take tablet 1 tablet 1 tablet Take 1 every day every day tablet by oral by oral every day route at route at by oral bedtime. bedtime. route at bedtime. amLODIPine amLODIPine No 1{table amLODIPine Besylate 10 Besylate 10 t} Besylate MG MG 10 MG fluoxetine fluoxetine No 3capsul Q1D fluoxetine [facility] 10 mg 10 mg e(s) 10 mg Medical capsule capsule capsule Take 3 Take 3 Take 3 capsules capsules capsules every day every day every day by oral by oral by oral route. route. route. Keflex 500 Keflex 500 No 1{capsu BID Keflex 500 MG MG le} MG ZyrTEC 10 ZyrTEC 10 No 1{table QD ZyrTEC 10 MG MG t} MG lisinopril lisinopril No 1 Q1D lisinopril [facility] 20 mg 20 mg 20 mg [facility] tablet Take tablet Take tablet 1 tablet 1 tablet Take 1 every day every day tablet by oral by oral every day route. route. by oral route. Donepezil Donepezil No 1{table QD Donepezil HCl 10 MG HCl 10 MG t_at_be HCl 10 MG dtime} metformin metformin No 1 BID metformin [facility] 1,000 mg 1,000 mg 1,000 mg Med ical tablet Take tablet Take tablet 1 tablet 1 tablet Take 1 twice a day twice a day tablet by oral by oral twice a route. route. day by oral route. Fluvastatin Fluvastatin No BID Fluvastati Sodium 40 Sodium 40 n Sodium MG MG 40 MG Norvasc 5 Norvasc 5 No 1 Q1D Norvasc 5 [facility] mg tablet mg tablet mg tablet Medical Take 1 Take 1 Take 1 tablet tablet tablet every day every day every day by oral by oral by oral route. route. route. Pravastatin Pravastatin No Pravastati Sodium 40 Sodium 40 n Sodium MG MG 40 MG om-3-dha-ep om-3-dha-ep No 1capsul BID om-3-dha-e [facility] a-fish a-fish e(s) pa-fish Medical oil-vit D3 oil-vit D3 oil-vit D3 300 300 300 mg-1,000 mg-1,000 mg-1,000 mg-1,000 mg-1,000 mg-1,000 unit unit unit capsule capsule capsule Take 1 Take 1 Take 1 capsule capsule capsule twice a day twice a day twice a by oral by oral day by route. route. oral route. Protonix 40 Protonix 40 No 1{table QD Protonix MG MG t} 40 MG pantoprazol pantoprazol No 1 Q1D pantoprazo [facility] e 40 mg e 40 mg le 40 mg Medic al tablet,quinten tablet,quinten tablet,del yed release yed release ayed Take 1 Take 1 release tablet tablet Take 1 every day every day tablet by oral by oral every day route. route. by oral route. Mirtazapine Mirtazapine No 1{table QD Mirtazapin 30 MG 30 MG t_at_be e 30 MG dtime} Lexapro 20 Lexapro 20 No 1{table QD Lexapro 20 MG MG t} MG Seroquel 25 Seroquel 25 No Seroquel [facility] mg tablet mg tablet 25 mg Medi julianne Take 25 mg Take 25 mg tablet in the am in the am Take 25 mg and 50 mg and 50 mg in the am QHS QHS and 50 mg QHS ZyrTEC 10 ZyrTEC 10 No 1{table QD ZyrTEC 10 MG MG t} MG atorvastati atorvastati No 1 Q1D atorvastat [facility] n 10 mg n 10 mg in 10 mg Medic al tablet Take tablet Take tablet 1 tablet 1 tablet Take 1 every day every day tablet by oral by oral every day route at route at by oral bedtime. bedtime. route at bedtime. Melatonin 3 Melatonin 3 No 1{table QD Melatonin MG MG t_at_be 3 MG dtime_a s_neede d_with_ food} cyanocobala cyanocobala No 1capsul Q1D cyanocobal [facility] min min e(s) [facility] (vitamin (vitamin (vitamin B-12) 1,000 B-12) 1,000 B-12) mcg capsule mcg capsule 1,000 mcg Take 1 Take 1 capsule capsule capsule Take 1 every day every day capsule by oral by oral every day route. route. by oral route. Pravastatin Pravastatin No Pravastati Sodium 40 Sodium 40 n Sodium MG MG 40 MG Depakote Depakote No 1 Q12H Depakote [facility] via 250 mg 250 mg 250 mg Medical tablet,quinten tablet,quinten tablet,del yed release yed release ayed Take 1 Take 1 release tablet tablet Take 1 every 12 every 12 tablet hours by hours by every 12 oral route. oral route. hours by oral route. Eliquis 2.5 Eliquis 2.5 No Eliquis mg 2.5 mg mg 2.5 mg 2.5 mg 2.5 mg Prozac 20 Prozac 20 No 1{capsu QD Prozac 20 MG MG le} MG donepezil donepezil No 1 Q1D donepezil [facility] 10 mg 10 mg 10 mg [facility] tablet Take tablet Take tablet 1 tablet 1 tablet Take 1 every day every day tablet by oral by oral every day route at route at by oral bedtime. bedtime. route at bedtime. Amantadine Amantadine No 1{table BID Amantadine HCl 100 MG HCl 100 MG t} HCl 100 MG fluoxetine fluoxetine No 3capsul Q1D fluoxetine [facility] 10 mg 10 mg e(s) 10 mg Medical capsule capsule capsule Take 3 Take 3 Take 3 capsules capsules capsules every day every day every day by oral by oral by oral route. route. route. Fioricet Fioricet No 1{capsu 6xD Fioricet 50-300-40 50-300-40 le_as_n 50-300-40 MG MG eeded} MG lisinopril lisinopril No 1 Q1D lisinopril [facility] 20 mg 20 mg 20 mg [facility] tablet Take tablet Take tablet 1 tablet 1 tablet Take 1 every day every day tablet by oral by oral every day route. route. by oral route. Fenofibrate Fenofibrate No 1{table QD Fenofibrat 145 MG 145 MG t_with_ e 145 MG food} metformin metformin No 1 BID metformin [facility] 1,000 mg 1,000 mg 1,000 mg Med ical tablet Take tablet Take tablet 1 tablet 1 tablet Take 1 twice a day twice a day tablet by oral by oral twice a route. route. day by oral route. Donepezil Donepezil No 1{table QD Donepezil HCl 10 MG HCl 10 MG t_at_be HCl 10 MG dtime} Norvasc 5 Norvasc 5 No 1 Q1D Norvasc 5 [facility] mg tablet mg tablet mg tablet Medical Take 1 Take 1 Take 1 tablet tablet tablet every day every day every day by oral by oral by oral route. route. route. Metformin Metformin No 1{table QD Metformin HCl 1000 MG HCl 1000 MG t_with_ HCl 1000 meals} MG om-3-dha-ep om-3-dha-ep No 1capsul BID om-3-dha-e [facility] a-fish a-fish e(s) pa-fish [facility] oil-vit D3 oil-vit D3 oil-vit D3 300 300 300 mg-1,000 mg-1,000 mg-1,000 mg-1,000 mg-1,000 mg-1,000 unit unit unit capsule capsule capsule Take 1 Take 1 Take 1 capsule capsule capsule twice a day twice a day twice a by oral by oral day by route. route. oral route. Aspirin 81 Aspirin 81 No 1{table QD Aspirin 81 MG MG t} MG pantoprazol pantoprazol No 1 Q1D pantoprazo [facility] e 40 mg e 40 mg le 40 mg Medic al tablet,quinten tablet,quinten tablet,del yed release yed release ayed Take 1 Take 1 release tablet tablet Take 1 every day every day tablet by oral by oral every day route. route. by oral route. Lisinopril Lisinopril No 1{table QD Lisinopril 10 MG 10 MG t} 10 MG Keppra 500 Keppra 500 No 1{table BID Keppra 500 MG MG t} MG Seroquel 25 Seroquel 25 No Seroquel [facility] mg tablet mg tablet 25 mg Medi julianne Take 25 mg Take 25 mg tablet in the am in the am Take 25 mg and 50 mg and 50 mg in the am QHS QHS and 50 mg QHS Protonix 40 Protonix 40 No 1{table QD Protonix MG MG t} 40 MG atorvastati atorvastati No 1 Q1D atorvastat [facility] n 10 mg n 10 mg in 10 mg Medic al tablet Take tablet Take tablet 1 tablet 1 tablet Take 1 every day every day tablet by oral by oral every day route at route at by oral bedtime. bedtime. route at bedtime. Fluvastatin Fluvastatin No Fluvastati Sodium 40 Sodium 40 n Sodium MG MG 40 MG cyanocobala cyanocobala No 1capsul Q1D cyanocobal [facility] min min e(s) [facility] (vitamin (vitamin (vitamin B-12) 1,000 B-12) 1,000 B-12) mcg capsule mcg capsule 1,000 mcg Take 1 Take 1 capsule capsule capsule Take 1 every day every day capsule by oral by oral every day route. route. by oral route. Aricept 10 Aricept 10 No 1{table QD Aricept 10 MG MG t_at_be MG dtime} Depakote Depakote No 1 Q12H Depakote Nancy via 250 mg 250 mg 250 mg Medical tablet,quinten tablet,quinten tablet,del yed release yed release ayed Take 1 Take 1 release tablet tablet Take 1 every 12 every 12 tablet hours by hours by every 12 oral route. oral route. hours by oral route. Tamsulosin Tamsulosin No 1{capsu QD Tamsulosin HCl 0.4 MG HCl 0.4 MG le} HCl 0.4 MG Mirtazapine Mirtazapine No 1{table QD Mirtazapin 30 MG 30 MG t_at_be e 30 MG dtime} donepezil donepezil No 1 Q1D donepezil [facility] 10 mg 10 mg 10 mg [facility] tablet Take tablet Take tablet 1 tablet 1 tablet Take 1 every day every day tablet by oral by oral every day route at route at by oral bedtime. bedtime. route at bedtime. Lexapro 20 Lexapro 20 No 1{table QD Lexapro 20 MG MG t} MG fluoxetine fluoxetine No 3capsul Q1D fluoxetine [facility] 10 mg 10 mg e(s) 10 mg Medical capsule capsule capsule Take 3 Take 3 Take 3 capsules capsules capsules every day every day every day by oral by oral by oral route. route. route. ZyrTEC 10 ZyrTEC 10 No 1{table QD ZyrTEC 10 MG MG t} MG lisinopril lisinopril No 1 Q1D lisinopril [facility] 20 mg 20 mg 20 mg [facility] tablet Take tablet Take tablet 1 tablet 1 tablet Take 1 every day every day tablet by oral by oral every day route. route. by oral route. Melatonin 3 Melatonin 3 No 1{table QD Melatonin MG MG t_at_be 3 MG dtime_a s_neede d_with_ food} metformin metformin No 1 BID metformin [facility] 1,000 mg 1,000 mg 1,000 mg Med ical tablet Take tablet Take tablet 1 tablet 1 tablet Take 1 twice a day twice a day tablet by oral by oral twice a route. route. day by oral route. Pravastatin Pravastatin No Pravastati Sodium 40 Sodium 40 n Sodium MG MG 40 MG Eliquis 2.5 Eliquis 2.5 No Eliquis mg 2.5 mg mg 2.5 mg 2.5 mg 2.5 mg Norvasc 5 Norvasc 5 No 1 Q1D Norvasc 5 [facility] mg tablet mg tablet mg tablet Medical Take 1 Take 1 Take 1 tablet tablet tablet every day every day every day by oral by oral by oral route. route. route. Prozac 20 Prozac 20 No 1{capsu QD Prozac 20 MG MG le} MG om-3-dha-ep om-3-dha-ep No 1capsul BID om-3-dha-e [facility] a-fish a-fish e(s) pa-fish Medical oil-vit D3 oil-vit D3 oil-vit D3 300 300 300 mg-1,000 mg-1,000 mg-1,000 mg-1,000 mg-1,000 mg-1,000 unit unit unit capsule capsule capsule Take 1 Take 1 Take 1 capsule capsule capsule twice a day twice a day twice a by oral by oral day by route. route. oral route. Amantadine Amantadine No 1{table BID Amantadine HCl 100 MG HCl 100 MG t} HCl 100 MG pantoprazol pantoprazol No 1 Q1D pantoprazo [facility] e 40 mg e 40 mg le 40 mg Medic al tablet,quinten tablet,quinten tablet,del yed release yed release ayed Take 1 Take 1 release tablet tablet Take 1 every day every day tablet by oral by oral every day route. route. by oral route. Fioricet Fioricet No 1{capsu 6xD Fioricet 50-300-40 50-300-40 le_as_n 50-300-40 MG MG eeded} MG Fenofibrate Fenofibrate No 1{table QD Fenofibrat 145 MG 145 MG t_with_ e 145 MG food} Donepezil Donepezil No 1{table QD Donepezil HCl 10 MG HCl 10 MG t_at_be HCl 10 MG dtime} Seroquel 25 Seroquel 25 No Seroquel [facility] mg tablet mg tablet 25 mg Medi julianne Take 25 mg Take 25 mg tablet in the am in the am Take 25 mg and 50 mg and 50 mg in the am QHS QHS and 50 mg QHS Metformin Metformin No 1{table QD Metformin HCl 1000 MG HCl 1000 MG t_with_ HCl 1000 meals} MG atorvastati atorvastati No 1 Q1D atorvastat [facility] n 10 mg n 10 mg in 10 mg Medic al tablet Take tablet Take tablet 1 tablet 1 tablet Take 1 every day every day tablet by oral by oral every day route at route at by oral bedtime. bedtime. route at bedtime. Aspirin 81 Aspirin 81 No 1{table QD Aspirin 81 MG MG t} MG cyanocobala cyanocobala No 1capsul Q1D cyanocobal [facility] min min e(s) [facility] (vitamin (vitamin (vitamin B-12) 1,000 B-12) 1,000 B-12) mcg capsule mcg capsule 1,000 mcg Take 1 Take 1 capsule capsule capsule Take 1 every day every day capsule by oral by oral every day route. route. by oral route. Lisinopril Lisinopril No 1{table QD Lisinopril 10 MG 10 MG t} 10 MG Keppra 500 Keppra 500 No 1{table BID Keppra 500 MG MG t} MG divalproex divalproex No 4capsul Q1D divalproex [facility] 125 mg 125 mg e(s) 125 mg Medical capsule,del capsule,del capsule,de ayed ayed layed release release release sprinkle sprinkle sprinkle Take 4 Take 4 Take 4 capsules capsules capsules every day every day every day by oral by oral by oral route at route at route at bedtime. bedtime. bedtime. Protonix 40 Protonix 40 No 1{table QD Protonix MG MG t} 40 MG donepezil donepezil No 1 Q1D donepezil [facility] 10 mg 10 mg 10 mg [facility] tablet Take tablet Take tablet 1 tablet 1 tablet Take 1 every day every day tablet by oral by oral every day route at route at by oral bedtime. bedtime. route at bedtime. Fluvastatin Fluvastatin No Fluvastati Sodium 40 Sodium 40 n Sodium MG MG 40 MG fluoxetine fluoxetine No 3capsul Q1D fluoxetine [facility] 10 mg 10 mg e(s) 10 mg Medical capsule capsule capsule Take 3 Take 3 Take 3 capsules capsules capsules every day every day every day by oral by oral by oral route. route. route. Aricept 10 Aricept 10 No 1{table QD Aricept 10 MG MG t_at_be MG dtime} haloperidol haloperidol No 1 Q8H haloperido [facility] 0.5 mg 0.5 mg l 0.5 mg [facility] tablet Take tablet Take tablet 1 tablet 1 tablet Take 1 every 8 every 8 tablet hours by hours by every 8 oral route oral route hours by as needed. as needed. oral route as needed. Tamsulosin Tamsulosin No 1{capsu QD Tamsulosin HCl 0.4 MG HCl 0.4 MG le} HCl 0.4 MG lisinopril lisinopril No 1 Q1D lisinopril [facility] 20 mg 20 mg 20 mg [facility] tablet Take tablet Take tablet 1 tablet 1 tablet Take 1 every day every day tablet by oral by oral every day route. route. by oral route. Lisinopril Lisinopril No 1{table QD Lisinopril 10 MG 10 MG t} 10 MG Fenofibrate Fenofibrate No 1{table QD Fenofibrat 145 MG 145 MG t_with_ e 145 MG food} metformin metformin No 1 BID metformin [facility] 1,000 mg 1,000 mg 1,000 mg Med ical tablet Take tablet Take tablet 1 tablet 1 tablet Take 1 twice a day twice a day tablet by oral by oral twice a route. route. day by oral route. Donepezil Donepezil No 1{table QD Donepezil HCl 10 MG HCl 10 MG t_at_be HCl 10 MG dtime} Norvasc 5 Norvasc 5 No 1 Q1D Norvasc 5 [facility] mg tablet mg tablet mg tablet Medical Take 1 Take 1 Take 1 tablet tablet tablet every day every day every day by oral by oral by oral route. route. route. Metformin Metformin No 1{table QD Metformin HCl 1000 MG HCl 1000 MG t_with_ HCl 1000 meals} MG om-3-dha-ep om-3-dha-ep No 1capsul BID om-3-dha-e [facility] a-fish a-fish e(s) pa-fish [facility] oil-vit D3 oil-vit D3 oil-vit D3 300 300 300 mg-1,000 mg-1,000 mg-1,000 mg-1,000 mg-1,000 mg-1,000 unit unit unit capsule capsule capsule Take 1 Take 1 Take 1 capsule capsule capsule twice a day twice a day twice a by oral by oral day by route. route. oral route. Lexapro 20 Lexapro 20 No 1{table QD Lexapro 20 MG MG t} MG pantoprazol pantoprazol No 1 Q1D pantoprazo [facility] e 40 mg e 40 mg le 40 mg Medic al tablet,quinten tablet,quinten tablet,del yed release yed release ayed Take 1 Take 1 release tablet tablet Take 1 every day every day tablet by oral by oral every day route. route. by oral route. Fioricet Fioricet No 1{capsu 6xD Fioricet 50-300-40 50-300-40 le_as_n 50-300-40 MG MG eeded} MG Seroquel 25 Seroquel 25 No Seroquel [facility] mg tablet mg tablet 25 mg Medi julianne Take 25 mg Take 25 mg tablet in the am in the am Take 25 mg and 50 mg and 50 mg in the am QHS QHS and 50 mg QHS Protonix 40 Protonix 40 No 1{table QD Protonix MG MG t} 40 MG atorvastati atorvastati No 1 Q1D atorvastat [facility] n 10 mg n 10 mg in 10 mg Medic al tablet Take tablet Take tablet 1 tablet 1 tablet Take 1 every day every day tablet by oral by oral every day route at route at by oral bedtime. bedtime. route at bedtime. Keppra 500 Keppra 500 No 1{table BID Keppra 500 MG MG t} MG cyanocobala cyanocobala No 1capsul Q1D cyanocobal [facility] min min e(s) [facility] (vitamin (vitamin (vitamin B-12) 1,000 B-12) 1,000 B-12) mcg capsule mcg capsule 1,000 mcg Take 1 Take 1 capsule capsule capsule Take 1 every day every day capsule by oral by oral every day route. route. by oral route. Fluvastatin Fluvastatin No Fluvastati Sodium 40 Sodium 40 n Sodium MG MG 40 MG Aricept 10 Aricept 10 No 1{table QD Aricept 10 MG MG t_at_be MG dtime} Depakote Depakote No 2 BID Depakote [facility] via 125 mg 125 mg 125 mg Medical tablet,quinten tablet,quinten tablet,del yed release yed release ayed Take 2 Take 2 release tablets tablets Take 2 twice a day twice a day tablets by oral by oral twice a route. route. day by oral route. Pravastatin Pravastatin No Pravastati Sodium 40 Sodium 40 n Sodium MG MG 40 MG donepezil donepezil No 1 Q1D donepezil [facility] 10 mg 10 mg 10 mg [facility] tablet Take tablet Take tablet 1 tablet 1 tablet Take 1 every day every day tablet by oral by oral every day route at route at by oral bedtime. bedtime. route at bedtime. ZyrTEC 10 ZyrTEC 10 No 1{table QD ZyrTEC 10 MG MG t} MG fluoxetine fluoxetine No 3capsul Q1D fluoxetine [facility] 10 mg 10 mg e(s) 10 mg Medical capsule capsule capsule Take 3 Take 3 Take 3 capsules capsules capsules every day every day every day by oral by oral by oral route. route. route. Eliquis 2.5 Eliquis 2.5 No Eliquis mg 2.5 mg mg 2.5 mg 2.5 mg 2.5 mg haloperidol haloperidol No 1 Q8H haloperido [facility] 0.5 mg 0.5 mg l 0.5 mg [facility] tablet Take tablet Take tablet 1 tablet 1 tablet Take 1 every 8 every 8 tablet hours by hours by every 8 oral route oral route hours by as needed. as needed. oral route as needed. lisinopril lisinopril No 1 Q1D lisinopril [facility] 20 mg 20 mg 20 mg [facility] tablet Take tablet Take tablet 1 tablet 1 tablet Take 1 every day every day tablet by oral by oral every day route. route. by oral route. metformin metformin No 1 BID metformin [facility] 1,000 mg 1,000 mg 1,000 mg Med ical tablet Take tablet Take tablet 1 tablet 1 tablet Take 1 twice a day twice a day tablet by oral by oral twice a route. route. day by oral route. Norvasc 5 Norvasc 5 No 1 Q1D Norvasc 5 [facility] mg tablet mg tablet mg tablet Medical Take 1 Take 1 Take 1 tablet tablet tablet every day every day every day by oral by oral by oral route. route. route. om-3-dha-ep om-3-dha-ep No 1capsul BID om-3-dha-e [facility] a-fish a-fish e(s) pa-fish Medical oil-vit D3 oil-vit D3 oil-vit D3 300 300 300 mg-1,000 mg-1,000 mg-1,000 mg-1,000 mg-1,000 mg-1,000 unit unit unit capsule capsule capsule Take 1 Take 1 Take 1 capsule capsule capsule twice a day twice a day twice a by oral by oral day by route. route. oral route. pantoprazol pantoprazol No 1 Q1D pantoprazo [facility] e 40 mg e 40 mg le 40 mg Medic al tablet,quinten tablet,quinten tablet,del yed release yed release ayed Take 1 Take 1 release tablet tablet Take 1 every day every day tablet by oral by oral every day route. route. by oral route. Seroquel 25 Seroquel 25 No Seroquel [facility] mg tablet mg tablet 25 mg Medi julianne Take 25 mg Take 25 mg tablet in the am in the am Take 25 mg and 50 mg and 50 mg in the am QHS QHS and 50 mg QHS atorvastati atorvastati No 1 Q1D atorvastat [facility] n 10 mg n 10 mg in 10 mg Medic al tablet Take tablet Take tablet 1 tablet 1 tablet Take 1 every day every day tablet by oral by oral every day route at route at by oral bedtime. bedtime. route at bedtime. cyanocobala cyanocobala No 1capsul Q1D cyanocobal [facility] min min e(s) [facility] (vitamin (vitamin (vitamin B-12) 1,000 B-12) 1,000 B-12) mcg capsule mcg capsule 1,000 mcg Take 1 Take 1 capsule capsule capsule Take 1 every day every day capsule by oral by oral every day route. route. by oral route. Depakote Depakote No 2 BID Depakote [facility] via 125 mg 125 mg 125 mg Medical tablet,quinten tablet,quinten tablet,del yed release yed release ayed Take 2 Take 2 release tablets tablets Take 2 twice a day twice a day tablets by oral by oral twice a route. route. day by oral route. donepezil donepezil No 1 Q1D donepezil [facility] 10 mg 10 mg 10 mg [facility] tablet Take tablet Take tablet 1 tablet 1 tablet Take 1 every day every day tablet by oral by oral every day route at route at by oral bedtime. bedtime. route at bedtime. fluoxetine fluoxetine No 3capsul Q1D fluoxetine [facility] 10 mg 10 mg e(s) 10 mg Medical capsule capsule capsule Take 3 Take 3 Take 3 capsules capsules capsules every day every day every day by oral by oral by oral route. route. route. Immunizations Ordered Filled Immunization Date Status Comments [facility] e Immunization Name Name COVID-19, mRNA, COVID-19, mRNA, 2020-07-12 Completed [facility] LNP-S, PF, 30 LNP-S, PF, 30 00:00:00 mcg/0.3 mL dose mcg/0.3 mL dose ([employer]) ([employer]) COVID-19, mRNA, COVID-19, mRNA, 2020-07-12 Completed [facility] LNP-S, PF, 30 LNP-S, PF, 30 00:00:00 mcg/0.3 mL dose mcg/0.3 mL dose ([employer]) ([employer]) COVID-19, mRNA, COVID-19, mRNA, 2020-07-12 Completed [facility] LNP-S, PF, 30 LNP-S, PF, 30 00:00:00 mcg/0.3 mL dose mcg/0.3 mL dose ([employer]) ([employer]) COVID-19, mRNA, COVID-19, mRNA, 2020-07-12 Completed [facility] LNP-S, PF, 30 LNP-S, PF, 30 00:00:00 mcg/0.3 mL dose mcg/0.3 mL dose ([employer]) ([employer]) COVID-19, mRNA, COVID-19, mRNA, 2020-07-12 Completed [facility] LNP-S, PF, 30 LNP-S, PF, 30 00:00:00 mcg/0.3 mL dose mcg/0.3 mL dose ([employer]) ([employer]) COVID-19, mRNA, COVID-19, mRNA, 2020-07-12 Completed [facility] LNP-S, PF, 30 LNP-S, PF, 30 00:00:00 mcg/0.3 mL dose mcg/0.3 mL dose ([employer]) ([employer]) COVID-19, mRNA, COVID-19, mRNA, 2020-07-12 Completed [facility] LNP-S, PF, 30 LNP-S, PF, 30 00:00:00 mcg/0.3 mL dose mcg/0.3 mL dose ([employer]) ([employer]) COVID-19, mRNA, COVID-19, mRNA, 2020-07-12 Completed [facility] LNP-S, PF, 30 LNP-S, PF, 30 00:00:00 mcg/0.3 mL dose mcg/0.3 mL dose ([employer]) ([employer]) COVID-19, mRNA, COVID-19, mRNA, 2020-07-12 Completed [facility] LNP-S, PF, 30 LNP-S, PF, 30 00:00:00 mcg/0.3 mL dose mcg/0.3 mL dose ([employer]) ([employer]) SARS-COV-2 COVID-19 2020-07-12 Completed [facility] 00:00:00 [facility] SARS-COV-2 COVID-19 2020-07-12 Completed [facility] 00:00:00 [facility] SARS-COV-2 COVID-19 2020-07-12 Completed [facility]ACCINE 00:00:00 [facility] SARS-COV-2 COVID-19 2020-07-12 Completed [facility]ACCINE 00:00:00 [facility] SARS-COV-2 COVID-19 2020-07-12 Completed [facility] 00:00:00 [facility] COVID-19, mRNA, COVID-19, mRNA, 2020-06-21 Completed [facility] LNP-S, PF, 30 LNP-S, PF, 30 00:00:00 mcg/0.3 mL dose mcg/0.3 mL dose ([employer]) ([facility] COVID-19, mRNA, COVID-19, mRNA, 2020-06-21 Completed [facility] LNP-S, PF, 30 LNP-S, PF, 30 00:00:00 mcg/0.3 mL dose mcg/0.3 mL dose ([employer]) [facility] COVID-19, mRNA, COVID-19, mRNA, 2020-06-21 Completed [facility] LNP-S, PF, 30 LNP-S, PF, 30 00:00:00 mcg/0.3 mL dose mcg/0.3 mL dose ([employer]) ([facility]) COVID-19, mRNA, COVID-19, mRNA, 2020-06-21 Completed [facility] LNP-S, PF, 30 LNP-S, PF, 30 00:00:00 mcg/0.3 mL dose mcg/0.3 mL dose ([employer]) ([facility]) COVID-19, mRNA, COVID-19, mRNA, 2020-06-21 Completed [facility] LNP-S, PF, 30 LNP-S, PF, 30 00:00:00 mcg/0.3 mL dose mcg/0.3 mL dose ([employer]) ([facility]) COVID-19, mRNA, COVID-19, mRNA, 2020-06-21 Completed [facility] LNP-S, PF, 30 LNP-S, PF, 30 00:00:00 mcg/0.3 mL dose mcg/0.3 mL dose ([employer]) [facility] COVID-19, mRNA, COVID-19, mRNA, 2020-06-21 Completed [facility] LNP-S, PF, 30 LNP-S, PF, 30 00:00:00 mcg/0.3 mL dose mcg/0.3 mL dose ([employer]) [facility] COVID-19, mRNA, COVID-19, mRNA, 2020-06-21 Completed [facility] LNP-S, PF, 30 LNP-S, PF, 30 00:00:00 mcg/0.3 mL dose mcg/0.3 mL dose ([employer]) ([employer]) COVID-19, mRNA, COVID-19, mRNA, 2020-06-21 Completed [facility] LNP-S, PF, 30 LNP-S, PF, 30 00:00:00 mcg/0.3 mL dose mcg/0.3 mL dose ([employer]) ([employer]) SARS-COV-2 COVID-19 2020-06-21 Completed [facility] 00:00:00 [facility] SARS-COV-2 COVID-19 2020-06-21 Completed [facility]ACCINE 00:00:00 [facility] SARS-COV-2 COVID-19 2020-06-21 Completed [facility]ACCINE 00:00:00 [facility] SARS-COV-2 COVID-19 2020-06-21 Completed [facility] 00:00:00 [facility] SARS-COV-2 COVID-19 2020-06-21 Completed [facility]ACCINE 00:00:00 [facility] FluAD FluAD 2020-04-07 Completed [facility] - 15:24:00 [facility] FluAD FluAD 2020-04-07 Completed [facility] - 15:24:00 [facility] FluAD FluAD 2020-04-07 Completed [facility] - 15:24:00 [facility] FluAD FluAD 2020-04-07 Completed [facility] - 15:24:00 [facility] FluAD FluAD 2020-04-07 Completed [facility] - 15:24:00 [facility] FluAD FluAD 2020-04-07 Completed [facility] - 15:24:00 [facility] FluAD FluAD 2020-04-07 Completed [facility] - 15:24:00 [facility] FluAD FluAD 2020-04-07 Completed [facility] - 15:24:00 [facility] FluAD FluAD 2020-04-07 Completed [facility] - 15:24:00 [facility] diphtheria/pertussi 2017-09-04 Completed [facility], acel/tetanus 23:25:00 adult influenza virus 2017-07-16 Completed [facility] vaccine, 14:29:00 inactivated Vital Signs Vital Name Observation Time Observation Value Comments Source BP Diastolic 2021-10-06 65 mm[Hg] [facility] 00:00:00 Height 2021-10-06 68 [in_i] [facility] 00:00:00 BMI (Body Mass 2021-10-06 28.1 kg/m2 [facility]) 00:00:00 BP Systolic 2021-10-06 122 mm[Hg] [facility] 00:00:00 Body Weight 2021-10-06 2952 [oz_av] [facility] 00:00:00 BP Diastolic 2021-10-02 80 mm[Hg] [facility] 00:00:00 Height 2021-10-02 68 [in_i] [facility] 00:00:00 BMI (Body Mass 2021-10-02 28.1 kg/m2 [facility]) 00:00:00 BP Systolic 2021-10-02 126 mm[Hg] [facility] 00:00:00 Body Weight 2021-10-02 2952 [oz_av] [facility] 00:00:00 BP Diastolic 2021-09-24 82 mm[Hg] [facility] 00:00:00 Height 2021-09-24 68 [in_i] [facility] 00:00:00 BMI (Body Mass 2021-09-24 28.5 kg/m2 [facility]) 00:00:00 BP Systolic 2021-09-24 127 mm[Hg] [facility] 00:00:00 Body Weight 2021-09-24 2998.4 [oz_av] [facility] 00:00:00 BP Diastolic 2021-09-08 74 mm[Hg] [facility] 00:00:00 Height 2021-09-08 68 [in_i] [facility] 00:00:00 BMI (Body Mass 2021-09-08 28.5 kg/m2 [facility]) 00:00:00 BP Systolic 2021-09-08 133 mm[Hg] [facility] 00:00:00 Body Weight 2021-09-08 2996 [oz_av] [facility] 00:00:00 BP Diastolic 2021-09-04 74 mm[Hg] [facility] 00:00:00 Height 2021-09-04 68 [in_i] [facility] 00:00:00 BMI (Body Mass 2021-09-04 28.5 kg/m2 [facility]) 00:00:00 BP Systolic 2021-09-04 125 mm[Hg] [facility] 00:00:00 Body Weight 2021-09-04 2996 [oz_av] [facility] 00:00:00 BP Diastolic 2021-08-28 69 mm[Hg] [facility] 00:00:00 Height 2021-08-28 68 [in_i] [facility] 00:00:00 BMI (Body Mass 2021-08-28 28.3 kg/m2 [facility]) 00:00:00 BP Systolic 2021-08-28 128 mm[Hg] [facility] 00:00:00 Body Weight 2021-08-28 2977 [oz_av] [facility] 00:00:00 BP Diastolic 2021-08-26 68 mm[Hg] [facility] 00:00:00 Height 2021-08-26 68 [in_i] [facility] 00:00:00 BMI (Body Mass 2021-08-26 28.6 kg/m2 [facility]) 00:00:00 BP Systolic 2021-08-26 95 mm[Hg] [facility] 00:00:00 Body Weight 2021-08-26 3011 [oz_av] [facility] 00:00:00 BP Diastolic 2021-08-21 72 mm[Hg] [facility] 00:00:00 Height 2021-08-21 68 [in_i] [facility] 00:00:00 BMI (Body Mass 2021-08-21 28.3 kg/m2 [facility]) 00:00:00 BP Systolic 2021-08-21 132 mm[Hg] [facility] 00:00:00 Body Weight 2021-08-21 2977 [oz_av] [facility] 00:00:00 BP Diastolic 2021-08-20 72 mm[Hg] [facility] 00:00:00 Height 2021-08-20 68 [in_i] [facility] 00:00:00 BMI (Body Mass 2021-08-20 28.6 kg/m2 [facility]) 00:00:00 BP Systolic 2021-08-20 132 mm[Hg] [facility] 00:00:00 Body Weight 2021-08-20 3011 [oz_av] [facility] 00:00:00 BP Diastolic 2021-08-11 74 mm[Hg] [facility] 00:00:00 Height 2021-08-11 68 [in_i] [facility] 00:00:00 BMI (Body Mass 2021-08-11 28.6 kg/m2 [facility]) 00:00:00 BP Systolic 2021-08-11 126 mm[Hg] [facility] 00:00:00 Body Weight 2021-08-11 3011 [oz_av] [facility] 00:00:00 BP Diastolic 2021-08-06 63 mm[Hg] [facility] 00:00:00 Height 2021-08-06 68 [in_i] [facility] 00:00:00 BMI (Body Mass 2021-08-06 28.6 kg/m2 [facility]) 00:00:00 BP Systolic 2021-08-06 114 mm[Hg] [facility] 00:00:00 Body Weight 2021-08-06 3012 [oz_av] [facility] 00:00:00 BP Diastolic 2021-08-04 78 mm[Hg] [facility] 00:00:00 Height 2021-08-04 68 [in_i] [facility] 00:00:00 BMI (Body Mass 2021-08-04 28.6 kg/m2 [facility]) 00:00:00 BP Systolic 2021-08-04 148 mm[Hg] [facility] 00:00:00 Body Weight 2021-08-04 3012.8 [oz_av] [facility] 00:[facility]:00 Systolic blood 2021-07-07 126 mm[Hg] [facility] 04:30:00 [facility] Diastolic blood 2021-07-07 58 mm[Hg] [facility] 04:30[facility]00 [facility] Heart rate 2021-07-07 88 /min [facility] 04:30:00 [facility] Body temperature 2021-07-07 36.67 Kaia [facility] 04:30:00 [facility] Respiratory rate 2021-07-07 18 /min [facility] 04:30:00 [facility] Oxygen saturation 2021-07-07 98 /min [facility] Arterial blood 04:30:00 [facility] by Pulse oximetry [place] Body weight 2021-07-07 82.736 kg [facility] 00:57:00 [facility] BMI 2021-07-07 28.57 kg/m2 [facility] 00:57:00 [facility] Body height 2020-10-29 175.3 cm [facility] 12:58:40 Body weight 2020-10-29 85.909 kg [facility] 12:58:40 BMI 2020-10-29 27.97 kg/m2 [facility] 12:58:40 Body height 2020-10-29 175.3 cm [facility] 12:58:40 Body weight 2020-10-29 85.909 kg [facility] 12:58:40 BMI 2020-10-29 27.97 kg/m2 [facility] 12:58:40 Body height 2020-10-29 175.3 cm [facility] 12:58:40 Body weight 2020-10-29 85.909 kg [facility] 12:58:40 BMI 2020-10-29 27.97 kg/m2 [facility] 12:58:40 Body height 2020-10-29 175.3 cm [facility] 12:58:40 Body weight 2020-10-29 85.909 kg [facility] 12:58:40 BMI 2020-10-29 27.97 kg/m2 [facility] 12:58:40 height 2020-07-25 70.00 [in_i] [facility] 13:40:00 [facility] weight 2020-07-25 182 [lb_av] [facility] 13:40:00 [facility] temperature 2020-07-25 98.2 [degF] [facility] - 13:40:00 [facility] bmi 2020-07-25 26.11 kg/m2 [facility] - 13:40:00 [facility] oximetry 2020-07-25 97 % [facility] - 13:40:00 [facility] respiratory rate 2020-07-25 16 /min [facility] 13:40:00 [facility] blood pressure 2020-07-25 133 mm[Hg] [facility] - systolic 13:40:00 [facility] blood pressure 2020-07-25 62 mm[Hg] [facility] - diastolic 13:40:00 [facility] height 2020-06-13 70.00 [in_i] [facility] - 11:40:00 [facility] weight 2020-06-13 191 [lb_av] [facility] - 11:40:00 [facility] bmi 2020-06-13 27.4 kg/m2 [facility] - 11:40:00 [facility] height 2020-05-23 70.00 [in_i] [facility] - 10:40:00 [facility] weight 2020-05-23 191 [lb_av] [facility] - 10:40:00 [facility] temperature 2020-05-23 98 [degF] [facility] - 10:40:00 [facility] bmi 2020-05-23 27.40 kg/m2 [facility] - 10:40:00 [facility] oximetry 2020-05-23 98 % [facility] - 10:40:00 [facility] respiratory rate 2020-05-23 16 /min [facility] 10:40:00 [facility] blood pressure 2020-05-23 145 mm[Hg] [facility] - systolic 10:40:00 [facility] blood pressure 2020-05-23 68 mm[Hg] [facility] - diastolic 10:40:00 [facility] bmi 2020-05-21 27.4 kg/m2 [facility] - 13:20:00 [facility] height 2020-05-21 70.00 [in_i] [facility] - 13:20:00 [facility] weight 2020-05-21 191 [lb_av] [facility] - 13:20:00 [facility] height 2020-05-08 70.00 [in_i] [facility] - 13:40:00 [facility] weight 2020-05-08 191.0 [lb_av] [facility] 13:40:00 [facility] temperature 2020-05-08 98.0 [degF] [facility] - 13:40:00 [facility] bmi 2020-05-08 27.40 kg/m2 [facility] - 13:40:00 [facility] oximetry 2020-05-08 98 % [facility] - 13:40:00 [facility] respiratory rate 2020-05-08 16 /min [facility] - 13:40:00 [facility] blood pressure 2020-05-08 143 mm[Hg] [facility] - systolic 13:40:00 [facility] blood pressure 2020-05-08 71 mm[Hg] [facility] - diastolic 13:40:00 [facility] height 2020-04-07 70.00 [in_i] [facility] - 13:20:00 [facility] weight 2020-04-07 192 [lb_av] [facility] - 13:20:00 [facility] temperature 2020-04-07 98.3 [degF] [facility] - 13:20:00 [facility] bmi 2020-04-07 27.55 kg/m2 [facility] - 13:20:00 [facility] oximetry 2020-04-07 96 % [facility] - 13:20:00 [facility] respiratory rate 2020-04-07 18 /min [facility] 13:20:00 [facility] blood pressure 2020-04-07 141 mm[Hg] [facility] - systolic 13:20:00 [facility] blood pressure 2020-04-07 67 mm[Hg] [facility] - diastolic 13:20:00 [facility] Heart Rate 2021-03-10 Rafael person 16:39:00 Respitory Rate 2021-03-10 Rafael wheeler 16:39:00 Systolic (mm Hg) 2021-03-10 [facility] rmcolette 16:39:00 Diastolic (mm Hg) 2021-03-10 [facility] ermann 16:39:00 Height 2021-03-10 175.26 cm Rafael person 16:39:00 Weight 2021-03-10 [facility] 16:39:00 BMI Calculated 2021-03-10 [facility] 16:39:00 Systolic (mm Hg) 2020-10-29 [facility] 20:30:00 Diastolic (mm Hg) 2020-10-29 [facility] 20:30:00 Heart Rate 2020-10-29 [facility] 20:30:00 Respitory Rate 2020-10-29 [facility] 20:30:00 Systolic (mm Hg) 2020-10-29 [facility] 18:00:00 Diastolic (mm Hg) 2020-10-29 [facility] 18:00:00 Heart Rate 2020-10-29 [facility] 18:00:00 Respitory Rate 2020-10-29 [facility] 18:00:00 Respitory Rate 2020-10-29 [facility] 15:45:00 Systolic (mm Hg) 2020-10-29 [facility] 15:45:00 Diastolic (mm Hg) 2020-10-29 [facility] ermann 15:45:00 Respitory Rate 2020-10-29 [facility] 15:30:00 Systolic (mm Hg) 2020-10-29 [facility] 15:30:00 Diastolic (mm Hg) 2020-10-29 [facility] 15:30:00 Respitory Rate 2020-10-29 [facility] 15:15:00 Systolic (mm Hg) 2020-10-29 [facility] 15:15:00 Diastolic (mm Hg) 2020-10-29 [facility] H ermann 15:15:00 Height 2020-10-29 175.26 cm [facility] 12:58:00 Weight 2020-10-29 [facility] 12:58:00 BMI Calculated 2020-10-29 [facility] 12:58:00 Systolic (mm Hg) 2020-10-28 [facility] 15:17:00 Diastolic (mm Hg) 2020-10-28 [facility] 15:17:00 Heart Rate 2020-10-28 [facility] 15:17:00 Respitory Rate 2020-10-28 [facility] 15:17:00 Height 2020-10-28 175.26 cm [facility] 15:17:00 BMI Calculated 2020-10-28 [facility] 15:17:00 Weight 2020-10-28 [facility] 15:17:00 Systolic (mm Hg) 2020-04-01 [facility] 15:48:00 Diastolic (mm Hg) 2020-04-01 [facility] 15:48:00 Heart Rate 2020-04-01 [facility] 15:48:00 Respitory Rate 2020-04-01 [facility] 15:48:00 Height 2020-04-01 172.72 cm [facility] 15:48:00 BMI Calculated 2020-04-01 [facility] 15:48:00 Weight 2020-04-01 [facility] 15:48:00 Systolic (mm Hg) 2020-03-05 [facility] 21:25:00 Diastolic (mm Hg) 2020-03-05 [facility] 21:25:00 Heart Rate 2020-03-05 [facility] 21:25:00 Respitory Rate 2020-03-05 [facility] 21:25:00 Height 2020-03-05 167.64 cm [facility] 21:25:00 BMI Calculated 2020-03-05 [facility] 21:25:00 Weight 2020-03-05 [facility] 21:25:00 Systolic (mm Hg) 2020-01-01 [facility] 16:15:00 Diastolic (mm Hg) 2020-01-01 [facility] 16:15:00 Heart Rate 2020-01-01 [facility] 16:15:00 Respitory Rate 2020-01-01 [facility] 16:15:00 Height 2020-01-01 175.26 cm [facility] 16:15:00 BMI Calculated 2020-01-01 [facility] 16:15:00 Weight 2020-01-01 [facility] 16:15:00 Systolic (mm Hg) 2019-12-06 [facility] 13:40:00 Diastolic (mm Hg) 2019-12-06 [facility] 13:40:00 Heart Rate 2019-12-06 [facility] 13:40:00 Respitory Rate 2019-12-06 [facility] 13:40:00 Height 2019-12-06 182.88 cm [facility] 13:40:00 BMI Calculated 2019-12-06 [facility] 13:40:00 Weight 2019-12-06 [facility] 13:40:00 Systolic (mm Hg) 2019-06-26 [facility] 22:19:00 Diastolic (mm Hg) 2019-06-26 [facility] 22:19:00 Heart Rate 2019-06-26 [facility] 22:19:00 Respitory Rate 2019-06-26 [facility] 22:19:00 Temperature Oral 2019-06-26 98.7 F [facility] (F) 22:19:00 Height 2019-06-26 175.26 cm [facility] 22:19:00 BMI Calculated 2019-06-26 [facility] 22:19:00 Weight 2019-06-26 [facility] 22:19:00 Systolic (mm Hg) 2019-05-23 [facility] 22:29:00 Diastolic (mm Hg) 2019-05-23 [facility] 22:29:00 Heart Rate 2019-05-23 [facility] 22:29:00 Respitory Rate 2019-05-23 [facility] 22:29:00 Temperature Oral 2019-05-23 98.1 F [facility] (F) 22:29:00 Height 2019-05-23 167.64 cm [facility] 22:29:00 BMI Calculated 2019-05-23 [facility] 22:29:00 Weight 2019-05-23 [facility] 22:29:00 Systolic (mm Hg) 2019-05-09 [facility] 21:35:00 Diastolic (mm Hg) 2019-05-09 [facility] 21:35:00 Heart Rate 2019-05-09 [facility] 21:35:00 Respitory Rate 2019-05-09 [facility] 21:35:00 Height 2019-05-09 167.64 cm [facility] 21:35:00 BMI Calculated 2019-05-09 [facility] 21:35:00 Weight 2019-05-09 [facility] 21:35:00 Systolic (mm Hg) 2019-04-24 [facility] 19:44:00 Diastolic (mm Hg) 2019-04-24 [facility] 19:44:00 Heart Rate 2019-04-24 [facility] 19:44:00 Respitory Rate 2019-04-24 [facility] 19:44:00 Temperature Oral 2019-04-24 98 F [facility] (F) 19:44:00 Height 2019-04-24 170.18 cm [facility] 19:44:00 BMI Calculated 2019-04-24 [facility] 19:44:00 Weight 2019-04-24 [facility] 19:44:00 Systolic (mm Hg) 2019-01-31 [facility] 20:32:00 Diastolic (mm Hg) 2019-01-31 [facility] 20:32:00 Heart Rate 2019-01-31 [facility] 20:32:00 Respitory Rate 2019-01-31 [facility] 20:32:00 Height 2019-01-31 175.26 cm [facility] 20:32:00 BMI Calculated 2019-01-31 [facility] 20:32:00 Weight 2019-01-31 [facility] 20:32:00 Weight 2018-10-27 [facility] 19:41:00 BMI Calculated 2018-10-27 [facility] 19:41:00 Height 2018-10-27 167.64 cm [facility] 19:41:00 Systolic (mm Hg) 2018-10-27 [facility] 19:41:00 Diastolic (mm Hg) 2018-10-27 [facility] 19:41:00 Heart Rate 2018-10-27 [facility] 19:41:00 Respitory Rate 2018-10-27 [facility] 19:41:00 Respitory Rate 2018-07-19 [facility] 21:05:00 Heart Rate 2018-07-19 [facility] 21:05:00 Systolic (mm Hg) 2018-07-19 [facility] 21:05:00 Diastolic (mm Hg) 2018-07-19 [facility] 21:05:00 Height 2018-07-19 167.64 cm [facility] 21:05:00 Weight 2018-07-19 [facility] 21:05:00 BMI Calculated 2018-07-19 [facility] 21:05:00 BP Systolic 2018-05-12 153 mm[Hg] Location: LUE; [facility] 13:35:00 Position: Sitting BP Diastolic 2018-05-12 85 mm[Hg] Location: LUE; [facility] 13:35:00 Position: Sitting Height 2018-05-12 69 [in_us] [facility] 13:35:00 Temperature 2018-05-12 98.3 [degF] Method: Oral [facility] 13:35:00 Heart Rate 2018-05-12 71 /min [facility] 13:35:00 Systolic (mm Hg) 2018-05-03 [facility] 21:14:00 Diastolic (mm Hg) 2018-05-03 [facility] 21:14:00 Respitory Rate 2018-05-03 [facility] 21:14:00 Heart Rate 2018-05-03 [facility] 21:14:00 Height 2018-05-03 167.64 cm [facility] 21:14:00 Weight 2018-05-03 [facility] 21:14:00 BMI Calculated 2018-05-03 [facility] 21:14:00 BP Systolic 2018-05-01 119 mm[Hg] Location: RUE; [facility] 16:48:00 Position: Sitting BP Diastolic 2018-05-01 66 mm[Hg] Location: RUE; [facility] 16:48:00 Position: Sitting Height 2018-05-01 69 [in_us] [facility] 16:48:00 Weight 2018-05-01 205.25 [lb_av] [facility] 16:48:00 Body Mass Index 2018-05-01 30.31 kg/m2 [facility] Calculated 16:48:00 Heart Rate 2018-05-01 78 /min Location: R [facility] 16:48:00 Radial; Systolic (mm Hg) 2018-03-10 [facility] 03:30:00 Diastolic (mm Hg) 2018-03-10 [facility] 03:30:00 Temperature Oral 2018-03-10 98.5 F [facility] (F) 03:30:00 Respitory Rate 2018-03-10 [facility] 03:30:00 Systolic (mm Hg) 2018-03-10 [facility] 01:00:00 Diastolic (mm Hg) 2018-03-10 [facility] 01:00:00 Respitory Rate 2018-03-10 [facility] 01:00:00 Systolic (mm Hg) 2018-03-10 [facility] 00:00:00 Diastolic (mm Hg) 2018-03-10 [facility] 00:00:00 Respitory Rate 2018-03-10 [facility] 00:00:00 Temperature Oral 2018-03-09 98.5 F [facility] (F) 22:00:00 BMI Calculated 2018-03-09 [facility] 20:38:00 Height 2018-03-09 180.34 cm [facility] 20:38:00 Weight 2018-03-09 [facility] 20:38:00 Temperature Oral 2018-03-09 98.8 F [facility] (F) 20:38:00 Heart Rate 2018-03-09 [facility] 20:38:00 Weight 2018-01-25 [facility] 18:41:00 Systolic (mm Hg) 2018-01-25 [facility] 18:41:00 Diastolic (mm Hg) 2018-01-25 [facility] 18:41:00 Heart Rate 2018-01-25 [facility] 18:41:00 Respitory Rate 2018-01-25 [facility] 18:41:00 BMI Calculated 2018-01-25 [facility] 18:41:00 Height 2018-01-25 177.8 cm [facility] 18:41:00 BP Systolic 2018-01-09 121 mm[Hg] Location: LUE; [facility] 16:11:00 Position: Sitting BP Diastolic 2018-01-09 75 mm[Hg] Location: [facility]; [facility] 16:11:00 Position: Sitting Height 2018-01-09 69 [...] Weight 2018-01-09 192 [lb_av] [facility] 15:46:00 Respitory Rate 2017-12-05 [facility] 21:12:00 Systolic (mm Hg) 2017-12-05 [facility] 20:37:00 Diastolic (mm Hg) 2017-12-05 [facility] 20:37:00 Respitory Rate 2017-12-05 [facility] 20:37:00 Systolic (mm Hg) 2017-12-05 [facility] 20:15:00 Diastolic (mm Hg) 2017-12-05 [facility] 20:15:00 Respitory Rate 2017-12-05 [facility] 20:15:00 Systolic (mm Hg) 2017-12-05 [facility] 20[facility]00:00 Diastolic (mm Hg) 2017-12-05 [facility] 20:00:00 Weight 2017-12-05 [facility] 15:06:00 Height 2017-12-05 165.1 cm [facility] 15[facility]06:00 BMI Calculated 2017-12-05 [facility] 15:06:00 Weight 2017-11-25 [facility] 18:29:00 BMI Calculated 2017-11-25 [facility] 18:29:00 Height 2017-11-25 165.1 cm [facility] 18:29:00 Systolic (mm Hg) 2017-11-25 [facility] 18:29:00 Diastolic (mm Hg) 2017-11-25 [facility] 18:29:00 Heart Rate 2017-11-25 [facility] 18:29:00 Respitory Rate 2017-11-25 [facility] 18:29:00 BMI Calculated 2017-09-22 [facility] 16:10:00 Weight 2017-09-22 [facility] 16:10:00 Height 2017-09-22 172.72 cm [facility] 16:10:00 Heart Rate 2017-09-22 [facility] 16:10:00 Temperature Oral 2017-09-22 98.0 F [facility] (F) 16:10:00 Systolic (mm Hg) 2017-09-22 [facility] 16:10:00 Diastolic (mm Hg) 2017-09-22 [facility] 16:10:00 Systolic (mm Hg) 2017-09-05 [facility] 20:00:00 Diastolic (mm Hg) 2017-09-05 [facility] 20:00:00 Respitory Rate 2017-09-05 [facility] 20:00:00 BMI Calculated 2017-09-05 [facility] 19:02:00 Weight 2017-09-05 [facility] 19:02:00 Height 2017-09-05 172.72 cm [facility] 19:02:00 Systolic (mm Hg) 2017-09-05 [facility] 19:00:00 Diastolic (mm Hg) 2017-09-05 [facility] 19:00:00 Respitory Rate 2017-09-05 [facility] 19:00:00 Systolic (mm Hg) 2017-09-05 [facility] 18:00:00 Diastolic (mm Hg) 2017-09-05 [facility] 18:00:00 Respitory Rate 2017-09-05 [facility] 18:00:00 Temperature Oral 2017-09-05 98.5 F [facility] (F) 17:00:00 Temperature Oral 2017-09-05 97.5 F [facility] (F) 06:00:00 Temperature Oral 2017-09-05 98 F [facility] (F) 05:23:00 Heart Rate 2017-09-04 [facility] 23:01:00 Weight 2017-09-04 [facility] 19:23:00 Heart Rate 2017-09-04 [facility] 19:23:00 Heart Rate 2017-08-12 [facility] 12:30:00 Respitory Rate 2017-08-12 [facility] 12:30:00 Systolic (mm Hg) 2017-08-12 [facility] 12:30:00 Diastolic (mm Hg) 2017-08-12 [facility] 12:30:00 Heart Rate 2017-08-12 [facility] 00:30:00 Diastolic (mm Hg) 2017-08-12 [facility] 00:30:00 Systolic (mm Hg) 2017-08-12 [facility] 00:30:00 Respitory Rate 2017-08-12 [facility] 00:30:00 Respitory Rate 2017-08-11 [facility] 16:54:00 Systolic (mm Hg) 2017-08-11 [facility] 16:54:00 Diastolic (mm Hg) 2017-08-11 [facility] 16:54:00 Heart Rate 2017-08-11 [facility] 16:54:00 Height 2017-08-05 175.26 cm [facility] 18:57:00 Height 2017-07-23 175.26 cm [facility] 03:19:00 Height 2017-07-23 175.26 cm [facility] 03:04:00 Weight 2017-07-23 [facility] 03:04:00 BMI Calculated 2017-07-23 [facility] 03:04:00 Systolic (mm Hg) 2017-07-23 [facility] 00:46:00 Diastolic (mm Hg) 2017-07-23 [facility] 00:46:00 Respitory Rate 2017-07-23 [facility] 00:46:00 Temperature Oral 2017-07-23 98.6 F [facility] (F) 00:46:00 Heart Rate 2017-07-23 [facility] 00:46:00 Temperature Oral 2017-07-22 98.6 F [facility] (F) 20:25:00 Heart Rate 2017-07-22 [facility] 20:25:00 Respitory Rate 2017-07-22 [facility] 20:25:00 Systolic (mm Hg) 2017-07-22 [facility] 20:25:00 Diastolic (mm Hg) 2017-07-22 [facility] 20:25:00 Respitory Rate 2017-07-22 [facility] 16:35:00 Heart Rate 2017-07-22 [facility] 16:35:00 Systolic (mm Hg) 2017-07-22 [facility] 16:35:00 Diastolic (mm Hg) 2017-07-22 [facility] 16:35:00 Temperature Oral 2017-07-22 99.1 F [facility] (F) 16:35:00 Height 2017-07-16 172.72 cm [facility] 12:31:00 Height 2017-07-16 172.72 cm [facility] 08:42:00 Height 2017-07-16 172.72 cm [facility] 04:16:00 Weight 2017-07-14 [facility] 08:00:00 BMI Calculated 2017-07-13 [facility] 23:13:00 Weight 2017-07-13 [facility] 23:13:00 Procedures Procedure Date / Time Performing Clinician Source Performed ED LACERATION REPAIR 2021-07-07 03:09:57 Jacquie Montilla [facility] CT TRAUMA HEAD WO CONTRAST 2021-07-07 01:15:00 Sage Hale [facility] CT TRAUMA CERVICAL SPINE 2021-07-07 01:15:00 Sage Hale [facility] WO CONTRAST [facility] [place] DIAGNOSTIC LUMBAR 2020-10-29 15:17:00 [facility]FLU[place] DIAGNOSTIC LUMBAR 2020-10-29 15:17:00 [place] [facility]CT[facility] W/FLUOR OR CT Spinal puncture, 2020-10-29 15:16:38 [facility], for drainage of cerebrospinal fluid (by needle or catheter); with fluoroscopic or CT guidance [N] Venous Duplex Lower 2018-01-09 00:00:00 [facility] Bilateral Retrieval (removal) of 2017-12-05 18:51:00 [facility] Karl intravascular vena cava filter, endovascular approach including vascular access, vessel selection, and radiological supervision and interpretation, intraprocedural roadmapping, and imaging guidance (ultrasound and fluoroscopy), when VR Vascular/Interventional 2017-11-15 00:00:00 [facility] Radiology Consult Insertion of intravascular 2017-07-18 16:17:00 [facility] vena cava filter, endovascular approach including vascular access, vessel selection, and radiological supervision and interpretation, intraprocedural roadmapping, and imaging guidance (ultrasound and fluoroscopy), when performed Insertion of Inferior Vena 2017-07-18 00:00:00 [facility] Cav[facility] Filter Craniotomy 2017-07-13 00:00:00 [facility] Ankle joint operations [facility] Craniotomy [facility] LP - Lumbar [facility] puncture<sup>1</sup> History of Ankle [facility] Plan of Care Planned Activity Planned Date Details Comments Source Diagnostic Test 2018-04-06 00:00:00 [N] Venous Duplex [facility] Pending Lower Bilateral [code = [N] Venous Duplex Lower Bilateral] Encounters Start End Encounter Admission Attending Care Care Encounter Source Date/Time Date/Time Type Type Clinicians Facility Department ID 2021-06-09 Outpatient YURIYEDGARDO [facility] [id number] [place] 01:04:34 [facility] 2021-05-20 Outpatient Davis, Na STLMLC STLMLC [id number] 2 Common 12:31:17 [id number] [facility] 2021-05-20 Outpatient Davis, Na STLMLC STLMLC [id number] 2 Common 12:24:36 [id number] [facility] 2021-05-20 Outpatient Davis, Na STLMLC STLMLC [id number] 2 Common 12:22:46 [id number] [facility] 2021-05-20 Outpatient Davis, Na STLMLC STLMLC [id number] 2 Common 12:22:08 [id number] [facility] 2021-05-20 Outpatient Davis, Na STLMLC STLMLC [id number] 2 Common 12:20:37 [id number] [facility] 2021-05-20 Outpatient Davis, Na STLMLC STLMLC [id number] 2 Common 12:20:01 [id number] [facility] 2021-05-20 Outpatient Davis, Na STLMLC STLMLC [id number] 2 Common 12:12:09 [id number] [facility] 2021-05-20 Outpatient Davis, Na STLMLC STLMLC [id number] 2 Common 11:44:44 [id number] [facility] 2021-05-20 Outpatient Davis, Na STLMLC STLMLC [id number] 2 Common 11:21:02 [id number] [facility] 2021-05-20 Outpatient Davis, Na STLMLC STLMLC [id number] 2 Common 11:20:21 [id number] [facility] 2021-05-20 Outpatient Davis, Na STLMLC STLMLC [id number] 2 Common 11:16:41 [id number] [facility] 2021-05-20 Outpatient Davis, Na STLMLC STLMLC [id number] 2 Common 11:16:28 [id number] [facility] 2021-03-17 Inpatient ESQUENAZI [facility] [id number] M [facility] 13:22:18 JOSE ANTONIO CHAPPELL 2020-12-21 Outpatient ADHIA, [facility] [id number] [place] 01:06:57 [facility] 2020-10-11 Outpatient ADHIA, [facility] [id number] [place] 01:06:38 [facility] 2021-10-30 2021-10-30 Outpatient [facility]Tod PRIV PRIV [id number] [facility] 11:37:00 11:37:00 d_J [id number] Medica l 2021-10-15 2021-10-15 Outpatient [facility]Tod PRIV PRIV [id number] [facility] 05:45:00 05:45:00 d_J [id number] Medica l 2021-10-11 2021-10-11 Outpatient [facility]Tod PRIV PRIV [id number] [facility] 10:43:00 10:43:00 d_J [id number] Medica l 2021-10-06 2021-10-06 Outpatient [facility]Tod PRIV PRIV [id number] [facility] 04:16:00 04:16:00 d_J [id number] Medica l 2021-10-06 2021-10-06 Narda [facility] [id number] [facility] 00:00:00 00:00:00 TING Presley: Health - Med ical [address] [address] , Ph. 2021-10-06 2021-10-06 Outpatient Fernandez PRIV PRIV [id number] 00:00:00 00:00:00 Narda [id number] 2021-10-02 2021-10-02 Outpatient [facility]Tod PRIV PRIV [id number] [facility] 08:05:00 08:05:00 d_J [id number] Medica l 2021-10-02 2021-10-02 Narda [facility] [id number] [facility] 00:00:00 00:00:00 TING Presley: Health - Med ical [address] [address] , Ph. 2021-10-02 2021-10-02 Outpatient Fernandez, PRIV PRIV [id number] 00:00:00 00:00:00 Narda [id number] 2021-09-26 2021-09-26 Outpatient [facility]_Tod PRIV PRIV [id number] [facility] 10:41:00 10:41:00 d_J [id number] Medica l 2021-09-24 2021-09-24 Outpatient [facility]_Tod PRIV PRIV [id number] [facility] 04:27:00 04:27:00 d_J [id number] Medica l 2021-09-24 2021-09-24 Luciano Madrid [facility]IV [facility] [id number] [facility] 00:00:00 00:00:00 Tete [facility] - Med ical MD: [address] [address] , Ph. 2021-09-24 2021-09-24 Outpatient Tete, PRIV PRIV [id number] 00:00:00 00:00:00 Luciano Madrid [id number] 2021-09-17 Outpatient [facility]_Tod PRIV PRIV [id number] [facility] 11:29:00 11:29:00 d_J [id number] Medica l 2021-09-13 2021-09-13 Outpatient [facility]_Tod PRIV PRIV [id number] [facility] 10:46:00 10:46:00 d_J [id number] Medica l 2021-09-08 2021-09-08 Outpatient [facility]_Tod PRIV PRIV [id number] [facility] 08:11:00 08:11:00 d_J [id number] Medica l 2021-09-08 2021-09-08 Narda [facility] [id number] [facility] 00:00:00 00:00:00 TING Presley: Health - Med ical [address] [address] , Ph. 2021-09-08 2021-09-08 Outpatient ANNALISA [facility] PRIV [id number] 00:00:00 00:00:00 Narda [id number] 2021-09-06 2021-09-06 Outpatient GC_BAHC_Tod PRIV PRIV [id number] [facility] 10:44:00 10:44:00 d_J [id number] Medica l 2021-09-04 2021-09-04 Outpatient GC_BAHC_Tod PRIV PRIV 239 [id number] [facility] 12:50:00 12:50:00 d_J [id number] Medica l 2021-09-04 2021-09-04 Narda [facility] [id number] [facility] 00:00:00 00:00:00 TING Presley: Health - Med ical [address] [address] , Ph. 2021-09-04 2021-09-04 Outpatient Fernandez, PRIV PRIV [id number] 4-[id number] 00:00:00 00:00:00 Narda [id number] 2021-09-03 2021-09-03 Outpatient GC_BAHC_Tod PRIV PRIV 239 [id number] [facility] 10:43:00 10:43:00 d_J [id number] Medica l 2021-08-31 2021-08-31 Outpatient GC_BAHC_Tod PRIV PRIV 239 [id number] [facility] 10:59:00 10:59:00 d_J [id number] Medica l 2021-08-30 2021-08-30 Outpatient GC_BAHC_Tod PRIV PRIV 239 [id number] [facility] 10:46:00 10:46:00 d_J [id number] Medica l 2021-08-28 2021-08-28 Outpatient GC_BAHC_Tod PRIV PRIV 239 [id number] [facility] 03:13:00 03:13:00 d_J [id number] Medica l 2021-08-28 2021-08-28 Narda [facility] [id number] [facility] 00:00:00 00:00:00 TING Presley: Health - Med ical [address] [place] [address] , Ph. 2021-08-28 2021-08-28 Outpatient Fernandez PRIV PRIV [id number] a-d 00:00:00 00:00:00 Narda [id number]-[id number] 2021-08-27 2021-08-27 Outpatient GC_BAHC_Tod PRIV PRIV 239 [id number] [facility] 10:54:00 10:54:00 d_Silvio [id number] Medica l 2021-08-26 2021-08-26 Outpatient GC_BAHC_Tod PRIV PRIV 239 [id number] [facility] 05:55:00 05:55:00 d_Silvio [id number] Medica l 2021-08-26 2021-08-26 Luciano Madrid [facility]IV [facility] [id number] [facility] 00:00:00 00:00:00 Tete [facility] - Med ical MD: [address] [place] [address] , Ph. 2021-08-26 2021-08-26 Outpatient Tete, PRIV PRIV [id number] 00:00:00 00:00:00 Luciano Madrid assisted-11ec-b [id number] 2021-08-25 2021-08-25 Outpatient GC_BAHC_Tod PRIV PRIV 239 [id number] [facility] 01:41:00 01:41:00 d_Silvio [id number] Medica l 2021-08-21 2021-08-21 Outpatient GC_BAHC_Tod PRIV PRIV 239 [id number] [facility] 08:38:00 08:38:00 d_J [id number] Medica l 2021-08-21 2021-08-21 Narda [facility]IV [facility] 429 [facility] 00:00:00 00:00:00 TING Presley: Health - Med ical [address] [place] [address] , Ph. 2021-08-21 2021-08-21 Outpatient Fernandez, PRIV PRIV [id number] c-c 00:00:00 00:00:00 Narda [id number] 6838-04-28 2021-08-20 Outpatient GC_BAHC_Tod PRIV PRIV 239 [id number] [facility] 05:49:00 05:49:00 d_J [id number] Medica l 2021-08-20 2021-08-20 Luciano Madrid [facility] 28 [facility] 00:00:00 00:00:00 Tete [facility] gloria DIAS: [address] [place] [address] , Ph. 2021-08-20 2021-08-20 Outpatient Tete PRIV PRIV [id number] 00:00:00 00:00:00 Luciano Benderne cca-11ec-a [id number] 2021-08-19 2021-08-19 Outpatient GC_BAHC_Tod PRIV PRIV 239 [id number] [facility] 11:39:00 11:39:00 d_J [id number] Medica l 2021-08-13 2021-08-13 Outpatient GC_BAHC_Tod PRIV PRIV 239 [id number] [facility] 01:01:00 01:01:00 d_J [id number] Medica l 2021-08-12 2021-08-12 Outpatient GC_BAHC_Tod PRIV PRIV 239 [id number] [facility] 12:54:00 12:54:00 d_J [id number] Medica l 2021-08-11 2021-08-11 Outpatient GC_BAHC_Tod PRIV PRIV 239 [id number] [facility] 01:10:00 01:10:00 d_J [id number] Medica l 2021-08-11 2021-08-11 Outpatient Fernandez, PRIV PRIV [id number] 6-c 00:00:00 00:00:00 Narda [id number] 2021-08-11 2021-08-11 Outpatient Fernandez, PRIV PRIV [id number] c-f 00:00:00 00:00:00 Narda ed7-11ec-8 [id number] 2021-08-11 2021-08-11 [facility] [id number] [facility] 00:00:00 00:00:00 TING Presley: Health - Med ical [address] [place] [address] , Ph. 2021-08-07 2021-08-07 Outpatient GC_BAHC_Tod PRIV PRIV 239 [id number] [facility] 01:13:00 01:13:00 d_J [id number] Medica l 2021-08-06 2021-08-06 Outpatient GC_BAHC_Tod PRIV PRIV 239 [id number] [facility] 11:34:00 11:34:00 d_J [id number] Medica l 2021-08-06 2021-08-06 Outpatient Tete, PRIV PRIV [id number]-c 00:00:00 00:00:00 Lucianotarun Benderne [id number] 2021-08-06 2021-08-06 Outpatient Tete, PRIV PRIV [id number] 00:00:00 00:00:00 Luciano Julius 789-11ed-9 [id number] 2021-08-06 Lucianotarun Benderne [facility] 00:00:00 00:00:00 Tete [facility] - Med ical MD: [address] [place] [address] , Ph. 2021-08-04 2021-08-04 Outpatient GC_BAHC_Tod PRIV PRIV [id number] [facility] 02:21:00 02:21:00 d_J [id number] Medica l 2021-08-04 2021-08-04 Outpatient Fernandez, PRIV PRIV [id number] c-c 00:00:00 00:00:00 Narda [id number]-[id number] 2021-08-04 2021-08-04 Outpatient Frenandez, PRIV PRIV [id number] 2-f 00:00:00 00:00:00 Narda clay3-11ec-9 [id number] 2021-08-04 2021-08-04 Outpatient Fernandez, [facility] PRIV [id number] c-f 00:00:00 00:00:00 Narda clay8-11ec-a [id number] 2021-08-04 2021-08-04 Narda FANG [place] [facility] [id number] [facility] 00:00:00 00:00:00 TING Presley: Health - Med ical 6602 GC_BAHC_[facility] [place] [address] , Ph. 2021-08-03 2021-08-03 Outpatient GC_BAHC_Tod PRIV PRIV [id number] [facility] 03:09:00 03:09:00 d_J [id number] Medica l 2021-07-06 2021-07-06 Emergency [facility] [id number] Univers 19:48:00 23:30:00 SAGE ity o f [facility] 2021-07-06 2021-07-06 Emergency [facility] [id number] Univers 19:48:00 23:30:00 [facility] 350.1.13.10 ity of [place] [phone] [facility] 014 Branch (CLC) 2021-05-13 2021-05-[place] [id number] Memoria 15:34:00 05:59:00 r Psychiatric 76 l s/Psychothe Saskia aj (PSYR) 2021-05-13 2021-05-13 Outpatient Adhia, MHTIRR MHTIRR [id number] 09:34:00 23:59:00 Aurelio Qureshiutam 2021-04-25 2021-04-25 Telephone GODFREY Guadarrama [id number] Univers 00:00:00 00:00:00 Michelle ALAN 350.1.13.10 it y of HOSPITAL 4.2.7.2.686 Gideon as [phone] [place] [address] Branch 2021-04-23 2021-04-23 Outpatient Becka REYNOSO [facility] [id number] Univers 12:45:00 13:03:26 ANURADHA ity of [facility] 2021-04-23 2021-04-23 Laboratory Only, Ang Db Test [facility] 1.2.8 40.114 [id number] Univers 12:45:00 13:00:00 Only Green, Anuradha [employer] 350.1.13.10 ity of [place] 4.2.7.2.686 Gideon as ELO?BLEA [phone] Mn dical [address] MEDICAL OFFICE BUILDING 2021-04-23 2021-04-23 Letter Doctor GODFREY 1.2.840.114 [id number] Univers 00:00:00 00:00:00 (Out) Unassigned, DAYANNA 350.1.13.10 [place] [facility] 4.2.7.2.686 Gideon as [phone] [address] 2021-04-23 2021-04-23 Letter Doctor GODFREY 1.2.840.114 [id number] Univers 00:00:00 00:00:00 (Out) Unassigned, DAYANNA 350.1.13.10 [place]y of [place] [facility] 4.2.7.2.686 Gideon as [phone] [address] 2021-04-06 2021-04-07 Outpt Diag nullFlavo [facility] [id number] Memoria 14:09:00 05:59:00 Services r Outpatient 06 l Jyotsna Barajas 2021-04-06 2021-04-06 Outpatient Esquenazi MHOIH OIH [id number] 08:09:00 23:59:00 Libia Chappell 2021-03-23 2021-03-23 Ambulatory nullFlavo MH Urgent [id number] Memoria 16:50:00 16:50:00 Pre-Reg r Care Clear 01 l Giovanni Barajas 2021-03-23 2021-03-23 Outpatient MHIE MHIE [id number] Memoria 10:50:00 10:50:00 kain Barajas 2021-03-23 2021-03-23 Outpatient MHMG MHMG [id number] 10:50:00 10:50:00 2021-03-10 2021-03-11 Outpatient nullFlavo TR [facility] [id number] Memoria 16:04:00 05:59:00 r Adult BI 69 l (ABIR) Karl 2021-03-10 2021-03-10 Outpatient Sterling, LUZTIRR MHTIRR [id number] 10:04:00 23:59:00 Cheloamos Garcia 69 2020-12-17 2020-12-18 [place] [id number] Memoria 15:43:00 04:59:00 r Psychiatric 70 l s/Psychothe [facility] colette madai (PSYR) 2020-12-17 2020-12-17 Outpatient Adhia, MHTIRR MHTIRR [id number] 10:43:00 23:59:00 Aurelio 70 Quang 2020-12-01 2020-12-01 EXT [facility] OP Esquenazi EXT MSRDP 1.2.840.114 [id number] [place] 00:00:00 00:00:00 Chappell, LOCATION 350.1.13.[address] [facility] Jose Antonio 9.2.7.2.686 [id number] [id number] 2020-12-01 2020-12-01 EXT [facility] OP Esquenazi EXT MSRDP 1.2.840.114 [id number] [place] 00:00:00 00:00:00 Chappell, LOCATION 350.1.13.58 H ealt Jose Antonio 9.2.7.2.686 [id number] [id number] 2020-11-28 2020-11-29 Outpatient nullFlavo TIRR [id number] Memoria 13:00:00 04:59:00 r Memorial 67 l Karl Barajas 2020-11-28 2020-11-28 Outpatient Minda-Gu MHTIRR MHTIRR [id number] 08:00:00 23:59:00 Morteza limaica 2020-10-29 2020-10-30 [place] [id number] Memoria 16:44:00 04:59:00 r Spasticity 63 l [facility] Saskia wheeler (SMCR) 2020-10-29 2020-10-29 Outpatient LUZ KatzTIRR MHTIRR [id number] 11:44:00 23:59:00 Chelo Garcia 63 2020-10-29 2020-10-29 Bedded [facility] [id number] Memoria 12:49:00 16:10:00 Outpatient r Conrad 61 l [facility] 2020-10-29 2020-10-29 Outpatient Sterling [facility] [id number] 07:49:00 11:10:00 Chelo Radha 61 2020-10-29 2020-10-29 Outpatient STERLING [facility] [id number] [facility] 07:49:00 11:10:00 CHELO 2020-10-28 2020-10-29 Outpatient nullFlavo [facility] [id number] Memoria 15:14:00 04:59:00 r Adult BI 66 l [facility] 2020-10-28 2020-10-28 [facility] [id number] 10:14:00 23:59:00 [facility] 66 2020-10-21 2020-10-21 EXT MHH OP Minda EXT MSRDP 1.2.840.114 [id number] [place] 00:00:00 00:00:00 Boogie, LOCATION 350.1.13.58 Health Magy 9.2.7.2.686 [id number] 2020-10-21 2020-10-21 EXT MHH OP Minda EXT MSRDP 1.2.840.114 [id number] [place] 00:00:00 00:00:00 Boogie, LOCATION 350.1.13.58 Health Magy 9.2.7.2.686 [id number] [id number] 2020-10-16 2020-10-16 EXT MHH OP [place], EXT MSRDP 1.2.840.114 [id number] UT 00:00:00 00:00:00 Chelo LOCATION 350.1.13.58 H ealth 9.2.7.2.686 [id number] 2020-10-16 2020-10-16 EXT MHH OP [place], EXT MSRDP 1.2.840.114 [id number] UT 00:00:00 00:00:00 Chelo LOCATION 350.1.13.58 H ealth 9.2.7.2.686 [id number] [id number] 2020-10-07 2020-10-[address] [place] [id number] Memoria 15:35:00 04:59:00 r Psychiatric 65 l s/Psychothe Herm colette aj (PSYR) 2020-10-08 2020-10-08 (TEL) STLMLC STLC [id number] Co mmon 00:00:00 00:00:00 Spirit - [facility] [place] 2020-10-07 2020-10-07 Outpatient Adhia, MHTIRR MHTIRR [id number] 10:35:00 23:59:00 Aurelio 65 Quang 2020-10-06 2020-10-06 EXT MHH OP [place], EXT MSRDP 1.2.840.114 [id number] UT 00:00:00 00:00:00 Chelo LOCATION 350.1.13.58 H ealth 9.2.7.2.686 [id number] 2020-10-06 2020-10-06 EXT MHH OP [place], EXT MSRDP 1.2.840.114 [id number] UT 00:00:00 00:00:00 Chelo LOCATION 350.1.13.58 H ealth 9.2.7.2.686 [id number] 2020-10-02 2020-10-02 EXT MHH OP [place], EXT MSRDP 1.2.840.114 [id number] UT 00:00:00 00:00:00 Chelo LOCATION 350.1.13.58 H ealth 9.2.7.2.686 [id number] 2020-10-02 2020-10-02 EXT MHH OP [place], EXT MSRDP 1.2.840.114 [id number] UT 00:00:00 00:00:00 Chelo LOCATION 350.1.13.58 H ealth 9.2.7.2.686 [id number] 2020-09-11 2020-09-12 Outpatient nullFlavo TIRR [id number] Memoria 13:00:00 04:59:00 r Memorial 64 l Karl Barajas 2020-09-11 2020-09-11 Outpatient Minda-Gu MHTIRR MHTIRR [id number] 08:00:00 23:59:00 Heide lima Magy 2020-09-09 2020-09-09 EXT [facility] OP Minda EXT MSRDP 1.2.840.114 [id number] [place] 00:00:00 00:00:00 Boogie, LOCATION 350.1.13.58 Health Magy 9.2.7.2.686 [id number] 2020-09-09 2020-09-09 EXT [facility] OP Minda EXT MSRDP 1.2.840.114 [id number] NE 00:00:00 00:00:00 Keagan, LOCATION 350.1.13.58 Health Magy 9.2.7.2.686 [id number] 2020-08-08 2020-08-09 Outpatient nullFlavo TR Baclofen [id number] Memoria 15:06:00 04:59:00 r Related 62 l (BACR) Karl 2020-08-08 2020-08-08 Outpatient LUZ KatzTIRBecka MHTIRR [id number] 10:06:00 23:59:00 Chelo Garcia 62 2020-07-29 2020-07-30 [place] [id number] Memoria 13:42:00 04:59:00 r Psychiatric 60 l s/Psychothe Saskia aj (PSYR) 2020-07-29 2020-07-29 Outpatient Burke, MHTIRR MHTIRR [id number] 08:42:00 23:59:00 Aurelio 60 Quang 2020-07-25 2020-07-25 [facility] [id number] Co mmon 00:00:00 00:00:00 VISIT EST Spir it PT LEVEL 3 - [facility] [place] 2020-07-12 2020-07-12 Outpatient Becka DÍAZ [facility] [id number] Univers 11:35:00 11:35:00 JACQUELINE mcdonald [facility] 2020-07-02 2020-07-03 [place]Fl[place] TR BT- [id number] Memoria 15:30:00 05:59:00 r Adult BI 57 l (ABIR) Karl 2020-07-02 2020-07-02 Outpatient [place] farleyTIRBecka MHTIRR [id number] 09:30:00 23:59:00 Chelo Radha 57 2020-06-13 2020-06-13 OL DIG E/M STLMLC STLMLC [id number] Common 00:00:00 00:00:00 [facility] 03-14 Spir it MIN - [facility] [place] 2020-05-28 2020-05-29 Outpatient nullFlavo TIRR [id number] Memoria 14:00:00 05:59:00 r Memorial 58 l Karl Karl 2020-05-28 2020-05-28 Outpatient MindaGiuseppe MHTIRR MHTIRR [id number] 08:00:00 23:59:00 Kristie lima 2020-05-23 2020-05-23 OFFICE STLMLC STLMLC [id number] Co mmon 00:00:00 00:00:00 VISIT EST Spir it PT LEVEL 3 - [facility] [place] 2020-05-21 2020-05-21 OL DIG E/M STLMLC STLMLC [id number] Common 00:00:00 00:00:00 [facility] 03-14 Spir it MIN - [facility] [place] 2020-05-09 2020-05-09 (TEL) STLMLC STLMLC [id number] Co mmon 00:00:00 00:00:00 Spirit - [facility] [place] 2020-05-08 2020-05-08 OFFICE STLMLC STLMLC [id number] Co mmon 00:00:00 00:00:00 VISIT EST Spir it PT LEVEL 3 - [facility] [place] 2020-04-21 2020-04-21 (TEL) STLMLC STLMLC [id number] Co mmon 00:00:00 00:00:00 Spirit - [facility] [place] 2020-04-07 2020-04-07 OFFICE STLMLC STLMLC [id number] Co mmon 00:00:00 00:00:00 VISIT Spirit ESTAB PT - [facility] LEVEL 4 [facility] [place] 2020-04-03 2020-04-03 (TEL) STLMLC STLC [id number] Co mmon 00:00:00 00:00:00 [facility] 2020-04-01 2020-04-02 Outpatient nullFlavo TR BT- [id number] Memoria 15:32:00 05:59:00 r Adult BI 53 l (ABIR) Karl 2020-04-01 2020-04-01 Outpatient [place], MHTIRR MHTIRR [id number] 09:32:00 23:59:00 Chelo Garcia 53 2020-03-27 2020-03-27 (TEL) STLMLC STLC [id number] Co mmon 00:00:00 00:00:00 [facility] 2020-03-05 2020-03-06 Outpatient nullFlavo TR Neuro [id number] Memoria 20:49:00 05:59:00 r Rehab 50 l Gardenia Barajas (NR) 2020-03-05 2020-03-05 Outpatient Tallavajhul MHTIRR MHTIRR [id number] 14:49:00 23:59:00 a, Janell 50 Case 2020-02-22 2020-02-23 Outpatient nullFlavo TIRR [id number] Memoria 13:00:00 04:59:00 r Memorial 54 l Karl Barajas 2020-02-22 2020-02-22 Outpatient Minda-Gu MHTIRR MHTIRR [id number] 08:00:00 23:59:00 Sarah lima 2020-01-25 2020-01-26 Outpatient nullFlavo TIRR [id number] Memoria 13:00:00 04:59:00 r Memorial 52 l Karl Karl 2020-01-25 2020-01-25 Outpatient Minda-Gu MHTIRR MHTIRR [id number] 08:00:00 23:59:00 Suellen lima 2020-01-07 2020-01-07 Out[facility] [id number] Common 11:40:00 11:40:00 [employer] [facility] it [facility] 2020-01-01 2020-01-02 Outpatient nullFlavo TR - [id number] Memoria 15:56:00 04:59:00 r Adult BI 44 l (ABIR) Conrad 2020-01-01 2020-01-01 Outpatient Sterling MHTIRR MHTIRR [id number] 10:56:00 23:59:00 Chelo Garcia 44 2019-12-28 2019-12-29 Outpatient nullFlavo TIRR [id number] Memoria 13:00:00 04:59:00 r Memorial 51 l Conrad Conrad 2019-12-28 2019-12-28 Outpatient Minda-Gu MHTIRR MHTIRR [id number] 08:00:00 23:59:00 Homer lima 2019-12-25 2019-12-26 Outpt Diag nullFlavo [facility] [id number] Memoria 18:21:00 04:59:00 Services r Outpatient 04 l Imaging - [place] 2019-12-25 2019-12-25 Outpatient LUZ KatzHOIP MHHOIP [id number] 13:21:00 23:59:00 Chelo Garcia 04 2019-12-18 2019-12-19 [place] [id number] Memoria 13:02:00 04:59:00 r Psychiatric 51 l s/Psychothe Herm colette rapy (PSYR) 2019-12-18 2019-12-18 Outpatient Adhia, MHTIRR MHTIRR [id number] 08:02:00 23:59:00 Aurelio 51 Quang 2019-12-06 2019-12-07 Outpatient nullFlavo TR [facility] [id number] Memoria 13:01:00 04:59:00 r Rehab 49 l Clinic Conrad (NRCR) 2019-12-06 2019-12-06 Outpatient Tallavasilviohul MHTIRR MHTIRR [id number] 08:01:00 23:59:00 Janell howe 47 Case 2019-11-30 2019-12-01 Outpatient nullFlavo TIRR [id number] Memoria 13:00:00 04:59:00 r Memorial 46 l Conrad Karl 2019-11-30 2019-11-30 Outpatient Minda-Gu MHTIRR MHTIRR [id number] 08:00:00 23:59:00 Denis lima 2019-11-02 2019-11-03 Outpatient nullFlavo TIRR [id number] Memoria 13:00:00 04:59:00 r Memorial 45 l Karl Conrad 2019-11-02 2019-11-02 Outpatient Minda-Gu MHTIRR MHTIRR [id number] 08:00:00 23:59:00 almamak 43 Magy 2019-10-31 2019-11-01 Outpatient nullFlavo TR BT- [id number] Memoria 17:19:00 04:59:00 r Adult BI 41 l (ABIR) Conrad 2019-10-31 2019-10-31 Outpatient [place], MHTIRR MHTIRR [id number] 12:19:00 23:59:00 Chelo Garcia 41 2019-10-05 2019-10-06 Outpatient nullFlavo TIRR [id number] Memoria 13:00:00 04:59:00 r Memorial 44 l [facility] 2019-10-05 2019-10-05 Outpatient Minda- MHTIRR MHTIRR [id number] 08:00:00 23:59:00 Yudi limaica 2019-10-04 2019-10-04 Outpatient [facility] [id number] Common 09:21:00 09:21:00 t [employer] [facility] [employer] [facility] 2019-10-01 2019-10-01 Outpatient [facility] [id number] Common 15:00:00 15:00:00 t Specialty/U Sp saulo Specialty rology - [facility] 2019-09-12 2019-09-13 [place] [id number] Memoria 19:08:00 04:59:00 r Psychiatric 40 l s/Psychothe Herm colette rapy (PSYR) 2019-09-12 2019-09-12 Outpatient Adhia, MHTIRR MHTIRR [id number] 14:08:00 23:59:00 Aurelio 38 Quang 2019-08-30 2019-08-30 Outpatient [facility] [id number] Common 14:45:00 14:45:00 t Specialty/U Sp saulo Specialty rology - [facility] /[facility] 2019-08-27 2019-08-27 Outpatient [facility] 30 [id number] Common 08:55:00 08:55:00 t Specialty/U Sp saulo Specialty rology - [facility] /[facility] 2019-07-30 2019-07-30 Outpatient [facility] [id number] Common 15:40:00 15:40:00 [place] [address] [facility] 2019-07-27 2019-07-27 Outpatient [facility] [id number] Common 15:19:00 15:19:00 [place] Sp[place] [address] [facility] 2019-06-29 2019-06-30 Outpatient nullFlavo TIRR [id number] Memoria 14:00:00 05:59:00 r Memorial 39 l Karl Barajas 2019-06-29 2019-06-29 Outpatient Minda-Gu MHTIRR MHTIRR [id number] 08:00:00 23:59:00 Georgette lima Magy 2019-06-26 2019-06-27 [place] [id number] Memoria 22:03:00 05:59:00 r Psychiatric 38 l s/Psychothe Herm colette rapy (PSYR) 2019-06-26 2019-06-26 Outpatient Adhia, MHTIRR MHTIRR [id number] 16:03:00 23:59:00 Aurelio 36 Quang 2019-06-01 2019-06-02 Outpatient nullFlavo TIRR [id number] Memoria 14:00:00 05:59:00 r Memorial 36 l Karl Karl 2019-06-01 2019-06-01 Outpatient Minda-Gu MHTIRR MHTIRR [id number] 08:00:00 23:59:00 janie 34 Magy 2019-05-24 2019-05-24 Out[facility] [id number] Common 10:22:00 10:22:00 [place] Sp[address] [place] [address] [facility] 2019-05-23 2019-05-[place] [id number] Memoria 21:57:00 05:59:00 r Psychiatric 33 l s/Psychothe Herm colette rapy (PSYR) 2019-05-23 2019-05-23 Outpatient Adhia, MHTIRR MHTIRR [id number] 15:57:00 23:59:00 Aurelio 33 Quang 2019-05-09 2019-05-10 Outpatient [place]Flavo TR BT- [id number] Memoria 21:19:00 05:59:00 r Adult BI 28 l (ABIR) Karl 2019-05-09 2019-05-09 Outpatient Minda-Gu MHTIRR MHTIRR [id number] 15:19:00 23:59:00 janie 28 Magy 2019-04-27 2019-04-28 Outpatient nullFlavo TIRR [id number] Memoria 14:00:00 05:59:00 r Memorial 33 l Karl Barajas 2019-04-27 2019-04-27 Outpatient Minda-Gu MHTIRR MHTIRR [id number] 08:00:00 23:59:00 janie 31 Magy 2019-04-24 2019-04-25 [place] [id number] Memoria 19:25:00 05:59:00 r Psychiatric 32 l s/Psychothe Herm colette aj (PSYR) 2019-04-24 2019-04-24 Outpatient Adhia, MHTIRR MHTIRR [id number] 13:25:00 23:59:00 Aurelio 32 Quang 2019-03-30 2019-03-31 Outpatient nullFlavo TIRR [id number] Memoria 14:00:00 05:59:00 r [facility] 20 l Karl Barajas 2019-03-30 2019-03-30 Outpatient Minda-Gu MHTIRR MHTIRR [id number] 08:00:00 23:59:00 janie 20 Magy 2019-03-26 2019-03-26 Out[facility] [id number] Common 15:40:00 15:40:00 t [employer] [facility] 2019-03-16 2019-03-17 Outpatient nullFlavo TIRR [id number] Memoria 16:41:00 05:59:00 r [facility] 32 l Karl Barajas 2019-03-16 2019-03-16 Outpatient Minda-Gu MHTIRR MHTIRR [id number] 10:41:00 23:59:00 janie 32 [facility] 2019-03-02 2019-03-03 Outpatient nullFlavo TIRR [id number] Memoria 14:00:00 05:59:00 r [facility] 19 l Karl Barajas 2019-03-02 2019-03-02 Outpatient Minda-Gu MHTIRR MHTIRR [id number] 08:00:00 23:59:00 janie 19 [facility] 2019-01-31 2019-02-01 [place]Fl[place] TR BT- [id number] Memoria 19:41:00 04:59:00 r Adult BI 13 l (ABIR) Conrad 2019-01-31 2019-01-31 Outpatient Minda-Gu MHTIRR MHTIRR [id number] 14:41:00 23:59:00 janie 15 [facility] 2019-01-26 2019-01-27 Outpatient nullFlavo TIRR [id number] Memoria 13:00:00 04:59:00 r [facility] 17 l Karl Krugerann 2019-01-26 2019-01-26 Outpatient Minda-Gu MHTIRR MHTIRR [id number] 08:00:00 23:59:00 janie 17 [facility] 2019-01-12 2019-01-13 Outpatient nullFlavo TIRR [id number] Memoria 13:00:00 04:59:00 r [facility] 18 l Karl Krugerann 2019-01-12 2019-01-12 Outpatient Minda-Gu MHTIRR MHTIRR [id number] 08:00:00 23:59:00 janie 18 [facility] 2018-11-10 2018-11-11 Outpatient nullFlavo TIRR [id number] Memoria 13:00:00 04:59:00 r [facility] 14 l Karl Krugerann 2018-11-10 2018-11-10 Outpatient Minda-Gu MHTIRR MHTIRR [id number] 08:00:00 23:59:00 janie 14 [facility] 2018-11-02 2018-11-02 Out[facility] [id number] Common 15:40:00 15:40:00 [employer] [facility] 2018-10-27 2018-10-28 [place]Fl[place] BT- [id number] Memoria 19:33:00 04:59:00 r Adult BI 12 l (ABIR) Karl 2018-10-27 2018-10-27 Outpatient Minda-Gu MHTIRR MHTIRR [id number] 14:33:00 23:59:00 Jany lima 2018-10-24 2018-10-24 [facility] [id number] Common 13:54:00 13:54:00 [place] [address] [facility] 2018-10-20 2018-10-20 [facility] [id number] Common 13:32:00 13:32:00 [place] [address] [facility] 2018-10-11 2018-10-11 Out[facility] [id number] Common 15:03:00 15:03:00 [place] [address] [facility] 2018-08-04 2018-09-03 Recurring nullFlavo TIRR [id number] Memoria 12:00:00 04:59:00 r [facility] 00 l Karl Barajas 2018-08-04 2018-09-02 Outpatient Minda-Gu MHTIRR MHTIRR [id number] 07:00:00 23:59:00 Angélica lima 2018-07-21 2018-07-21 [facility] [id number] Common 14:10:00 14:10:00 [place] [address] [facility] 2018-07-21 2018-07-21 [facility] [id number] Common 13:51:00 13:51:00 [place] [address] [facility] 2018-07-19 2018-07-20 Outpatient nullFlavo TR BT- [id number] Memoria 20:01:00 04:59:00 r Adult BI 8 l (ABIR) Karl 2018-07-19 2018-07-19 Outpatient Minda-Gu MHTIRR MHTIRR [id number] 15:01:00 23:59:00 Jacoby lima 2018-06-29 2018-06-[address] [facility] [facility] [id number] [place] 14:30:00 14:30:00 t; DELL MILAGRO Phys ici [facility] 2018-06-06 2018-06-06 [facility] [id number] Common 15:15:00 15:15:00 t [employer] [facility] it Drive [facility] 2018-05-12 2018-05-12 VIELKA Bright Otorhinolar [id number] [place] 15:30:00 15:30:00 t; MILAGRO SHARPE yngology - P hysici [facility] 2018-05-12 2018-05-12 AppointVIELKA Bernstein Otorhinolar 48 [id number] [place] 13:30:00 13:30:00 t; Serene DONAHUE yngology - [facility] Serene DONAHUE [facility] 2018-05-11 2018-05-11 VIELKA May Otorhinolar 48 [id number] [place] 15:00:00 15:00:00 t; CALIN yngology - Phy [facility] 2018-05-09 2018-05-09 [facility] [id number] Common 14:48:00 14:48:00 t [place] [facility] it [facility] 2018-05-03 2018-05-04 [place]patient nullFlavo TR BT- [id number] Memoria 20:11:00 05:59:00 r Adult BI 07 l (ABIR) Karl 2018-05-03 2018-05-03 [id number] 14:11:00 23:59:00 Poornima lima 2018-05-01 2018-05-01 VIELKA Mcconnell Cardiology 48 [id number] [place] 16:45:00 16:45:00 t; Serene Mccann i, ans H, M.D. 2018-04-10 2018-04-10 VIELKA Mcconnell General [id number] [place] 16:00:00 16:00:00 t; Serene Mccann Medicine Physi mattie Kent M.D. 2018-04-06 2018-04-06 Liset SHEARER, [facility] [id number] [place] 14:00:00 14:00:00 t; MANFRED OSCARRADHA Menezestarun nikolainate OSCARII ans 2018-03-31 2018-03-31 Liset ISAIAS, [facility] [id number] [place] 14:30:00 14:30:00 t; Serene DONAHUE Phy sici mattie ESPARZA M.D. 2018-03-29 2018-03-29 Liset CEVALLOS, [facility] [id number] [place] 15:00:00 15:00:00 t; mattie Boss i 2018-03-20 2018-03-20 [facility] [id number] Common 14:15:00 14:15:00 t [employer] [facility] [employer] [facility] 2018-03-09 2018-03-10 Emergency nullFlavo [facility] [id number] Memoria 20:36:00 03:49:00 r Conrad [address] [place] [address] 2018-03-09 2018-03-09 Outpatient Seun [facility] [id number] 14:36:00 21:49:00 Maia Colette 08 2018-01-26 2018-01-26 PreReg nullFlavo TR Internal [id number] Memoria 19:15:00 19:15:00 r Medicine 06 l (INMR) Conrad 2018-01-26 2018-01-26 Outpatient Moon, MHTIRR TIRR [id number] 14:15:00 14:15:00 Arpita Alford 06 2018-01-25 2018-01-26 Outpatient nullFlavo TR - [id number] Memoria 18:14:00 04:59:00 r Adult BI 04 l (ABIR) Conrad 2018-01-25 2018-01-25 Outpatient Minda-Gu MHTIRR MHTIRR [id number] 13:14:00 23:59:00 Carroll lima 2018-01-09 2018-01-09 VIELKA Mcconnell [facility] [id number] [place] 16:00:00 16:00:00 t; Serene Mccann i, ans H, M.D. 2018-01-09 2018-01-09 Out[facility] [id number] Common 09:15:00 09:15:[address] [employer] [address] [facility] 2017-12-05 2017-12-05 Bedded nullFlavo [facility] [id number] Memoria 14:32:00 21:13:00 Outpatient r Conrad 05 [facility] 2017-12-05 2017-12-05 Outpatient [place], [facility] [id number] 09:32:00 16:13:00 [facility] 05 [facility] 2017-11-30 2017-11-30 Bedded nullFlavo [facility] [id number] Memoria 14:30:00 14:30:00 Outpatient r Conrad 03 [facility] 2017-11-30 2017-11-30 Outpatient [place], [facility] [id number] 09:30:00 09:30:[address] 2017-11-25 2017-11-26 Outpatient nullFlavo [facility] [id number] Memoria 13:00:00 04:59:00 r [facility] 01 [facility] 2017-11-25 2017-11-25 Outpatient Italia, MHTIRR TIR [id number] 08:00:00 23:59:00 Fabiolla Lul Diogenes 2017-11-09 2017-11-10 Outpt Diag nullFlavo [facility] [id number] Memoria 21:43:00 04:59:00 Services r [facility] 03 [facility] 2017-11-09 2017-11-09 [facility]patient Tastard[facility] [id number] 16:43:00 23:59:00 Antonette Etta 2017-11-09 2017-11-09 Outpatient Tastard[facility] [id number] 16:43:00 23:59:00 Antonette Etta 2017-10-24 2017-10-24 VIELKA Bright UTP [id number] [place] 09:30:00 09:30:00 t; MILAGRO SHARPE ans 2017-10-24 2017-10-24 VIELKA Fisher UTP [id number] [place] 09:15:00 09:15:00 t; Serene DONAHUE ans JOHN, M.D. 2017-10-18 2017-10-19 Research nullFlavo HS [id number] Memoria 13:22:00 04:59:00 Patient r Outpatient 02 l Imaging Karl Conrad 2017-10-18 2017-10-18 Outpatient Michael Mullins MHOIH MHOI [id number] 08:22:00 23:59:00 Berhane 02 2017-10-18 2017[facility]TP UTP [id number] [place] 10:00:00 10:00:00 t; PROVIDER ysici RADIOLOGY, ans PROVIDER 2017-10-07 2017-10-08 [place] [id number] Memoria 15:31:00 04:59:00 Services r Outpatient 01 l Imaging [facility] 2017-10-07 2017-10-07 Outpatient Ever MHOIH MHOIH [id number] 10:31:00 23:59:00 Antonette Etta 2017-09-22 2017-09-23 Outpatient nullFlavo MNA [id number] Memoria 16:15:00 04:59:59 r Neurosurger 00 l y [facility] 2017-09-21 2017-09-23 Phone nullFlavo MNA [id number] Memoria 21:32:00 04:59:59 Message r Neurosurger 01 l y [facility] 2017-09-22 2017-09-23 [place] [id number] Memoria 15:13:00 04:59:00 Services r Outpatient 00 l Imaging [facility] 2017-09-22 2017-09-22 Outpatient Esquenazi MHMISCHER MHMISCHER [id number] 11:15:00 23:59:59 Tyler nAgélica Jose Antonio 2017-09-21 2017-09-22 Outpatient MHMISCHER MHMISCHER [id number] 16:32:00 23:59:59 2017-09-22 2017-09-22 Outpatient David MHOIH MHOIH [id number] 10:13:00 23:59:00 Timbo Briseno 00 2017-09-22 2017-09-22 Outpatient MHIE MHIE [id number] Memoria 11:15:00 11:15:00 00 kain Conrad 2017-09-04 2017-09-05 Inpatient Meghao [facility] [id number] Memoria 19:22:00 22:45:00 r Karl 02 l [facility] 2017-09-04 2017-09-05 Outpatient Jessie [facility] [id number] 14:22:00 17:45:00 Gibson Lee 2017-07-23 2017-08-12 Inpatient nullFlavo [facility] [id number] Memoria 02:42:00 16:30:00 Rehab r [facility] 00 l [facility] 2017-07-22 2017-08-12 Outpatient Italia, [facility] [id number] 21:42:00 11:30:00 Fabarturo Shetty 2017-07-13 2017-07-23 Inpatient Loyd [facility] [id number] Memoria 23:10:00 02:20:00 r Conrad 65 l [facility] 2017-07-13 2017-07-22 Outpatient Casey [facility] [id number] 18:10:00 21:20:00 Edmudn Chappell Results Test Description Test Time Test Comments Results Result Comments Source CHEM PANEL 2019-10-31 20:37:00 Test Item Value Reference Range Interpretation Comme nts Glucose Lvl (test code = Glucose Lvl) 102 70-99 [facility] [id number] 20:37:00 Test Item Value Reference Range Interpretation Comments BUN (test code = BUN) 18 7-22 [facility] [id number] 20:37:00 Test Item Value Reference Range Interpretation Comments Creatinine Lvl (test code = Creatinine 0.97 0.50-1.40 Lvl) [facility] [id number] 20:37:00 Test Item Value Reference Range Interpretation Comments Sodium Lvl (test code = Sodium Lvl) 140 135-145 [facility] [id number] 20:37:00 Test Item Value Reference Range Interpretation Comments Potassium Lvl (test code = Potassium 3.8 3.5-5.1 Lvl) [facility] [id number] 20:37:00 Test Item Value Reference Range Interpretation Comments Chloride Lvl (test code = Chloride Lvl) 106 95-109 [facility] [id number] 20:37:00 Test Item Value Reference Range Interpretation Comments CO2 (test code = CO2) 23 24-32 [facility] [id number] 20:37:00 Test Item Value Reference Range Interpretation Comments Calcium Lvl (test code = Calcium Lvl) 9.0 8.5-10.5 [facility] [id number] 20:37:00 Test Item Value Reference Range Interpretation Comments Total Protein (test code = Total 7.9 6.4-8.4 Protein) [facility] [id number] 20:37:00 Test Item Value Reference Range Interpretation Comments Albumin Lvl (test code = Albumin Lvl) 3.9 3.5-5.0 [facility] [id number] 20:37:00 Test Item Value Reference Range Interpretation Comments ALT (test code = ALT) 25 See_Comment [Auto mated message] The system which ge nerated this result transmit kristy reference range : <=65. The reference range was not used to interpr et this result as maranda l/abnormal. [facility] [id number] 20:37:00 Test Item Value Reference Range Interpretation Comments AST (test code = AST) 23 See_Comment [Auto mated message] The system which ge nerated this result transmit kristy reference range : <=37. The reference range was not used to interpr et this result as maranda l/abnormal. [facility] [id number] 20:37:00 Test Item Value Reference Range Interpretation Comments Alk Phos (test code = Alk Phos) 39 39-136 [facility] [id number] 20:37:00 Test Item Value Reference Range Interpretation Comments Bili Total (test code = Bili Total) 0.4 0.2-1.3 [facility] [id number] 20:37:00 Test Item Value Reference Range Interpretation Comments AGAP (test code = AGAP) 14.8 10.0-20.0 [facility] [id number] 20:37:00 Test Item Value Reference Range Interpretation Comments B/C Ratio (test code = B/C Ratio) 19 1 6-25 [facility] [id number] 20:37:00 Test Item Value Reference Range Interpretation Comments Globulin (test code = Globulin) 4.0 2.7-4.2 [facility] [id number] 20:37:00 Test Item Value Reference Range Interpretation Comments A/G Ratio (test code = A/G Ratio) 1.0 1 0.7-1.6 [facility] [id number] 20:37:00 Test Item Value Reference Range Interpretation Comments eGFR (test code = eGFR) 78 [facility]ct[facility]ifIORIYWZICNEQC0749-89-72 20:37:00 Test Item Value Reference Range Interpretation Comments Prolactin Lvl (test code = Prolactin 4.2 Lvl) [facility] HospitalMvafdxwSVOZGPVHWT7281-31-62 20:37:00 Test Item Value Reference Range Interpretation Comments Segs (test code = Segs) 56.9 45.0-75.0 [facility] HospitalAuqbgevPTLUTQPCUZ2674-25-56 20:37:00 Test Item Value Reference Range Interpretation Comments Lymphocytes (test code = Lymphocytes) 35.7 20.0-40.0 [facility] HospitalJfurfktHHOSTMEBJG2171-91-18 20:37:00 Test Item Value Reference Range Interpretation Comments Monocytes (test code = Monocytes) 5.4 2.0-12.0 [facility] HospitalXnlpnhoYZGWVUQZZG2990-55-57 20:37:00 Test Item Value Reference Range Interpretation Comments Eosinophils (test code = 1.8 See_Comment [A utomated message] The Eosinophils) system which ge nerated this result tra nsmitted reference range : <=4.0. The reference r abigail was not used to int erpret this result as normal/abnormal . [facility] HospitalDhvqxenKRRJKZSBNS8356-12-49 20:37:00 Test Item Value Reference Range Interpretation Comments Basophils (test code = 0.2 See_Comment [Aut omated message] The Basophils) system which ge nerated this result tra nsmitted reference range : <=1.0. The reference r abigail was not used to int erpret this result as normal/abnormal . [facility] HospitalKjrecceKENMXMWWEK3004-04-47 20:37:00 Test Item Value Reference Range Interpretation Comments Neutrophils # (test code = Neutrophils 4.1 1.5-8.1 #) [facility] HospitalXqktdrjIVGEKSISYU9956-47-48 20:37:00 Test Item Value Reference Range Interpretation Comments Lymphocytes # (test code = Lymphocytes 2.6 1.0-5.5 #) [facility] HospitalBgagxcsMMMJAWVLJG6338-81-75 20:37:00 Test Item Value Reference Range Interpretation Comments Monocytes # (test code 0.4 See_Comment [Aut omated message] The = Monocytes #) system which generated this result tra nsmitted reference range : <=0.8. The reference r abigail was not used to int erpret this result as normal/abnormal . [facility] HospitalGnqjgweTQLOKUWNFN8638-42-42 20:37:00 Test Item Value Reference Range Interpretation Comments Eosinophils # (test code 0.1 See_Comment [A utomated message] The = Eosinophils #) system whic h generated this result tra nsmitted reference range : <=0.5. The reference r abigail was not used to int erpret this result as normal/abnormal . [facility] HospitalDuonmyvAKNYNOLZBH6430-62-05 20:37:00 Test Item Value Reference Range Interpretation Comments WBC (test code = WBC) 7.2 3.7-10.4 [facility] HospitalPnqjkpwLVAPYZUYSK5526-28-85 20:37:00 Test Item Value Reference Range Interpretation Comments RBC (test code = RBC) 5.18 4.70-6.10 [facility] HospitalDoaibinPALXXGTDTI1598-57-18 20:37:00 Test Item Value Reference Range Interpretation Comments Hgb (test code = Hgb) 13.8 14.0-18.0 [facility] HospitalPbezkhzRDHXRODSXJ6548-20-05 20:37:00 Test Item Value Reference Range Interpretation Comments Hct (test code = Hct) 42.5 42.0-54.0 [facility] HospitalYoberyeHTJEKUMAPG7163-31-57 20:37:00 Test Item Value Reference Range Interpretation Comments MCV (test code = MCV) 82.1 80.0-94.0 [facility] HospitalXlnkfhhOYVUWWIWCJ5823-52-89 20:37:00 Test Item Value Reference Range Interpretation Comments MCH (test code = MCH) 26.6 pg 27.0-31.0 [facility] HospitalBrvswtaPGCIEUXOSE5676-84-46 20:37:00 Test Item Value Reference Range Interpretation Comments MCHC (test code = MCHC) 32.4 32.0-36.0 [facility] HospitalUvahxueDYVEBOOMNZ0029-69-14 20:37:00 Test Item Value Reference Range Interpretation Comments RDW (test code = RDW) 15.0 11.5-14.5 [facility] HospitalRaytncjZWJXFYRKNP6854-78-68 20:37:00 Test Item Value Reference Range Interpretation Comments Platelet (test code = Platelet) 216 133-450 [facility] HospitalKgxzgetGCJCVAEXPO6538-25-10 20:37:00 Test Item Value Reference Range Interpretation Comments MPV (test code = MPV) 7.9 7.4-10.4 [facility]2019-10-09 22:28:00 Test Item Value Reference Range Interpretation Comments Vitamin B12 Lvl (test code = Vitamin 912 925-2035 B12 Lvl) [facility]2019-10-09 22:28:00 Test Item Value Reference Range Interpretation Comments Folate Lvl (test code = Folate Lvl) 6.1 [facility]2019-10-09 22:28:00 Test Item Value Reference Range Interpretation Comments Glucose Lvl (test code = Glucose Lvl) 97 70-99 [facility]2019-10-09 22:28:00 Test Item Value Reference Range Interpretation Comments BUN (test code = BUN) 18 7-22 [facility]2019-10-09 22:28:00 Test Item Value Reference Range Interpretation Comments Creatinine Lvl (test code = Creatinine 1.01 0.50-1.40 Lvl) [facility]2019-10-09 22:28:00 Test Item Value Reference Range Interpretation Comments Sodium Lvl (test code = Sodium Lvl) 138 135-145 [facility]2019-10-09 22:28:00 Test Item Value Reference Range Interpretation Comments Potassium Lvl (test code = Potassium 3.8 3.5-5.1 Lvl) [facility]2019-10-09 22:28:00 Test Item Value Reference Range Interpretation Comments Chloride Lvl (test code = Chloride Lvl) 108 95-109 [facility]2019-10-09 22:28:00 Test Item Value Reference Range Interpretation Comments CO2 (test code = CO2) 23 24-32 [facility]2019-10-09 22:28:00 Test Item Value Reference Range Interpretation Comments Calcium Lvl (test code = Calcium Lvl) 8.8 8.5-10.5 [facility]2019-10-09 22:28:00 Test Item Value Reference Range Interpretation Comments Total Protein (test code = Total 8.0 6.4-8.4 Protein) [facility]2019-10-09 22:28:00 Test Item Value Reference Range Interpretation Comments Albumin Lvl (test code = Albumin Lvl) 4.1 3.5-5.0 [facility]2019-10-09 22:28:00 Test Item Value Reference Range Interpretation Comments ALT (test code = ALT) 34 See_Comment [Auto mated message] The system which ge nerated this result transmit kristy reference range : <=65. The reference range was not used to interpr et this result as maranda l/abnormal. [facility]2019-10-09 22:28:00 Test Item Value Reference Range Interpretation Comments AST (test code = AST) 24 See_Comment [Auto mated message] The system which ge nerated this result transmit kristy reference range : <=37. The reference range was not used to interpr et this result as maranda l/abnormal. [facility]2019-10-09 22:28:00 Test Item Value Reference Range Interpretation Comments Alk Phos (test code = Alk Phos) 37 39-136 [facility]2019-10-09 22:28:00 Test Item Value Reference Range Interpretation Comments Bili Total (test code = Bili Total) 0.3 0.2-1.3 [facility]2019-10-09 22:28:00 Test Item Value Reference Range Interpretation Comments AGAP (test code = AGAP) 10.8 10.0-20.0 [place] [id number] 22:28:00 Test Item Value Reference Range Interpretation Comments B/C Ratio (test code = B/C Ratio) 18 1 6-25 [facility]2019-10-09 22:28:00 Test Item Value Reference Range Interpretation Comments Globulin (test code = Globulin) 3.9 2.7-4.2 [facility]2019-10-09 22:28:00 Test Item Value Reference Range Interpretation Comments A/G Ratio (test code = A/G Ratio) 1.1 1 0.7-1.6 [facility]2019-10-09 22:28:00 Test Item Value Reference Range Interpretation Comments eGFR (test code = eGFR) 75 [facility]2019-10-09 22:28:00 Test Item Value Reference Range Interpretation Comments Vitamin D, 25-OH, Total (test code = 17.2 30.0-100.0 Vitamin D, 25-OH, Total) [place] [id number] 22:28:00 Test Item Value Reference Range Interpretation Comments Prolactin Lvl (test code = Prolactin 3.4 Lvl) [place] [id number] 22:28:00 Test Item Value Reference Range Interpretation Comments Cortisol (test code = Cortisol) 8.5 [place] [id number] 22:28:00 Test Item Value Reference Range Interpretation Comments Testosterone Tot (test code = 469 Testosterone Tot) [facility] HospitalZitpuheQBLAQAMTTH3098-56-95 22:28:00 Test Item Value Reference Range Interpretation Comments Segs (test code = Segs) 50.0 45.0-75.0 [facility] HospitalIpywsotBKAJXKLLEB8032-75-70 22:28:00 Test Item Value Reference Range Interpretation Comments Lymphocytes (test code = Lymphocytes) 39.5 20.0-40.0 [facility] HospitalIpdnipkAITZKZAWRM7995-55-23 22:28:00 Test Item Value Reference Range Interpretation Comments Monocytes (test code = Monocytes) 7.7 2.0-12.0 [facility] HospitalRpbnpwjNSWTMOHKQG8818-60-14 22:28:00 Test Item Value Reference Range Interpretation Comments Eosinophils (test code = 2.3 See_Comment [A utomated message] The Eosinophils) system which ge nerated this result tra nsmitted reference range : <=4.0. The reference r abigail was not used to int erpret this result as normal/abnormal . [facility] HospitalVpolskaINVJYSNWBM8188-53-53 22:28:00 Test Item Value Reference Range Interpretation Comments Basophils (test code = 0.5 See_Comment [Aut omated message] The Basophils) system which ge nerated this result tra nsmitted reference range : <=1.0. The reference r abigail was not used to int erpret this result as normal/abnormal . [facility] HospitalErggbdwIZATBXOWWW7072-61-69 22:28:00 Test Item Value Reference Range Interpretation Comments Neutrophils # (test code = Neutrophils 3.4 1.5-8.1 #) [facility] HospitalEmoxxzyIFZQFOUKXZ8303-36-68 22:28:00 Test Item Value Reference Range Interpretation Comments Lymphocytes # (test code = Lymphocytes 2.6 1.0-5.5 #) [facility] HospitalLeugmzoXMPIMKNYUW1765-22-15 22:28:00 Test Item Value Reference Range Interpretation Comments Monocytes # (test code 0.5 See_Comment [Aut omated message] The = Monocytes #) system which generated this result tra nsmitted reference range : <=0.8. The reference r abigail was not used to int erpret this result as normal/abnormal . [facility] HospitalFfadjgoKIDKEXSYPG9125-21-54 22:28:00 Test Item Value Reference Range Interpretation Comments Eosinophils # (test code 0.2 See_Comment [A utomated message] The = Eosinophils #) system whic h generated this result tra nsmitted reference range : <=0.5. The reference r abigail was not used to int erpret this result as normal/abnormal . [facility] HospitalXrirnacWCSKFAZXEC4824-60-34 22:28:00 Test Item Value Reference Range Interpretation Comments WBC (test code = WBC) 6.7 3.7-10.4 [facility] HospitalSqhzodqIZQSWYKICG8313-61-24 22:28:00 Test Item Value Reference Range Interpretation Comments RBC (test code = RBC) 5.04 4.70-6.10 [facility] HospitalVsvfsjjHHADLWKBSO7018-54-75 22:28:00 Test Item Value Reference Range Interpretation Comments Hgb (test code = Hgb) 13.7 14.0-18.0 [facility] HospitalQsvwnzfIASLCFJKPO7448-17-34 22:28:00 Test Item Value Reference Range Interpretation Comments Hct (test code = Hct) 41.9 42.0-54.0 [facility] HospitalJqnafglJFCDSJNLEB1260-29-29 22:28:00 Test Item Value Reference Range Interpretation Comments MCV (test code = MCV) 83.1 80.0-94.0 [facility] HospitalOkuqwxiKTUVZYYMSG1982-96-36 22:28:00 Test Item Value Reference Range Interpretation Comments MCH (test code = MCH) 27.3 pg 27.0-31.0 [facility] HospitalNtfpaqqXMGAGASUYU1767-93-50 22:28:00 Test Item Value Reference Range Interpretation Comments MCHC (test code = MCHC) 32.8 32.0-36.0 [facility] HospitalTtvvjgcEQITHVICYX9704-35-44 22:28:00 Test Item Value Reference Range Interpretation Comments RDW (test code = RDW) 14.9 11.5-14.5 [facility] PointeVcjclvdSNKFMKSHHD7281-82-98 22:28:00 Test Item Value Reference Range Interpretation Comments Platelet (test code = Platelet) 228 133-450 [facility] PointeYlovpewTOQVLUYMBJ5125-35-29 22:28:00 Test Item Value Reference Range Interpretation Comments MPV (test code = MPV) 7.8 7.4-10.4 [facility] PointeRzgahduZGQLMYNWTF0900-88-35 22:28:00 Test Item Value Reference Range Interpretation Comments IGF I (test code = IGF I) 119 47-192 [facility] PointeIntegral TechnologiesREFProtAbDOROTHEA DIX [facility] LJSALIP6219-99-90 22:00:00 Test Item Value Reference Range Interpretation Comments Pharmacogenetics Report See Note 1(05/03/18 (test code = 4:00 PM) Pharmacogenetics Report) [facility] [employer] [id number] 21:54:00 Test Item Value Reference Range Interpretation Comments Antibody Scrn (test Negative (03/09/18 code = Antibody Scrn) 3:54 PM) [employer] [id number] 21:54:00 Test Item Value Reference Range Interpretation Comments ABO/Rh (test code = ABO/Rh) A POS [facility] [employer] [id number] 21:07:00 Test Item Value Reference Range Interpretation Comments eGFR (test code = eGFR) 59 [facility] VOSS BZWVW5387-61-11 21:07:00 Test Item Value Reference Range Interpretation Comments Potassium Lvl (test code = Potassium 4.2 3.5-5.1 Lvl) [facility] [employer]2018-11-15 21:07:00 Test Item Value Reference Range Interpretation Comments Chloride Lvl (test code = Chloride Lvl) 104 95-109 [facility] [employer]2018-11-15 21:07:00 Test Item Value Reference Range Interpretation Comments CO2 (test code = CO2) 26 24-32 [employer]2018-11-15 21:07:00 Test Item Value Reference Range Interpretation Comments BUN (test code = BUN) 18 7-22 [employer] [id number] 21:07:00 Test Item Value Reference Range Interpretation Comments Creatinine Lvl (test code = Creatinine 1.24 0.50-1.40 Lvl) [employer]2018-11-15 21:07:00 Test Item Value Reference Range Interpretation Comments Sodium Lvl (test code = Sodium Lvl) 140 135-145 [facility]2018-11-15 21:07:00 Test Item Value Reference Range Interpretation Comments Calcium Lvl (test code = Calcium Lvl) 9.1 8.5-10.5 [facility]2018-11-15 21:07:00 Test Item Value Reference Range Interpretation Comments Glucose Lvl (test code = Glucose Lvl) 186 70-99 [facility]2018-11-15 21:07:00 Test Item Value Reference Range Interpretation Comments AGAP (test code = AGAP) 14.2 10.0-20.0 [facility] HospitalJglvgijZUHVXWUPDI9857-35-96 21:07:00 Test Item Value Reference Range Interpretation Comments PTT (test code = PTT) 29.3 s 22.9-35.8 [facility] HospitalPjjkszhUCUKRPRSUG8982-17-31 21:07:00 Test Item Value Reference Range Interpretation Comments INR (test code = INR) 1.10 1 0.85-1.17 [facility] HospitalLlpihutMELGGGEABO5918-61-49 21:07:00 Test Item Value Reference Range Interpretation Comments PT (test code = PT) 14.2 s 12.0-14.7 [facility] HospitalPkoottiENJVIZZQJJ6675-19-50 21:07:00 Test Item Value Reference Range Interpretation Comments Monocytes # (test code 0.5 See_Comment [Aut omated message] The = Monocytes #) system which generated this result tra nsmitted reference range : <=0.8. The reference r abigail was not used to int erpret this result as normal/abnormal . [facility] HospitalJtmkzsfXSPAYNVHLY5491-59-00 21:07:00 Test Item Value Reference Range Interpretation Comments Lymphocytes # (test code = Lymphocytes 2.4 1.0-5.5 #) [facility] HospitalCxkoiijVZCINKFNKE3103-76-82 21:07:00 Test Item Value Reference Range Interpretation Comments Eosinophils # (test code 0.2 See_Comment [A utomated message] The = Eosinophils #) system whic h generated this result tra nsmitted reference range : <=0.5. The reference r abigail was not used to int erpret this result as normal/abnormal . [facility] HospitalIzntpypUMJUSGPMLN4685-66-77 21:07:00 Test Item Value Reference Range Interpretation Comments Basophils (test code = 0.4 See_Comment [Aut omated message] The Basophils) system which ge nerated this result tra nsmitted reference range : <=1.0. The reference r abigail was not used to int erpret this result as normal/abnormal . [facility] HospitalOsbxsnvLPLWOKQPTL7615-79-24 21:07:00 Test Item Value Reference Range Interpretation Comments Neutrophils # (test code = Neutrophils 3.7 1.5-8.1 #) [facility] HospitalSdacuftCZJDOCMLTW5078-72-55 21:07:00 Test Item Value Reference Range Interpretation Comments Eosinophils (test code = 2.4 See_Comment [A utomated message] The Eosinophils) system which ge nerated this result tra nsmitted reference range : <=4.0. The reference r abigail was not used to int erpret this result as normal/abnormal . [facility] HospitalZfyfjbyNANIDRCTIT6343-41-73 21:07:00 Test Item Value Reference Range Interpretation Comments Monocytes (test code = Monocytes) 7.1 2.0-12.0 [facility] HospitalIcceruiFRSXNTEQZZ7978-42-33 21:07:00 Test Item Value Reference Range Interpretation Comments Segs (test code = Segs) 55.0 45.0-75.0 [facility] HospitalMxnrayuLJZXACSQFZ7001-95-59 21:07:00 Test Item Value Reference Range Interpretation Comments Lymphocytes (test code = Lymphocytes) 35.1 20.0-40.0 [facility] HospitalHngugrzKQDSFOXKJR3741-07-94 21:07:00 Test Item Value Reference Range Interpretation Comments G-value Rapid (test code = G-value 8.0 5.0-11.6 Rapid) [facility] HospitalOdwyswfOSOVNFDSDL5930-68-34 21:07:00 Test Item Value Reference Range Interpretation Comments Estimated % Lysis Rapid 0.8 See_Comment [Au tomated message] The (test code = Estimated syste m which generated % Lysis Rapid) this result t ransmitted reference range : <=7.5. The reference r abigail was not used to int erpret this result as normal/abnormal . [facility] HospitalQdjovmsWTCKKXTPDE2396-37-83 21:07:00 Test Item Value Reference Range Interpretation Comments Max Amplitude Rapid (test code = Max 61 mm 52-71 Amplitude Rapid) [facility] HospitalCzavgzkOJQKMWSJZV7883-43-19 21:07:00 Test Item Value Reference Range Interpretation Comments Split Point Rapid (test code = Split 0.5 min Point Rapid) [facility] HospitalYxpchupPHOWGHBNBK3956-90-02 21:07:00 Test Item Value Reference Range Interpretation Comments Angle Rapid (test code = Angle 71 degrees 64-80 Rapid) [facility] HospitalNfhmnxjVFUMSYBLDF0499-29-53 21:07:00 Test Item Value Reference Range Interpretation Comments K-time Rapid (test code = K-time 1.5 min 0.6-2.3 Rapid) [facility] HospitalXbmfgpvGHDCVBYYVK8603-14-45 21:07:00 Test Item Value Reference Range Interpretation Comments R-time Rapid (test code = R-time 0.7 min 0.4-0.7 Rapid) [facility] HospitalVsdjhnkTXYCPTBCDO5115-02-50 21:07:00 Test Item Value Reference Range Interpretation Comments ACT (TEG) Rapid (test code = ACT (TEG) 113 s 86-118 Rapid) [facility] HospitalAuakvvvVGGXTCBACD6638-01-29 21:07:00 Test Item Value Reference Range Interpretation Comments MPV (test code = MPV) 7.5 7.4-10.4 [facility] HospitalDcwwulvYFOKEVRMXW3009-34-35 21:07:00 Test Item Value Reference Range Interpretation Comments MCH (test code = MCH) 27.4 pg 27.0-31.0 [facility] HospitalDnjmrqrKJONWGTIAG3951-15-14 21:07:00 Test Item Value Reference Range Interpretation Comments MCHC (test code = MCHC) 33.5 32.0-36.0 [facility] HospitalAapitouSTBZCOSCCS1191-97-90 21:07:00 Test Item Value Reference Range Interpretation Comments Platelet (test code = Platelet) 236 133-450 [facility] HospitalJanpjdfRYHVHSNOHT3663-62-00 21:07:00 Test Item Value Reference Range Interpretation Comments RDW (test code = RDW) 17.2 11.5-14.5 [facility] HospitalHttdwapLTWSFSNEKD1519-27-43 21:07:00 Test Item Value Reference Range Interpretation Comments MCV (test code = MCV) 81.6 80.0-94.0 [facility] HospitalSpgrodeXRPQUZEAEX9963-81-55 21:07:00 Test Item Value Reference Range Interpretation Comments RBC (test code = RBC) 5.07 4.70-6.10 [facility] HospitalEzhajpwHNPHAGBBOA8510-10-47 21:07:00 Test Item Value Reference Range Interpretation Comments Hgb (test code = Hgb) 13.9 14.0-18.0 [facility] HospitalBltyyvmRDPDHUXGYC7760-02-68 21:07:00 Test Item Value Reference Range Interpretation Comments Hct (test code = Hct) 41.4 42.0-54.0 [facility] HospitalNvlszjmZMHHWXLSQI6936-64-54 21:07:00 Test Item Value Reference Range Interpretation Comments WBC (test code = WBC) 6.8 3.7-10.4 [facility] HospitalVamfqxjLFRHBDSLQK1132-29-56 15:07:00 Test Item Value Reference Range Interpretation Comments INR (test code = INR) 1.15 1 0.85-1.17 [facility] HospitalQgwcuszCJPWUROOAB5726-79-19 15:07:00 Test Item Value Reference Range Interpretation Comments PT (test code = PT) 14.7 s 12.0-14.7 [facility] HospitalTzktkzbJCPTIAEIJX4302-66-75 15:07:00 Test Item Value Reference Range Interpretation Comments PTT (test code = PTT) 29.5 s 22.9-35.8 [facility] HospitalYgnqxphCBEAPKBATT0605-35-04 09:56:00 Test Item Value Reference Range Interpretation Comments PT (test code = PT) 16.1 s 12.0-14.7 [facility] HospitalQohlknmHRLMTNKLJU6495-09-06 09:56:00 Test Item Value Reference Range Interpretation Comments INR (test code = INR) 1.28 1 0.85-1.17 [facility] HospitalJqabvdwBRUFEPMJCW0766-48-41 09:56:00 Test Item Value Reference Range Interpretation Comments Estimated % Lysis Rapid 0.4 See_Comment [Au tomated message] The (test code = Estimated syste m which generated % Lysis Rapid) this result t ransmitted reference range : <=7.5. The reference r abigail was not used to int erpret this result as normal/abnormal . [facility] HospitalNkgoemxWXCNYGSKPA5393-35-88 09:56:00 Test Item Value Reference Range Interpretation Comments G-value Rapid (test code = G-value 9.7 5.0-11.6 Rapid) [facility] HospitalOlwxpotGMZQHMUNYO0806-02-91 09:56:00 Test Item Value Reference Range Interpretation Comments Max Amplitude Rapid (test code = Max 66 mm 52-71 Amplitude Rapid) [facility] HospitalQkayykqNAKTLSQNPJ0301-31-97 09:56:00 Test Item Value Reference Range Interpretation Comments R-time Rapid (test code = R-time 0.4 min 0.4-0.7 Rapid) [facility] HospitalBqvjolxMXCYQGNDNV3184-04-26 09:56:00 Test Item Value Reference Range Interpretation Comments Split Point Rapid (test code = Split 0.2 min Point Rapid) [facility] HospitalQusdmvcDREWPNOWPP5748-81-17 09:56:00 Test Item Value Reference Range Interpretation Comments Angle Rapid (test code = Angle 77 degrees 64-80 Rapid) [address]05-14 09:56:00 Test Item Value Reference Range Interpretation Comments K-time Rapid (test code = K-time 1.0 min 0.6-2.3 Rapid) [facility] HospitalNknfcbaZPLZASVIQH9108-84-68 09:56:00 Test Item Value Reference Range Interpretation Comments ACT (TEG) Rapid (test code = ACT (TEG) 89 s 86-118 Rapid) [facility]2018-05-13 23:48:00 Test Item Value Reference Range Interpretation Comments Lactic Acid Lvl (test code = Lactic 1.2 0.5-2.2 Acid Lvl) [facility] HospitalGvqvtovCFRMWICKBM4898-36-33 23:48:00 Test Item Value Reference Range Interpretation Comments Estimated % Lysis Rapid 0.3 See_Comment [Au tomated message] The (test code = Estimated syste m which generated % Lysis Rapid) this result t ransmitted reference range : <=7.5. The reference r abigail was not used to int erpret this result as normal/abnormal . [facility] HospitalPjudbjeEUBQXPXWGP8886-66-04 23:48:00 Test Item Value Reference Range Interpretation Comments Max Amplitude Rapid (test code = Max 66 mm 52-71 Amplitude Rapid) [facility] HospitalYdnzndpUJAUAAJAZU4066-70-40 23:48:00 Test Item Value Reference Range Interpretation Comments G-value Rapid (test code = G-value 9.9 5.0-11.6 Rapid) [facility] HospitalUdssgpiQEYFLYJLEJ5946-36-56 23:48:00 Test Item Value Reference Range Interpretation Comments ACT (TEG) Rapid (test code = ACT (TEG) 128 s 86-118 Rapid) [place] [address]-05-13 23:48:00 Test Item Value Reference Range Interpretation Comments Angle Rapid (test code = Angle 78 degrees 64-80 Rapid) [facility] HospitalIcnlkdiSAOBBWRIQP3953-08-82 23:48:00 Test Item Value Reference Range Interpretation Comments R-time Rapid (test code = R-time 0.8 min 0.4-0.7 Rapid) [facility] HospitalXbmwxvpUUVEAJCVPT2221-94-48 23:48:00 Test Item Value Reference Range Interpretation Comments Split Point Rapid (test code = Split 0.8 min Point Rapid) [facility] HospitalNnmmrziBVMOPTKZWL5952-54-68 23:48:00 Test Item Value Reference Range Interpretation Comments K-time Rapid (test code = K-time 0.9 min 0.6-2.3 Rapid) [facility] IUADZLA8590-66-65 22:31:00 Test Item Value Reference Range Interpretation Comments FFP product (test code Product available = FFP product) (09/04/17 5:31 PM) [facility]ThianhtSZVVFRSTKJVA2382-52-40 21:00:00 Test Item Value Reference Range Interpretation Comments AGAP (test code = AGAP) 14.9 10.0-20.0 [facility]WestAtghierTPTPHVFCOCYM8859-52-00 21:00:00 Test Item Value Reference Range Interpretation Comments eGFR (test code = eGFR) 76 [facility]WestJputsyePRUVDHGYUVAN2849-59-06 21:00:00 Test Item Value Reference Range Interpretation Comments Calcium Lvl (test code = Calcium Lvl) 8.7 8.5-10.5 [facility]WestDmdqciaEMXBMAAINJWM7758-29-90 21:00:00 Test Item Value Reference Range Interpretation Comments Chloride Lvl (test code = Chloride Lvl) 104 95-109 [facility]WestCcamyswOURLNZUTSVET9745-66-68 21:00:00 Test Item Value Reference Range Interpretation Comments CO2 (test code = CO2) 23 24-32 [facility]WestEqkfpupWYQNYFDECUYW8512-76-30 21:00:00 Test Item Value Reference Range Interpretation Comments Glucose Lvl (test code = Glucose Lvl) 191 70-99 [facility]WestFhwtxsmUAEMFPVJAGJB5705-26-77 21:00:00 Test Item Value Reference Range Interpretation Comments BUN (test code = BUN) 16 7-22 [facility]WestMsyvyrpWTAHVQWZDZTX1135-03-19 21:00:00 Test Item Value Reference Range Interpretation Comments Sodium Lvl (test code = Sodium Lvl) 138 135-145 [facility]WestDrmujwhIRKSSGETQOCN4012-52-92 21:00:00 Test Item Value Reference Range Interpretation Comments Potassium Lvl (test code = Potassium 3.9 3.5-5.1 Lvl) [facility]inteHkoyqvuOKIKMZHUEIHR1095-23-98 21:00:00 Test Item Value Reference Range Interpretation Comments Creatinine Lvl (test code = Creatinine 1.01 0.50-1.40 Lvl) [facility] HospitalPomlwgwEOVNEBGPLV9716-09-38 21:00:00 Test Item Value Reference Range Interpretation Comments Monocytes (test code = Monocytes) 6.3 2.0-12.0 [facility] HospitalEdmqxefFATUGPLXUV8797-18-91 21:00:00 Test Item Value Reference Range Interpretation Comments Segs (test code = Segs) 63.9 45.0-75.0 [facility] HospitalKtipvbcQAJOHTQXIE9642-41-89 21:00:00 Test Item Value Reference Range Interpretation Comments Lymphocytes (test code = Lymphocytes) 27.0 20.0-40.0 [facility] HospitalMkqztnyLIWWQXYFCP4387-26-47 21:00:00 Test Item Value Reference Range Interpretation Comments Eosinophils (test code = 2.2 See_Comment [A utomated message] The Eosinophils) system which ge nerated this result tra nsmitted reference range : <=4.0. The reference r abigail was not used to int erpret this result as normal/abnormal . [facility] HospitalMqybvofLNGEXFGSGZ7400-98-90 21:00:00 Test Item Value Reference Range Interpretation Comments Basophils (test code = 0.6 See_Comment [Aut omated message] The Basophils) system which ge nerated this result tra nsmitted reference range : <=1.0. The reference r abigail was not used to int erpret this result as normal/abnormal . [facility] HospitalNyejroiEWOFYRXPCT2786-80-27 21:00:00 Test Item Value Reference Range Interpretation Comments Lymphocytes # (test code = Lymphocytes 1.8 1.0-5.5 #) [facility] HospitalTbbefxxGZUYDVTZMI1478-11-65 21:00:00 Test Item Value Reference Range Interpretation Comments Monocytes # (test code 0.4 See_Comment [Aut omated message] The = Monocytes #) system which generated this result tra nsmitted reference range : <=0.8. The reference r abigail was not used to int erpret this result as normal/abnormal . [facility] HospitalTtprmjrVFWXLGZRMC8507-32-00 21:00:00 Test Item Value Reference Range Interpretation Comments Segs-Bands # (test code = Segs-Bands #) 4.3 1.5-8.1 [facility] HospitalWqfdbgnQFFXBQIUNL6033-56-43 21:00:00 Test Item Value Reference Range Interpretation Comments Eosinophils # (test code 0.1 See_Comment [A utomated message] The = Eosinophils #) system whic h generated this result tra nsmitted reference range : <=0.5. The reference r abigail was not used to int erpret this result as normal/abnormal . [facility] HospitalPaoxbsfPBNYPSTXRW9505-55-22 21:00:00 Test Item Value Reference Range Interpretation Comments PTT (test code = PTT) 39.3 s 22.9-35.8 [facility] HospitalVkjtwgiNTAGRWYBQA8240-72-89 21:00:00 Test Item Value Reference Range Interpretation Comments RBC (test code = RBC) 4.57 4.70-6.10 [facility] HospitalThagqutVCJAGZFLSY6970-33-94 21:00:00 Test Item Value Reference Range Interpretation Comments Hgb (test code = Hgb) 12.7 14.0-18.0 [facility] HospitalYunyfjoPCUBIXCCYN7755-13-33 21:00:00 Test Item Value Reference Range Interpretation Comments WBC (test code = WBC) 6.7 3.7-10.4 [facility] HospitalZwkshmaJJPCRHDLOE9167-15-40 21:00:00 Test Item Value Reference Range Interpretation Comments Hct (test code = Hct) 37.9 42.0-54.0 [facility] HospitalNieenabONBRAOSEJN9824-59-13 21:00:00 Test Item Value Reference Range Interpretation Comments MCV (test code = MCV) 83.0 80.0-94.0 [facility] HospitalXcikejlHZAFBATAMU8969-32-31 21:00:00 Test Item Value Reference Range Interpretation Comments MPV (test code = MPV) 7.3 7.4-10.4 [facility] HospitalKufzagvOQWBTZIHVE7905-61-14 21:00:00 Test Item Value Reference Range Interpretation Comments MCH (test code = MCH) 27.7 pg 27.0-31.0 [facility] HospitalXyxhizbFZCYUVTHTN2804-25-43 21:00:00 Test Item Value Reference Range Interpretation Comments MCHC (test code = MCHC) 33.4 32.0-36.0 [facility] HospitalLicwsiyDKJINSFDDC9668-40-07 21:00:00 Test Item Value Reference Range Interpretation Comments RDW (test code = RDW) 15.7 11.5-14.5 [facility] HospitalGilysblYTFXUZLLIT2060-75-40 21:00:00 Test Item Value Reference Range Interpretation Comments Platelet (test code = Platelet) 258 133-450 [facility] HospitalWgiwpujZTSVSAWHGV2082-51-82 21:00:00 Test Item Value Reference Range Interpretation Comments INR (test code = INR) 2.61 1 0.85-1.17 [facility] HospitalHepxxglRJYMIHLYRX9030-52-99 21:00:00 Test Item Value Reference Range Interpretation Comments PT (test code = PT) 28.3 s 12.0-14.7 [facility] PointeIntegral TechnologiesPrevoty EGUGEQX6503-46-60 20:48:00 Test Item Value Reference Range Interpretation Comments ABO/Rh (test code = ABO/Rh) A POS [facility] [employer] [facility] FKGCSJF1161-59-99 20:48:00 Test Item Value Reference Range Interpretation Comments Antibody Scrn (test Negative (09/04/17 3:48 code = Antibody Scrn) PM) [facility] HospitalYdavoquPURHPSNVXD0307-94-59 10:09:00 Test Item Value Reference Range Interpretation Comments INR (test code = INR) 2.54 1 0.85-1.17 [facility] CentennialSqjvnqeFAQARUVYTS3734-29-04 10:09:00 Test Item Value Reference Range Interpretation Comments PT (test code = PT) 27.7 s 12.0-14.7 [facility] HospitalOmaptpkATAYOSQCGP6016-73-92 10:16:00 Test Item Value Reference Range Interpretation Comments PT (test code = PT) 19.2 s 12.0-14.7 [facility] PointeUemoqbwNZIQZHXODI0111-07-36 10:16:00 Test Item Value Reference Range Interpretation Comments INR (test code = INR) 1.60 1 0.85-1.17 [facility] CentennialWistone BQELZ4030-50-79 10:49:00 Test Item Value Reference Range Interpretation Comments Magnesium Lvl (test code = Magnesium 2.1 1.8-2.4 Lvl) [facility] PointeCitelighter DWAPG0777-60-30 10:49:00 Test Item Value Reference Range Interpretation Comments eGFR (test code = eGFR) 98 [facility]2018-04-16 10:49:00 Test Item Value Reference Range Interpretation Comments Creatinine Lvl (test code = Creatinine 0.67 0.50-1.40 Lvl) [facility] CentennialWistone BFKHZ6512-28-75 10:49:00 Test Item Value Reference Range Interpretation Comments BUN (test code = BUN) 13 7-22 [facility]2018-04-16 10:49:00 Test Item Value Reference Range Interpretation Comments Potassium Lvl (test code = Potassium 4.0 3.5-5.1 Lvl) [facility]2018-04-16 10:49:00 Test Item Value Reference Range Interpretation Comments Sodium Lvl (test code = Sodium Lvl) 143 135-145 [facility]2018-04-16 10:49:00 Test Item Value Reference Range Interpretation Comments Chloride Lvl (test code = Chloride Lvl) 108 95-109 [facility]2018-04-16 10:49:00 Test Item Value Reference Range Interpretation Comments CO2 (test code = CO2) 24 24-32 [facility]2018-04-16 10:49:00 Test Item Value Reference Range Interpretation Comments Calcium Lvl (test code = Calcium Lvl) 8.9 8.5-10.5 [facility]2018-04-16 10:49:00 Test Item Value Reference Range Interpretation Comments Glucose Lvl (test code = Glucose Lvl) 83 70-99 [facility]2018-04-16 10:49:00 Test Item Value Reference Range Interpretation Comments AGAP (test code = AGAP) 15.0 10.0-20.0 [facility] HospitalKquxlieVXZOJCJPVJ4526-53-10 10:49:00 Test Item Value Reference Range Interpretation Comments Monocytes # (test code 0.4 See_Comment [Aut omated message] The = Monocytes #) system which generated this result tra nsmitted reference range : <=0.8. The reference r abigail was not used to int erpret this result as normal/abnormal . [facility] HospitalScstfyoWLWQXTPEYP9088-25-95 10:49:00 Test Item Value Reference Range Interpretation Comments Eosinophils # (test code 0.2 See_Comment [A utomated message] The = Eosinophils #) system whic h generated this result tra nsmitted reference range : <=0.5. The reference r abigail was not used to int erpret this result as normal/abnormal . [facility] HospitalVuhalluRKISKXRKYA6999-75-56 10:49:00 Test Item Value Reference Range Interpretation Comments Basophils # (test code 0.0 See_Comment [Aut omated message] The = Basophils #) system which generated this result tra nsmitted reference range : <=0.2. The reference r abigail was not used to int erpret this result as normal/abnormal . [facility] HospitalQpwtdssNBNYMXJSXK4339-48-88 10:49:00 Test Item Value Reference Range Interpretation Comments Lymphocytes # (test code = Lymphocytes 1.8 1.0-5.5 #) [facility] HospitalDmqtlkqSIURIVWLIP9334-36-82 10:49:00 Test Item Value Reference Range Interpretation Comments Segs-Bands # (test code = Segs-Bands #) 2.3 1.5-8.1 [facility] HospitalWqjagveLQWBXDJSDK6594-01-31 10:49:00 Test Item Value Reference Range Interpretation Comments Basophils (test code = 0.3 See_Comment [Aut omated message] The Basophils) system which ge nerated this result tra nsmitted reference range : <=1.0. The reference r abigail was not used to int erpret this result as normal/abnormal . [facility] HospitalIsigkgkLLEHILQKCL8073-96-10 10:49:00 Test Item Value Reference Range Interpretation Comments Lymphocytes (test code = Lymphocytes) 37.9 20.0-40.0 [facility] HospitalTdozwtfLAVVZFMRKE9493-76-10 10:49:00 Test Item Value Reference Range Interpretation Comments Segs (test code = Segs) 49.1 45.0-75.0 [facility] HospitalSualkgfVXGJRUSBIZ5593-10-39 10:49:00 Test Item Value Reference Range Interpretation Comments Monocytes (test code = Monocytes) 8.1 2.0-12.0 [facility] HospitalJobrkqdZSEGAGRLBC7949-33-10 10:49:00 Test Item Value Reference Range Interpretation Comments Eosinophils (test code = 4.6 See_Comment [A utomated message] The Eosinophils) system which ge nerated this result tra nsmitted reference range : <=4.0. The reference r abigail was not used to int erpret this result as normal/abnormal . [facility] HospitalKqrrjuzWOTZCFAPRW9680-70-86 10:49:00 Test Item Value Reference Range Interpretation Comments INR (test code = INR) 1.45 1 0.85-1.17 [facility] HospitalCmqbvmcRNBKRDYTNJ8596-62-44 10:49:00 Test Item Value Reference Range Interpretation Comments PT (test code = PT) 17.7 s 12.0-14.7 [facility] HospitalMmieekhWDBQERYGKX0716-96-78 10:49:00 Test Item Value Reference Range Interpretation Comments MPV (test code = MPV) 7.5 7.4-10.4 [facility] HospitalUswsnjkQMYFQOIJLU3057-57-44 10:49:00 Test Item Value Reference Range Interpretation Comments Platelet (test code = Platelet) 185 133-450 [facility] HospitalHhyddwkMQAIFDFTPC4551-94-67 10:49:00 Test Item Value Reference Range Interpretation Comments RDW (test code = RDW) 15.5 11.5-14.5 [facility] HospitalJxzscggNCMVRBMPKS7312-15-18 10:49:00 Test Item Value Reference Range Interpretation Comments MCHC (test code = MCHC) 33.9 32.0-36.0 [facility] HospitalGshjirgLBNDNIDRES4949-82-97 10:49:00 Test Item Value Reference Range Interpretation Comments MCH (test code = MCH) 28.4 pg 27.0-31.0 [facility] HospitalKuahelwHVSVXQKAIQ1184-12-26 10:49:00 Test Item Value Reference Range Interpretation Comments MCV (test code = MCV) 83.9 80.0-94.0 [facility] HospitalZogwmhsITCFNMRVRF2690-70-59 10:49:00 Test Item Value Reference Range Interpretation Comments Hct (test code = Hct) 33.5 42.0-54.0 [facility] HospitalRiewnmyFQBDYRSITX1093-73-32 10:49:00 Test Item Value Reference Range Interpretation Comments WBC (test code = WBC) 4.7 3.7-10.4 [facility] HospitalAvtuhudVVHTUCTWDB2643-90-11 10:49:00 Test Item Value Reference Range Interpretation Comments RBC (test code = RBC) 3.99 4.70-6.10 [facility] HospitalFfzapryAJLYGCGNPB1261-82-67 10:49:00 Test Item Value Reference Range Interpretation Comments Hgb (test code = Hgb) 11.3 14.0-18.0 [facility] AND [id number] 06:52:00 Test Item Value Reference Range Interpretation Comments UA Sq Epi (test code = UA Sq Epi) Rare /LPF [facility] [id number] 06:52:00 Test Item Value Reference Range Interpretation Comments UA Bacteria (test code = UA Bacteria) Rare [facility] AND [id number] 06:52:00 Test Item Value Reference Range Interpretation Comments UA Blood (test code = Negative (08/05/17 1:52 UA Blood) AM) [facility] AND [id number] 06:52:00 Test Item Value Reference Range Interpretation Comments UA Leuk Est (test Negative (08/05/17 1:52 code = UA Leuk Est) AM) [facility] AND [id number] 06:52:00 Test Item Value Reference Range Interpretation Comments UA Nitrite (test code Negative (08/05/17 1:52 = UA Nitrite) AM) [facility] AND [id number] 06:52:00 Test Item Value Reference Range Interpretation Comments UA Urobilinogen (test code = UA 0.2 0.1-1.0 Urobilinogen) [facility] AND [id number] 06:52:00 Test Item Value Reference Range Interpretation Comments UA Ketones (test code = UA Negative mg/dL Ketones) [facility] AND [id number] 06:52:00 Test Item Value Reference Range Interpretation Comments UA Bili (test code = Negative *NA*(08/05/17 UA Bili) 1:52 AM) [facility] AND [id number] 06:52:00 Test Item Value Reference Range Interpretation Comments UA pH (test code = UA pH) 6.0 1 5.0-8.0 [facility] AND [id number] 06:52:00 Test Item Value Reference Range Interpretation Comments UA Glucose (test code = UA Negative mg/dL Glucose) [facility] AND [id number] 06:52:00 Test Item Value Reference Range Interpretation Comments UA Protein (test code = UA Negative mg/dL Protein) [facility] AND [id number] 06:52:00 Test Item Value Reference Range Interpretation Comments UA Color (test code = Yellow *NA*(08/05/17 UA Color) 1:52 AM) [facility] AND [id number] 06:52:00 Test Item Value Reference Range Interpretation Comments UA Turbidity (test code = Clear (08/05/17 1:52 UA Turbidity) AM) [facility] AND [id number] 06:52:00 Test Item Value Reference Range Interpretation Comments UA Spec Grav (test code = UA Spec 1.010 1 Grav) [facility]2018-04-10 09:51:00 Test Item Value Reference Range Interpretation Comments Ferritin Lvl (test code = Ferritin Lvl) 49 22-275 [facility]2018-04-10 09:51:00 Test Item Value Reference Range Interpretation Comments TIBC (test code = TIBC) 250 228-428 [facility]2018-04-10 09:51:00 Test Item Value Reference Range Interpretation Comments Iron (test code = Iron) 50 45-160 [facility]2018-04-10 09:51:00 Test Item Value Reference Range Interpretation Comments % Satur Fe (test code = % Satur Fe) 20 12-57 [facility]2018-04-10 09:51:00 Test Item Value Reference Range Interpretation Comments UIBC (test code = UIBC) 200 110-370 [facility]2018-04-09 10:06:00 Test Item Value Reference Range Interpretation Comments Magnesium Lvl (test code = Magnesium 2.1 1.8-2.4 Lvl) [facility]MfyssqmGDDHVEYXKDLT3560-14-48 10:06:00 Test Item Value Reference Range Interpretation Comments AGAP (test code = AGAP) 14.8 10.0-20.0 [facility]WestOddzhrhNLMENVGFLXFP8688-40-58 10:06:00 Test Item Value Reference Range Interpretation Comments Calcium Lvl (test code = Calcium Lvl) 8.7 8.5-10.5 [facility]WestHbdqxvrHRVLNJLPKMME3191-13-45 10:06:00 Test Item Value Reference Range Interpretation Comments Potassium Lvl (test code = Potassium 3.8 3.5-5.1 Lvl) [facility]WestFlunkjuUEUCTWZBVDEH7777-50-22 10:06:00 Test Item Value Reference Range Interpretation Comments Sodium Lvl (test code = Sodium Lvl) 143 135-145 [facility]WestKqsskavXPFFVLRTGMQH5445-36-15 10:06:00 Test Item Value Reference Range Interpretation Comments CO2 (test code = CO2) 27 24-32 [facility]WestItxveozIXKIGRZHXFXT6435-67-72 10:06:00 Test Item Value Reference Range Interpretation Comments Chloride Lvl (test code = Chloride Lvl) 105 95-109 [facility]WestEyxuicbGBRAPHIHRLDB8846-69-02 10:06:00 Test Item Value Reference Range Interpretation Comments Glucose Lvl (test code = Glucose Lvl) 81 70-99 [facility]WestZdbqflqYZXCRYKRZXOJ3607-19-41 10:06:00 Test Item Value Reference Range Interpretation Comments BUN (test code = BUN) 15 7-22 [facility]WestBgpioubDIZQKIUALVVC1132-21-65 10:06:00 Test Item Value Reference Range Interpretation Comments Creatinine Lvl (test code = Creatinine 0.61 0.50-1.40 Lvl) [facility]WestWwxnjidEWMBHQRSPCCG8123-99-47 10:06:00 Test Item Value Reference Range Interpretation Comments eGFR (test code = eGFR) 102 [facility] HospitalStdibggWNSQCTESSK4120-64-85 10:06:00 Test Item Value Reference Range Interpretation Comments RDW (test code = RDW) 14.7 11.5-14.5 [facility] HospitalKngndpxGFLMPLRLJQ2127-79-17 10:06:00 Test Item Value Reference Range Interpretation Comments MCHC (test code = MCHC) 33.0 32.0-36.0 [facility] HospitalUzpbmdiBNRTBVLXFZ7324-76-54 10:06:00 Test Item Value Reference Range Interpretation Comments Platelet (test code = Platelet) 292 133-450 [facility] HospitalBwexisaRIJWARLCFQ8060-99-00 10:06:00 Test Item Value Reference Range Interpretation Comments MCH (test code = MCH) 27.5 pg 27.0-31.0 [facility] HospitalMldqtnzAOSPFYDSJJ2098-50-87 10:06:00 Test Item Value Reference Range Interpretation Comments MPV (test code = MPV) 7.2 7.4-10.4 [facility] HospitalGibzyvpAVUIKBYQBV8082-64-95 10:06:00 Test Item Value Reference Range Interpretation Comments WBC (test code = WBC) 6.1 3.7-10.4 [facility] HospitalZpjmwpjEDVJQROKVK4949-74-26 10:06:00 Test Item Value Reference Range Interpretation Comments Hct (test code = Hct) 32.9 42.0-54.0 [facility] HospitalWjwbmgfEFZWMQTICY1496-31-37 10:06:00 Test Item Value Reference Range Interpretation Comments MCV (test code = MCV) 83.2 80.0-94.0 [facility] HospitalXpbktzbSNVNYXGTKW3509-39-23 10:06:00 Test Item Value Reference Range Interpretation Comments Hgb (test code = Hgb) 10.9 14.0-18.0 [facility] HospitalPkhxdkeFKSMIGZHWP0304-10-02 10:06:00 Test Item Value Reference Range Interpretation Comments RBC (test code = RBC) 3.95 4.70-6.10 [facility] HospitalDaweoquCZICSWTOJT0236-90-37 10:06:00 Test Item Value Reference Range Interpretation Comments Basophils # (test code 0.0 See_Comment [Aut omated message] The = Basophils #) system which generated this result tra nsmitted reference range : <=0.2. The reference r abigail was not used to int erpret this result as normal/abnormal . [facility] HospitalXthkrfzLAZVSMCEKA4583-17-05 10:06:00 Test Item Value Reference Range Interpretation Comments Monocytes # (test code 0.4 See_Comment [Aut omated message] The = Monocytes #) system which generated this result tra nsmitted reference range : <=0.8. The reference r abigail was not used to int erpret this result as normal/abnormal . [facility] HospitalQtexpecAQFZBGVMMX5063-36-29 10:06:00 Test Item Value Reference Range Interpretation Comments Eosinophils # (test code 0.1 See_Comment [A utomated message] The = Eosinophils #) system whic h generated this result tra nsmitted reference range : <=0.5. The reference r abigail was not used to int erpret this result as normal/abnormal . [facility] HospitalEjjrsmpJYQSAYHWEJ7436-91-86 10:06:00 Test Item Value Reference Range Interpretation Comments Lymphocytes # (test code = Lymphocytes 2.3 1.0-5.5 #) [facility] HospitalRrszpvkPSMYJXMOVL5445-99-91 10:06:00 Test Item Value Reference Range Interpretation Comments Segs-Bands # (test code = Segs-Bands #) 3.3 1.5-8.1 [facility] HospitalLdvbvdjKQFRKGECFH1558-47-86 10:06:00 Test Item Value Reference Range Interpretation Comments Basophils (test code = 0.0 See_Comment [Aut omated message] The Basophils) system which ge nerated this result tra nsmitted reference range : <=1.0. The reference r abigail was not used to int erpret this result as normal/abnormal . [facility] HospitalZywpxjwBDXNFTAAVX0069-92-62 10:06:00 Test Item Value Reference Range Interpretation Comments Eosinophils (test code = 2.3 See_Comment [A utomated message] The Eosinophils) system which ge nerated this result tra nsmitted reference range : <=4.0. The reference r abigail was not used to int erpret this result as normal/abnormal . [facility] HospitalYpiarizJMTHTHSJLX5073-70-71 10:06:00 Test Item Value Reference Range Interpretation Comments Monocytes (test code = Monocytes) 6.6 2.0-12.0 [facility] HospitalPlarxokQUKUBVMLGT7946-58-43 10:06:00 Test Item Value Reference Range Interpretation Comments Lymphocytes (test code = Lymphocytes) 37.5 20.0-40.0 [facility] HospitalDwlzfqvXNPAHZFBSN4017-70-79 10:06:00 Test Item Value Reference Range Interpretation Comments Segs (test code = Segs) 53.6 45.0-75.0 [facility]JjbwyoaMQOZAY9834-86-36 10:06:00 Test Item Value Reference Range Interpretation Comments CHD Risk (test code = CHD Risk) 5.10 1 4.00-7.30 [facility] SystemYoyulekIORGAB9024-83-27 10:06:00 Test Item Value Reference Range Interpretation Comments VLDL (test code = VLDL) 41 1 [facility] SystemHxrbvwvPUPXHM4559-40-10 10:06:00 Test Item Value Reference Range Interpretation Comments LDL (Calculated) (test code = LDL 78 (Calculated)) [facility]ennialZzqssqvLFQKLS4665-36-58 10:06:00 Test Item Value Reference Range Interpretation Comments Chol (test code = Chol) 148 [facility] SystemHgzguulREUYUD6577-22-53 10:06:00 Test Item Value Reference Range Interpretation Comments Trig (test code = Trig) 204 [facility] CentennialFdeqlnkODEUEF9606-25-18 10:06:00 Test Item Value Reference Range Interpretation Comments HDL (test code = HDL) 29 [facility]ennialCHEM AODCT6441-28-84 10:57:00 Test Item Value Reference Range Interpretation Comments Magnesium Lvl (test code = Magnesium 2.5 1.8-2.4 Lvl) [facility]qjgJWOSLLRDBBWJ4445-77-24 10:57:00 Test Item Value Reference Range Interpretation Comments AGAP (test code = AGAP) 15.7 10.0-20.0 [facility]WestEztaitbVVXNVWTIOAVU2839-73-41 10:57:00 Test Item Value Reference Range Interpretation Comments eGFR (test code = eGFR) 103 [facility]WestEfdctwqJDVQRSAKIIYQ1005-21-95 10:57:00 Test Item Value Reference Range Interpretation Comments CO2 (test code = CO2) 21 24-32 [facility]WestOaxhuxxXJRATISFFBCA3562-01-56 10:57:00 Test Item Value Reference Range Interpretation Comments Calcium Lvl (test code = Calcium Lvl) 8.5 8.5-10.5 [facility]WestCjvyksqKTJYQGCFKUJP9211-04-83 10:57:00 Test Item Value Reference Range Interpretation Comments Potassium Lvl (test code = Potassium 3.7 3.5-5.1 Lvl) [facility]WestNszaocvTEHCERYGHWSM7814-40-53 10:57:00 Test Item Value Reference Range Interpretation Comments Chloride Lvl (test code = Chloride Lvl) 104 95-109 [facility]WestMcuqsmiMILKEIKDGVBS0758-15-16 10:57:00 Test Item Value Reference Range Interpretation Comments Creatinine Lvl (test code = Creatinine 0.59 0.50-1.40 Lvl) [facility]WestPzcqxjlBXKIZNRPKXDR8733-28-39 10:57:00 Test Item Value Reference Range Interpretation Comments Sodium Lvl (test code = Sodium Lvl) 137 135-145 [facility]WestZlrcnwgBKWECTZFVRSD2863-12-01 10:57:00 Test Item Value Reference Range Interpretation Comments Glucose Lvl (test code = Glucose Lvl) 124 70-99 [facility]WestKlxbegtRGMVYEOWAYIG1469-72-61 10:57:00 Test Item Value Reference Range Interpretation Comments BUN (test code = BUN) 18 7-22 [facility] HospitalHzbuaotOCYKHPEWHN3238-50-99 10:57:00 Test Item Value Reference Range Interpretation Comments Basophils # (test code 0.0 See_Comment [Aut omated message] The = Basophils #) system which generated this result tra nsmitted reference range : <=0.2. The reference r abigail was not used to int erpret this result as normal/abnormal . [facility] HospitalVromoyiKYEYKMNLNU7007-56-67 10:57:00 Test Item Value Reference Range Interpretation Comments Eosinophils # (test code 0.2 See_Comment [A utomated message] The = Eosinophils #) system whic h generated this result tra nsmitted reference range : <=0.5. The reference r abigail was not used to int erpret this result as normal/abnormal . [facility] HospitalBptbbhySAFCEASPEL5147-91-94 10:57:00 Test Item Value Reference Range Interpretation Comments Monocytes # (test code 0.6 See_Comment [Aut omated message] The = Monocytes #) system which generated this result tra nsmitted reference range : <=0.8. The reference r abigail was not used to int erpret this result as normal/abnormal . [facility] HospitalYghgrouOCWQNZFEQO7921-54-07 10:57:00 Test Item Value Reference Range Interpretation Comments Lymphocytes # (test code = Lymphocytes 2.0 1.0-5.5 #) [facility] HospitalNpbobneJXMPZIOMQL6840-28-37 10:57:00 Test Item Value Reference Range Interpretation Comments Segs-Bands # (test code = Segs-Bands #) 7.3 1.5-8.1 [facility] HospitalQpjieosPYAOLOUPPY0499-35-16 10:57:00 Test Item Value Reference Range Interpretation Comments Lymphocytes (test code = Lymphocytes) 20.1 20.0-40.0 [facility] HospitalUutqfayYLGFTYHFLF0523-70-90 10:57:00 Test Item Value Reference Range Interpretation Comments Segs (test code = Segs) 71.9 45.0-75.0 [facility] HospitalNmzrohjWZTLYWMBBC3658-81-68 10:57:00 Test Item Value Reference Range Interpretation Comments Basophils (test code = 0.2 See_Comment [Aut omated message] The Basophils) system which ge nerated this result tra nsmitted reference range : <=1.0. The reference r abigail was not used to int erpret this result as normal/abnormal . [facility] HospitalFqfhrlsIJYMCCOMZA0327-54-90 10:57:00 Test Item Value Reference Range Interpretation Comments Eosinophils (test code = 1.6 See_Comment [A utomated message] The Eosinophils) system which ge nerated this result tra nsmitted reference range : <=4.0. The reference r abigail was not used to int erpret this result as normal/abnormal . [facility] HospitalCgwawfcKZCVIRYGWB7065-47-13 10:57:00 Test Item Value Reference Range Interpretation Comments Monocytes (test code = Monocytes) 6.2 2.0-12.0 [facility] HospitalBeqkrkeANTWBWNAFL7774-08-97 10:57:00 Test Item Value Reference Range Interpretation Comments MCHC (test code = MCHC) 33.0 32.0-36.0 [facility] HospitalMpgcnwxBNJGLILTDG8259-32-66 10:57:00 Test Item Value Reference Range Interpretation Comments MCH (test code = MCH) 27.2 pg 27.0-31.0 [facility] HospitalXsxozzxPFBYTOQAIY3650-71-86 10:57:00 Test Item Value Reference Range Interpretation Comments MCV (test code = MCV) 82.6 80.0-94.0 [facility] HospitalSipdboyJDIWAMATKR7424-65-96 10:57:00 Test Item Value Reference Range Interpretation Comments Hct (test code = Hct) 36.0 42.0-54.0 [facility] HospitalAnnguljBDKYRIDZFX2367-15-57 10:57:00 Test Item Value Reference Range Interpretation Comments RBC (test code = RBC) 4.36 4.70-6.10 [facility] HospitalAiawrwsOECDCULUQO3804-61-40 10:57:00 Test Item Value Reference Range Interpretation Comments Hgb (test code = Hgb) 11.9 14.0-18.0 [facility] HospitalDnjowzfAZKTVTSGEW9128-28-94 10:57:00 Test Item Value Reference Range Interpretation Comments MPV (test code = MPV) 7.4 7.4-10.4 [facility] HospitalDvoxcypIAOBJNQGAS2208-07-50 10:57:00 Test Item Value Reference Range Interpretation Comments Platelet (test code = Platelet) 405 133-450 [facility] HospitalAwbhdkgXDUFKPDLWC7900-07-59 10:57:00 Test Item Value Reference Range Interpretation Comments RDW (test code = RDW) 13.4 11.5-14.5 [facility] HospitalQoktwulYGRHWUGIKP0788-83-79 10:57:00 Test Item Value Reference Range Interpretation Comments WBC (test code = WBC) 10.1 3.7-10.4 [facility]2018-03-31 10:18:00 Test Item Value Reference Range Interpretation Comments AST (test code = AST) 27 See_Comment [Auto mated message] The system which ge nerated this result transmit kristy reference range : <=37. The reference range was not used to interpr et this result as maranda l/abnormal. [facility]2018-03-31 10:18:00 Test Item Value Reference Range Interpretation Comments Alk Phos (test code = Alk Phos) 56 39-136 [facility]2018-03-31 10:18:00 Test Item Value Reference Range Interpretation Comments Albumin Lvl (test code = Albumin Lvl) 3.1 3.5-5.0 [facility]2018-03-31 10:18:00 Test Item Value Reference Range Interpretation Comments ALT (test code = ALT) 57 See_Comment [Auto mated message] The system which ge nerated this result transmit kristy reference range : <=65. The reference range was not used to interpr et this result as maranda l/abnormal. [facility]2018-03-31 10:18:00 Test Item Value Reference Range Interpretation Comments Bili Total (test code = Bili Total) 0.4 0.2-1.3 [facility]2018-03-31 10:18:00 Test Item Value Reference Range Interpretation Comments Bili Indirect (test 0.3 See_Comment [Automa kristy message] The code = Bili Indirect) system which generated this result tra nsmitted reference range : <=1.0. The reference r abigail was not used to int erpret this result as normal/abnormal . [facility]2018-03-31 10:18:00 Test Item Value Reference Range Interpretation Comments Bili Direct (test code 0.1 See_Comment [Aut omated message] The = Bili Direct) system which generated this result tra nsmitted reference range : <=0.3. The reference r abigail was not used to int erpret this result as maranda l/abnormal. [facility]2018-03-31 10:18:00 Test Item Value Reference Range Interpretation Comments Total Protein (test code = Total 7.4 6.4-8.4 Protein) [facility]2018-03-31 10:18:00 Test Item Value Reference Range Interpretation Comments Globulin (test code = Globulin) 4.3 2.7-4.2 [facility]2018-03-31 10:18:00 Test Item Value Reference Range Interpretation Comments A/G Ratio (test code = A/G Ratio) 0.7 1 0.7-1.6 [facility]2018-03-31 10:18:00 Test Item Value Reference Range Interpretation Comments Phosphorus (test code = Phosphorus) 3.4 2.5-4.5 [facility]ennialNbtorqbLMGMDYWLXU9294-31-62 10:18:00 Test Item Value Reference Range Interpretation Comments PTT (test code = PTT) 35.7 s 22.9-35.8 [facility]ennialKrdxyscXLGBWTXVYW6386-09-15 10:18:00 Test Item Value Reference Range Interpretation Comments Prealbumin (test code = Prealbumin) 19.1 18.0-45.0 [facility] AND HWPQY1156-59-05 09:54:00 Test Item Value Reference Range Interpretation Comments UA Amorph Claudia (test code = UA Few /HPF Amorph Claudia) [facility] AND [id number] 09:54:00 Test Item Value Reference Range Interpretation Comments UA Sq Epi (test code = UA Sq Epi) None Seen [facility] AND [id number] 09:54:00 Test Item Value Reference Range Interpretation Comments UA Urobilinogen (test code = UA <=1.0 mg/dL 0.1-1.0 Urobilinogen) [facility] AND [id number] 09:54:00 Test Item Value Reference Range Interpretation Comments UA Blood (test code = Negative (07/23/17 4:54 UA Blood) AM) [facility] AND [id number] 09:54:00 Test Item Value Reference Range Interpretation Comments UA Leuk Est (test Negative (07/23/17 4:54 code = UA Leuk Est) AM) [facility] AND [id number] 09:54:00 Test Item Value Reference Range Interpretation Comments UA Nitrite (test code Negative (07/23/17 4:54 = UA Nitrite) AM) [facility] AND [id number] 09:54:00 Test Item Value Reference Range Interpretation Comments UA Turbidity (test code Marked *ABN*(07/23/17 = UA Turbidity) 4:54 AM) [facility] AND [id number] 09:54:00 Test Item Value Reference Range Interpretation Comments UA Color (test code = Yellow *NA*(07/23/17 UA Color) 4:54 AM) [facility] AND [id number] 09:54:00 Test Item Value Reference Range Interpretation Comments UA pH (test code = UA pH) 5.5 1 5.0-8.0 [facility] AND [id number] 09:54:00 Test Item Value Reference Range Interpretation Comments UA Spec Grav (test code = UA Spec 1.022 1 Grav) [facility] AND [id number] 09:54:00 Test Item Value Reference Range Interpretation Comments UA Protein (test code = UA Protein) 20 mg/dL [facility] AND [id number] 09:54:00 Test Item Value Reference Range Interpretation Comments UA Bili (test code = Negative *NA*(07/23/17 UA Bili) 4:54 AM) [facility] AND [id number] 09:54:00 Test Item Value Reference Range Interpretation Comments UA Ketones (test code = UA Negative mg/dL Ketones) [facility] AND [id number] 09:54:00 Test Item Value Reference Range Interpretation Comments UA Glucose (test code = UA Negative mg/dL Glucose) [facility]2018-03-30 05:25:00 Test Item Value Reference Range Interpretation Comments eGFR (test code = eGFR) 99 [facility]2018-03-30 05:25:00 Test Item Value Reference Range Interpretation Comments Calcium Lvl (test code = Calcium Lvl) 9.1 8.5-10.5 [facility]2018-03-30 05:25:00 Test Item Value Reference Range Interpretation Comments CO2 (test code = CO2) 24 24-32 [facility]2018-03-30 05:25:00 Test Item Value Reference Range Interpretation Comments Chloride Lvl (test code = Chloride Lvl) 105 95-109 [facility]2018-03-30 05:25:00 Test Item Value Reference Range Interpretation Comments Potassium Lvl (test code = Potassium 4.0 3.5-5.1 Lvl) [facility]2018-03-30 05:25:00 Test Item Value Reference Range Interpretation Comments Sodium Lvl (test code = Sodium Lvl) 139 135-145 [facility]2018-03-30 05:25:00 Test Item Value Reference Range Interpretation Comments Creatinine Lvl (test code = Creatinine 0.65 0.50-1.40 Lvl) [facility]2018-03-30 05:25:00 Test Item Value Reference Range Interpretation Comments BUN (test code = BUN) 31 7-22 [facility]2018-03-30 05:25:00 Test Item Value Reference Range Interpretation Comments Glucose Lvl (test code = Glucose Lvl) 117 70-99 [facility]2018-03-30 05:25:00 Test Item Value Reference Range Interpretation Comments AGAP (test code = AGAP) 14.0 10.0-20.0 [facility] HospitalJalpmrlLGCLMFHJGE6228-62-97 05:25:00 Test Item Value Reference Range Interpretation Comments Basophils # (test code 0.1 See_Comment [Aut omated message] The = Basophils #) system which generated this result tra nsmitted reference range : <=0.2. The reference r abigail was not used to int erpret this result as normal/abnormal . [facility] HospitalBeckobbLWXCQNYFVO1438-67-28 05:25:00 Test Item Value Reference Range Interpretation Comments Eosinophils # (test code 0.2 See_Comment [A utomated message] The = Eosinophils #) system whic h generated this result tra nsmitted reference range : <=0.5. The reference r abigail was not used to int erpret this result as normal/abnormal . [facility] HospitalRpcllfcLYTCVXPBPU4755-95-40 05:25:00 Test Item Value Reference Range Interpretation Comments Segs-Bands # (test code = Segs-Bands #) 7.2 1.5-8.1 [facility] HospitalYeyvaaxPRDQKCARMI6785-63-01 05:25:00 Test Item Value Reference Range Interpretation Comments Basophils (test code = 0.8 See_Comment [Aut omated message] The Basophils) system which ge nerated this result tra nsmitted reference range : <=1.0. The reference r abigail was not used to int erpret this result as normal/abnormal . [facility] HospitalMptohxpOSYTBEWJUN8023-80-58 05:25:00 Test Item Value Reference Range Interpretation Comments Monocytes # (test code 0.9 See_Comment [Aut omated message] The = Monocytes #) system which generated this result tra nsmitted reference range : <=0.8. The reference r abigail was not used to int erpret this result as normal/abnormal . [facility] HospitalXbzkofqMGDYHQEUDL8452-25-52 05:25:00 Test Item Value Reference Range Interpretation Comments Lymphocytes # (test code = Lymphocytes 2.7 1.0-5.5 #) [facility] HospitalCzvptrnEFJRHCTVTW3165-53-29 05:25:00 Test Item Value Reference Range Interpretation Comments Eosinophils (test code = 2.2 See_Comment [A utomated message] The Eosinophils) system which ge nerated this result tra nsmitted reference range : <=4.0. The reference r abigail was not used to int erpret this result as normal/abnormal . [facility] HospitalZiwnwmfFOIRQUSZRN6239-20-51 05:25:00 Test Item Value Reference Range Interpretation Comments Lymphocytes (test code = Lymphocytes) 24.1 20.0-40.0 [facility] HospitalDpbulkxKWJZZWBMER3289-45-56 05:25:00 Test Item Value Reference Range Interpretation Comments Segs (test code = Segs) 64.8 45.0-75.0 [facility] HospitalDfmifhwOLKWKUTYUV6692-45-14 05:25:00 Test Item Value Reference Range Interpretation Comments Monocytes (test code = Monocytes) 8.1 2.0-12.0 [facility] HospitalGceyejbSDYORAHCLH9543-22-73 05:25:00 Test Item Value Reference Range Interpretation Comments INR (test code = INR) 1.18 1 0.85-1.17 [place] [id number] 05:25:00 Test Item Value Reference Range Interpretation Comments PT (test code = PT) 15.1 s 12.0-14.7 [facility] HospitalQetzserVMQZTUQPFP9624-45-89 05:25:00 Test Item Value Reference Range Interpretation Comments Platelet (test code = Platelet) 312 133-450 [facility] HospitalGqeekdgBZPQSWBUWO5005-99-76 05:25:00 Test Item Value Reference Range Interpretation Comments MPV (test code = MPV) 7.6 7.4-10.4 [facility] HospitalZymxxvtAEBVICCWYG0847-00-23 05:25:00 Test Item Value Reference Range Interpretation Comments RDW (test code = RDW) 14.3 11.5-14.5 [facility] HospitalXatgmkpBOLSMJIPXJ7291-51-24 05:25:00 Test Item Value Reference Range Interpretation Comments MCV (test code = MCV) 82.6 80.0-94.0 [facility] HospitalPhetdtyMLSZHKENWH8685-97-05 05:25:00 Test Item Value Reference Range Interpretation Comments Hct (test code = Hct) 36.7 42.0-54.0 [facility] HospitalCccxiwlFQJLBIZVCZ1623-24-36 05:25:00 Test Item Value Reference Range Interpretation Comments MCHC (test code = MCHC) 32.4 32.0-36.0 [facility] HospitalVhnuvdtUUAKSWLOMI4422-55-51 05:25:00 Test Item Value Reference Range Interpretation Comments MCH (test code = MCH) 26.8 pg 27.0-31.0 [facility] HospitalNvpytcnRMKNPEGCMK4330-28-18 05:25:00 Test Item Value Reference Range Interpretation Comments Hgb (test code = Hgb) 11.9 14.0-18.0 [facility] HospitalQkceimiHHSYZSYTCL9089-92-73 05:25:00 Test Item Value Reference Range Interpretation Comments RBC (test code = RBC) 4.44 4.70-6.10 [facility] HospitalTroezuuKFIIMYJYQF4929-61-28 05:25:00 Test Item Value Reference Range Interpretation Comments WBC (test code = WBC) 11.1 3.7-10.4 [facility]2018-03-29 07:52:00 Test Item Value Reference Range Interpretation Comments eGFR (test code = eGFR) 100 [facility]2018-03-29 07:52:00 Test Item Value Reference Range Interpretation Comments Potassium Lvl (test code = Potassium 4.0 3.5-5.1 Lvl) [facility]2018-03-29 07:52:00 Test Item Value Reference Range Interpretation Comments Chloride Lvl (test code = Chloride Lvl) 106 95-109 [facility]2018-03-29 07:52:00 Test Item Value Reference Range Interpretation Comments CO2 (test code = CO2) 23 24-32 [facility]2018-03-29 07:52:00 Test Item Value Reference Range Interpretation Comments Creatinine Lvl (test code = Creatinine 0.63 0.50-1.40 Lvl) [facility]2018-03-29 07:52:00 Test Item Value Reference Range Interpretation Comments Sodium Lvl (test code = Sodium Lvl) 138 135-145 [facility]2018-03-29 07:52:00 Test Item Value Reference Range Interpretation Comments Calcium Lvl (test code = Calcium Lvl) 8.7 8.5-10.5 [facility]2018-03-29 07:52:00 Test Item Value Reference Range Interpretation Comments AGAP (test code = AGAP) 13.0 10.0-20.0 [place] 661538-03-29 07:52:00 Test Item Value Reference Range Interpretation Comments Glucose Lvl (test code = Glucose Lvl) 150 70-99 [facility]2018-03-29 07:52:00 Test Item Value Reference Range Interpretation Comments BUN (test code = BUN) 31 7-22 [facility] HospitalVahdmvxDKSMZYKAFN6475-98-75 07:52:00 Test Item Value Reference Range Interpretation Comments MPV (test code = MPV) 7.2 7.4-10.4 [facility] HospitalBjkdcvdZAHZAWQHLV7050-05-55 07:52:00 Test Item Value Reference Range Interpretation Comments RDW (test code = RDW) 14.3 11.5-14.5 [facility] HospitalOdtshgqBJJWEQFRFW0408-79-70 07:52:00 Test Item Value Reference Range Interpretation Comments Platelet (test code = Platelet) 288 133-450 [facility] HospitalBklmlbdKMSIFRNBJO6275-07-74 07:52:00 Test Item Value Reference Range Interpretation Comments MCV (test code = MCV) 81.3 80.0-94.0 [facility] HospitalFlfkqteMWJQKSEAXA8033-03-26 07:52:00 Test Item Value Reference Range Interpretation Comments MCH (test code = MCH) 27.0 pg 27.0-31.0 [facility] HospitalEpomnpfXCUYVBBVVT8962-72-21 07:52:00 Test Item Value Reference Range Interpretation Comments MCHC (test code = MCHC) 33.2 32.0-36.0 [facility] HospitalIzunbgeIQXACDDZKS9112-08-34 07:52:00 Test Item Value Reference Range Interpretation Comments Hgb (test code = Hgb) 11.6 14.0-18.0 [facility] HospitalPukfcxjXLBSPIFMRH5947-61-39 07:52:00 Test Item Value Reference Range Interpretation Comments Hct (test code = Hct) 34.9 42.0-54.0 [facility] HospitalPndfvrzOQNFJUWDYW5983-43-43 07:52:00 Test Item Value Reference Range Interpretation Comments RBC (test code = RBC) 4.29 4.70-6.10 [facility] HospitalJqrpajgDFHKBAQLQS6760-90-30 07:52:00 Test Item Value Reference Range Interpretation Comments WBC (test code = WBC) 11.9 3.7-10.4 [facility] HospitalLdxygwtYQHUPRRBEM4101-51-43 07:52:00 Test Item Value Reference Range Interpretation Comments Eosinophils # (test code 0.3 See_Comment [A utomated message] The = Eosinophils #) system ic h generated this result tra nsmitted reference range : <=0.5. The reference r abigail was not used to int erpret this result as normal/abnormal . [facility] HospitalScowmnzVXIZYKMKVY0696-31-05 07:52:00 Test Item Value Reference Range Interpretation Comments Lymphocytes # (test code = Lymphocytes 2.3 1.0-5.5 #) [facility] HospitalNollmruXGKTMVAQRP3635-82-18 07:52:00 Test Item Value Reference Range Interpretation Comments Monocytes # (test code 1.1 See_Comment [Aut omated message] The = Monocytes #) system which generated this result tra nsmitted reference range : <=0.8. The reference r abigail was not used to int erpret this result as normal/abnormal . [facility] HospitalIkklrfjYJUXPFDAMV2690-08-72 07:52:00 Test Item Value Reference Range Interpretation Comments Segs-Bands # (test code = Segs-Bands #) 8.1 1.5-8.1 [facility] HospitalOzkyqqbUNTVRYQQEC8735-02-19 07:52:00 Test Item Value Reference Range Interpretation Comments Eosinophils (test code = 2.6 See_Comment [A utomated message] The Eosinophils) system which ge nerated this result tra nsmitted reference range : <=4.0. The reference r abigail was not used to int erpret this result as normal/abnormal . [facility] HospitalNzrhncbCHUZWNKHGZ0530-05-05 07:52:00 Test Item Value Reference Range Interpretation Comments Basophils (test code = 0.4 See_Comment [Aut omated message] The Basophils) system which ge nerated this result tra nsmitted reference range : <=1.0. The reference r abigail was not used to int erpret this result as normal/abnormal . [facility] HospitalTeuihezLVFQQGVLSE7915-80-58 07:52:00 Test Item Value Reference Range Interpretation Comments Monocytes (test code = Monocytes) 9.1 2.0-12.0 [facility] HospitalRpsvdirYVCIVTKWTK2929-38-13 07:52:00 Test Item Value Reference Range Interpretation Comments Lymphocytes (test code = Lymphocytes) 19.6 20.0-40.0 [facility] HospitalTgifqkxMGXKWZFPUG0628-23-76 07:52:00 Test Item Value Reference Range Interpretation Comments Segs (test code = Segs) 68.3 45.0-75.0 [facility]2018-03-28 20:53:00 Test Item Value Reference Range Interpretation Comments B/C Ratio (test code = B/C Ratio) 48 1 6-25 [place] 661538-03-28 20:53:00 Test Item Value Reference Range Interpretation Comments AGAP (test code = AGAP) 12.6 10.0-20.0 [place] 661538-03-28 20:53:00 Test Item Value Reference Range Interpretation Comments A/G Ratio (test code = A/G Ratio) 0.7 1 0.7-1.6 [place] 661538-03-28 20:53:00 Test Item Value Reference Range Interpretation Comments Globulin (test code = Globulin) 4.6 2.7-4.2 [place] 661538-03-28 20:53:00 Test Item Value Reference Range Interpretation Comments eGFR (test code = eGFR) 99 [facility]2018-03-28 20:53:00 Test Item Value Reference Range Interpretation Comments Bili Total (test code = Bili Total) 0.3 0.2-1.3 [place] 661538-03-28 20:53:00 Test Item Value Reference Range Interpretation Comments Alk Phos (test code = Alk Phos) 55 39-136 [place] 661538-03-28 20:53:00 Test Item Value Reference Range Interpretation Comments AST (test code = AST) 29 See_Comment [Auto mated message] The system which ge nerated this result transmit kristy reference range : <=37. The reference range was not used to interpr et this result as maranda l/abnormal. [facility]2018-03-28 20:53:00 Test Item Value Reference Range Interpretation Comments ALT (test code = ALT) 65 See_Comment [Auto mated message] The system which ge nerated this result transmit kristy reference range : <=65. The reference range was not used to interpr et this result as maranda l/abnormal. [place] 661538-03-28 20:53:00 Test Item Value Reference Range Interpretation Comments Albumin Lvl (test code = Albumin Lvl) 3.0 3.5-5.0 [facility]2018-03-28 20:53:00 Test Item Value Reference Range Interpretation Comments Potassium Lvl (test code = Potassium 3.6 3.5-5.1 Lvl) [place] 661538-03-28 20:53:00 Test Item Value Reference Range Interpretation Comments Chloride Lvl (test code = Chloride Lvl) 107 95-109 [facility]2018-03-28 20:53:00 Test Item Value Reference Range Interpretation Comments Sodium Lvl (test code = Sodium Lvl) 140 135-145 [facility]2018-03-28 20:53:00 Test Item Value Reference Range Interpretation Comments Creatinine Lvl (test code = Creatinine 0.65 0.50-1.40 Lvl) [facility]2018-03-28 20:53:00 Test Item Value Reference Range Interpretation Comments BUN (test code = BUN) 31 7-22 [facility]2018-03-28 20:53:00 Test Item Value Reference Range Interpretation Comments Total Protein (test code = Total 7.6 6.4-8.4 Protein) [facility]2018-03-28 20:53:00 Test Item Value Reference Range Interpretation Comments Calcium Lvl (test code = Calcium Lvl) 8.8 8.5-10.5 [facility]2018-03-28 20:53:00 Test Item Value Reference Range Interpretation Comments CO2 (test code = CO2) 24 24-32 [facility]2018-03-28 20:53:00 Test Item Value Reference Range Interpretation Comments Glucose Lvl (test code = Glucose Lvl) 215 70-99 [facility] HospitalEatmqtdPSTUQJDTOX8291-49-40 20:53:00 Test Item Value Reference Range Interpretation Comments Platelet (test code = Platelet) 257 133-450 [facility] HospitalIdozkrmFTTGUIKDTS6222-15-15 20:53:00 Test Item Value Reference Range Interpretation Comments RDW (test code = RDW) 14.2 11.5-14.5 [place] 334468-03-28 20:53:00 Test Item Value Reference Range Interpretation Comments MPV (test code = MPV) 7.6 7.4-10.4 [facility] HospitalYozsstoKDBDFPKRRY8609-16-28 20:53:00 Test Item Value Reference Range Interpretation Comments MCV (test code = MCV) 81.7 80.0-94.0 [place] 334468-03-28 20:53:00 Test Item Value Reference Range Interpretation Comments Hct (test code = Hct) 34.9 42.0-54.0 [place] 334468-03-28 20:53:00 Test Item Value Reference Range Interpretation Comments MCHC (test code = MCHC) 34.1 32.0-36.0 [facility] HospitalSouttthRXNCQUHFIY2305-55-44 20:53:00 Test Item Value Reference Range Interpretation Comments MCH (test code = MCH) 27.9 pg 27.0-31.0 [facility] HospitalAkqezzgCMDYYLZJGM2024-37-41 20:53:00 Test Item Value Reference Range Interpretation Comments Hgb (test code = Hgb) 11.9 14.0-18.0 [facility] HospitalDzptpavPBZMNMSNQC1845-92-70 20:53:00 Test Item Value Reference Range Interpretation Comments WBC (test code = WBC) 10.8 3.7-10.4 [facility] HospitalXmpcilyHDVOECWOCB0865-63-07 20:53:00 Test Item Value Reference Range Interpretation Comments RBC (test code = RBC) 4.27 4.70-6.10 [facility] HospitalEzqbktoPDWDYPHHZB0893-73-45 20:53:00 Test Item Value Reference Range Interpretation Comments Lymphocytes (test code = Lymphocytes) 19.1 20.0-40.0 [facility] HospitalKarllxwDPIGURINHE4934-49-98 20:53:00 Test Item Value Reference Range Interpretation Comments Segs (test code = Segs) 69.4 45.0-75.0 [facility] HospitalTadljihHFOHMULGCW6441-41-93 20:53:00 Test Item Value Reference Range Interpretation Comments Basophils (test code = 0.5 See_Comment [Aut omated message] The Basophils) system which ge nerated this result tra nsmitted reference range : <=1.0. The reference r abigail was not used to int erpret this result as normal/abnormal . [facility] HospitalLcajnsuAACMBFRQOO0243-93-75 20:53:00 Test Item Value Reference Range Interpretation Comments Segs-Bands # (test code = Segs-Bands #) 7.5 1.5-8.1 [facility] HospitalAaowashSMIRRJNQGZ9470-41-98 20:53:00 Test Item Value Reference Range Interpretation Comments Eosinophils (test code = 2.5 See_Comment [A utomated message] The Eosinophils) system which ge nerated this result tra nsmitted reference range : <=4.0. The reference r abigail was not used to int erpret this result as normal/abnormal . [facility] HospitalCmsmspvEOSITLALUU1686-02-99 20:53:00 Test Item Value Reference Range Interpretation Comments Monocytes (test code = Monocytes) 8.5 2.0-12.0 [facility] HospitalJitwiirJESOIHDDJD7617-80-09 20:53:00 Test Item Value Reference Range Interpretation Comments Basophils # (test code 0.1 See_Comment [Aut omated message] The = Basophils #) system which generated this result tra nsmitted reference range : <=0.2. The reference r abigail was not used to int erpret this result as normal/abnormal . [facility] HospitalIpinokpYPFNITWZTP2492-61-41 20:53:00 Test Item Value Reference Range Interpretation Comments Lymphocytes # (test code = Lymphocytes 2.1 1.0-5.5 #) [facility] HospitalJclulfgKTNJVQNEGN6517-56-71 20:53:00 Test Item Value Reference Range Interpretation Comments Eosinophils # (test code 0.3 See_Comment [A utomated message] The = Eosinophils #) system whic h generated this result tra nsmitted reference range : <=0.5. The reference r abigail was not used to int erpret this result as normal/abnormal . [facility] HospitalUfjimecDMSBVSWIPW7323-91-54 20:53:00 Test Item Value Reference Range Interpretation Comments Monocytes # (test code 0.9 See_Comment [Aut omated message] The = Monocytes #) system which generated this result tra nsmitted reference range : <=0.8. The reference r abigail was not used to int erpret this result as normal/abnormal . [facility]: [id number] 22:30:00 Test Item Value Reference Range Interpretation Comments Culture: Urine (test code = No Growth Culture: Urine) [facility] HospitalPoijmriRLZKWTUXEM6858-80-19 20:27:00 Test Item Value Reference Range Interpretation Comments Basophils # (test code 0.1 See_Comment [Aut omated message] The = Basophils #) system which generated this result tra nsmitted reference range : <=0.2. The reference r abigail was not used to int erpret this result as normal/abnormal . [facility] [id number] 20:27:00 Test Item Value Reference Range Interpretation Comments UA Urobilinogen (test code = UA <=1.0 mg/dL 0.1-1.0 Urobilinogen) [facility] AND [id number] 20:27:00 Test Item Value Reference Range Interpretation Comments UA Mucus (test code = UA Mucus) Few /LPF [facility] AND [id number] 20:27:00 Test Item Value Reference Range Interpretation Comments UA Sq Epi (test code = UA Sq Epi) None Seen [facility] AND [id number] 20:27:00 Test Item Value Reference Range Interpretation Comments UA Glucose (test code = UA Negative mg/dL Glucose) [facility] AND [id number] 20:27:00 Test Item Value Reference Range Interpretation Comments UA Protein (test code = UA Protein) 10 mg/dL [facility] AND [id number] 20:27:00 Test Item Value Reference Range Interpretation Comments UA Ketones (test code = UA Negative mg/dL Ketones) [facility] AND [id number] 20:27:00 Test Item Value Reference Range Interpretation Comments UA Color (test code = Yellow *NA*(07/19/17 UA Color) 3:27 PM) [facility] AND [id number] 20:27:00 Test Item Value Reference Range Interpretation Comments UA Turbidity (test code = Clear (07/19/17 3:27 UA Turbidity) PM) [facility] AND [id number] 20:27:00 Test Item Value Reference Range Interpretation Comments UA Spec Grav (test code = UA Spec 1.026 1 Grav) [facility] AND [id number] 20:27:00 Test Item Value Reference Range Interpretation Comments UA Leuk Est (test code Trace *ABN*(07/19/17 = UA Leuk Est) 3:27 PM) [facility] AND [id number] 20:27:00 Test Item Value Reference Range Interpretation Comments UA WBC (test code = 1 See_Comment [Automa kristy message] The UA WBC) system which ge nerated this result transmit kristy reference range : <=5. The reference range was not used to interpr et this result as maranda l/abnormal. [facility] AND [id number] 20:27:00 Test Item Value Reference Range Interpretation Comments UA RBC (test code = 1 See_Comment [Automa kristy message] The UA RBC) system which ge nerated this result transmit kristy reference range : <=2. The reference range was not used to interpr et this result as maranda l/abnormal. [facility] AND [id number] 20:27:00 Test Item Value Reference Range Interpretation Comments UA Bili (test code = Negative *NA*(07/19/17 UA Bili) 3:27 PM) [facility] AND [id number] 20:27:00 Test Item Value Reference Range Interpretation Comments UA Nitrite (test code Negative (07/19/17 3:27 = UA Nitrite) PM) [facility] AND [id number] 20:27:00 Test Item Value Reference Range Interpretation Comments UA Blood (test code = Negative (07/19/17 3:27 UA Blood) PM) [facility] AND [id number] 20:27:00 Test Item Value Reference Range Interpretation Comments UA pH (test code = UA pH) 6.0 1 5.0-8.0 [facility] [id number] 09:28:00 Test Item Value Reference Range Interpretation Comments Magnesium Lvl (test code = Magnesium 2.3 1.8-2.4 Lvl) [facility] [id number] 09:28:00 Test Item Value Reference Range Interpretation Comments Phosphorus (test code = Phosphorus) 2.8 2.5-4.5 [facility] [id number] 09:28:00 Test Item Value Reference Range Interpretation Comments Ca Ion WB (test code = Ca Ion WB) 1.09 1.05-1.25 [facility]YROID [id number] 09:28:00 Test Item Value Reference Range Interpretation Comments Ca Norm WB (test code = Ca Norm WB) 1.11 1.05-1.25 [facility] AND [id number] 23:04:00 Test Item Value Reference Range Interpretation Comments UA Urobilinogen (test code = UA <=1.0 mg/dL 0.1-1.0 Urobilinogen) [facility] AND [id number] 23:04:00 Test Item Value Reference Range Interpretation Comments UA Amorph Claudia (test code = Occasional /HPF UA Amorph Claudia) [facility] AND [id number] 23:04:00 Test Item Value Reference Range Interpretation Comments UA RBC (test code = 6 See_Comment [Automa kristy message] The UA RBC) system which ge nerated this result transmit kristy reference range : <=2. The reference range was not used to interpr et this result as maranda l/abnormal. [facility] AND [id number] 23:04:00 Test Item Value Reference Range Interpretation Comments UA Bacteria (test code = UA Occasional /HPF Bacteria) [facility] AND [id number] 23:04:00 Test Item Value Reference Range Interpretation Comments UA Sq Epi (test code = UA Sq Epi) None Seen [employer] AND [id number] 23:04:00 Test Item Value Reference Range Interpretation Comments UA Spec Grav (test code = UA Spec 1.016 1 Grav) [facility] AND [id number] 23:04:00 Test Item Value Reference Range Interpretation Comments UA Leuk Est (test code Small *ABN*(07/17/17 = UA Leuk Est) 6:04 PM) [facility] AND [id number] 23:04:00 Test Item Value Reference Range Interpretation Comments UA WBC (test code = 1 See_Comment [Automa kristy message] The UA WBC) system which ge nerated this result transmit kristy reference range : <=5. The reference range was not used to interpr et this result as maranda l/abnormal. [facility] AND [id number] 23:04:00 Test Item Value Reference Range Interpretation Comments UA pH (test code = UA pH) 7.5 1 5.0-8.0 [facility] AND [id number] 23:04:00 Test Item Value Reference Range Interpretation Comments UA Nitrite (test code Negative (07/17/17 6:04 = UA Nitrite) PM) [facility] AND [id number] 23:04:00 Test Item Value Reference Range Interpretation Comments UA Blood (test code = Trace *ABN*(07/17/17 UA Blood) 6:04 PM) [facility] AND [id number] 23:04:00 Test Item Value Reference Range Interpretation Comments UA Bili (test code = Negative *NA*(07/17/17 UA Bili) 6:04 PM) [facility] AND [id number] 23:04:00 Test Item Value Reference Range Interpretation Comments UA Color (test code = Yellow *NA*(07/17/17 UA Color) 6:04 PM) [facility] AND [id number] 23:04:00 Test Item Value Reference Range Interpretation Comments UA Turbidity (test code Marked *ABN*(07/17/17 = UA Turbidity) 6:04 PM) [facility] AND [id number] 23:04:00 Test Item Value Reference Range Interpretation Comments UA Protein (test code = UA Protein) 10 mg/dL [facility] AND [id number] 23:04:00 Test Item Value Reference Range Interpretation Comments UA Glucose (test code = UA Negative mg/dL Glucose) [facility] AND [id number] 23:04:00 Test Item Value Reference Range Interpretation Comments UA Ketones (test code = UA Negative mg/dL Ketones) [facility]2018-03-25 18:54:00 Test Item Value Reference Range Interpretation Comments Magnesium Lvl (test code = Magnesium 2.3 1.8-2.4 Lvl) [facility]2018-03-25 18:54:00 Test Item Value Reference Range Interpretation Comments Phosphorus (test code = Phosphorus) 2.6 2.5-4.5 [facility]2018-03-25 05:26:00 Test Item Value Reference Range Interpretation Comments Phosphorus (test code = Phosphorus) 1.3 2.5-4.5 [facility]2018-03-25 05:26:00 Test Item Value Reference Range Interpretation Comments Magnesium Lvl (test code = Magnesium 2.2 1.8-2.4 Lvl) [facility] [id number] 05:26:00 Test Item Value Reference Range Interpretation Comments Ca Norm WB (test code = Ca Norm WB) 1.05 1.05-1.[address] [facility]2018-03-25 05:26:00 Test Item Value Reference Range Interpretation Comments Ca Ion WB (test code = Ca Ion WB) 0.99 1.05-1.[address] [facility]2018-03-24 04:44:00 Test Item Value Reference Range Interpretation Comments Ca Ion WB (test code = Ca Ion WB) 1.02 1.05-1.[address] [facility]2018-03-24 04:44:00 Test Item Value Reference Range Interpretation Comments Ca Norm WB (test code = Ca Norm WB) 1.04 1.05-1.25 [facility] [id number] 04:44:00 Test Item Value Reference Range Interpretation Comments Hgb A1C (test code = Hgb A1C) 6.6 [facility]inteannCARDIAC [id number] 14:20:00 Test Item Value Reference Range Interpretation Comments Troponin-I (test code no gt See_Comment [Auto mated message] The = Troponin-I) system which g enerated this result transmit kristy reference range : <=0.40. The reference r abigail was not used to interpr et this result as maranda l/abnormal. [facility] PointeIntegral TechnologiesCAROpenSpanAC [id number] 14:20:00 Test Item Value Reference Range Interpretation Comments Total CK (test code = Total CK) 707 12-191 [facility] PointeannCAROpenSpanAC [id number] 14:20:00 Test Item Value Reference Range Interpretation Comments Troponin-T (test code no gt See_Comment [Auto mated message] The = Troponin-T) system which g enerated this result transmit kristy reference range : <=0.100. The reference r abigail was not used to interpr et this result as maranda l/abnormal. [facility] PointeGraduatelandAC [id number] 14:20:00 Test Item Value Reference Range Interpretation Comments CK MB (test code = CK MB) 5.6 0.5-3.6 [facility] PointeIntegral TechnologiesCAROpenSpanAC [id number] 14:20:00 Test Item Value Reference Range Interpretation Comments CK MB Index (test 0.8 1 See_Comment [Automate d message] The code = CK MB Index) system w [facility] generated this result transmit kristy reference range : <=2.5. The reference range was not used to interpr et this result as maranda l/abnormal. [facility] PointeIntegral TechnologiesBACTERIAL - [id number] 06:43:00 Test Item Value Reference Range Interpretation Comments MRSA by PCR (test Negative (07/14/17 1:43 code = MRSA by PCR) AM) [facility] PointeIntegral TechnologiesCAROpenSpanAC [id number] 06:43:00 Test Item Value Reference Range Interpretation Comments CK MB Index (test 1.1 1 See_Comment [Automate d message] The code = CK MB Index) system w [facility] generated this result transmit kristy reference range : <=2.5. The reference range was not used to interpr et this result as maranda l/abnormal. [facility] [employer]2018-03-22 06:43:00 Test Item Value Reference Range Interpretation Comments CK MB (test code = CK MB) 8.3 0.5-3.6 [facility] [employer] [id number] 06:43:00 Test Item Value Reference Range Interpretation Comments Troponin-I (test code no gt See_Comment [Auto mated message] The = Troponin-I) system which g enerated this result transmit kristy reference range : <=0.40. The reference r abigail was not used to interpr et this result as maranda l/abnormal. [facility] [employer]2018-03-22 06:43:00 Test Item Value Reference Range Interpretation Comments Troponin-T (test code no gt See_Comment [Auto mated message] The = Troponin-T) system which g enerated this result transmit kristy reference range : <=0.100. The reference r abigail was not used to interpr et this result as maranda l/abnormal. [facility] [employer]2018-03-22 06:43:00 Test Item Value Reference Range Interpretation Comments Total CK (test code = Total CK) 741 12-191 [facility] [employer] [id number] 06:43:00 Test Item Value Reference Range Interpretation Comments Albumin Lvl (test code = Albumin Lvl) 3.6 3.5-5.0 [facility] [employer] [id number] 06:43:00 Test Item Value Reference Range Interpretation Comments Total Protein (test code = Total 6.8 6.4-8.4 Protein) [facility] [employer] [id number] 06:43:00 Test Item Value Reference Range Interpretation Comments ALT (test code = ALT) 39 See_Comment [Auto mated message] The system which ge nerated this result transmit kristy reference range : <=65. The reference range was not used to interpr et this result as maranda l/abnormal. [employer]2018-03-22 06:43:00 Test Item Value Reference Range Interpretation Comments AST (test code = AST) 38 See_Comment [Auto mated message] The system which ge nerated this result transmit kristy reference range : <=37. The reference range was not used to interpr et this result as maranda l/abnormal. [facility]2018-03-22 06:43:00 Test Item Value Reference Range Interpretation Comments Alk Phos (test code = Alk Phos) 53 39-136 [facility]2018-03-22 06:43:00 Test Item Value Reference Range Interpretation Comments Bili Total (test code = Bili Total) 0.7 0.2-1.3 [facility]2018-03-22 06:43:00 Test Item Value Reference Range Interpretation Comments B/C Ratio (test code = B/C Ratio) 19 1 6-25 [facility]2018-03-22 06:43:00 Test Item Value Reference Range Interpretation Comments Globulin (test code = Globulin) 3.2 2.7-4.2 [facility]2018-03-22 06:43:00 Test Item Value Reference Range Interpretation Comments A/G Ratio (test code = A/G Ratio) 1.1 1 0.7-1.6 [facility] [id number] 06:43:00 Test Item Value Reference Range Interpretation Comments PTT (test code = PTT) 27.2 s 22.9-35.8 [facility] HospitalEnhtthaUASEAIHXHF6072-13-29 06:43:00 Test Item Value Reference Range Interpretation Comments PT (test code = PT) 15.6 s 12.0-14.7 [facility] [id number] 06:43:00 Test Item Value Reference Range Interpretation Comments INR (test code = INR) 1.23 1 0.85-1.17 [facility] [id number] 06:43:00 Test Item Value Reference Range Interpretation Comments TEG Interp (test Thrombelastograph results code = TEG show shortened value of R. Interp) This finding is suggestive of enzymatic hypercoagulation. CPT:76422 [facility] HospitalUctwrbnKEHGPSCTHU3694-34-30 06:43:00 Test Item Value Reference Range Interpretation Comments R-time (test code = R-time) 2.8 min 5.0-10.0 [facility] HospitalEgapwetKPXPKRPDDL6431-49-19 06:43:00 Test Item Value Reference Range Interpretation Comments K-time (test code = K-time) 1.2 min 1.0-3.0 [facility] HospitalMwangnzTZQISOAHAG2404-31-67 06:43:00 Test Item Value Reference Range Interpretation Comments TEG Data (test code = See Note (07/14/17 1:43 TEG Data) AM) [facility] H[id number] 06:43:00 Test Item Value Reference Range Interpretation Comments Coag Index (test code 3.2 1 See_Comment [Auto mated message] The = Coag Index) system which g enerated this result transmit kristy reference range : <=3.0. The reference range was not used to interpr et this result as maranda l/abnormal. [facility] HospitalVrppqivFHFOFFXERQ9118-04-24 06:43:00 Test Item Value Reference Range Interpretation Comments G-value (test code = G-value) 8.6 4.5-11.0 [facility] [id number] 06:43:00 Test Item Value Reference Range Interpretation Comments Max Amp (test code = Max Amp) 63.2 mm 50.0-70.0 [facility] HospitalDjevsdwFATZWSZHKS8054-25-21 06:43:00 Test Item Value Reference Range Interpretation Comments Angle (test code = Angle) 72.7 degrees 53.0-72.0 [facility] HospitalJlqqccqPJRXYYSREG9480-74-27 06:43:00 Test Item Value Reference Range Interpretation Comments Ly30 (test code = 2.6 See_Comment [Automate d message] The Ly30) system which ge nerated this result transmit kristy reference range : <=7.5. The reference range was not used to interpr et this result as maranda l/abnormal. [facility] PointeArmaGen Technologies2018-03-22 01:45:36 Test Item Value Reference Range Interpretation Comments Total CK (test code = Total CK) 685 12-191 [facility] [id number] 01:45:36 Test Item Value Reference Range Interpretation Comments Troponin-I (test code 0.02 See_Comment [Auto mated message] The = Troponin-I) system which g enerated this result transmit kristy reference range : <=0.40. The reference r abigail was not used to interpr et this result as maranda l/abnormal. [facility] PointeannCARDIAC [id number] 01:45:36 Test Item Value Reference Range Interpretation Comments CK MB Index (test 1.1 1 See_Comment [Automate d message] The code = CK MB Index) system w [facility] generated this result transmit kristy reference range : <=2.5. The reference range was not used to interpr et this result as maranda l/abnormal. [facility]inteannCARDIAC [id number] 01:45:36 Test Item Value Reference Range Interpretation Comments CK MB (test code = CK MB) 7.7 0.5-3.6 [facility] [id number] 01:45:36 Test Item Value Reference Range Interpretation Comments Myoglobin (test code = Myoglobin) 313 25-72 [facility] PointeIndex BANK [id number] 01:44:00 Test Item Value Reference Range Interpretation Comments Platelet product (test Product available code = Platelet (07/13/17 8:44 PM) product) [facility]DR[facility] [id number] 00:40:00 Test Item Value Reference Range Interpretation Comments UDS Note (test code = See Note *NA*(07/13/17 UDS Note) 7:40 PM) [facility]inteannDR[facility] [id number] 00:40:00 Test Item Value Reference Range Interpretation Comments U Opiate Scr (test Negative *NA*(07/13/17 code = U Opiate Scr) 7:40 PM) [facility]DR[facility] [id number] 00:40:00 Test Item Value Reference Range Interpretation Comments U Cannab Scr (test Negative *NA*(07/13/17 code = U Cannab Scr) 7:40 PM) [facility]inte[facility]DR[facility] [id number] 00:40:00 Test Item Value Reference Range Interpretation Comments U Phencyc Scr (test Negative *NA*(07/13/17 code = U Phencyc Scr) 7:40 PM) [facility]inteannDR[facility] [id number] 00:40:00 Test Item Value Reference Range Interpretation Comments U Amph Scr (test code Negative *NA*(07/13/17 = U Amph Scr) 7:40 PM) [facility]inteannDR[facility] [id number] 00:40:00 Test Item Value Reference Range Interpretation Comments U Cici Scr (test code Negative *NA*(07/13/17 = U Cici Scr) 7:40 PM) [facility] [id number] 00:40:00 Test Item Value Reference Range Interpretation Comments U Benzodia Scr (test Negative *NA*(07/13/17 code = U Benzodia Scr) 7:40 PM) [facility] [id number] 00:40:00 Test Item Value Reference Range Interpretation Comments U Cocaine Scr (test Negative *NA*(07/13/17 code = U Cocaine Scr) 7:40 PM) [facility] [id number] 00:40:00 Test Item Value Reference Range Interpretation Comments UA WBC (test code = UA None Seen (07/13/17 7:40 WBC) PM) [facility] [id number] 00:40:00 Test Item Value Reference Range Interpretation Comments UA Sq Epi (test code = UA Sq Epi) Rare /LPF [facility] [id number] 00:40:00 Test Item Value Reference Range Interpretation Comments UA RBC (test None Seen See_Comment [Automated mes victor hugo] code = UA RBC) (07/13/17 7:40 The system w hich PM) generated this result transmitted ref erence range: <=2. The reference range was not used to int erpret this result as normal/abnormal . [facility] [id number] 00:40:00 Test Item Value Reference Range Interpretation Comments UA Amorph Claudia (test code = Occasional /HPF UA Amorph Claudia) [facility] [id number] 00:40:00 Test Item Value Reference Range Interpretation Comments UA Leuk Est (test Negative (07/13/17 7:40 code = UA Leuk Est) PM) [facility] [id number] 00:40:00 Test Item Value Reference Range Interpretation Comments UA Urobilinogen (test code = UA 0.2 0.1-1.0 Urobilinogen) [facility] [id number] 00:40:00 Test Item Value Reference Range Interpretation Comments UA Nitrite (test code Negative (07/13/17 7:40 = UA Nitrite) PM) [facility] [id number] 00:40:00 Test Item Value Reference Range Interpretation Comments UA Bili (test code = Negative *NA*(07/13/17 UA Bili) 7:40 PM) [facility] AND [id number] 00:40:00 Test Item Value Reference Range Interpretation Comments UA Blood (test code = Negative (07/13/17 7:40 UA Blood) PM) [facility] AND [id number] 00:40:00 Test Item Value Reference Range Interpretation Comments UA Ketones (test code = UA Negative mg/dL Ketones) [facility] AND [id number] 00:40:00 Test Item Value Reference Range Interpretation Comments UA Protein (test code = UA Negative mg/dL Protein) [facility] AND [id number] 00:40:00 Test Item Value Reference Range Interpretation Comments UA Glucose (test code = UA Negative mg/dL Glucose) [facility] AND [id number] 00:40:00 Test Item Value Reference Range Interpretation Comments UA pH (test code = UA pH) 8.0 1 5.0-8.0 [facility] AND [id number] 00:40:00 Test Item Value Reference Range Interpretation Comments UA Spec Grav (test code = UA Spec 1.010 1 Grav) [facility] AND [id number] 00:40:00 Test Item Value Reference Range Interpretation Comments UA Turbidity (test code = Clear (07/13/17 7:40 UA Turbidity) PM) [facility] AND [id number] 00:40:00 Test Item Value Reference Range Interpretation Comments UA Color (test code = Yellow *NA*(07/13/17 UA Color) 7:40 PM) [facility] [id number] 23:18:35 Test Item Value Reference Range Interpretation Comments Lactic Acid Lvl (test code = Lactic 1.8 0.5-2.2 Acid Lvl) [facility]ennialJdrtzwcTAIIUEYFNV0983-63-77 23:18:35 Test Item Value Reference Range Interpretation Comments G-value Rapid (test code = G-value 7.3 5.0-11.6 Rapid) [facility] HospitalEqgckgqJETWSAIRVG0684-37-68 23:18:35 Test Item Value Reference Range Interpretation Comments R-time Rapid (test code = R-time 1.0 min 0.4-0.7 Rapid) [facility] HospitalDxricomLFCYIPKYQO6889-93-55 23:18:35 Test Item Value Reference Range Interpretation Comments Split Point Rapid (test code = Split 0.8 min Point Rapid) [facility] HospitalHozsftgDOVXSKEYOO3519-36-17 23:18:35 Test Item Value Reference Range Interpretation Comments ACT (TEG) Rapid (test code = ACT (TEG) 144 s 86-118 Rapid) [facility] HospitalPoukindODJJXKOPLV1005-58-64 23:18:35 Test Item Value Reference Range Interpretation Comments Max Amplitude Rapid (test code = Max 59 mm 52-71 Amplitude Rapid) [facility] HospitalPzgfrykAEGFJOQLYD0002-17-24 23:18:35 Test Item Value Reference Range Interpretation Comments K-time Rapid (test code = K-time 1.8 min 0.6-2.3 Rapid) [facility] HospitalTfomhdsQVBLEYJYUD0240-43-95 23:18:35 Test Item Value Reference Range Interpretation Comments Angle Rapid (test code = Angle 68 degrees 64-80 Rapid) [facility] HospitalDnxjxgdNPHAOAFOEJ3472-29-62 23:18:35 Test Item Value Reference Range Interpretation Comments Estimated % Lysis Rapid 0.0 See_Comment [Au tomated message] The (test code = Estimated syste m which generated % Lysis Rapid) this result t ransmitted reference range : <=7.5. The reference r abigail was not used to int erpret this result as normal/abnormal . [facility]ennialMgqsnfrZBABRWEPLR8467-35-31 23:18:35 Test Item Value Reference Range Interpretation Comments Ethanol Lvl (test code = Ethanol <3.0 mg/dL Lvl) [id number] 23:18:35 Test Item Value Reference Range Interpretation Comments Etoh (%) (test code = Etoh (%)) <0.003 % [facility] TexasPrevoty [id number] 23:06:00 Test Item Value Reference Range Interpretation Comments Antibody Scrn (test Negative (07/13/17 6:06 code = Antibody Scrn) PM) [facility] TexasSys[facility] [id number] 23:06:00 Test Item Value Reference Range Interpretation Comments ABO/Rh (test code = ABO/Rh) A POS [facility]
--- NOTE | 2022-03-06 10:30 | RAD REPORT ---
EXAM DESCRIPTION: RAD - Chest Single View - 03/06/2022 10:21 am CLINICAL HISTORY: hypoxia COMPARISON: Chest Single View dated 10/02/2021; Chest Single View dated 06/13/2021; Chest Single View dated 07/13/2017; CHEST SINGLE VIEW dated 06/20/2014 FINDINGS: Lines: None. Lungs: Basilar airspace disease, left greater than right. Pleural: No significant pleural effusions or pneumothorax. Cardiac: Cardiac size at upper limits of normal. Mediastinum: Within normal limits. Bones: No acute fractures. Other: None IMPRESSION: Basilar airspace disease that could reflect pneumonia.
[2022-03-06 11:11] LABS: Urine Blood Negative (Negative); Urine Glucose Negative (Negative); Urine Protein 1+ (Negative); Urine Specific Gravity >=1.030 (1.005-1.030)
[2022-03-06] MEDS ORDERED: Levofloxacin 750mg IV 750 MG/150 ML BAG IV ONE (11:34)
[2022-03-06] MEDS ORDERED: NA CHLORIDE 0.9% 500 ML ONE (11:34)
[2022-03-06 11:36] LABS: Absolute Lymphocytes (CBC) 0.9 K/uL (0.7-4.9); Hematocrit 47.2 % (39.6-49.0); Lymphocytes % 12.1 % (15.3-44.8); MCV 86.4 fL (80-100); MPV 8.3 fL (7.6-11.3); RBC Red Blood Cell Count 5.46 M/uL (4.33-5.43)
[2022-03-06 11:37] LABS: Protime INR 1.52
[2022-03-06 11:43] LABS: Urine Mucus 2+ /HPF (None Seen); Urine RBC <5 /HPF (None Seen)
[2022-03-06 11:55] LABS: Albumin 3.2 g/dL (3.4-5.0); Bilirubin Total 0.9 mg/dL (0.2-1.0); Potassium 4.6 mmol/L (3.5-5.1); Protein, Total 7.8 g/dL (6.4-8.2)
--- NOTE | 2022-03-06 12:33 | EDPHYS ---
Physician Documentation [facility] Name: Adelaida Ramirez Age: 71 yrs Sex: Male : 1950 Arrival Date: 03/06/2022 Time: 10:05 Bed 17 Private MD: ED Physician Kate Lucia HPI: 03/06 10:10 This 71 yrs old Male presents to ER via Unassigned with complaints of sd2 hypotension. 10:10 71 yo M presents via EMS from [place] with CC of hypotension and hypoxia. EMS reports NH was sd2 reporting hypotension and hypoxia. They noted an initial BP of 88/58 with improvement on a subsequent BP to 102 systolic with no treatment. Pt was also hypoxic to the 80s and placed on 10L NRB with improvement to 96%. Pt is nonverbal at baseline and otherwise at his mental baseline per EMS report and who was at bedside at time of their pickup.. Historical: - Allergies: 11:13 NKDA; bp - PMHx: 11:13 Dementia; depressive disorder; diabetes mellitus; Hypercholesterolemia; Hypertensive bp disorder; - Immunization history:: Adult Immunizations up to date. - Social history:: Smoking status: Patient denies any tobacco usage or history of. ROS: 10:10 Unable to obtain ROS due to Pt is nonverbal. sd2 Exam: 10:10 Constitutional: This is a well developed, well nourished patient who is awake, alert, sd2 and in no acute distress. Head/Face: Normocephalic, atraumatic. Eyes: EOMI, normal conjunctiva bilaterally Chest/axilla: Normal chest wall appearance and motion. Nontender with no deformity. Cardiovascular: Regular rate and rhythm with a normal S1 and S2. No gallops, murmurs, or rubs. 2+ distal pulses. Respiratory: Lungs have equal breath sounds bilaterally, clear to auscultation and percussion. No rales, rhonchi or wheezes noted. No increased work of breathing, no retractions or nasal flaring. Abdomen/GI: Soft, non-tender, with normal bowel sounds. No guarding or rebound. No evidence of tenderness throughout. Skin: Warm, dry with normal turgor. Normal color with no rashes, no lesions, and no evidence of cellulitis. MS/ Extremity: Pulses equal, no cyanosis. Neurovascular intact. Full, normal range of motion. Ambulatory without difficulty. 11:40 ECG was reviewed by the Attending Physician. NSR, rate 94, no DIMPLE criteria, wandering sd2 baseline Vital Signs: 10:09 BP 106 / 60; Pulse 91; Resp 20; Temp 99.1; Pulse Ox 95% on 3 lpm NC; bp 11:00 BP 114 / 54; Pulse 91; Resp 19; Pulse Ox 94% ; bp 11:30 BP 107 / 60; Pulse 91; Resp 16; Pulse Ox 97% ; bp 13:05 BP 106 / 62; Pulse 92; Resp 24; Pulse Ox 97% ; bp 14:14 BP 113 / 51; Pulse 93; Resp 16; Pulse Ox 100% ; bp MDM: 10:08 Patient medically screened. sd2 10:10 Differential Diagnosis PNA, UTI, aspiration, dehydration, electrolyte abnormality among sd2 others. Data reviewed: vital signs, nurses notes, EMS record. 12:30 Data reviewed: lab test result(s), EKG, radiologic studies. Counseling: I had a sd2 detailed discussion with the patient and/or guardian regarding: the historical points, exam findings, and any diagnostic results supporting the discharge/admit diagnosis, lab results, radiology results, the need for further work-up and treatment in the hospital. ED course: Labs and imaging reviewed. CXR with possible PNA. BP has remained stable. LA elevated at 3.8. Will continue with IVFs and repeat. Blood cultures drawn and IV antibiotics given. Pt requiring 4L NC.. Will be admitted for further management at this time.. 03/06 10:09 Order name: Blood Culture Adult (2) 03/06 10:09 Order name: CBC with Diff; Complete Time: 12:08 03/06 10:09 Order name: CMP; Complete Time: 12:08 03/06 10:09 Order name: Lactate; Complete Time: 12:08 03/06 10:09 Order name: Protime (+inr); Complete Time: 12:08 03/06 10:09 Order name: Ptt, Activated; Complete Time: 12:08 03/06 10:09 Order name: Urine Microscopic Only; Complete Time: 12:08 03/06 10:09 Order name: Procalcitonin; Complete Time: 12:33 sd2 03/06 10:13 Order name: glucometer results - FOR PT WITH NO ID bp 03/06 11:12 Order name: Urine Dipstick-Ancillary; Complete Time: 11:37 EDMS 03/06 12:50 Order name: CBC with Automated Diff EDMS 03/06 12:51 Order name: Comprehensive Metabolic Panel EDMS 03/06 13:16 Order name: SARS RAPID eb 03/06 14:21 Order name: SARS-COV-2 Antigen Rapid EDMS 03/06 10:09 Order name: Chest Single View XRAY; Complete Time: 10:50 sd2 03/06 10:09 Order name: Accucheck; Complete Time: 10:14 sd2 03/06 10:09 Order name: Cardiac monitoring; Complete Time: 11:04 sd2 03/06 10:09 Order name: EKG - Nurse/Tech; Complete Time: 11:04 sd2 03/06 10:09 Order name: IV Saline Lock - Large Bore; Complete Time: 11:05 sd2 03/06 10:09 Order name: Labs collected and sent; Complete Time: 11:05 sd2 03/06 10:09 Order name: O2 Per Protocol; Complete Time: 11:05 sd2 03/06 10:09 Order name: O2 Sat Monitoring; Complete Time: 11:05 sd2 03/06 10:09 Order name: Urine Dipstick-Ancillary (obtain specimen); Complete Time: 11:04 sd2 03/06 12:50 Order name: Regular EDWY 03/06 14:58 Order name: Lactate Sepsis 2 HR Follow-up EDMS 03/06 16:51 Order name: Glucose, Ancillary Testing EDWY 03/06 20:42 Order name: Blood Culture EDWY 03/06 10:09 Order name: Vital Signs; Complete Time: 11:04 sd2 Administered Medications: 10:15 Drug: NS 0.9% 500 ml Route: IV; Rate: bolus; Site: right forearm; bp 12:53 Follow up: IV Status: Completed infusion; IV Intake: 500ml bp 11:30 Drug: LevaQUIN (levofloxacin) 750 mg Route: IVPB; Site: right forearm; bp 12:53 Follow up: IV Status: Completed infusion; IV Intake: 150ml bp 12:53 Drug: NS 0.9% 1000 ml Route: IV; Rate: 1 bolus; Site: right forearm; bp Disposition: 12:33 Chart complete. sd2 Disposition Summary: 03/06/22 12:32 Hospitalization Ordered Hospitalization Status: Inpatient Admission sd2 Condition: Stable sd2 Problem: new sd2 Symptoms: have improved sd2 Bed/Room Type: Standard sd2 Provider: Nico Larry(03/06/22 14:10) sd2 Location: Telemetry/MedSurg (Inpatient)(03/06/22 20:57) cg Room Assignment: [facility](03/06/22 20:57) cg Diagnosis - Acute respiratory failure with hypoxia sd2 - Other pneumonia, unspecified organism sd2 - Sepsis, unspecified organism sd2 Forms: - Medication Reconciliation Form sd2 - SBAR form sd2 Signatures: Dispatcher [employer] EDChelo Ayala, RN RN cg Doris Guerrero RN RN jl7 Kory Enrique RN RN Kate Lugo MD MD sd2 Corrections: (The following items were deleted from the chart) 14:10 12:32 Anatoly Pacheco sd2 sd2 17:36 12:32 Telemetry/MedSurg (Inpatient) sd2 jl7 17:36 12:32 sd2 jl7 20:57 17:36 [facility] ER HOLD jl7 cg 20:57 17:36 ERHOLD- jl7 cg
--- NOTE | 2022-03-06 12:33 | ER ---
Nurse's Notes [facility] Name: Adelaida Ramirez Age: 71 yrs Sex: Male : 1950 Arrival Date: 03/06/2022 Time: 10:05 Bed 17 Private MD: Diagnosis: Acute respiratory failure with hypoxia;Other pneumonia, unspecified organism;Sepsis, unspecified organism Presentation: 03/06 10:09 Chief complaint: EMS states: SENT FROM [facility] FOR HYPOTENSION AND DESAT. Coronavirus bp screen: At this time, the client does not indicate any symptoms associated with coronavirus-19. Ebola Screen: No symptoms or risks identified at this time. Initial Sepsis Screen: Does the patient meet any 2 criteria? No. Patient's initial sepsis screen is negative. Does the patient have a suspected source of infection? No. Patient's initial sepsis screen is negative. Risk Assessment: Do you want to hurt yourself or someone else? Patient reports no desire to harm self or others. Onset of symptoms is unknown. Care prior to arrival: IV initiated. 20 GA, in the right hand. 10:09 Method Of Arrival: EMS: [facility] bp 10:09 Acuity: PATRICK 2 bp Triage Assessment: 10:11 General: Appears unkempt, Behavior is uncooperative. Pain: Unable to use pain scale. bp Does not appear to understand pain scale. EENT: No deficits noted. Neuro: Level of Consciousness is stuporous, Oriented to none. Cardiovascular: Rhythm is sinus rhythm. Respiratory: Breath sounds are coarse. GI: No signs and/or symptoms were reported involving the gastrointestinal system. : No signs and/or symptoms were reported regarding the genitourinary system. Derm: No deficits noted. Musculoskeletal: No deficits noted. Historical: - Allergies: 11:13 NKDA; bp - PMHx: 11:13 Dementia; depressive disorder; diabetes mellitus; Hypercholesterolemia; Hypertensive bp disorder; - Immunization history:: Adult Immunizations up to date. - Social history:: Smoking status: Patient denies any tobacco usage or history of. Screenin:15 Abuse screen: Denies threats or abuse. Denies injuries from another. Nutritional bp screening: No deficits noted. Tuberculosis screening: No symptoms or risk factors identified. Fall Risk None identified. Assessment: 10:15 General: SEE TRIAGE NOTE. bp 11:30 Reassessment: No changes from previously documented assessment. Patient and/or family bp updated on plan of care and expected duration. Pain level reassessed. 13:00 Reassessment: ADMIT INITIATED. bp 14:14 Reassessment: No changes from previously documented assessment. Patient and/or family bp updated on plan of care and expected duration. Pain level reassessed. 14:37 Reassessment: Received report from Kory YIN. vg1 Vital Signs: 10:09 BP 106 / 60; Pulse 91; Resp 20; Temp 99.1; Pulse Ox 95% on 3 lpm NC; bp 11:00 BP 114 / 54; Pulse 91; Resp 19; Pulse Ox 94% ; bp 11:30 BP 107 / 60; Pulse 91; Resp 16; Pulse Ox 97% ; bp 13:05 BP 106 / 62; Pulse 92; Resp 24; Pulse Ox 97% ; bp 14:14 BP 113 / 51; Pulse 93; Resp 16; Pulse Ox 100% ; bp ED Course: 10:05 Patient arrived in ED. eb 10:08 Kate Lucia MD is Attending Physician. sd2 10:08 Kory Enrique, RN is Primary Nurse. bp 10:11 Triage completed. bp 10:11 Arm band placed on. bp 10:15 Patient has correct armband on for positive identification. Bed in low position. Call bp light in reach. Side rails up X2. Adult w/ patient. 10:23 Chest Single View XRAY In Process Unspecified. EDMS 11:00 Straight cath inserted, using sterile technique, 16 Fr. Specimen obtained. Returned bp stefanie urine. Patient tolerated well. Inserted saline lock: 22 gauge in right forearm, using aseptic technique. Blood collected. 12:32 Anatoly Pacheco MD is Hospitalizing Provider. sd2 13:29 SARS RAPID Sent. ll1 14:10 Hospitalizing Provider role handed off by Anatoly Pacheco MD sd2 14:10 Nico Larry MD is Hospitalizing Provider. sd2 19:14 Primary Nurse role handed off by Kory Enrique, HUMPHREY mw2 20:16 Nita Atkinson RN is Primary Nurse. vc1 21:54 No provider procedures requiring assistance completed. Patient admitted, IV remains in vc1 place. Administered Medications: 10:15 Drug: NS 0.9% 500 ml Route: IV; Rate: bolus; Site: right forearm; bp 12:53 Follow up: IV Status: Completed infusion; IV Intake: 500ml bp 11:30 Drug: LevaQUIN (levofloxacin) 750 mg Route: IVPB; Site: right forearm; bp 12:53 Follow up: IV Status: Completed infusion; IV Intake: 150ml bp 12:53 Drug: NS 0.9% 1000 ml Route: IV; Rate: 1 bolus; Site: right forearm; bp Medication: 21:54 VIS not applicable for this client. vc1 Intake: 12:53 IV: 500ml; Total: 500ml. bp 12:53 IV: 150ml; Total: 650ml. bp Outcome: 12:32 Decision to Hospitalize by Provider. sd2 21:54 Admitted to Med/surg accompanied by tech, via stretcher, room 208, with oxygen, with vc1 chart, Report called to HUMPHREY Tello 21:54 Condition: good 21:54 Instructed on the need for admit. 21:54 Patient left the ED. vc1 Signatures: Dispatcher [employer] EDKory Haley, RN RN Kareen King 2 Eli Loja Victoria RN RN cha1 Annalee Wallace RN RN ll1 Nita Atkinson RN RN 1 Kate Lucia MD MD sd2
[2022-03-06] MEDS ORDERED: MAGNESIUM HYDROXIDE 8% 30 ML PO PRN (12:44)
[2022-03-06] MEDS ORDERED: ACETAMINOPHEN 500 MG TAB PO PRN (12:44)
[2022-03-06] MEDS ORDERED: ONDANSETRON 4 MG/2 ML VIAL IV PRN (12:44)
[2022-03-06] MEDS ORDERED: Levofloxacin 750mg IV 750 MG/150 ML BAG IV SCH ×2 (13:00→15:00)
[2022-03-06 13:15] LABS: Absolute Lymphocytes (CBC) 0.8 K/uL (0.7-4.9); Hematocrit 43.3 % (39.6-49.0); Lymphocytes % 8.6 % (15.3-44.8); MCV 85.7 fL (80-100); MPV 8.1 fL (7.6-11.3); RBC Red Blood Cell Count 5.05 M/uL (4.33-5.43)
[2022-03-06] MEDS ORDERED: ZIPRASIDONE MESYLA 20 MG/VIAL IM PRN (13:28)
[2022-03-06] MEDS ORDERED: WATER FOR INJ,STERILE 10 ML IM PRN (13:28)
--- NOTE | 2022-03-06 13:35 | P.HP ---
Certification for Inpatient Patient admitted to: Inpatient With expected LOS: >2 Midnights Patient will require the following post-hospital care: Intermediate Practitioner: I am a practitioner with admitting privileges, knowledge of patient current condition, hospital course, and medical plan of care. Services: Services provided to patient in accordance with Admission requirements found in Title 42 Section 412.3 of the Code of Federal Regulations Patient History Date of Service: 03/06/22 Primary Care Provider: Kendy Reason for admission: pneumonia History of Present Illness: Patient is a fdc patient of mine. He resides in [facility]. 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 He is mostly bed bound. Also suffers from dm2 and htn. The patient has been violent towards the staff recently. Was recently started on Risperdal. This morning he was no arousable. Was found to be hypotensive and tachycardic and was sent to the ER. The patient was found to have basilar opacities on cxr. Was also found to have an elevated creatine. His baseline is usually 0.89. P neumonia risk score is 3. Correlates with a 17% mortality. Requiring inpatient admission. He currently has stable oxygen, pulse and blood pressure. Will admit him to [facility] surgery bed. Allergies No Known Drug Allergies Allergy (Verified 08/22/14 11:14) Unknown No Known Allergies Allergy (Uncoded 07/13/17 17:53) Unknown Home Medications: Metformin HCl [Metformin ER Osmotic] 1,000 mg PO DAILY 06/20/14 Pantoprazole [Protonix Tab*] 40 mg PO DAILY 06/20/14 Amlodipine Besylate/Benazepril [Lotrel 5-20 mg Capsule] 1 cap PO DAILY 06/14/21 Donepezil [Aricept] 5 mg PO BEDTIME 06/14/21 Fish Oil/Dha/Epa [Fish Oil 1,200 mg Fish Oil] 1 cap PO BID 06/14/21 Fluoxetine HCl 30 mg PO DAILY 06/14/21 Fluvastatin Sodium [Lescol] 40 mg PO BID 06/14/21 - Past Medical/Surgical History Diabetic: Yes -: bladder surgery -: depression -: NIDDM - Family History Mother -: Diabetes Father -: Lung disease - Social History Alcohol use: No CD- Drugs: No Caffeine use: No Review of Systems is unable to be obtained Physical Examination - Physical Exam General: In no apparent distress, Demented HEENT: Atraumatic, PERRLA, Mucous membr. moist/pink, EOMI, Sclerae nonicteric Neck: Supple, 2+ carotid pulse no bruit, No LAD, Without JVD or thyroid abnormality Respiratory: Clear to auscultation bilaterally, Normal air movement Cardiovascular: Regular rate/rhythm, Normal S1 S2 Gastrointestinal: Normal bowel sounds, No tenderness Musculoskeletal: No tenderness Integumentary: No rashes Neurological: Normal gait, Normal speech, Normal strength at 5/5 x4 extr, Normal tone, Normal affect Lymphatics: No axilla or inguinal lymphadenopathy - Studies Laboratory Data (last 24 hrs) 03/06/22 11:00: PT 16.7 H, INR 1.52, APTT 32.4 03/06/22 11:00: Sodium 139, Potassium 4.6, BUN 41 H, Creatinine 2.03 H, Glucose 189 H, Total Bilirubin 0.9, AST 6 L, ALT 18, Alkaline Phosphatase 46 03/06/22 11:00: WBC 7.80, Hgb 15.7, Hct 47.2, Plt Count 146 L Assessment and Plan - Problems (Diagnosis) (1) Pneumonia Current Visit: Yes Status: Acute Plan: admit to the hospital. Will await blood cultures. Continue him on oxygen, fluids and levaquin Qualifiers: Pneumonia type: due to unspecified organism Laterality: bilateral Lung location: lower lobe of lung Qualified Code(s): J18.9 - Pneumonia, unspecified organism (2) Acute renal failure Current Visit: Yes Status: Acute Plan: Possible due to pre renal. Will hydrate with normal saline. Qualifiers: Acute renal failure type: unspecified Qualified Code(s): N17.9 - Acute kidney failure, unspecified (3) Dementia Current Visit: No Status: Chronic Plan: He has been agitated recently. Will continue his aricept. Prn Ammy for when he gets violent. The family is aware that there has been several incidents. His daughter is at the bedside. have discussed this with her. Qualifiers: Dementia type: unspecified type (4) DM2 (diabetes mellitus, type 2) Current Visit: No Status: Acute Plan: hold the metformin due to his current kidney function. Will start him on a low dose insulin sliding scale. Qualifiers: Diabetes mellitus long chain quiller tender insulin use: without long chain quiller tender use Diabetes mellitus complication status: without complication Qualified Code(s): E11.9 - Type 2 diabetes mellitus without complications (5) HTN (hypertension) Current Visit: No Status: Acute Plan: will hold his routine medications for now. Will restart as the patients bp improves Qualifiers: Hypertension type: primary hypertension Qualified Code(s): I10 - Essential (primary) hypertension Discharge Plan: Fpc Plan to discharge in: 48 Hours - Advance Directives Does patient have a Living Will: No Does patient have a Durable POA for Healthcare: No - Code Status/Comfort Care Code Status Assessed: No Code Status: Full Code Physician Review: Patient Assessed, Agree with Above Assessment and Plan Critical Care: No Time Spent Managing Pts Care (In Minutes): 45
[2022-03-06 13:37] LABS: Albumin 2.8 g/dL (3.4-5.0); Bilirubin Total 0.8 mg/dL (0.2-1.0); Potassium 4.3 mmol/L (3.5-5.1); Protein, Total 7.1 g/dL (6.4-8.2)
[2022-03-06 14:21] LABS: SARS-CoV-2 Antigen Rapid Res Negative (Negative)
[2022-03-06 14:36] VITALS: BMI 24.3
[2022-03-06] MEDS ORDERED: NA CHLORIDE 0.9% 1,000 ML ONE (15:46)
[2022-03-06] MEDS: NA CHLORIDE 0.9% 1,000 ML IV SCH ×2 (16:31→23:00)
[2022-03-06] MEDS ORDERED: HEPARIN 5000 UNIT/ML 1 ML VIAL ONE (16:42)
[2022-03-06] MEDS: HEPARIN 5000 UNIT/ML 1 ML VIAL SQ SCH (16:47)
[2022-03-06] MEDS: DONEPEZIL HCL 5 MG TAB PO SCH (20:56)
[2022-03-06] MEDS ORDERED: CYCLOBENZAPRINE 10 MG TAB ONE (22:31)
[2022-03-07] MEDS: HEPARIN 5000 UNIT/ML 1 ML VIAL SQ SCH ×3 (02:37→16:14)
[2022-03-07] MEDS: NA CHLORIDE 0.9% 1,000 ML IV SCH ×2 (05:35→15:50)
[2022-03-07] MEDS: PANTOPRAZOLE 40MG TABLET PO SCH (08:45)
--- NOTE | 2022-03-07 10:49 | P.PN ---
Subjective Date of Service: 03/07/22 Primary Care Provider: Kendy Chief Complaint: pneumonia Subjective: Improving Review of Systems is unable to be obtained Physical Examination - Vital Signs Temperature: 98.2 F Blood Pressure: 102/52 Pulse: 87 Respirations: 16 Pulse Ox (%): 93 - Physical Exam General: In no apparent distress, Other (sleeping soundly ) HEENT: Atraumatic, PERRLA, EOMI Neck: Supple, JVD not distended Respiratory: Clear to auscultation bilaterally, Normal air movement Cardiovascular: Regular rate/rhythm, Normal S1 S2 Gastrointestinal: Normal bowel sounds, No tenderness Musculoskeletal: No tenderness Integumentary: No rashes Neurological: Normal speech, Normal tone, Normal affect Lymphatics: No axilla or inguinal lymphadenopathy - Studies Laboratory Data (last 24 hrs) 03/06/22 11:00: PT 16.7 H, INR 1.52, APTT 32.4 03/06/22 11:00: Sodium 139, Potassium 4.6, BUN 41 H, Creatinine 2.03 H, Glucose 189 H, Total Bilirubin 0.9, AST 6 L, ALT 18, Alkaline Phosphatase 46 03/06/22 11:00: WBC 7.80, Hgb 15.7, Hct 47.2, Plt Count 146 L Assessment And Plan - Current Problems (Diagnosis) (1) Pneumonia Current Visit: Yes Status: Acute Plan: admit to the hospital. Will await blood cultures. Continue him on oxygen, fluids and levaquin 03/07 afebrile, wbc trending down Qualifiers: Pneumonia type: due to unspecified organism Laterality: bilateral Lung location: lower lobe of lung Qualified Code(s): J18.9 - Pneumonia, unspecified organism (2) Acute renal failure Current Visit: Yes Status: Acute Plan: Possible due to pre renal. Will hydrate with normal saline. 03/07 Slight improvement in his creatine Qualifiers: Acute renal failure type: unspecified Qualified Code(s): N17.9 - Acute kidney failure, unspecified (3) Dementia Current Visit: No Status: Chronic Plan: He has been agitated recently. Will continue his aricept. Prn Geodon for when he gets violent. The family is aware that there has been several incidents. His daughter is at the bedside. have discussed this with her. Qualifiers: Dementia type: unspecified type (4) DM2 (diabetes mellitus, type 2) Current Visit: No Status: Acute Plan: hold the metformin due to his current kidney function. Will start him on a low dose insulin sliding scale. Qualifiers: Diabetes mellitus terminal makeup operator insulin use: without long-term use Diabetes mellitus complication status: without complication Qualified Code(s): E11.9 - Type 2 diabetes mellitus without complications (5) HTN (hypertension) Current Visit: No Status: Acute Plan: will hold his routine medications for now. Will restart as the patients bp improves Qualifiers: Hypertension type: primary hypertension Qualified Code(s): I10 - Essential (primary) hypertension Discharge Plan: Home Plan to discharge in: 24 Hours - Code Status/Comfort Care Code Status Assessed: No Physician Review: Patient Assessed, Agree with Above Assessment and Plan Critical Care: No Time Spent Managing PTS Care (In Minutes): 20
[2022-03-07] MEDS: DONEPEZIL HCL 5 MG TAB PO SCH (21:00)
[2022-03-08] MEDS: NA CHLORIDE 0.9% 1,000 ML IV SCH (02:44)
[2022-03-08] MEDS: HEPARIN 5000 UNIT/ML 1 ML VIAL SQ SCH ×3 (02:44→17:16)
[2022-03-08 07:50] LABS: Absolute Lymphocytes (CBC) 1.4 K/uL (0.7-4.9); Hematocrit 34.4 % (39.6-49.0); Lymphocytes % 12.6 % (15.3-44.8); MCV 85.7 fL (80-100); MPV 8.6 fL (7.6-11.3); RBC Red Blood Cell Count 4.01 M/uL (4.33-5.43)
--- NOTE | 2022-03-08 08:17 | P.PN ---
Subjective Date of Service: 03/08/22 Primary Care Provider: Kendy Chief Complaint: pneumonia Subjective: New changes (not waking up to take his meds or eat) Review of Systems is unable to be obtained Physical Examination - Vital Signs Temperature: 99.0 F Blood Pressure: 97/47 Pulse: 55 Respirations: 20 Pulse Ox (%): 94 - Physical Exam General: Unresponsive HEENT: Atraumatic, PERRLA, EOMI Neck: Supple, JVD not distended Respiratory: Clear to auscultation bilaterally, Normal air movement Cardiovascular: Regular rate/rhythm, Normal S1 S2 Gastrointestinal: Normal bowel sounds, No tenderness Musculoskeletal: No tenderness Integumentary: No rashes Neurological: Normal speech, Normal tone, Normal affect Lymphatics: No axilla or inguinal lymphadenopathy Assessment And Plan - Current Problems (Diagnosis) (1) Dementia Current Visit: No Status: Chronic Plan: He has been agitated recently. Will continue his aricept. Prn Geodon for when he gets violent. The family is aware that there has been several incidents. His daughter is at the bedside. have discussed this with her. 03/08 Patient not eating. discussed a peg tube vs hospice with the and daughter. Will get a diet consult. Switch him to d5 1/2 n saline Qualifiers: Dementia type: unspecified type (2) Pneumonia Current Visit: Yes Status: Acute Plan: admit to the hospital. Will await blood cultures. Continue him on oxygen, fluids and levaquin 03/07 afebrile, wbc trending down Qualifiers: Pneumonia type: due to unspecified organism Laterality: bilateral Lung location: lower lobe of lung Qualified Code(s): J18.9 - Pneumonia, unspecified organism (3) Acute renal failure Current Visit: Yes Status: Acute Plan: Possible due to pre renal. Will hydrate with normal saline. 03/07 Slight improvement in his creatine Qualifiers: Acute renal failure type: unspecified Qualified Code(s): N17.9 - Acute kidney failure, unspecified (4) DM2 (diabetes mellitus, type 2) Current Visit: No Status: Acute Plan: hold the metformin due to his current kidney function. Will start him on a low dose insulin sliding scale. Qualifiers: Diabetes mellitus usp insulin use: without bed bug exterminator use Diabetes mellitus complication status: without complication Qualified Code(s): E11.9 - Type 2 diabetes mellitus without complications (5) HTN (hypertension) Current Visit: No Status: Acute Plan: will hold his routine medications for now. Will restart as the patients bp improves Qualifiers: Hypertension type: primary hypertension Qualified Code(s): I10 - Essential (primary) hypertension Discharge Plan: Long-Term Plan to discharge in: 48 Hours - Code Status/Comfort Care Code Status Assessed: No Physician Review: Patient Assessed, Agree with Above Assessment and Plan Critical Care: No Time Spent Managing PTS Care (In Minutes): 30
[2022-03-08 08:21] LABS: Albumin 2.2 g/dL (3.4-5.0); Bilirubin Total 0.6 mg/dL (0.2-1.0); Potassium 3.7 mmol/L (3.5-5.1); Protein, Total 5.9 g/dL (6.4-8.2)
[2022-03-08] MEDS ORDERED: THIAMINE 200 MG/2 ML INJ IVP ONE (09:00)
[2022-03-08] MEDS: PANTOPRAZOLE 40MG TABLET PO SCH (09:00)
[2022-03-08] MEDS: D5 0.45 NS 1,000 ML IV SCH ×2 (09:28→20:15)
[2022-03-08] MEDS ORDERED: Levofloxacin 750mg IV 750 MG/150 ML BAG IV SCH (11:00)
[2022-03-08] MEDS: Levofloxacin 750mg IV 750 MG/150 ML BAG IV SCH (11:49)
[2022-03-08] MEDS: DONEPEZIL HCL 5 MG TAB PO SCH (20:14)
[2022-03-09] MEDS: HEPARIN 5000 UNIT/ML 1 ML VIAL SQ SCH ×3 (01:40→17:23)
[2022-03-09] MEDS: D5 0.45 NS 1,000 ML IV SCH ×2 (06:20→14:49)
[2022-03-09 06:26] LABS: Absolute Lymphocytes (CBC) 1.7 K/uL (0.7-4.9); Hematocrit 34.4 % (39.6-49.0); Lymphocytes % 19.8 % (15.3-44.8); MCV 85.6 fL (80-100); MPV 7.8 fL (7.6-11.3); RBC Red Blood Cell Count 4.02 M/uL (4.33-5.43)
[2022-03-09 06:45] LABS: Albumin 2.1 g/dL (3.4-5.0); Bilirubin Total 0.4 mg/dL (0.2-1.0); Potassium 3.4 mmol/L (3.5-5.1); Protein, Total 5.8 g/dL (6.4-8.2)
--- NOTE | 2022-03-09 07:59 | P.PN ---
Subjective Date of Service: 03/09/22 Anoxic brain injury. Unable to give me history. Spoke with patient's . I do not want any aggressive interventions. They have thought about end-of-life care. But they want to try to maintain his current clinical status as long as they can. Review of Systems is unable to be obtained Physical Examination - Vital Signs Temperature: 97.1 F Blood Pressure: 116/53 Pulse: 52 Respirations: 19 Pulse Ox (%): 96 - Physical Exam General: Unresponsive HEENT: Atraumatic, PERRLA, EOMI Neck: Supple, JVD not distended Respiratory: Clear to auscultation bilaterally, Normal air movement Cardiovascular: Regular rate/rhythm, Normal S1 S2 Gastrointestinal: Normal bowel sounds, Soft and benign, Non-distended, No tenderness Musculoskeletal: No clubbing, No swelling, No tenderness Neurological: Sensation intact, Cranial nerves 3-12 intact - Studies Medications List Reviewed: Yes Assessment & Plan - Problems (Diagnosis) (1) Traumatic brain injury Current Visit: Yes Status: Acute (2) Pneumonia Current Visit: Yes Status: Acute (3) DM2 (diabetes mellitus, type 2) Current Visit: No Status: Acute Qualifiers: Diabetes mellitus snf insulin use: without termite exterminator use Diabetes mellitus complication status: without complication Qualified Code(s): E11.9 - Type 2 diabetes mellitus without complications (4) Dementia Current Visit: No Status: Chronic Qualifiers: Dementia type: unspecified type - Advance Directives Does patient have a Living Will: No Does patient have a Durable POA for Healthcare: No - Code Status/Comfort Care Code Status: Full Code Physician Review: Patient Assessed, Agree with Above Assessment and Plan
[2022-03-09 08:05] LABS: Magnesium 1.9 mg/dL (1.8-2.4)
--- NOTE | 2022-03-09 08:27 | EKG ---
Test Date: 2022-03-06 Test Time: 10:34:52 Concrete Handler: BP MEASUREMENT RESULTS: Intervals: Rate: 94 PA: 130 QRSD: 86 QT: 338 QTc: 422 [place]: P: 36 PA: 130 QRS: 12 T: 63 INTERPRETIVE STATEMENTS: Normal sinus rhythm Normal ECG Compared to ECG 06/13/2021 20:26:11 No significant changes Electronically Signed On 03-09-22 08:20:44 SANFORIZER by Lino Garcia
[2022-03-09] MEDS ORDERED: KCL 20 MEQ/100 mL IVPB 20 MEQ/100 ML BAG IV SCH ×2 (09:00→21:00)
[2022-03-09] MEDS: PANTOPRAZOLE 40MG TABLET PO SCH (09:14)
[2022-03-09] MEDS: Levofloxacin 750mg IV 750 MG/150 ML BAG IV SCH (11:22)
[2022-03-09] MEDS: GLUCERNA SHAKE 237 ML CAN PO SCH ×2 (14:49→21:00)
[2022-03-09] MEDS: DONEPEZIL HCL 5 MG TAB PO SCH (23:07)
[2022-03-10] MEDS: HEPARIN 5000 UNIT/ML 1 ML VIAL SQ SCH ×3 (00:04→18:13)
[2022-03-10] MEDS: D5 0.45 NS 1,000 ML IV SCH ×3 (00:04→23:55)
[2022-03-10 06:13] LABS: Absolute Lymphocytes (CBC) 1.4 K/uL (0.7-4.9); Hematocrit 35.3 % (39.6-49.0); MCV 84.1 fL (80-100); MPV 7.6 fL (7.6-11.3)
[2022-03-10 06:32] LABS: Albumin 2.1 g/dL (3.4-5.0); Bilirubin Total 0.4 mg/dL (0.2-1.0); Magnesium 1.8 mg/dL (1.8-2.4); Potassium 3.4 mmol/L (3.5-5.1); Protein, Total 5.5 g/dL (6.4-8.2)
--- NOTE | 2022-03-10 07:51 | RAD REPORT ---
EXAM DESCRIPTION: Daron Single View03/10/2022 7:06 am CLINICAL HISTORY: Cough COMPARISON: March 06, 2022 FINDINGS: Mild to moderate left and mild right pulmonary opacities without significant change. Heart is normal size IMPRESSION: Bilateral pulmonary opacities left greater than right probably pneumonia
[2022-03-10] MEDS ORDERED: MAGNESIUM SULFATE 1 gm IVPB 1 GM/100 ML BAG IV ONE ×2 (08:00→14:00)
[2022-03-10] MEDS: GLUCERNA SHAKE 237 ML CAN PO SCH ×3 (09:00→20:57)
[2022-03-10] MEDS: KCL 20 MEQ/100 mL IVPB 20 MEQ/100 ML BAG IV SCH ×2 (09:39→12:20)
[2022-03-10] MEDS: PANTOPRAZOLE 40MG TABLET PO SCH (09:40)
[2022-03-10] MEDS: Levofloxacin 750mg IV 750 MG/150 ML BAG IV SCH (11:06)
[2022-03-10] MEDS: DONEPEZIL HCL 5 MG TAB PO SCH (20:57)
[2022-03-11] MEDS: HEPARIN 5000 UNIT/ML 1 ML VIAL SQ SCH ×3 (02:47→17:23)
[2022-03-11 06:25] LABS: Phosphorus 3.2 mg/dL (2.5-4.9)
[2022-03-11 06:27] LABS: Potassium 3.9 mmol/L (3.5-5.1)
[2022-03-11] MEDS: GLUCERNA SHAKE 237 ML CAN PO SCH ×3 (09:00→21:00)
[2022-03-11] MEDS: PANTOPRAZOLE 40MG TABLET PO SCH (09:00)
[2022-03-11] MEDS: Levofloxacin 750mg IV 750 MG/150 ML BAG IV SCH (09:51)
[2022-03-11] MEDS: D5 0.45 NS 1,000 ML IV SCH ×3 (10:39→22:13)
--- NOTE | 2022-03-11 13:59 | P.PN ---
Date of Service: 03/10/22 Subjective A long discussion with family. They want to consider a PEG tube. They are also contemplating hospice care. Patient's was at bedside and daughter was on the phone. At this time will make decision in a.m. Review of Systems is unable to be obtained Physical Examination - Vital Signs Reviewed - Physical Exam General: Unresponsive Respiratory: Clear to auscultation bilaterally, Normal air movement Cardiovascular: Regular rate/rhythm, Normal S1 S2 Gastrointestinal: Normal bowel sounds, Soft and benign, Non-distended, No tenderness Musculoskeletal: No clubbing, No swelling, No tenderness Neurological: Sensation intact, Cranial nerves 3-12 intact Assessment & Plan - Problems (Diagnosis) (1) Traumatic brain injury Current Visit: Yes Status: Acute (2) Pneumonia Current Visit: Yes Status: Acute (3) DM2 (diabetes mellitus, type 2) Current Visit: No Status: Acute Qualifiers: Diabetes mellitus prison insulin use: without prison use Diabetes mellitus complication status: without complication Qualified Code(s): E11.9 - Type 2 diabetes mellitus without complications (4) Dementia Current Visit: No Status: Chronic Qualifiers: Dementia type: unspecified type Plan: 1. Continue with IV antibiotics 2. Gentle hydration 3. Comfort foods as tolerated 4. Decision on PEG tube or hospice 5. Strict blood sugar and blood pressure control 6. Supportive care 7. GI DVT prophylaxis
--- NOTE | 2022-03-11 14:00 | P.PN ---
Date of Service: 03/11/22 Subjective Family has decided against a PEG tube. They will proceed with comfort foods at the senior care. They want to go ahead and proceed with hospice care. We will change to oral antibiotics once discharged Review of Systems is unable to be obtained Physical Examination - Vital Signs Reviewed - Physical Exam General: Unresponsive Respiratory: Clear to auscultation bilaterally, Normal air movement Cardiovascular: Regular rate/rhythm, Normal S1 S2 Gastrointestinal: Normal bowel sounds, Soft and benign, Non-distended, No tenderness Musculoskeletal: No clubbing, No swelling, No tenderness Neurological: Sensation intact, Cranial nerves 3-12 intact Assessment & Plan - Problems (Diagnosis) (1) Traumatic brain injury Current Visit: Yes Status: Acute (2) Pneumonia Current Visit: Yes Status: Acute (3) DM2 (diabetes mellitus, type 2) Current Visit: No Status: Acute Qualifiers: 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 Continue with IV antibiotics 2. Like IV 3. Comfort foods as tolerated 4. Arrange for hospice care 5. Strict blood sugar and blood pressure control 6. Supportive care 7. GI DVT prophylaxis
[2022-03-11] MEDS: DONEPEZIL HCL 5 MG TAB PO SCH (22:14)
[2022-03-12] MEDS: HEPARIN 5000 UNIT/ML 1 ML VIAL SQ SCH ×3 (01:00→16:44)
[2022-03-12] MEDS: PANTOPRAZOLE 40MG TABLET PO SCH (09:00)
[2022-03-12] MEDS: GLUCERNA SHAKE 237 ML CAN PO SCH ×4 (09:00→20:33)
[2022-03-12] MEDS: D5 0.45 NS 1,000 ML IV SCH ×4 (09:18→23:00)
[2022-03-12] MEDS: Levofloxacin 750mg IV 750 MG/150 ML BAG IV SCH (09:20)
--- NOTE | 2022-03-12 17:59 | P.PN ---
Subjective Date of Service: 03/12/22 Primary Care Provider: Kendy Chief Complaint: pneumonia No acute events overnight per RN. He is unable to provide any history. Family is deciding on which hospice company to proceed with. Appreciate case management assistance. Review of Systems is unable to be obtained Physical Examination - Vital Signs Temperature: 97.8 F Blood Pressure: 136/57 Pulse: 56 Respirations: 17 Pulse Ox (%): 92 - Physical Exam General: In no apparent distress HEENT: Atraumatic, Sclerae nonicteric Neck: Supple Respiratory: Clear to auscultation bilaterally Cardiovascular: No edema, Regular rate/rhythm, Normal S1 S2, No gallops, No rubs, No murmurs Gastrointestinal: Hypoactive, Soft and benign, Non-distended, No tenderness, No rebound, No guarding Musculoskeletal: No clubbing Integumentary: No rashes Neurological: Dementia - Studies Medications List Reviewed: Yes Assessment And Plan - Plan # Community Acquired Pneumonia # Traumatic Brain Injury # Dementia # Type II Diabetes Mellitus # Hypertension # Depressive Disorder Per Dr. Gibbs's discussion with family, they have elected to proceed with hospice. Spoke with Annie REYNOSO, who is working on arranging hospice services. Okay to be discharged from Hospital Medicine standpoint once hospice is arranged. - Continue levofloxacin, donepezil Don Flores M.D.
--- NOTE | 2022-03-12 19:39 | CON ---
Date of Consultation: 03/10/2022 Reason For Consultation: Possible percutaneous endoscopic gastrostomy tube placement. Brief History Of Present Illness: The patient is a patient with a history of dementia and hemiplegia , secondary to trauma. He is bed-bound. He also has hypertension and diabetes. He was [facility] when he was found to be hypotensive and tachycardic. He was evaluated in the emergency r oom. He was nonverbal during my examination, and I encountered family members who answered questions for him. Past Medical History: Significant for hypertension, diabetes, hemiplegia, dementia, depression. Past Surgical History: Includes bladder surgery. Allergies: NO KNOWN DRUG ALLERGIES. Home Medications: Include metformin, Protonix, Lotrel, Aricept, fish oil, Loxitane, Lescol. Social History: Negative for alcohol or recreational drug use. Review of Systems: Unable to be obtained. Physical Examination: At the time of my examination: General: He is awake and alert, but nonverbal, not conversive. HEENT: Otherwise normocephalic. Sclerae anicteric. Mucous membranes moist. Oropharynx clear. Neck: Supple without JVD. Chest: Normal expansion excursion. Cardiovascular: Regular rate and rhythm. Abdominal exam: Soft, nontender, nondistended. Extremities: No clubbing, cyanosis, or edema. Skin: Warm and dry. Laboratory Data: He had a laboratory exam which revealed a white blood cell count 8.3, hemoglobin 11 .5, hematocrit 34.4, platelet count was 126. Coags showed a PT of 16.7, INR of 1.52, PTT 32.4. Chem istry showed a sodium of 138, potassium 3.4, chloride 107, carbon dioxide 25, BUN 11, creatinine 0.5, glucose was 149. COVID was negative. Assessment And Plan: This is a 71-year-old male who comes in with multiple issues as described above , decreased p.o. intake, possible malnutrition. I have explained the risks, benefits, alternatives to the patient's family and the patient with the p atient present in the room to percutaneous endoscopic gastrostomy tube, including but not limited to bleeding, infection, damage to surrounding tissues, injury to intestines, perforation of intestines, need for further operation procedures. The patient's family has decided not to proceed with percutan eous endoscopic gastrostomy tube placement at this time, and therefore I will remain available and wi ll sign off at this time. Please call me back for any future needs. JONI/DELIA Voice ID: [id number] Report ID: [id number]
[2022-03-12] MEDS: DONEPEZIL HCL 5 MG TAB PO SCH ×2 (20:32→20:34)
[2022-03-13] MEDS: HEPARIN 5000 UNIT/ML 1 ML VIAL SQ SCH ×3 (01:27→16:16)
[2022-03-13 06:31] LABS: Potassium 3.7 mmol/L (3.5-5.1)
[2022-03-13] MEDS: D5 0.45 NS 1,000 ML IV SCH ×3 (06:53→17:46)
[2022-03-13] MEDS ORDERED: KCL 20 MEQ/100 mL IVPB 20 MEQ/100 ML BAG IV SCH (07:00)
[2022-03-13] MEDS: GLUCERNA SHAKE 237 ML CAN PO SCH ×3 (08:12→21:00)
[2022-03-13] MEDS: PANTOPRAZOLE 40MG TABLET PO SCH (08:12)
[2022-03-13 08:31] VITALS: O2SAT 96
[2022-03-13] MEDS: Levofloxacin 750mg IV 750 MG/150 ML BAG IV SCH (09:42)
--- NOTE | 2022-03-13 17:00 | P.PN ---
Subjective Date of Service: 03/13/22 Primary Care Provider: Kendy Chief Complaint: pneumonia No acute events overnight. He is unable to provide any history. Spoke with his and son, who are deciding on hospice. They are favoring [facility] hospice at this time. Appreciate case management assistance. Review of Systems is unable to be obtained Physical Examination - Vital Signs Temperature: 97.2 F Blood Pressure: 121/64 Pulse: 58 Respirations: 16 Pulse Ox (%): 95 - Studies Medications List Reviewed: Yes Assessment And Plan - Plan - Physical Exam General: In no apparent distress HEENT: Atraumatic, Sclerae nonicteric Neck: Supple Respiratory: Clear to auscultation bilaterally Cardiovascular: No edema, Regular rate/rhythm, Normal S1 S2, No gallops, No rubs, No murmurs Gastrointestinal: Hypoactive, Soft and benign, Non-distended, No tenderness, No rebound, No guarding Musculoskeletal: No clubbing Integumentary: No rashes Neurological: Dementia # Community Acquired Pneumonia # Traumatic Brain Injury # Dementia # Type II Diabetes Mellitus # Hypertension # Depressive Disorder Per discussion with family, they have elected to proceed with hospice. Spoke with Fabricio REYNOSO, who is working on arranging hospice services. Okay to be discharged from Hospital Medicine standpoint once hospice is arranged. - Continue levofloxacin, donepezil Don Flores M.D.
[2022-03-13] MEDS: DONEPEZIL HCL 5 MG TAB PO SCH (21:00)
[2022-03-14] MEDS: HEPARIN 5000 UNIT/ML 1 ML VIAL SQ SCH ×2 (00:57→08:09)
[2022-03-14] MEDS: D5 0.45 NS 1,000 ML IV SCH (05:38)
[2022-03-14] MEDS: GLUCERNA SHAKE 237 ML CAN PO SCH ×2 (08:09→14:00)
[2022-03-14] MEDS: PANTOPRAZOLE 40MG TABLET PO SCH (08:09)
--- NOTE | 2022-03-14 08:09 | P.DS ---
Admission Date: 03/06/22 Discharge Date: 03/14/22 Primary Care Provider: Kendy Disposition: HOSPICE-HOME Discharge Condition: FAIR Reason for Admission: pneumonia Consultations: 1. General Surgery Hospital Course: DIAGNOSES: # Community Acquired Pneumonia # KDIGO Stage II Acute Kidney Injury - Pre-Renal # Infected Wound on Buttock - ESBL Proteus Mirabilis (POA) # Traumatic Brain Injury # Dementia # Type II Diabetes Mellitus # Hypertension # Depressive Disorder HOSPITAL COURSE: Mr. Adelaida Ramirez is a 71 year old male with a past medical history significant for traumatic brain injury, advanced dementia, type II diabetes mellitus, hypertension, and depressive disorder who was admitted to the [facility] on 03/06/2022 for community-acquired pneumonia. He was admitted to the Medicine service. He was found to have community-acquired pneumonia and an acute kidney injury. He was started on IV antibiotics. Over the course of his hospitalization, he appeared to be declining from a nutrition standpoint. [id number] discussions were had between Dr. Gibbs and the family members regarding the possibility of a PEG tube. Ultimately, the family decided that this was not consistent with his wishes. They have elected to proceed with hospice/comfort care as they believe that this is what he would wish for. With the assistance of case management, hospice services was arranged. On 03/14/2022, he was seen on morning rounds. His family members were given the opportunity to ask questions and reported no further questions. Furthermore, all questions were answered to the best of my ability. A copy of this discharge summary will be sent to the above providers to facilitate continuity of care. Today, I personally spent 20 minutes on his case, of which greater than 50% of the time was spent in patient education, counseling, and coordination of care as described above. - Physical Exam General: In no apparent distress HEENT: Atraumatic, Sclerae nonicteric Neck: Supple Respiratory: Clear to auscultation bilaterally Cardiovascular: No edema, Regular rate/rhythm, Normal S1 S2, No gallops, No rubs, No murmurs Gastrointestinal: Hypoactive, Soft and benign, Non-distended, No tenderness, No rebound, No guarding Musculoskeletal: No clubbing Integumentary: No rashes Neurological: Dementia Vital Signs/Physical Exam: Temp Pulse Resp BP Pulse Ox 97.7 F 57 16 117/57 L 95 03/14/22 04:00 03/14/22 04:00 03/14/22 04:00 03/14/22 04:00 03/14/22 04:00 Laboratory Data at Discharge: WBC 7.10 K/uL (4.3-10.9) 03/10/22 05:50 Hgb 12.0 g/dL (13.6-17.9) L 03/10/22 05:50 Hct 35.3 % (39.6-49.0) L 03/10/22 05:50 Plt Count 136 K/uL (152-406) L 03/10/22 05:50 PT 16.7 SECONDS (9.5-12.5) H 03/06/22 11:00 INR 1.52 03/06/22 11:00 APTT 32.4 SECONDS (24.3-36.9) 03/06/22 11:00 Sodium 139 mmol/L (136-145) 03/13/22 06:06 Potassium 3.7 mmol/L (3.5-5.1) 03/13/22 06:06 BUN 7 mg/dL (7-18) 03/13/22 06:06 Creatinine 0.70 mg/dL (0.55-1.3) 03/13/22 06:06 Glucose 122 mg/dL (74-106) H 03/13/22 06:06 Phosphorus 3.2 mg/dL (2.5-4.9) 03/11/22 05:42 Magnesium 2.0 mg/dL (1.8-2.4) 03/11/22 05:42 Total Bilirubin 0.4 mg/dL (0.2-1.0) 03/10/22 05:50 AST 23 U/L (15-37) 03/10/22 05:50 ALT 27 U/L (12-78) 03/10/22 05:50 Alkaline Phosphatase 37 U/L (45-117) L 03/10/22 05:50 Home Medications: Metformin HCl [Metformin ER Osmotic] 1,000 mg PO BID 06/20/14 Pantoprazole [Protonix Tab*] 40 mg PO DAILY 06/20/14 Donepezil [Aricept*] 10 mg PO BEDTIME 06/14/21 Fish Oil/Dha/Epa [Fish Oil 1,200 mg Fish Oil] 1 cap PO BID 06/14/21 Amlodipine [Norvasc*] 5 mg PO DAILY 03/06/22 Ascorbic Acid [Vitamin C] 500 mg PO BID 03/06/22 Atorvastatin Calcium [Lipitor*] 10 mg PO BEDTIME 03/06/22 Cholecalciferol (Vitamin D3) [Vitamin D3] 1,000 unit PO DAILY 03/06/22 Cyanocobalamin [Vitamin B-12*] 1,000 mcg PO DAILY 03/06/22 Divalproex Sodium [Depakote Sprinkle] 125 cap PO BEDTIME 03/06/22 Lactulose 30 ml PO DAILY 03/06/22 Lisinopril [Zestril] 20 mg PO DAILY 03/06/22 Quetiapine Fumarate [Seroquel] 25 mg PO DAILY 03/06/22 Quetiapine Fumarate [Seroquel] 50 mg PO BEDTIME 03/06/22 Risperidone [Risperdal] 2 mg PO Q8H PRN 03/06/22 Zinc Sulfate [Zinc Sulfate*] 220 mg PO DAILY 03/06/22 Glucerna Shake [Glucerna*] 237 ml PO TID #60 can 03/11/22 levoFLOXacin [Levaquin] 750 mg PO DAILY 10 Days #10 tab 03/14/22 New Medications: Glucerna Shake [Glucerna*] 237 ml PO TID #60 can levoFLOXacin [Levaquin] 750 mg PO DAILY 10 Days #10 tab Physician Discharge Instructions: Okay to discharge to hospice care once accepted Diet: Comfort fo Activity: Fall precautions Followup: Nico Larry MD [ACTIVE - CAN ADMIT] - Time spent managing pt's care (in minutes): 20
[2022-03-14] MEDS: Levofloxacin 750mg IV 750 MG/150 ML BAG IV SCH (09:08)
[2022-03-14 12:07] VITALS: BP 141/65; TEMP 97.8
== END 2022-03-14 16:01 | disposition hospice, inpatient (51) | DRG 871 ==
LOC: ER 10:03 → ERHOLD 12:44 → 2ND 21:11
PROVIDERS: ADMIT Hospitalist; ATTEND Internal Medicine
DX: A41.9 Sepsis, unspecified organism (principal); J18.9 Pneumonia, unspecified organism; J96.01 Acute respiratory failure with hypoxia; E46 Unspecified protein-calorie malnutrition; N17.9 Acute kidney failure, unspecified; Z16.12 Extended spectrum beta lactamase (ESBL) resistance; E11.9 Type 2 diabetes mellitus without complications; I10 Essential (primary) hypertension; F32.A Depression, unspecified; L89.312 Pressure ulcer of right buttock, stage 2; F03.90 Unspecified dementia, unspecified severity, without behavioral disturbance, psychotic disturbance, mood disturbance, and anxiety; B96.4 Proteus (mirabilis) (morganii) as the cause of diseases classified elsewhere; Z51.5 Encounter for palliative care; Z79.84 Long term (current) use of oral hypoglycemic drugs; Z68.23 Body mass index [BMI] 23.0-23.9, adult; Z74.01 Bed confinement status; Z79.899 Other long term (current) drug therapy; Z20.822 Contact with and (suspected) exposure to COVID-19
CPT/HCPCS: 36415; 51702; 71045; 80048; 80053; 81003; 81015; 82947; 83605; 83735; 84100; 84132; 84145; 85025; 85610; 85730; 87040; 87070; 87077; 87186; 87205; 87811; 93005; 96361; 96365; 99285; J1644; J3411; J3475; J3480; J7030; J7040; J7799